=== PATIENT | female | born 1985 | race Caucasian/White ===

== ENCOUNTER 2017-04-24 06:08 | Outpatient (CLI) | payer MEDICAID | END 2017-04-24 06:09 | disposition short-term general hospital (02) | LOC: EMS 06:08 | PROVIDERS: ATTEND Surgery | DX: M25.562 Pain in left knee (principal); R06.02 Shortness of breath | CPT/HCPCS: A0170; A0425; A0427 ==

== ENCOUNTER → 2017-05-06 | Outpatient (CLI) | payer MEDICAID ==
[2017-05-06 15:42] LABS: BASOPHILS # (AUTO) 0.1 10^3/uL (0.0-0.1); BASOPHILS % (AUTO) 1.2 %; EOSINOPHILS # (AUTO) 0.2 10^3/uL (0.0-0.7); EOSINOPHILS % (AUTO) 1.2 %; HCT - HEMATOCRIT 34.3 % (37.0-47.0); HGB - HEMOGLOBIN 11.2 g/dL (12.0-16.0); LYMPHOCYTES # (AUTO) 1.8 10^3/uL (1.5-3.5); LYMPHOCYTES % (AUTO) 13.5 %; MEAN CORPUSCULAR HGB CONC 32.6 g/dL (32.0-36.0); MEAN CORPUSCULAR VOLUME 98.2 fL (81.0-99.0); MEAN PLATELET VOLUME 8.1 fL (7.9-10.8); MONOCYTES # (AUTO) 0.8 10^3/uL (0.0-1.0); MONOCYTES % (AUTO) 5.8 %; NEUTROPHILS # (AUTO) 10.2 10^3/uL (1.5-6.6); NEUTROPHILS % (AUTO) 78.3 %; NUCLEATED RED BLOOD CELLS AUTO 0.3 /100WBC; RED BLOOD COUNT 3.49 10^6/uL (4.20-5.40); RED CELL DISTRIBUTION WIDTH 13.7 % (12.0-15.0)
[2017-05-06 15:51] LABS: BUN - BLOOD UREA NITROGEN 24 mg/dL (6-20); CARBON DIOXIDE - CO2 30 mmol/L (21-32); CHLORIDE 94 mmol/L (101-111); CREATININE 0.5 mg/dL (0.4-1.0); GFR - MDRD 144 (>89); GLUCOSE 481 mg/dL (70-100); POTASSIUM 4.7 mmol/L (3.5-5.0); SODIUM 134 mmol/L (135-145)
== END ==
LOC: LAB.R 08:00
PROVIDERS: ATTEND Internal Medicine Infectious Disease
DX: A49.02 Methicillin resistant Staphylococcus aureus infection, unspecified site (principal)
CPT/HCPCS: 80048; 85025

== ENCOUNTER 2017-05-13 08:00 | Outpatient (CLI) | payer MEDICAID ==
[2017-05-13 20:34] LABS: BASOPHILS % (AUTO) 0.4 %; EOSINOPHILS # (AUTO) 0.3 10^3/uL (0.0-0.7); EOSINOPHILS % (AUTO) 5.4 %; HCT - HEMATOCRIT 39.4 % (37.0-47.0); LYMPHOCYTES # (AUTO) 0.6 10^3/uL (1.5-3.5); LYMPHOCYTES % (AUTO) 12.8 %; MEAN CORPUSCULAR HEMOGLOBIN 33.9 pg (27.0-31.0); MEAN CORPUSCULAR VOLUME 102.7 fL (81.0-99.0); MEAN PLATELET VOLUME 8.9 fL (7.9-10.8); MONOCYTES # (AUTO) 0.6 10^3/uL (0.0-1.0); MONOCYTES % (AUTO) 12.8 %; NEUTROPHILS # (AUTO) 3.4 10^3/uL (1.5-6.6); NEUTROPHILS % (AUTO) 68.6 %; NUCLEATED RED BLOOD CELLS AUTO 0.1 /100WBC; RED BLOOD COUNT 3.83 10^6/uL (4.20-5.40); UNCORRECTED WHITE BLOOD COUNT 4.9 x10^3/uL; WHITE BLOOD COUNT 4.9 x10^3/uL (4.8-10.8)
[2017-05-13 21:04] LABS: BUN - BLOOD UREA NITROGEN 19 mg/dL (6-20); CALCIUM 9.1 mg/dL (8.5-10.3); CARBON DIOXIDE - CO2 31 mmol/L (21-32); CHLORIDE 87 mmol/L (101-111); CREATININE 0.5 mg/dL (0.4-1.0); GFR - MDRD 144 (>89); GLUCOSE 746 mg/dL (70-100); POTASSIUM 4.6 mmol/L (3.5-5.0); SODIUM 129 mmol/L (135-145)
== END 2017-05-13 08:01 | disposition home or self-care (01) ==
LOC: LAB.R 08:00
PROVIDERS: ATTEND Internal Medicine
DX: A49.02 Methicillin resistant Staphylococcus aureus infection, unspecified site (principal)
CPT/HCPCS: 80048; 85025

== ENCOUNTER 2017-05-15 06:00 | Outpatient (CLI) | payer MEDICAID ==
[2017-05-15 15:57] LABS: BASOPHILS % (AUTO) 0.2 %; EOSINOPHILS # (AUTO) 0.6 10^3/uL (0.0-0.7); HCT - HEMATOCRIT 39.3 % (37.0-47.0); HGB - HEMOGLOBIN 13.2 g/dL (12.0-16.0); LYMPHOCYTES # (AUTO) 0.8 10^3/uL (1.5-3.5); LYMPHOCYTES % (AUTO) 17.4 %; MEAN CORPUSCULAR HEMOGLOBIN 32.6 pg (27.0-31.0); MEAN CORPUSCULAR HGB CONC 33.7 g/dL (32.0-36.0); MEAN CORPUSCULAR VOLUME 96.7 fL (81.0-99.0); MEAN PLATELET VOLUME 8.8 fL (7.9-10.8); MONOCYTES # (AUTO) 0.7 10^3/uL (0.0-1.0); MONOCYTES % (AUTO) 15.4 %; NEUTROPHILS # (AUTO) 2.6 10^3/uL (1.5-6.6); NUCLEATED RED BLOOD CELLS AUTO 0.1 /100WBC; RED BLOOD COUNT 4.06 10^6/uL (4.20-5.40); RED CELL DISTRIBUTION WIDTH 14.6 % (12.0-15.0); UNCORRECTED WHITE BLOOD COUNT 4.8 x10^3/uL; WHITE BLOOD COUNT 4.8 x10^3/uL (4.8-10.8)
[2017-05-15 16:41] LABS: BUN - BLOOD UREA NITROGEN 19 mg/dL (6-20); CALCIUM 8.9 mg/dL (8.5-10.3); CARBON DIOXIDE - CO2 28 mmol/L (21-32); CHLORIDE 94 mmol/L (101-111); CREATININE 0.5 mg/dL (0.4-1.0); GFR - MDRD 144 (>89); GLUCOSE 324 mg/dL (70-100); POTASSIUM 3.6 mmol/L (3.5-5.0); SODIUM 132 mmol/L (135-145)
== END 2017-05-15 06:01 | disposition home or self-care (01) ==
LOC: LAB.R 06:00
PROVIDERS: ATTEND Internal Medicine
DX: A49.02 Methicillin resistant Staphylococcus aureus infection, unspecified site (principal)
CPT/HCPCS: 80048; 85025

== ENCOUNTER 2017-05-16 08:31 | Outpatient (CLI) | payer MEDICAID ==
[2017-05-16] MEDS ORDERED: GADOBUTROL 7.5 MMOL/7.5 ML VIAL IVP ONE (09:54)
--- NOTE | 2017-05-16 14:18 | MRI Report ---
EXAM: LEFT FEMUR/THIGH MRI WITHOUT AND WITH CONTRAST EXAM DATE: 05/16/2017 10:19 AM. CLINICAL HISTORY: Myositis and abscesses at the left thigh. Distal posterior left thigh pain and swel ling. Follow-up. COMPARISON: Left thigh MRI from 04/28/2017. TECHNIQUE: Multiplanar, multisequence T1-weighted and fluid-sensitive sequences of the thigh before a nd after administration of intravenous contrast. IV contrast: 5.5 cc Gadavist. Other: None. FINDINGS: There is an irregularly-shaped, encapsulated, fluid intense collection mostly between the posterior a spect of the distal femoral diaphysis, anterior to the semimembranosus and semitendinosus muscles, an d medial to the biceps femoris muscles concerning for an abscess. The overall size of the abscess is approximately 8 cm proximal to distal by 6.6 cm AP by 4.6 cm medial to lateral. There is a thick rim of enhancing tissue at the margins of the presumed abscess. There is abnormal edema signal and enhancement within the vastus intermedius, adductor dorothy, biceps femoris, sartorius muscles. The degree and extent of the muscle edema and enhancement appears to hav e decreased since the previous study. However, the abscess appears more discrete and liquefied in com parison to the previous study. The medial margin of the abscess abuts the distal femoral artery and v ein. The femoral artery and popliteal artery appear patent. There is questionable slow flow or partia lly occlusive thrombus within the distal femoral vein and possibly the popliteal vein. There is no de finite evidence of osteomyelitis. The visualized tendons are intact. Other: The visualized sciatic and femoral nerves are unremarkable. There is diffuse subcutaneous elan a at the mid and distal thigh. There is focal subcutaneous enhancement at the posterior aspect of the distal thigh suggestive of cellulitis. No definite soft tissue gas is seen. IMPRESSION: 1. An approximately 8 x 6.6 x 4.6 cm abscess between the posterior aspect of the distal femoral diaph ysis, anterior to the semimembranosus and semi-tendinosis muscles, and medial to the biceps femoris m uscles. The abscess appears more discrete and liquefied in comparison to the previous study. The absc ess also appears to be slightly larger in comparison to the previous study. 2. Myositis within the vastus intermedius, abductor dorothy, biceps femoris, and sartorius muscles. Th e degree and extent of myositis appears to have decreased since the previous study. 3. The medial margin of the abscess abuts the distal femoral artery and vein. There is questionable s low flow or partially occlusive thrombus within the distal femoral vein and possibly the popliteal ve in. Recommend further evaluation with Doppler ultrasound. 4. No definite evidence of osteomyelitis. 5. Cellulitis at the posterior aspect of the distal thigh. [facility] MUSCULOSKELETAL RADIOLOGY SECTION The above critical findings were discussed with Bartolo You by Dr. Jeremie Fonseca at 14:14 hrs on 05/16/17 . Referring Provider Line: [phone] SITE ID: [id number]
== END 2017-05-16 08:32 | disposition home or self-care (01) ==
LOC: DI 08:31
PROVIDERS: ATTEND Internal Medicine
DX: L02.416 Cutaneous abscess of left lower limb (principal); M60.9 Myositis, unspecified; L03.116 Cellulitis of left lower limb
CPT/HCPCS: 73720; A9585

== ENCOUNTER → 2017-05-27 | Outpatient (CLI) | payer MEDICAID ==
[2017-05-27 21:22] LABS: BASOPHILS # (AUTO) 0.1 10^3/uL (0.0-0.1); BASOPHILS % (AUTO) 0.6 %; EOSINOPHILS # (AUTO) 2.8 10^3/uL (0.0-0.7); EOSINOPHILS % (AUTO) 23.7 %; HCT - HEMATOCRIT 40.5 % (37.0-47.0); HGB - HEMOGLOBIN 13.3 g/dL (12.0-16.0); LYMPHOCYTES % (AUTO) 25.7 %; MEAN CORPUSCULAR HEMOGLOBIN 32.4 pg (27.0-31.0); MEAN CORPUSCULAR HGB CONC 32.9 g/dL (32.0-36.0); MEAN CORPUSCULAR VOLUME 98.4 fL (81.0-99.0); MEAN PLATELET VOLUME 9.7 fL (7.9-10.8); MONOCYTES # (AUTO) 0.9 10^3/uL (0.0-1.0); MONOCYTES % (AUTO) 8.1 %; NEUTROPHILS # (AUTO) 4.9 10^3/uL (1.5-6.6); NEUTROPHILS % (AUTO) 41.9 %; RED BLOOD COUNT 4.12 10^6/uL (4.20-5.40); RED CELL DISTRIBUTION WIDTH 14.5 % (12.0-15.0); UNCORRECTED WHITE BLOOD COUNT 11.7 x10^3/uL; WHITE BLOOD COUNT 11.7 x10^3/uL (4.8-10.8)
[2017-05-27 21:35] LABS: BUN - BLOOD UREA NITROGEN 16 mg/dL (6-20); CALCIUM 9.5 mg/dL (8.5-10.3); CARBON DIOXIDE - CO2 31 mmol/L (21-32); CHLORIDE 101 mmol/L (101-111); CREATININE 0.5 mg/dL (0.4-1.0); GFR - MDRD 144 (>89); GLUCOSE 191 mg/dL (70-100); SODIUM 137 mmol/L (135-145)
[2017-05-27 21:55] LABS: PLATELET ESTIMATE, MANUAL NORMAL (130-450,000) (NORMAL); PLATELET MORPHOLOGY NORMAL APPEARANCE (NORMAL)
== END ==
LOC: LAB.R 08:00
PROVIDERS: ATTEND Internal Medicine
DX: A49.02 Methicillin resistant Staphylococcus aureus infection, unspecified site (principal)
CPT/HCPCS: 80048; 85025; 85651; 86140

== ENCOUNTER → 2017-05-27 | Outpatient (CLI) | payer MEDICAID | LOC: LAB 13:45 | PROVIDERS: ATTEND Internal Medicine | DX: Z53.9 Procedure and treatment not carried out, unspecified reason (principal) ==

== ENCOUNTER 2017-11-03 07:50 | Outpatient (CLI) | payer MEDICAID | END 2017-11-03 07:51 | disposition short-term general hospital (02) | LOC: EMS 07:50 | PROVIDERS: ATTEND Surgery | DX: R46.4 Slowness and poor responsiveness (principal); R73.09 Other abnormal glucose | CPT/HCPCS: A0425; A0427 ==

== ENCOUNTER 2018-05-30 13:25 | Outpatient (CLI) | payer MEDICAID | END 2018-05-30 13:26 | disposition short-term general hospital (02) | LOC: EMS 13:25 | PROVIDERS: ATTEND Surgery | DX: R53.83 Other fatigue (principal) | CPT/HCPCS: A0425; A0427; A0999 ==

== ENCOUNTER 2018-08-21 08:32 | Outpatient (CLI) | payer MEDICAID | END 2018-08-21 08:33 | disposition short-term general hospital (02) | LOC: EMS 08:32 | PROVIDERS: ATTEND Surgery | DX: R41.82 Altered mental status, unspecified (principal); R73.09 Other abnormal glucose; S61.203A Unspecified open wound of left middle finger without damage to nail, initial encounter; X58.XXXA Exposure to other specified factors, initial encounter | CPT/HCPCS: A0425; A0427; A0999 ==

== ENCOUNTER 2018-08-27 16:30 | Outpatient (CLI) | payer MEDICAID | END 2018-08-27 16:31 | disposition short-term general hospital (02) | LOC: EMS 16:30 | PROVIDERS: ATTEND Surgery | DX: R46.4 Slowness and poor responsiveness (principal); R73.09 Other abnormal glucose | CPT/HCPCS: A0425; A0427; A0999 ==

== ENCOUNTER 2018-10-14 23:30 | Outpatient (CLI) | payer MEDICAID | END 2018-10-14 23:31 | disposition critical access hospital (66) | LOC: EMS 23:30 | PROVIDERS: ATTEND Surgery | DX: R40.4 Transient alteration of awareness (principal) | CPT/HCPCS: A0425; A0427; A0999 ==

== ENCOUNTER 2018-10-14 23:52 | Inpatient (IN) | payer MEDICAID ==
[2018-10-14] MEDS ORDERED: SODIUM CHLORIDE 0.9% 500 ML IV ONE (23:57)
[2018-10-14] MEDS ORDERED: SODIUM CHLORIDE 0.9% 1,000 ML IV ONE ×2 (23:57→23:58)
[2018-10-15 00:08] LABS: VBG BASE EXCESS -35.8 mmol/L (-2 - +2); VBG PCO2 15.7 mmHg (41-51); VBG PH 6.648 (7.31-7.41); VBG PO2 102.5 mmHg (25-47); VBG TOTAL CO2 2.2 mmol/L (24-29)
[2018-10-15] MEDS ORDERED: SODIUM BICARBONATE 100 MEQ in DEXTROSE 5% 1,000 ML IV STA (00:10)
[2018-10-15 00:14] LABS: EOSINOPHILS % (AUTO) 0.5 %; HGB - HEMOGLOBIN 15.2 g/dL (12.0-16.0); LYMPHOCYTES % (AUTO) 11.3 %; MEAN CORPUSCULAR HGB CONC 30.1 g/dL (32.0-36.0); MEAN PLATELET VOLUME 9.7 fL (7.9-10.8); MONOCYTES % (AUTO) 5.7 %; NEUTROPHILS % (AUTO) 81.5 %; PLT - PLATELET COUNT 301 10^3/uL (130-450); RED BLOOD COUNT 4.46 10^6/uL (4.20-5.40); RED CELL DISTRIBUTION WIDTH 15.2 % (12.0-15.0); WHITE BLOOD COUNT 20.6 x10^3/uL (4.8-10.8)
[2018-10-15 00:24] LABS: BILIRUBIN,URINE NEGATIVE (NEGATIVE); GLUCOSE, URINE (UA) >=1000 mg/dL (NEGATIVE); KETONES,URINE (UA) >=80 mg/dL (NEGATIVE); LEUKOCYTE ESTERASE, URINE NEGATIVE (NEGATIVE); NITRITE,URINE NEGATIVE (NEGATIVE); OCCULT BLOOD,URINE MODERATE (NEGATIVE); PROTEIN,URINE NEGATIVE (NEGATIVE); UROBILINOGEN,URINE 0.2 (NORMAL) E.U./dL (NORMAL)
[2018-10-15] MEDS ORDERED: DEXTROSE 5% 1,000 ML IV ONE (00:26)
[2018-10-15] MEDS ORDERED: SODIUM BICARBONATE ABBOJECT 50 MEQ/50 ML SYRINGE ONE ×2 (00:28→03:29)
[2018-10-15 00:31] LABS: ACETAMINOPHEN < 10 ug/mL (10-30); ALBUMIN 3.1 g/dL (3.2-5.5); ALBUMIN/GLOBULIN RATIO 1.1 (1.0-2.2); ALKALINE PHOSPHATASE 131 IU/L (42-121); ALT ALANINE AMINOTRANSFERASE 20 IU/L (10-60); AST ASPARTATE AMINOTRANSFERASE 17 IU/L (10-42); BILIRUBIN,TOTAL 2.1 mg/dL (0.2-1.0); BUN - BLOOD UREA NITROGEN 51 mg/dL (6-20); CALCIUM 9.1 mg/dL (8.5-10.3); CARBON DIOXIDE - CO2 < 6 mmol/L (21-32); CHLORIDE 97 mmol/L (101-111); CREATININE 1.6 mg/dL (0.4-1.0); GFR - MDRD 37 (>89); GLUCOSE 849 mg/dL (70-100); LIPASE 284 U/L (22-51); SALICYLATE < 6.0 mg/dL; SODIUM 132 mmol/L (135-145); TOTAL PROTEIN 5.8 g/dL (6.7-8.2)
[2018-10-15 00:33] LABS: CLARITY,URINE CLEAR (CLEAR); HCG UR QUAL NEGATIVE; RBC,URINE 0-5 /HPF (0-5); SQUAMOUS EPITHELIAL CELL,UR NONE SEEN (<= Few)
[2018-10-15 00:34] LABS: BACTERIA,URINE None Seen /HPF (None Seen)
[2018-10-15 00:37] LABS: AMPHETAMINE SCREEN,URINE POSITIVE (NEGATIVE); BENZODIAZEPINES SCREEN, URINE NEGATIVE (NEGATIVE); COCAINE SCREEN URINE NEGATIVE (NEGATIVE); METHADONE SCREEN, URINE NEGATIVE (NEGATIVE); METHAMPHETAMINES SCREEN, URINE POSITIVE (NEGATIVE); MUDS CUTOFF CONCENTRATIONS CUTOFF CONC BELOW:; OPIATE SCREEN, URINE NEGATIVE (NEGATIVE); OXYCODONE SCREEN, URINE NEGATIVE (NEGATIVE); PROPOXYPHENE SCREEN, URINE NEGATIVE (NEGATIVE); TRICYCLIC ANTIDEPRESSANT,URINE NEGATIVE (NEGATIVE)
--- NOTE | 2018-10-15 00:40 | XRAY Report ---
Reason: DKA Procedure Date: 10/15/2018 Accession Number: [id number] / [id number] Procedure: XR - Chest 1 View X-Ray CPT Code: 23915 FULL RESULT: EXAM: CHEST RADIOGRAPHY EXAM DATE: 10/15/2018 12:29 AM. CLINICAL HISTORY: DKA. COMPARISON: None. TECHNIQUE: 1 view. FINDINGS: Lungs/Pleura: Right midlung infiltrate. No effusion or pneumothorax. Mediastinum: Within exam limitations, the cardiomediastinal contour is normal. Other: None. IMPRESSION: Right midlung infiltrate. [facility]
[2018-10-15] MEDS ORDERED: INSULIN REGULAR HUMAN 100 UNIT in SODIUM CHLORIDE 0.9% 100ML 99 ML SUBQ STA (00:41)
[2018-10-15] MEDS ORDERED: cefTRIAXone 1 GM in SODIUM CHLORIDE 0.9% MINIBAG 100 ML IV STA (00:41)
[2018-10-15] MEDS ORDERED: AZITHROMYCIN INJ 500 MG in SODIUM CHLORIDE 0.9% 250 ML IV STA (00:41)
[2018-10-15 00:44] LABS: ABNORMAL LYMPHS % (MANUAL) 3 %; BAND NEUTROPHILS % (MANUAL) 13 %; BASOPHILS # (MANUAL) 0.4 10^3/uL (0-0.1); BASOPHILS % (MANUAL) 2 %; EOSINOPHILS # (MANUAL) 0.6 10^3/uL (0-0.7); LYMPHOCYTES # (MANUAL) 3.5 10^3/uL (1.5-3.5); LYMPHOCYTES % (MANUAL) 14 %; MONOCYTES # (MANUAL) 1.4 10^3/uL (0.0-1.0); NEUTROPHILS # (MANUAL) 14.6 10^3/uL (1.5-6.6); NEUTROPHILS % (MANUAL) 58 %
[2018-10-15 00:46] LABS: PLATELET ESTIMATE, MANUAL NORMAL (130-450,000) (NORMAL)
[2018-10-15] MEDS ORDERED: POTASSIUM CHLOR 10 MEQ/100 ML 10 MEQ/100 ML BAG IV STA ×2 (00:58)
[2018-10-15] MEDS ORDERED: SODIUM CHLORIDE 0.9% 1,000 ML IV SCH ×3 (01:00→01:21)
[2018-10-15] MEDS ORDERED: SODIUM BICARBONATE 100 MEQ in DEXTROSE 5% 1,000 ML IV SCH (01:00)
[2018-10-15] MEDS ORDERED: INSULIN REGULAR HUMAN 100 UNIT in SODIUM CHLORIDE 0.9% 100ML 99 ML IV SCH (01:00)
[2018-10-15] MEDS ORDERED: DEXTROSE 5%-0.45% NACL 1,000 ML IV SCH (01:00)
[2018-10-15] MEDS ORDERED: POTASSIUM CHLOR 10 MEQ/100 ML 10 MEQ/100 ML BAG IV SCH ×2 (01:00→19:00)
[2018-10-15] MEDS ORDERED: AZITHROMYCIN INJ 500 MG in SODIUM CHLORIDE 0.9% 250 ML IV SCH (02:00)
[2018-10-15] MEDS ORDERED: [UNRECOGNIZED DRUG - OTHER] IV SCH (02:00)
[2018-10-15] MEDS ORDERED: POTASSIUM CHLORIDE IV SCH (02:00)
[2018-10-15] MEDS ORDERED: SODIUM BICARBONATE IV SCH (02:00)
[2018-10-15] MEDS: SODIUM CHLORIDE 0.9% 1,000 ML IV SCH ×2 (02:10→03:12)
--- NOTE | 2018-10-15 02:16 | CT Report ---
Reason: Elevated Lipase Procedure Date: 10/15/2018 Accession Number: [id number] / [id number] Procedure: CT - Abdomen/Pelvis W/O CPT Code: FULL RESULT: EXAM: CT ABDOMEN AND PELVIS EXAM DATE: 10/15/2018 01:58 AM. CLINICAL HISTORY: Elevated Lipase. COMPARISONS: None. TECHNIQUE: Routine helical CT imaging was performed through the abdomen and pelvis. IV contrast: None. Enteric contrast: No. Reconstructions: Coronal and sagittal. In accordance with CT protocol optimization, one or more of the following dose reduction techniques were utilized for this exam: automated exposure control, adjustment of mA and/or KV based on patient size, or use of iterative reconstructive technique. FINDINGS: Lung Bases: Right greater than left infiltrates. Liver: Normal. No masses. Gallbladder/Bile Ducts: Unremarkable. Spleen: Normal. Pancreas: Limited visualization without contrast. Likely peripancreatic edema. Adrenal Glands: Normal. Kidneys: The right kidney contains 1 mm nonobstructing calculi. The left kidney appears unremarkable. Peritoneal Cavity/Bowel: Normal. No free fluid, free air or adenopathy. No masses or acute inflammatory process. The appendix is well visualized and normal. Pelvic Organs: Aguero catheter in the urinary bladder. No free fluid. Vasculature: No aneurysms or other significant abnormality. Bones: No significant abnormality. Other: None. IMPRESSION: Right greater than left pulmonary infiltrates. Suboptimal visualization of the pancreas, but likely peripancreatic edema. Tiny nonobstructing right renal calculi. [facility]
--- NOTE | 2018-10-15 02:18 | ED Physician Documentation ---
PD HPI ALTERED MENTAL STATUS - Stated complaint Stated Complaint: HIGH BLOOD SUGAR, DKA - Chief complaint Chief Complaint: General - History obtained from History obtained from: Friend - History of Present Illness Timing - onset: How many days ago (3) Timing - duration: Days (3) Timing - details: Gradual onset Quality / character: Less responsive, Agitated Associated symptoms: Dyspnea Contributing factors: Diabetic Basline status: Alert and oriented X 3 - Additional information Additional information: 33-year-old type I diabetic with poor medication compliance presents with altered mental status and Kussmaul breathing. Review of Systems Unable to obtain: AMS PD PAST MEDICAL HISTORY - Past Medical History Endocrine/Autoimmune: Type 1 diabetes - Past Surgical History Other past surgical history: Reviewed and not pertinent - Allergies Allergies/Adverse Reactions: Allergies Allergy/AdvReac Type Severity Reaction Status Date / Time Unable to Assess Allergy Verified 10/15/18 00:17 - Living Situation Living Situation: reports: With spouse/s.o. Living Arrangement: reports: At home - Social History Does the pt smoke?: Yes Does the pt drink ETOH?: Yes Does the pt have substance abuse?: Yes Substance Use and Type: Meth - Family History Family history: reports: Other (Reviewed and not pertinent) PD ED PE NORMAL - Vitals Vital signs reviewed: Yes - General General: No acute distress, Other (Altered) - HEENT HEENT: PERRL - Neck Neck: Supple, no meningeal sign - Cardiac Cardiac: RRR, No murmur - Respiratory Respiratory: Clear bilaterally, Other (Tachypnic) - Abdomen Abdomen: Normal bowel sounds, Soft, Non tender, Non distended - Derm Derm: Warm and dry, Other (Mottled) - Extremities Extremities: No deformity - Neuro Neuro: Other (Altered) Results - Vitals Vitals: Vital Signs - 24 hr 10/14/18 10/15/18 23:55 00:29 Temperature 35.0 C L Heart Rate 82 72 Respiratory 30 H 28 H Rate Blood Pressure 90/60 92/57 L O2 Saturation 95 96 Oxygen O2 Source Room air - Labs Labs: Laboratory Tests 10/14/18 10/14/18 10/14/18 23:58 23:58 23:58 WBC 20.6 H RBC 4.46 Hgb 15.2 Hct 50.4 H MCV 113.0 H MCH 34.0 H MCHC 30.1 L RDW 15.2 H Plt Count 301 MPV 9.7 Neut # (Auto) Not Reportable Lymph # (Auto) Not Reportable Miller # (Auto) Not Reportable Eos # (Auto) Not Reportable Baso # (Auto) Not Reportable Absolute Nucleated RBC Not Reportable Total Counted 100 Band Neuts % (Manual) 13 H Abnorm Lymph % (Manual) 3 Nucleated RBC % Not Reportable Neutrophils # (Manual) 14.6 H Lymphocytes # (Manual) 3.5 Monocytes # (Manual) 1.4 H Eosinophils # (Manual) 0.6 Basophils # (Manual) 0.4 H WBC Morphology 3+ SMUDGE CELLS Platelet Estimate NORMAL (130-450,000) RBC Morph Micro Appear 3+ MACROCYTOSIS VBG pH 6.648 L VBG pCO2 15.7 L VBG pO2 102.5 H VBG HCO3 1.7 L VBG Total CO2 2.2 L VBG O2 Saturation 95.7 H VBG Base Excess -35.8 L Sodium 132 L Potassium 4.9 Chloride 97 L Carbon Dioxide < 6 L* Anion Gap 29.0 H BUN 51 H Creatinine 1.6 H Estimated GFR (MDRD) 37 L Glucose 849 H* Lactic Acid Calcium 9.1 Total Bilirubin 2.1 H AST 17 ALT 20 Alkaline Phosphatase 131 H Total Protein 5.8 L Albumin 3.1 L Globulin 2.7 Albumin/Globulin Ratio 1.1 Lipase 284 H Urine Color Urine Clarity Urine pH Ur Specific [place] Urine Protein Urine Glucose (UA) Urine Ketones Urine Occult Blood Urine Nitrite Urine Bilirubin Urine Urobilinogen Ur Leukocyte Esterase Urine RBC Urine WBC Ur Squamous Epith Cells Urine Bacteria Ur Microscopic Review Urine Culture Comments Urine HCG, Qual Salicylates < 6.0 Urine Opiates Screen Ur Oxycodone Screen Urine Methadone Screen Ur Propoxyphene Screen Acetaminophen < 10 L Ur Barbiturates Screen Ur Tricyclics Screen Ur Phencyclidine Scrn Ur Amphetamine Screen U Methamphetamines Scrn U Benzodiazepines Scrn Urine Cocaine Screen U Cannabinoids Screen Ethyl Alcohol < 5.0 10/14/18 10/15/18 10/15/18 23:59 00:05 00:05 WBC RBC Hgb Hct MCV MCH MCHC RDW Plt Count MPV Neut # (Auto) Lymph # (Auto) Miller # (Auto) Eos # (Auto) Baso # (Auto) Absolute Nucleated RBC Total Counted Band Neuts % (Manual) Abnorm Lymph % (Manual) Nucleated RBC % Neutrophils # (Manual) Lymphocytes # (Manual) Monocytes # (Manual) Eosinophils # (Manual) Basophils # (Manual) WBC Morphology Platelet Estimate RBC Morph Micro Appear VBG pH VBG pCO2 VBG pO2 VBG HCO3 VBG Total CO2 VBG O2 Saturation VBG Base Excess Sodium Potassium Chloride Carbon Dioxide Anion Gap BUN Creatinine Estimated GFR (MDRD) Glucose Lactic Acid 2.6 H Calcium Total Bilirubin AST ALT Alkaline Phosphatase Total Protein Albumin Globulin Albumin/Globulin Ratio Lipase Urine Color YELLOW Urine Clarity CLEAR Urine pH 5.0 Ur Specific [place] 1.020 Urine Protein NEGATIVE Urine Glucose (UA) >=1000 H Urine Ketones >=80 H Urine Occult Blood MODERATE H Urine Nitrite NEGATIVE Urine Bilirubin NEGATIVE Urine Urobilinogen 0.2 (NORMAL) Ur Leukocyte Esterase NEGATIVE Urine RBC 0-5 Urine WBC 0-3 Ur Squamous Epith Cells NONE SEEN Urine Bacteria None Seen Ur Microscopic Review INDICATED Urine Culture Comments NOT INDICATED Urine HCG, Qual NEGATIVE Salicylates Urine Opiates Screen NEGATIVE Ur Oxycodone Screen NEGATIVE Urine Methadone Screen NEGATIVE Ur Propoxyphene Screen NEGATIVE Acetaminophen Ur Barbiturates Screen NEGATIVE Ur Tricyclics Screen NEGATIVE Ur Phencyclidine Scrn NEGATIVE Ur Amphetamine Screen POSITIVE H U Methamphetamines Scrn POSITIVE H U Benzodiazepines Scrn NEGATIVE Urine Cocaine Screen NEGATIVE U Cannabinoids Screen NEGATIVE Ethyl Alcohol Procedures - Central Line Central Line Preparation: Unable to obtain consent, Time out completed, Ultrasound used, Sterile prep and drape Central line location: Right IJ Central line type: Triple lumen Central line aftercare: Chlorhexidine disc placed, Secured, Placement confirmed, No pneumothorax, No complications, Bundle checklist complete, Pt tolerated well PD MEDICAL DECISION MAKING - ED course Complexity details: reviewed old records, reviewed results, re-evaluated patient, considered differential, d/w public relations consultant ED course: 33-year-old female presents with altered mental status and tachypnea. Labs consistent with diabetic ketoacidosis, septic shock, acute pancreatitis, acute kidney injury.Is notable for elevated white count, anion gap, severe acidosis, elevated lipase, elevated creatinine,Lactic acid.Patient given IV fluids, insulin, bicarb drip, central line placed, admitted to ICU.Patient treated with broad-spectrum antibiotics. - Critical Care Time(min): 60 Time Includes: Direct patient care, Review records, Reassess patient, Document care, Coordinate care, Medical consult, Family consult for tx dec, See progress note Data interpretation: Labs, Pulse ox, See progress note Procedures included in critical care time: See progress note Procedures excluded from critical care time: Central IV, See progress note Departure - Departure Disposition: 66 [facility] DC/Xfb[facility]on Discharge Date/Time: 10/15/18 01:40
--- NOTE | 2018-10-15 02:20 | CT Report ---
Reason: ALOC Procedure Date: 10/15/2018 Accession Number: [id number] / [id number] Procedure: CT - Head W/O CPT Code: FULL RESULT: EXAM: CT HEAD EXAM DATE: 10/15/2018 02:01 AM. CLINICAL HISTORY: Decreased level of consciousness COMPARISON: None. TECHNIQUE: Multiaxial CT images were obtained from the foramen magnum to the vertex. Reformats: Sagittal and coronal. IV contrast: None. In accordance with CT protocol optimization, one or more of the following dose reduction techniques were utilized for this exam: automated exposure control, adjustment of mA and/or KV based on patient size, or use of iterative reconstructive technique. FINDINGS: Parenchyma: No intraparenchymal hemorrhage. No evidence of mass, midline shift, or CT findings of infarction. Nichols-white differentiation is distinct. Extraaxial Spaces: Normal for age. No subdural or epidural collections identified. Ventricles: Normal in size and position. Sinuses and Orbits: Imaged paranasal sinuses, orbits, and mastoids show no significant abnormality. Bones: No evidence of fracture or calvarial defect. Other: None. IMPRESSION: Normal head CT. [facility]
[2018-10-15 02:56] LABS: BUN - BLOOD UREA NITROGEN 48 mg/dL (6-20); CALCIUM 7.9 mg/dL (8.5-10.3); CHLORIDE 104 mmol/L (101-111); CK- CREATINE KINASE 72 IU/L (22-269); CREATININE 1.5 mg/dL (0.4-1.0); GFR - MDRD 40 (>89); GLUCOSE 817 mg/dL (70-100); SODIUM 134 mmol/L (135-145)
[2018-10-15 02:57] LABS: CARBON DIOXIDE - CO2 < 6 mmol/L (21-32)
[2018-10-15] MEDS ORDERED: VANCOMYCIN PER PHARMACY 0.1 GM in SODIUM CHLORIDE 0.9% 250 ML IV SCH (03:00)
--- NOTE | 2018-10-15 03:14 | XRAY Report ---
Reason: line placement Procedure Date: 10/15/2018 Accession Number: [id number] / [id number] Procedure: XR - Chest 1 View X-Ray CPT Code: 61739 FULL RESULT: EXAM: CHEST RADIOGRAPHY EXAM DATE: 10/15/2018 03:02 AM. CLINICAL HISTORY: Line placement. COMPARISON: CHEST 1 VIEW 10/15/2018 12:15 AM ABDOMEN/PELVIS W/O 10/15/2018 1:44 AM. TECHNIQUE: 1 view. FINDINGS: Lungs/Pleura: Stable right perihilar opacity and minimal left lung opacities. No pleural effusion. No pneumothorax. Mediastinum: Within exam limitations, the cardiomediastinal contour is normal. Other: Right central catheter tip in the middle third SVC. IMPRESSION: 1. Right central catheter tip in the middle third SVC. 2. Stable bilateral airspace opacities, worse in the right perihilar region. [facility]
[2018-10-15] MEDS ORDERED: SODIUM CHLORIDE 0.45% 1,000 ML IV ONE (03:20)
[2018-10-15 03:23] LABS: ABG HCO3 2.2 mmol/L (22.0-26.0); ABG PO2 77 mmHg (80-100)
[2018-10-15 03:24] LABS: ABG OXYGEN SATURATION 94 % (94-98); ALLEN TEST POSITIVE
[2018-10-15] MEDS ORDERED: VANCOMYCIN PER PHARMACY 0.1 GM in SODIUM CHLORIDE 0.9% 250 ML IV PRN (03:24)
[2018-10-15 03:25] LABS: ABG PCO2 15 mmHg (34-45); ABG PH 6.78 (7.35-7.45)
[2018-10-15 03:26] LABS: ABG TCO2 2.7 MMOL/L (21.0-29.0)
[2018-10-15] MEDS ORDERED: SODIUM BICARBONATE 8.4% 50 MEQ/50 ML VIAL ONE (03:28)
[2018-10-15] MEDS ORDERED: POTASSIUM CHLOR 10 MEQ/100 ML 20 MEQ/200 ML BAG IV ONE (03:34)
[2018-10-15] MEDS ORDERED: POTASSIUM CHLOR 10 MEQ/100 ML 10 MEQ/100 ML BAG IV ONE ×9 (03:45→22:38)
[2018-10-15] MEDS: SODIUM BICARBONATE 150 MEQ in SODIUM CHLORIDE 0.45% 1,000 ML IV SCH ×2 (03:58→09:54)
[2018-10-15] MEDS: SODIUM CHLORIDE FLUSH 0.9% 10 ML SYRINGE IVP SCH ×4 (04:00→19:36)
[2018-10-15] MEDS ORDERED: VANCOMYCIN INJ 0.75 GM in SODIUM CHLORIDE 0.9% 250 ML IV SCH (04:00)
[2018-10-15] MEDS: PIPERACILLIN/TAZOBACTAM 3.375 GM in SODIUM CHLORIDE 0.9% MINIBAG 100 ML IV SCH ×4 (04:02→21:06)
--- NOTE | 2018-10-15 04:37 | HISTORY & PHYSICAL EXAMINATION ---
Chief Complaint - Chief Complaint Chief Complaint: unresponsive with kussmaul respirations History of Present Illness - History of Present Illness HPI Comment/Other: Patient is a 33 y/o female who was brought to the ED via EMS in kussmaul respirations and unresponsive. The history is significantly limited because the patient is unable to provide and there is no family, friend or significant other nearby to provide. It is reported that EMS was called by her significant other. Multiple attempts to reach him have been unsuccessful. Patient is a non-compliant/adherent type I diabetic. She also uses methamphetamines and test positive on a drug screen today. At beside she is unresponsive to verbal stimulikussmaul respirations are appreciable.. Her eyes are crusted over. There is minimal reaction to light on the right. The left eye appears cloudy and raises concern for cataract. Patient's bilateral cheeks appear blushed/flushed Her lungs sound coarse. Her hands are erythematous. This is worse on the left fingers. She also has multiple wounds over her lower extremities. The one on the distal half of the left lower extremity has some purulent drainage. History - Past Medical History Endocrine/Autoimmune: reports: Type 1 diabetes - Past Surgical History Other past surgical history: Reviewed and not pertinent - Family & Social History Living arrangement: At home Living Situation: With spouse/s.o. - Substance History Abuse: Recurrent use of substance despite neg consequences: Amphetamine - POLST Patient has POLST: No POLST Status: Full Code Meds/Allgy - Allergies Allergies/Adverse Reactions: Allergies Allergy/AdvReac Type Severity Reaction Status Date / Time Unable to Assess Allergy Verified 10/15/18 00:17 Review of Systems - Other Findings Other Findings: ROS is limited because the patient is currently altered/ unresponsive and unable to provide Prior Level of Functionality: It would appear prior to presentation she was independent of activity of daily living. However she is currently unresponsive Exam - Vital Signs Reviewed Vital Signs: Yes Vital Signs: Vital Signs x48h Temp Pulse Resp BP Pulse Ox 10/15/18 00:29 72 28 H 92/57 L 96 10/14/18 23:55 35.0 C L 82 30 H 90/60 95 - Physical Exam General Appearance: positive: Other (Unresponsive, not aware of her surrounding) Eyes Bilateral: positive: Other (right pupil has sluggish response to light left cornea has a cloudy appearance. Iris is not easily visible. Reaction of pupil to light is difficult to determine Eyelids are crusted over bilaterally) ENT: positive: Dry mucous membranes Respiratory: positive: Other (Coarse breath sounds Kussmaul respirations) Cardiovascular: positive: Regular rate & rhythm, No murmur. negative: JVD present Abdomen: positive: Nml bowel sounds, No distention. negative: Guarding, Rebound Extremities: positive: Other (Erythema in hands bilaterally. L>R Multiple wounds in lower extremities. 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 Non-compliance to medication b. Drug use (methamphetamine confounding non-compliance) c. Sepsis pH 6.6, HCO3 6 Patient admitted to the ICU DKA protocol initiated Currently on insulin and bicarbonate drip On the 5th liter of normal saline bolus. Will then switch to a rate of 250ml/hr Qualifiers: Diabetes mellitus type: type 1 Diabetes mellitus complication detail: with coma Qualified Code(s): E10.11 - Type 1 diabetes mellitus with ketoacidosis with coma (2) Septic shock Conclusion/Plan: Etiology is likely multifactorial Suspect pneumonia community vs aspiration And cellulitis. Bilateral hands, worse on left hand. Wound on left distal tibial with purulent discharge as well as a wound on the right distal half of lower extremity Patient was intially given Rocephin and Azithromycin Antibiotics switched to Vancomycin and Zosyn for broader coverage Blood cultures drawn. Will monitor lactic acid Patient being hydrated with normal saline on 5L Patient on levophed. If no improvement, will consider 2D echo (in light of drug use) (3) Acute kidney injury Conclusion/Plan: Likely 2/2 DKA and sepsis. Expect improvement with treatment of the above mentioned. Monitoring. Will r/o Rhadomyolysis by checking CK (4) Diabetic retinopathy associated with type 1 diabetes mellitus Conclusion/Plan: May be addressed outpatient Qualifiers: Diabetic retinopathy severity: with unspecified retinopathy severity Diabetes mellitus macular edema: macular edema presence unspecified Laterality: left Qualified Code(s): E10.319 - Type 1 diabetes mellitus with unspecified diabetic retinopathy without macular edema (5) Acute pancreatitis Conclusion/Plan: Lipase 284. CT shows peripancreatic edema Hydrating patient. Trend lipase X 2 Qualifiers: Pancreatitis type: unspecified pancreatitis type Acute pancreatitis complication: unspecified Qualified Code(s): K85.90 - Acute pancreatitis without necrosis or infection, unspecified - Lab Results Fish Bones: 10/14/18 23:58 10/15/18 04:00 Core Measures - Anticipated LOS I expect patient to be DC'd or transferred within 96 hours.: No - DVT/VTE - Prophylaxis VTE/DVT Device ordered at admit?: Yes VTE/DVT Prophylaxis med ordered at admit?: Yes
[2018-10-15 04:39] LABS: BILIRUBIN,URINE NEGATIVE (NEGATIVE); GLUCOSE, URINE (UA) >=1000 mg/dL (NEGATIVE); KETONES,URINE (UA) 40 mg/dL (NEGATIVE); LEUKOCYTE ESTERASE, URINE NEGATIVE (NEGATIVE); NITRITE,URINE NEGATIVE (NEGATIVE); OCCULT BLOOD,URINE MODERATE (NEGATIVE); PROTEIN,URINE 30 mg/dL (NEGATIVE); UROBILINOGEN,URINE 0.2 (NORMAL) E.U./dL (NORMAL)
[2018-10-15 04:42] LABS: CLARITY,URINE CLEAR (CLEAR)
[2018-10-15 04:59] LABS: BACTERIA,URINE Rare /HPF (None Seen); MUCUS,URINE Moderate Strands; RBC,URINE 0-5 /HPF (0-5); SQUAMOUS EPITHELIAL CELL,UR MOD Squamous (<= Few)
[2018-10-15 05:01] LABS: CASTS, URINE >50 Granular Casts /LPF
[2018-10-15 05:32] LABS: BASOPHILS # (AUTO) 0.2 10^3/uL (0.0-0.1); BASOPHILS % (AUTO) 0.9 %; EOSINOPHILS % (AUTO) 0.1 %; HGB - HEMOGLOBIN 14.9 g/dL (12.0-16.0); LYMPHOCYTES # (AUTO) 2.1 10^3/uL (1.5-3.5); LYMPHOCYTES % (AUTO) 11.2 %; MEAN CORPUSCULAR HEMOGLOBIN 33.6 pg (27.0-31.0); MEAN CORPUSCULAR HGB CONC 31.1 g/dL (32.0-36.0); MEAN PLATELET VOLUME 9.9 fL (7.9-10.8); MONOCYTES # (AUTO) 0.4 10^3/uL (0.0-1.0); MONOCYTES % (AUTO) 1.9 %; NEUTROPHILS % (AUTO) 85.9 %; PLT - PLATELET COUNT 213 10^3/uL (130-450); RED BLOOD COUNT 4.44 10^6/uL (4.20-5.40); RED CELL DISTRIBUTION WIDTH 14.4 % (12.0-15.0); WHITE BLOOD COUNT 18.5 x10^3/uL (4.8-10.8)
[2018-10-15 05:40] LABS: CALCIUM 7.4 mg/dL (8.5-10.3); CREATININE 1.4 mg/dL (0.4-1.0)
[2018-10-15 05:55] LABS: HB2 TOTAL 15.9 g/dL; HEMOGLOBIN A1C 2.18 g/dL; HEMOGLOBIN A1C % 14.7 % (4.6-6.2)
[2018-10-15 06:20] LABS: PLATELET ESTIMATE, MANUAL NORMAL (130-450,000) (NORMAL)
[2018-10-15] MEDS: PANTOPRAZOLE 40 MG VIAL IVP SCH (06:24)
[2018-10-15 06:28] LABS: VBG PH 6.983 (7.31-7.41)
[2018-10-15 06:32] LABS: CALCIUM 7.4 mg/dL (8.5-10.3); CREATININE 1.4 mg/dL (0.4-1.0); MAGNESIUM 1.9 mg/dL (1.7-2.8)
[2018-10-15 06:45] LABS: ABG BASE EXCESS -24.5 mmol/L (-2.0-3.0); ABG HCO3 4.5 mmol/L (22.0-26.0); ABG OXYGEN SATURATION 88 % (94-98); ALLEN TEST POSITIVE
[2018-10-15 06:46] LABS: ABG PCO2 18 mmHg (34-45); ABG PH 7.03 (7.35-7.45); ABG PO2 46 mmHg (80-100); ABG TCO2 5.1 MMOL/L (21.0-29.0)
--- NOTE | 2018-10-15 07:07 | XRAY Report ---
Reason: increasing oxygen demand Procedure Date: 10/15/2018 Accession Number: [id number] / [id number] Procedure: XR - Chest 1 View X-Ray CPT Code: 31719 FULL RESULT: EXAM: CHEST RADIOGRAPHY EXAM DATE: 10/15/2018 06:42 AM. CLINICAL HISTORY: Increasing oxygen demand. COMPARISON: CHEST 1 VIEW 10/15/2018 2:52 AM. TECHNIQUE: 1 view. FINDINGS: Lungs/Pleura: Asymmetric interstitial and airspace opacities with dense right midlung opacity is again seen. No pneumothorax. Mediastinum: Heart size and mediastinal contour are stable. Other: Right IJ catheter is unchanged. IMPRESSION: 1. Asymmetric right greater left dense interstitial and airspace opacities without significant change. [facility]
[2018-10-15] MEDS ORDERED: cefTRIAXone 1 GM in SODIUM CHLORIDE 0.9% MINIBAG 100 ML IV SCH (09:00)
[2018-10-15] MEDS: SODIUM CHLORIDE FLUSH 0.9% 10 ML SYRINGE IVP PRN ×9 (09:07→22:15)
[2018-10-15] MEDS: ENOXAPARIN 40 MG/0.4 ML SYRINGE SUBQ SCH (09:08)
[2018-10-15] MEDS ORDERED: SODIUM CHLORIDE 0.9% 500 ML IV PRN (09:40)
[2018-10-15] MEDS ORDERED: LIDOCAINE JELLY 2% 5 ML TUBE TOP SCH (11:23)
[2018-10-15] MEDS: INSULIN REGULAR HUMAN 100 UNIT in SODIUM CHLORIDE 0.9% 100ML 99 ML IV SCH (11:52)
--- NOTE | 2018-10-15 12:37 | PROVIDER PROGRESS NOTE ---
Hospitalist Cross-cover Note - Cross-Cover Note Cross-Cover Note: The patient was just admitted at 4:30 am, 8 hours ago, I am rounding on her on the Day shift. BP 90 on Levophed at 8, HR 123 in sinus tachy, Temp was hypothermic on admission, now Temp is rising to 37.4 PE- Obtunded, responds to pain only. Cachectic appearing. HEENT: eyes are swollen Chest: clear, tachypneic Heart: tachy, no murmur Abd: soft, scaphoid, no bowel sounds Extrem: has multiple escharred lesions on upper and lower extremities, purulent wounds of L toe and L ferris Neuro: comatose Diagnoses and Plan: 1) DKA - on Insulin drip, iv hydration, bicarb drip, follow serum ketones, glu, electrolytes, venous blood gas, is still obtunded 2) Septic shock - has been cultured, on antibiotics, iv fluids, pressor support with Levophed, has central line, needs Echo to check for cardiogenic shock and vegetations 3) Bilateral community acquired pneumonia - on antibiotics, blood has been cultured, desaturating and needs CT angio to R/O PE 4) Wounds/cellulitis, R/O osteomyelitis - on antibiotics, Wound TOOL CHECKER for consult/debridemet, MRI to R/O osteo 5) Pancreatitis - bowel rest, GI bleed prophylaxis 6) IVET - iv fluids, follow labs 7) Meth and IVDA 8) Cachexia by appearance 9) Non-compliance with IDDM management suspected Code status: Full code. No significant other was able to be reached to discuss details. DVT prophylaxis: SCDs and Lovenox Critical Care Time spent: 60 min (adjusting drips, DKA protocol management, or dering further W/U, calling her s.o.)
[2018-10-15 12:52] LABS: CALCIUM 7.4 mg/dL (8.5-10.3); CREATININE 1.1 mg/dL (0.4-1.0)
[2018-10-15 12:53] LABS: VBG PH 7.341 (7.31-7.41)
[2018-10-15 12:54] LABS: VBG PCO2 35.8 mmHg (41-51); VBG PO2 43.9 mmHg (25-47)
[2018-10-15] MEDS: VANCOMYCIN INJ 1 GM in SODIUM CHLORIDE 0.9% 250 ML IV SCH (12:59)
[2018-10-15] MEDS ORDERED: IOVERSOL 320 100 ML VIAL IVP ONE ×3 (13:05→14:00)
--- NOTE | 2018-10-15 14:15 | CT Report ---
Reason: increased oxygen demand Procedure Date: 10/15/2018 Accession Number: [id number] / [id number] Procedure: CT - Chest Angio (PE) CPT Code: FULL RESULT: EXAM: CT ANGIOGRAM CHEST EXAM DATE: 10/15/2018 01:44 PM. CLINICAL HISTORY: Increased oxygen demand. COMPARISON: None. TECHNIQUE: Routine helical imaging was performed through the chest in the pulmonary arterial phase. IV Contrast: OPTI 320 80mL. Reconstructions: Sagittal, coronal, and 3D MIP. In accordance with CT protocol optimization, one or more of the following dose reduction techniques were utilized for this exam: automated exposure control, adjustment of mA and/or KV based on patient size, or use of iterative reconstructive technique. FINDINGS: Pulmonary Arteries: Diagnostic quality: Adequate through the segmental arteries. No evidence for acute or chronic pulmonary emboli. Dilated main pulmonary artery measuring 3.5 cm. RV/LV is within normal limits. There is no interventricular septal bowing. There is trace reflux of contrast material in the IVC. Lungs/Pleura: Extensive patchy infiltration with dense consolidation. No effusion or pneumothorax. Mediastinum: Normal heart size. No pericardial effusion. No coronary artery calcifications. No lymphadenopathy. Thoracic Aorta: Unremarkable. Upper Abdomen: Unremarkable. Other: None. IMPRESSION: 1. Negative for pulmonary embolism at this time. Unremarkable aorta. 2. Extensive bilateral infiltrates with dense consolidation involving all lobes. 3. Pulmonary artery hypertension. [facility]
[2018-10-15] MEDS ORDERED: POTASSIUM CHLOR 20 MEQ/100 ML 20 MEQ/100 ML BAG IV ONE (14:48)
[2018-10-15] MEDS ORDERED: NS W/40 MEQ KCL 1,000 ML IV SCH (16:00)
[2018-10-15] MEDS: D5NS W/20 MEQ KCL 1,000 ML IV SCH (16:28)
[2018-10-15 16:53] LABS: BUN - BLOOD UREA NITROGEN 34 mg/dL (6-20); CALCIUM 7.5 mg/dL (8.5-10.3); CARBON DIOXIDE - CO2 27 mmol/L (21-32); CHLORIDE 112 mmol/L (101-111); CREATININE 0.8 mg/dL (0.4-1.0); GFR - MDRD 83 (>89); GLUCOSE 193 mg/dL (70-100); MAGNESIUM 1.5 mg/dL (1.7-2.8); SODIUM 145 mmol/L (135-145)
[2018-10-15 16:57] LABS: VBG BASE EXCESS 1.3 mmol/L (-2 - +2); VBG PCO2 45.9 mmHg (41-51); VBG PH 7.385 (7.31-7.41); VBG PO2 41.8 mmHg (25-47); VBG TOTAL CO2 28.3 mmol/L (24-29)
[2018-10-15 17:05] LABS: KETONES, SERUM (ACETEST) SMALL (NEGATIVE)
[2018-10-15] MEDS ORDERED: MAGNESIUM SULFATE 2 GRAM 2 GM/50 ML BAG IV SCH (19:19)
[2018-10-15] MEDS ORDERED: POTASSIUM PHOSPHATE 21 MMOL in SODIUM CHLORIDE 0.9% 250 ML IV SCH (19:53)
[2018-10-16] MEDS: SODIUM CHLORIDE FLUSH 0.9% 10 ML SYRINGE IVP PRN ×6 (00:03→10:04)
[2018-10-16] MEDS: INSULIN REGULAR HUMAN 100 UNIT in SODIUM CHLORIDE 0.9% 100ML 99 ML IV SCH (00:30)
[2018-10-16] MEDS: D5NS W/20 MEQ KCL 1,000 ML IV SCH (00:30)
[2018-10-16] MEDS: VANCOMYCIN INJ 1 GM in SODIUM CHLORIDE 0.9% 250 ML IV SCH (00:31)
[2018-10-16 00:56] LABS: VBG PCO2 44.9 mmHg (41-51); VBG PH 7.328 (7.31-7.41); VBG TOTAL CO2 24.4 mmol/L (24-29)
[2018-10-16 00:57] LABS: CALCIUM 7.2 mg/dL (8.5-10.3); CREATININE 0.6 mg/dL (0.4-1.0); MAGNESIUM 2.2 mg/dL (1.7-2.8)
[2018-10-16] MEDS ORDERED: cefTRIAXone 1 GM in SODIUM CHLORIDE 0.9% MINIBAG 100 ML IV SCH (01:00)
[2018-10-16] MEDS ORDERED: INSULIN GLARGINE 300 UNIT/3 ML PEN SUBQ SCH ×2 (01:30→21:00)
[2018-10-16] MEDS: PIPERACILLIN/TAZOBACTAM 3.375 GM in SODIUM CHLORIDE 0.9% MINIBAG 100 ML IV SCH ×4 (03:25→22:26)
[2018-10-16] MEDS ORDERED: SODIUM CHLORIDE FLUSH 0.9% 10 ML SYRINGE ONE (03:31)
[2018-10-16 04:21] LABS: VBG PH 7.346 (7.31-7.41)
[2018-10-16 04:24] LABS: CREATININE 0.8 mg/dL (0.4-1.0)
[2018-10-16 04:36] LABS: MAGNESIUM 2.2 mg/dL (1.7-2.8); PHOSPHORUS 3.4 mg/dL (2.5-4.6)
[2018-10-16] MEDS ORDERED: ACETAMINOPHEN 1,000 MG/100 ML 100 ML IV PRN (05:24)
[2018-10-16 05:26] LABS: FOLATE 15.95 ng/mL (5.90 - >24.8)
[2018-10-16] MEDS ORDERED: INSULIN GLARGINE 300 UNIT/3 ML PEN SUBQ STA (05:33)
[2018-10-16] MEDS ORDERED: GABAPENTIN 300 MG CAPSULE PO SCH ×2 (06:00→21:00)
[2018-10-16] MEDS ORDERED: SODIUM CHLORIDE 0.9% 1,000 ML IV SCH ×3 (06:00→10:48)
[2018-10-16] MEDS ORDERED: INSULIN REGULAR HUMAN 100 UNIT/1 ML 10 ML MDV SUBQ SCH ×2 (06:00→18:00)
[2018-10-16] MEDS: PANTOPRAZOLE 40 MG VIAL IVP SCH (06:02)
--- NOTE | 2018-10-16 08:20 | PROVIDER PROGRESS NOTE ---
Subjective - Subjective Pt reports feeling: Improved (Asked for breakfast) Subjective: She does not verbalize answers, only groans and grunts her answers, eyes closed, on a non-rebreather ventimask. Objective - Vital Signs/Intake & Output Reviewed Vital Signs: Yes Vital Signs: Vital Signs Temp Pulse Resp BP Pulse Ox 10/16/18 08:00 36.7 C 115 H 19 104/91 H 94 10/16/18 07:00 112 H 13 105/73 96 10/16/18 06:18 14 95 10/16/18 06:00 115 H 15 102/79 93 10/16/18 05:00 113 H 14 105/89 H 93 Intake & Output: Intake & Output 10/13/18 10/14/18 10/15/18 10/16/18 23:59 23:59 23:59 23:59 Intake Total 94415.370 3470.024 Output Total 5685 1385 Balance 5709.370 2085.024 - Objective General Appearance: positive: Lethargic Eyes Bilateral: positive: Other (Lids edematous.) Neck: positive: Nml inspection Respiratory: positive: Rales, Rhonchi, Other (Diffuse crackles but no wheezing.) Cardiovascular: positive: Regular rate & rhythm, No murmur Abdomen: positive: Non-tender, No distention Skin: positive: Other (Diffuse wounds of upper and lower extremities. 1+ pitting edema of fingers, hands and distal upper extremities. Fingers of L hand are blue/ecchymotic.) Neurologic/Psychiatric: positive: Other (Lethargic, answers with groans, moves spontaneously.) - Lab Results Fish Bones: 10/16/18 08:50 10/16/18 04:00 Other Labs: Lab Results x24hrs 10/16/18 10/16/18 10/16/18 Range/Units 04:00 04:00 04:00 VBG pH 7.346 VBG pCO2 VBG pO2 VBG HCO3 VBG Total CO2 VBG O2 Saturation VBG Base Excess Ionized Calcium 1.06 L (1.15-1.33) mmol/L Sodium Potassium Chloride Carbon Dioxide Anion Gap BUN Creatinine Estimated GFR (MDRD) Glucose Calcium Phosphorus 3.4 (2.5-4.6) mg/dL Magnesium 2.2 Albumin 2.2 L (3.2-5.5) g/dL Lipase (22-51) U/L Vitamin B12 (180-914) pg/mL Folate (5.90 - >24.8) ng/mL Serum Ketones (NEGATIVE) 10/16/18 10/16/18 10/16/18 Range/Units 04:00 04:00 00:00 VBG pH 7.328 VBG pCO2 44.9 VBG pO2 68.0 H VBG HCO3 23.0 VBG Total CO2 24.4 VBG O2 Saturation 94.9 H VBG Base Excess -3.0 L Ionized Calcium (1.15-1.33) mmol/L Sodium 144 Potassium 4.0 Chloride 117 H Carbon Dioxide 23 Anion Gap 4.0 L BUN 28 H Creatinine 0.8 Estimated GFR (MDRD) 83 L Glucose 307 H Calcium 7.0 L Phosphorus (2.5-4.6) mg/dL Magnesium Albumin (3.2-5.5) g/dL Lipase 141 H (22-51) U/L Vitamin B12 895 (180-914) pg/mL Folate 15.95 (5.90 - >24.8) ng/mL Serum Ketones (NEGATIVE) 10/16/18 10/15/18 10/15/18 Range/Units 00:00 22:05 20:30 VBG pH VBG pCO2 VBG pO2 VBG HCO3 VBG Total CO2 VBG O2 Saturation VBG Base Excess Ionized Calcium (1.15-1.33) mmol/L Sodium 144 Potassium 4.2 4.0 3.5 Chloride 112 H Carbon Dioxide 25 Anion Gap 7.0 BUN 29 H Creatinine 0.6 Estimated GFR (MDRD) 115 Glucose 195 H Calcium 7.2 L Phosphorus (2.5-4.6) mg/dL Magnesium 2.2 Albumin (3.2-5.5) g/dL Lipase (22-51) U/L Vitamin B12 (180-914) pg/mL Folate (5.90 - >24.8) ng/mL Serum Ketones (NEGATIVE) 10/15/18 10/15/18 10/15/18 Range/Units 20:30 18:36 16:45 VBG pH 7.385 VBG pCO2 45.9 VBG pO2 41.8 VBG HCO3 26.9 VBG Total CO2 28.3 VBG O2 Saturation 84.0 H VBG Base Excess 1.3 Ionized Calcium (1.15-1.33) mmol/L Sodium Potassium 3.3 L Chloride Carbon Dioxide Anion Gap BUN Creatinine Estimated GFR (MDRD) Glucose Calcium Phosphorus (2.5-4.6) mg/dL Magnesium 2.6 Albumin (3.2-5.5) g/dL Lipase (22-51) U/L Vitamin B12 (180-914) pg/mL Folate (5.90 - >24.8) ng/mL Serum Ketones (NEGATIVE) 10/15/18 10/15/18 10/15/18 Range/Units 16:43 16:26 14:15 VBG pH VBG pCO2 VBG pO2 VBG HCO3 VBG Total CO2 VBG O2 Saturation VBG Base Excess Ionized Calcium (1.15-1.33) mmol/L Sodium 145 Potassium 3.3 L 3.1 L Chloride 112 H Carbon Dioxide 27 Anion Gap 6.0 BUN 34 H Creatinine 0.8 Estimated GFR (MDRD) 83 L Glucose 193 H Calcium 7.5 L Phosphorus 1.5 L (2.5-4.6) mg/dL Magnesium 1.5 L Albumin (3.2-5.5) g/dL Lipase (22-51) U/L Vitamin B12 (180-914) pg/mL Folate (5.90 - >24.8) ng/mL Serum Ketones SMALL H (NEGATIVE) 10/15/18 10/15/18 10/15/18 Range/Units 12:37 12:37 12:37 VBG pH 7.341 VBG pCO2 35.8 L VBG pO2 43.9 VBG HCO3 18.9 L VBG Total CO2 20.0 L VBG O2 Saturation 84.3 H VBG Base Excess -6.0 L Ionized Calcium (1.15-1.33) mmol/L Sodium 144 Potassium 3.4 L Chloride 111 Carbon Dioxide 21 Anion Gap 12.0 BUN 39 H Creatinine 1.1 H Estimated GFR (MDRD) 57 L Glucose 319 H Calcium 7.4 L Phosphorus (2.5-4.6) mg/dL Magnesium Albumin (3.2-5.5) g/dL Lipase (22-51) U/L Vitamin B12 (180-914) pg/mL Folate (5.90 - >24.8) ng/mL Serum Ketones MODERATE H (NEGATIVE) 01/10/15/18 10/15/18 Range/Units 11:00 11:00 08:20 VBG pH VBG pCO2 VBG pO2 VBG HCO3 VBG Total CO2 VBG O2 Saturation VBG Base Excess Ionized Calcium (1.15-1.33) mmol/L Sodium Potassium 3.4 L Chloride Carbon Dioxide Anion Gap BUN Creatinine Estimated GFR (MDRD) Glucose 357 H 494 H Calcium Phosphorus (2.5-4.6) mg/dL Magnesium Albumin (3.2-5.5) g/dL Lipase (22-51) U/L Vitamin B12 (180-914) pg/mL Folate (5.90 - >24.8) ng/mL Serum Ketones (NEGATIVE) 10/15/18 10/15/18 10/15/18 Range/Units 08:00 00:00 00:00 VBG pH Cancelled VBG pCO2 Cancelled VBG pO2 Cancelled VBG HCO3 Cancelled VBG Total CO2 Cancelled VBG O2 Saturation Cancelled VBG Base Excess Cancelled Ionized Calcium (1.15-1.33) mmol/L Sodium Cancelled Potassium 3.5 Cancelled Chloride Cancelled Carbon Dioxide Cancelled Anion Gap Cancelled BUN Cancelled Creatinine Cancelled Estimated GFR (MDRD) Cancelled Glucose Cancelled Calcium Cancelled Phosphorus (2.5-4.6) mg/dL Magnesium Cancelled Albumin (3.2-5.5) g/dL Lipase (22-51) U/L Vitamin B12 (180-914) pg/mL Folate (5.90 - >24.8) ng/mL Serum Ketones (NEGATIVE) Sepsis Event Note (H) - Evaluation Current Stage of Sepsis: Resolved Possible source of Sepsis: positive: Pulmonary, Skin/soft tissue - Sepsis Criteria Sepsis Criteria: Respiratory: Increasing oxygen requirements, WBC count greater than 12,000 or less than 4000, ROTARY ENGINE ASSEMBLER: altered consciousness (unrelated to primary neuro pathology), SBP less than 90 mmHg, Metabolic: lactate > 2 mmol/L Assessment/Plan - Problem List (1) DKA (diabetic ketoacidoses) Impression: Improved. The last serum ketones were small. Insulin drip is off, patient on Glargine Insulin 25 sq bid, started just this am, and ss Regular Insulin, advancing diet. Remain in ICU today. Her HbA1c was 14.7, indicating poor control, I suspect non-compliance in a drug abuser. iv fluids to decrease due to diffuse edema. Will use D5NS with 20mEg KCl at 40 cc/hr. Continue Aguero for accurate I's and O's for 1 more day, since she has just a woken from comatose status of DKA. She is still very somnolent, therefore will decrease the Gabapentin to just qpm. Qualifiers: Diabetes mellitus type: type 1 Diabetes mellitus complication detail: with coma Qualified Code(s): E10.11 - Type 1 diabetes mellitus with ketoacidosis with coma (2) Obtundation Impression: She started to awaken this am and asked for breakfast. Now she is obtunded, only moaning answers but does answer questions. This may still be residual obtundation from the DKA, or fatigue after Meth abuse, or from significant infections (pneumonia and wounds), lethargy from hypoglycemia (since she got the Glargine Insulin at her usual 25 U sq dose). Will decrease the Gabapentin, which may be oversedating her. Will follow fingerstick glu checks more frequently, and possibly decrease the amount of Glargine Insulin amount, but continue ss Regular Insulin. Will change peripheral iv fluids from NS to D5NS with KCl. (3) Anasarca Impression: She is 5+ L (+) in fluid balance in <48 hours. She has diffuse rales and rhochi on exam, suggesting pulmonary fluid overload as well. The Echo done yesterday, however showed normal chamber sies, normal LVEF and normal valves. She is third spacing from low serum albumen as well. Will decrease iv fluid rate, but not give diuresis unless her saturations do not improve with suctioning airway or BIPAP use, if needed. (4) CAP (community acquired pneumonia) Impression: Yesterday's CTA of chest ruled out a PE but showed dense bilateral infiltrates of all lobes! Pt started coughing and has thick, calderon sputum, needed to be suctioned. WBC has improved daily. Will add Mucinex to help expectorate sputum. Will order chest PT to help move secretions as well, since she is still requiring high O2 supplement setting. Continue iv antibiotics. Continue O2. Use BIPAP if needs better oxygenation. Remain in ICU today. Monitor CBC daily. Qualifiers: Lung location: unspecified part of lung (5) Wound abscess Impression: Pt had debridement of L ferris wound and L toe wound by wound care CHEMICAL LABORATORY CHIEF yesterday and it is dressed. The MRI to evaluate for osteo, is still pending and probably won't be done over the weekend, but patient already on empiric antibiotics for this and blood c ultures have been sent and are pending. Continue topical care, as ordered by Wound Care CHEMICAL LABORATORY CHIEF and iv antibiotics. (6) Acute pancreatitis Impression: Lipase has decreased from 284 to 141. Monitor lipase til normal. As diet is advanced, will order low fats. Qualifiers: Pancreatitis type: unspecified pancreatitis type Acute pancreatitis complication: unspecified Qualified Code(s): K85.90 - Acute pancreatitis without necrosis or infection, unspecified (7) Acute kidney injury Impression: Improving with aggressive iv hydration, but BUN/creat ratio is still >20. IV fluids will be decreased. Monitor BMP daily. (8) Macrocytosis without anemia Impression: Hgb dropped from 15 to 13 due to hemodilution. Pt is (+) 5L since admission. Macrocytosis was evaluated with B12 and Folate levels, which are WNL. Her abnormally elevated MCV and elevated RDW are likely from immature cells, and probably bone marrow stress response to infection. (9) Malnutrition Impression: Albumen level very low at 2.2, probably adding to her facial swelling and anasarca. Dietary input and consult appreciated. (10) Methamphetamine abuse Impression: The patient denied Meth use to Performance Management Consultant, who admitted patient, but Meth and Amphetamine were positive in drug screen. 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 (12) Septic shock Impression: Resolved. Lactic acid normalized. WBC normalized. Levophed drip for hypotension, stopped at 0200.
[2018-10-16] MEDS: INSULIN ASPART 300 UNIT/3 ML PEN SUBQ SCH ×4 (08:29→21:41)
[2018-10-16] MEDS: SODIUM CHLORIDE FLUSH 0.9% 10 ML SYRINGE IVP SCH ×2 (08:30→17:55)
[2018-10-16] MEDS: ENOXAPARIN 40 MG/0.4 ML SYRINGE SUBQ SCH (08:30)
[2018-10-16] MEDS: VANCOMYCIN INJ 1 GM, VANCOMYCIN INJ 500 MG in SODIUM CHLORIDE 0.9% 500 ML IV SCH ×2 (08:32→19:51)
[2018-10-16 08:52] LABS: BASOPHILS # (AUTO) 0.1 10^3/uL (0.0-0.1); BASOPHILS % (AUTO) 0.6 %; EOSINOPHILS # (AUTO) 0.1 10^3/uL (0.0-0.7); EOSINOPHILS % (AUTO) 0.7 %; HGB - HEMOGLOBIN 12.2 g/dL (12.0-16.0); LYMPHOCYTES # (AUTO) 0.8 10^3/uL (1.5-3.5); LYMPHOCYTES % (AUTO) 8.6 %; MEAN CORPUSCULAR HEMOGLOBIN 34.5 pg (27.0-31.0); MEAN CORPUSCULAR VOLUME 98.5 fL (81.0-99.0); MEAN PLATELET VOLUME 8.7 fL (7.9-10.8); MONOCYTES # (AUTO) 0.4 10^3/uL (0.0-1.0); MONOCYTES % (AUTO) 3.7 %; NEUTROPHILS # (AUTO) 8.4 10^3/uL (1.5-6.6); NEUTROPHILS % (AUTO) 86.4 %; PLT - PLATELET COUNT 100 10^3/uL (130-450); RED BLOOD COUNT 3.53 10^6/uL (4.20-5.40); RED CELL DISTRIBUTION WIDTH 14.3 % (12.0-15.0); WHITE BLOOD COUNT 9.7 x10^3/uL (4.8-10.8)
[2018-10-16] MEDS: ACYCLOVIR 200 MG CAPSULE PO SCH ×3 (09:24→21:40)
[2018-10-16] MEDS: guaiFENesin 600 MG TABLET PO SCH ×2 (09:24→21:41)
[2018-10-16] MEDS ORDERED: D5NS W/20 MEQ KCL 1,000 ML IV SCH (11:00)
[2018-10-16 11:04] LABS: BILIRUBIN,DIRECT 0.1 mg/dL (0.1-0.5); BILIRUBIN,TOTAL 0.7 mg/dL (0.2-1.0); TOTAL PROTEIN 4.1 g/dL (6.7-8.2)
[2018-10-16 13:58] LABS: ABG PCO2 39 mmHg (34-45); ABG PH 7.45 (7.35-7.45)
[2018-10-16 14:00] LABS: ABG BASE EXCESS 2.9 mmol/L (-2.0-3.0); ABG OXYGEN SATURATION 91 % (94-98); ABG TCO2 28.2 MMOL/L (21.0-29.0); ALLEN TEST POSITIVE
[2018-10-16 14:05] LABS: ABG PO2 52 mmHg (80-100)
[2018-10-16 15:36] LABS: ABG BASE EXCESS 0.9 mmol/L (-2.0-3.0); ABG HCO3 24.5 mmol/L (22.0-26.0); ABG OXYGEN SATURATION 97 % (94-98); ABG PCO2 36 mmHg (34-45); ABG PH 7.45 (7.35-7.45); ABG PO2 83 mmHg (80-100); ABG TCO2 25.6 MMOL/L (21.0-29.0); ALLEN TEST POSITIVE
[2018-10-16] MEDS ORDERED: FUROSEMIDE 20 MG/2 ML VIAL IVP STA (19:37)
[2018-10-16] MEDS ORDERED: FUROSEMIDE 20 MG/2 ML VIAL IVP SCH (20:02)
--- NOTE | 2018-10-16 20:55 | XRAY Report ---
Reason: Hypoxia Procedure Date: 10/16/2018 Accession Number: [id number] / [id number] Procedure: XR - Chest 1 View X-Ray CPT Code: 70350 FULL RESULT: EXAM: CHEST RADIOGRAPHY EXAM DATE: 10/16/2018 07:56 PM. CLINICAL HISTORY: Hypoxia. COMPARISON: CHEST 1 VIEW 10/15/2018 6:42 AM. TECHNIQUE: 1 view. FINDINGS: Lungs/Pleura: There is bilateral pulmonary consolidation and diffuse airspace disease. Left lung airspace disease is increased. No pneumothorax. Mediastinum: Heart size is normal. Right-sided central line tip overlies the lower SVC. Other: None. IMPRESSION: 1. Bilateral diffuse airspace disease consistent with pneumonia, edema, or ARDS. Increased in the left lung. RADIA
[2018-10-16 20:59] LABS: ABG PH 7.47 (7.35-7.45)
[2018-10-16 21:00] LABS: ABG HCO3 26.7 mmol/L (22.0-26.0); ABG OXYGEN SATURATION 96 % (94-98); ABG PCO2 37 mmHg (34-45); ABG PO2 77 mmHg (80-100); ALLEN TEST POSITIVE
[2018-10-16] MEDS ORDERED: ETOMIDATE 40 MG/20 ML VIAL IVP ONE (23:19)
[2018-10-16] MEDS ORDERED: PROPOFOL 1000 MG/100 ML 100 ML IV ONE (23:20)
[2018-10-16] MEDS ORDERED: SUCCINYLCHOLINE 200 MG/10 ML VIAL ONE (23:20)
[2018-10-16] MEDS ORDERED: PROPOFOL 1000 MG/100 ML 100 ML IV SCH (23:45)
[2018-10-17] MEDS ORDERED: PROPRANOLOL 1 MG/ML VIAL IVP ONE (00:22)
[2018-10-17] MEDS ORDERED: PROPOFOL 200 MG/20 ML VIAL IVP ONE (00:22)
--- NOTE | 2018-10-17 00:24 | XRAY Report ---
Reason: ET tube placement Procedure Date: 10/16/2018 Accession Number: [id number] / [id number] Procedure: XR - Chest 1 View X-Ray CPT Code: 86209 FULL RESULT: EXAM: CHEST RADIOGRAPHY EXAM DATE: 10/16/2018 11:59 PM. CLINICAL HISTORY: ET tube placement. COMPARISON: CHEST 1 VIEW 10/16/2018 7:42 PM. TECHNIQUE: 1 view. FINDINGS: Lungs/Pleura: Bilateral airspace opacities again seen. Slightly improved aeration at the left base. No obvious pleural effusion seen on the supine examination. No pneumothorax identified. Mediastinum: Within exam limitations, the cardiomediastinal contour is normal. Other: Endotracheal tube is in place with the tip 4.5 cm above the pam. Enteric tube tip at the gastric fundus. Right internal jugular catheter is unchanged. IMPRESSION: 1. Bilateral airspace opacity with slightly improved aeration at the left base. 2. ETT 4.5 cm above the pam. Enteric tube and right internal jugular catheter in place. RADIA
[2018-10-17] MEDS ORDERED: ETOMIDATE 40 MG/20 ML VIAL IVP SCH (00:25)
[2018-10-17] MEDS: SODIUM CHLORIDE FLUSH 0.9% 10 ML SYRINGE IVP SCH (00:25)
[2018-10-17] MEDS: SODIUM CHLORIDE FLUSH 0.9% 10 ML SYRINGE IVP PRN ×2 (00:26)
[2018-10-17] MEDS ORDERED: SUCCINYLCHOLINE 200 MG/10 ML VIAL IVP SCH (00:27)
[2018-10-17] MEDS ORDERED: PROPOFOL 200 MG/20 ML VIAL IVP SCH (00:36)
--- NOTE | 2018-10-17 00:36 | DISCHARGE SUMMARY ---
"Discharge Summary Discharge Date: 10/16/18 Discharging Provider: Miller Dacosta Primary Care Provider: Rosas Moses Code Status: Attempt Resuscitation Condition at Discharge: Critical Discharge Disposition: 02 Transfer Acute Care Hosp Discharge Facility Name: [facility] - [place], [place] - DIAGNOSES Admission Diagnoses: Septic Shock 2/2 Pneumonia Diabetic Keto-acidosis Methamphetamine Drug abuse Discharge Diagnoses with Status of Each Condition: Acute Respiratory Distress Syndrome. Severe Septic Shock 2/2 Pneumonia. Guarded on Vancomycin and Zosyn Diabetic Keto-acidosis: Resolved. Off insulin drip Methamphetamine Drug abuse. Active/Chronic - HPI History of Present Illness: Patient is a 33 y/o female who was brought to the ED via EMS in kussmaul respirations and unresponsive. The history is significantly limited because the patient is unable to provide and there is no family, friend or significant other nearby to provide. It is reported that EMS was called by her significant other. Multiple attempts to reach him have been unsuccessful. Patient is a non-compliant/adherent type I diabetic. She also uses methamphetamines and test positive on a drug screen today. At beside she is unresponsive to verbal stimulikussmaul respirations are appreciable.. Her eyes are crusted over. There is minimal reaction to light on the right. The left eye appears cloudy and raises concern for cataract. Patient's bilateral cheeks appear blushed/flushed Her lungs sound coarse. Her hands are erythematous. This is worse on the left fingers. She also has multiple wounds over her lower extremities. The one on the distal half of the left lower extremity has some purulent drainage. - CONSULTS | PROCEDURES Procedures: 2D echocardiography. Unremarkable - HOSPITAL COURSE Hospital Course: Upon transfer from ED to ICU, patient went for O2Sat of >90% on room air to low 80% on 8L She also required levophed drip for pressure support. CTAngio to rule out PE was negative for PE but showed extensive consolidation in all lobes of the lungs 2 echo to rule out vegetation was negative Patient was placed on DKA protocol And started on Vancomycin and Zosyn She showed significant signs of improvement on day 1 She was weaned of insulin drip. Placed on a po diet and was able to converse However, on day 2 She had an incident of decline in her respiratory status with a drop of her O2Sat to the 67%. She was placed on bipap and the levophed drip was resumed Chest xray suggested pulmonary edema vs pneumonia vs ARDS On bipap with 80% FiO2 her pH was 7.47 with a paO2 of 77 Tidal volumes at the time were 650-750. She is 55.5kg Her PaO2/FiO2 ratio was 96 which suggested severe ARDS It is possible septic shock from pneumonia was a precipitating factor She would desaturate to the 8)% withing minutes of the bipap being taken off. - ALLERGIES Allergies/Adverse Reactions: Allergies Allergy/AdvReac Type Severity Reaction Status Date / Time No Known Drug Allergies Allergy Verified 10/16/18 05:26 - MEDICATIONS Home Medications: Ambulatory Orders Medication Instructions Recorded Confirmed Acyclovir 800 mg PO TID 10/15/18 10/16/18 Cyclosporine [Restasis] 1 drops RIGHTEYE Q12H 10/15/18 10/16/18 Insulin Aspart [NovoLOG] 2 - 18 units SUBQ AC 10/15/18 10/15/18 Insulin Glargine [Lantus Solostar] 25 units SUBQ BID 10/15/18 10/15/18 - PHYSICAL EXAM AT DISCHARGE General Appearance: positive: Lethargic (Intubated and sedated), Other Eyes Bilateral: positive: Other (Blind in left eye. Left eye appears cloudy. Pupil not reactive) ENT: positive: ENT inspection nml, No signs of dehydration. negative: Purulent nasal drainage, Pharyngeal erythema Neck: positive: Nml inspection, Thyroid nml, No JVD Respiratory: positive: Chest non-tender, Wheezes, Rhonchi, Other (intubated currently. ) Cardiovascular: positive: Tachycardia Abdomen: positive: Non-tender, No organomegaly, Nml bowel sounds, No distention. negative: Tenderness Skin: positive: Color nml, Other (wounds on lower extremities.) Extremities: positive: Pedal edema Neurologic/Psychiatric: positive: Other (Intubated currently) - LABS Result Diagrams: 10/16/18 08:50 10/16/18 04:00 - SEPSIS Current Stage of Sepsis: Sepsis Possible source of Sepsis: Pulmonary, Skin/soft tissue Sepsis Criteria: Respiratory: Increasing oxygen requirements, WBC count greater than 12,000 or less than 4000, SPOOL SANDER: altered consciousness (unrelated to primary neuro pathology), SBP less than 90 mmHg, Metabolic: lactate > 2 mmol/L - FOLLOW UP Follow Up: [place] [facility] [place]) has agreed to consult on her"
[2018-10-17 00:58] LABS: ABG HCO3 27.6 mmol/L (22.0-26.0); ABG PCO2 41 mmHg (34-45); ABG PH 7.45 (7.35-7.45); ABG PO2 112 mmHg (80-100)
[2018-10-17 00:59] LABS: ABG BASE EXCESS 3.3 mmol/L (-2.0-3.0); ABG OXYGEN SATURATION 98 % (94-98); ABG TCO2 28.9 MMOL/L (21.0-29.0); ALLEN TEST POSITIVE
[2018-10-17 01:16] VITALS: BP 102/73
--- NOTE | 2018-10-17 08:27 | MISCELLANEOUS PROVIDER NOTE ---
Miscellaneous Provider Note - - Note: I was asked by hospitalist (Dr. Dacosta) to intubate this patient for stabilization prior to transfer to another hospital. Patient was admitted for DKA and had been improving, then developed dyspnea and hypotension that rapidly progressed in severity. INTUBATION - Intubation Provider: positive: Emergency physician Medications: positive: Etomidate, Succinylcholine Blade: positive: Glidescope (4) Tube: positive: Size-enter number (7.5), Cuffed, Marked at lips-enter cm (18) Route: positive: Oral Confirmation: positive: Direct visualization, Bilateral breath sounds, No abdominal breath sound, End tidal CO2, Pulse ox, Chest xray Complications: positive: No compications, Desaturated (briefly desaturated during intubation to upper 60s%, rapidly improved once she was intubated and given respirations via AMBU bag. pulse ox was 98% within 2-3 minutes of intubation)
== END 2018-10-17 01:52 | disposition short-term general hospital (02) | DRG 871 ==
LOC: EDBD → EDUNIT# → ED 23:52 → ICU 10-15 00:56
PROVIDERS: ADMIT Internal Medicine; ATTEND Internal Medicine
PROC: 02HV33Z Insertion of Infusion Device into Superior Vena Cava, Percutaneous Approach (ICD-10-PCS; principal; 2018-10-15)
DX: A41.9 Sepsis, unspecified organism (principal); R65.21 Severe sepsis with septic shock; J18.9 Pneumonia, unspecified organism; E10.11 Type 1 diabetes mellitus with ketoacidosis with coma; K85.90 Acute pancreatitis without necrosis or infection, unspecified; J80 Acute respiratory distress syndrome; N17.9 Acute kidney failure, unspecified; R64 Cachexia; L03.90 Cellulitis, unspecified; L02.91 Cutaneous abscess, unspecified; E46 Unspecified protein-calorie malnutrition; Z68.1 Body mass index [BMI] 19.9 or less, adult; Z91.19 Patient's noncompliance with other medical treatment and regimen; F17.200 Nicotine dependence, unspecified, uncomplicated; F15.10 Other stimulant abuse, uncomplicated; E10.319 Type 1 diabetes mellitus with unspecified diabetic retinopathy without macular edema; D75.89 Other specified diseases of blood and blood-forming organs; H54.62 Unqualified visual loss, left eye, normal vision right eye; Z78.1 Physical restraint status
CPT/HCPCS: 36415; 36556; 36600; 70450; 71045; 71275; 74176; 80048; 80053; 80061; 80076; 80202; 80306; 80307; 80320; 80329; 81001; 81003; 81025; 82009; 82040; 82330; 82550; 82607; 82746; 82803; 82947; 83036; 83605; 83690; 83721; 83735; 84100; 84132; 85025; 87040; 87086; 87150; 93005; 93306; 94660; 94667; 99284; 99291

== ENCOUNTER 2019-05-31 01:40 | Outpatient (CLI) | payer MEDICAID | END 2019-05-31 01:41 | disposition critical access hospital (66) | LOC: EMS 01:40 | PROVIDERS: ATTEND Surgery | DX: R40.20 Unspecified coma (principal); R09.89 Other specified symptoms and signs involving the circulatory and respiratory systems; R73.09 Other abnormal glucose | CPT/HCPCS: A0425; A0427 ==

== ENCOUNTER 2019-05-31 02:10 | Inpatient (IN) | payer MEDICAID ==
--- NOTE | 2019-05-31 02:16 | ED Physician Documentation ---
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 Patient cannot contribute to HPI/ROS due to severely altered mental status. Per medic report, neighbor called 911 when she checked on patient and found her to be unresponsive. Per medic report, neighbor indicated that patient was responsive 3 hours earlier. Review of Systems Unable to obtain: AMS PD PAST MEDICAL HISTORY - Past Medical History Cardiovascular: None Respiratory: Other Neuro: Peripheral neuropathy Endocrine/Autoimmune: Type 1 diabetes GI: None : None HEENT: Other Psych: None Musculoskeletal: None Derm: Other - Present Medications Home Medications: Ambulatory Orders Medication Instructions Recorded Confirmed Acyclovir 800 mg PO TID 10/15/18 10/16/18 Cyclosporine [Restasis] 1 drops RIGHTEYE Q12H 10/15/18 10/16/18 Insulin Aspart [NovoLOG] 2 - 18 units SUBQ AC 10/15/18 10/15/18 Insulin Glargine [Lantus Solostar] 25 units SUBQ BID 10/15/18 10/15/18 - Allergies Allergies/Adverse Reactions: Allergies Allergy/AdvReac Type Severity Reaction Status Date / Time No Known Drug Allergies Allergy Verified 05/31/19 02:17 - Social History Does the pt smoke?: Yes Smoking Status: Unknown if ever smoked Does the pt drink ETOH?: Yes Does the pt have substance abuse?: Yes - POLST Patient has POLST: No POLST Status: Full Code PD ED PE NORMAL - Vitals Vital signs reviewed: Yes - General General: Well developed/nourished - HEENT HEENT: Atraumatic, Other (dry mucous membranes. opaque left cornea. pupils midsize, sluggish response to light. right frontoparietal scalp scab c/w pick mahendra) - Neck Neck: Supple, no meningeal sign - Cardiac Cardiac: RRR, No murmur - Respiratory Respiratory: No respiratory distress, Clear bilaterally - Abdomen Abdomen: Soft, Non distended - Derm Derm: Normal color, Warm and dry - Extremities Extremities: No edema - Neuro Eye Opening: To Pain Motor: Localizes to Pain Verbal: Incomprehensible GCS Score: 9 PD ED PE EXPANDED - General General: Unresponsive, Other (kussmaul respirations) Results - Vitals Vitals: Vital Signs - 24 hr 05/31/19 05/31/19 05/31/19 02:13 02:17 02:46 Temperature 35.8 C L Heart Rate 95 95 93 Respiratory 24 24 22 Rate Blood Pressure 94/66 91/64 O2 Saturation 100 100 99 05/31/19 05/31/19 02:55 03:11 Temperature Heart Rate 92 93 Respiratory 22 Rate Blood Pressure 96/57 L 95/51 L O2 Saturation 100 Oxygen O2 Source Room air - EKG (time done) No standard instances Rate: Rate (enter#) (95) Rhythm: NSR [place]: RAD Intervals: Normal AL QRS: Normal Ischemia: Q waves (V1, V2), T wave inversion (III, aVF (flat II)) - Labs Labs: Laboratory Tests 05/31/19 05/31/19 05/31/19 02:26 02:29 02:42 WBC 11.4 H RBC 4.56 Hgb 15.0 Hct 43.5 MCV 95.4 MCH 32.9 H MCHC 34.5 RDW 13.2 Plt Count 303 MPV 10.6 Neut # (Auto) 8.8 H Lymph # (Auto) 1.2 L [place] # (Auto) 0.9 Eos # (Auto) 0.1 Baso # (Auto) 0.1 Absolute Nucleated RBC 0.00 Nucleated RBC % 0.0 Bld Gas Analysis Time 0248 Sample Site LEFT RADIAL ABG pH 6.94 L* ABG pCO2 9 L* ABG pO2 154 H* ABG HCO3 1.9 L ABG Total CO2 2.2 L* ABG O2 Saturation 98 ABG Base Excess -28.7 L Gustavo Test POSITIVE Sodium Potassium Chloride Carbon Dioxide Anion Gap BUN Creatinine Estimated GFR (MDRD) Glucose Glycated Hemoglobin Estim Average Glucose Lactic Acid Calcium Total Bilirubin AST ALT Alkaline Phosphatase Troponin I High Sens 4.9 Total Protein Albumin Globulin Albumin/Globulin Ratio Lipase HCG, Quant Urine Color Urine Clarity Urine pH Ur Specific [place] Urine Protein Urine Glucose (UA) Urine Ketones Urine Occult Blood Urine Nitrite Urine Bilirubin Urine Urobilinogen Ur Leukocyte Esterase Urine RBC Urine WBC Ur Squamous Epith Cells Urine Bacteria Urine Casts Ur Microscopic Review Urine Culture Comments Urine HCG, Qual Urine Opiates Screen Ur Oxycodone Screen Urine Methadone Screen Ur Propoxyphene Screen Ur Barbiturates Screen Ur Tricyclics Screen Ur Phencyclidine Scrn Ur Amphetamine Screen U Methamphetamines Scrn U Benzodiazepines Scrn Urine Cocaine Screen U Cannabinoids Screen Ethyl Alcohol Serum Ketones 05/31/19 05/31/19 05/31/19 02:42 02:42 02:42 WBC RBC Hgb Hct MCV MCH MCHC RDW Plt Count MPV Neut # (Auto) Lymph # (Auto) [place] # (Auto) Eos # (Auto) Baso # (Auto) Absolute Nucleated RBC Nucleated RBC % Bld Gas Analysis Time Sample Site ABG pH ABG pCO2 ABG pO2 ABG HCO3 ABG Total CO2 ABG O2 Saturation ABG Base Excess Gustavo Test Sodium 134 L Potassium 4.2 Chloride 104 Carbon Dioxide < 6 L* Anion Gap 24.0 H BUN 28 H Creatinine 1.1 H Estimated GFR (MDRD) 57 L Glucose 446 H Glycated Hemoglobin Estim Average Glucose Lactic Acid 0.9 Calcium 8.1 L Total Bilirubin 1.7 H AST 12 ALT 16 Alkaline Phosphatase 111 Troponin I High Sens Total Protein 5.7 L Albumin 3.0 L Globulin 2.7 Albumin/Globulin Ratio 1.1 Lipase 36 HCG, Quant < 0.60 Urine Color Urine Clarity Urine pH Ur Specific [place] Urine Protein Urine Glucose (UA) Urine Ketones Urine Occult Blood Urine Nitrite Urine Bilirubin Urine Urobilinogen Ur Leukocyte Esterase Urine RBC Urine WBC Ur Squamous Epith Cells Urine Bacteria Urine Casts Ur Microscopic Review Urine Culture Comments Urine HCG, Qual Urine Opiates Screen Ur Oxycodone Screen Urine Methadone Screen Ur Propoxyphene Screen Ur Barbiturates Screen Ur Tricyclics Screen Ur Phencyclidine Scrn Ur Amphetamine Screen U Methamphetamines Scrn U Benzodiazepines Scrn Urine Cocaine Screen U Cannabinoids Screen Ethyl Alcohol < 5.0 Serum Ketones SMALL H 05/31/19 05/31/19 05/31/19 02:42 02:52 02:52 WBC RBC Hgb Hct MCV MCH MCHC RDW Plt Count MPV Neut # (Auto) Lymph # (Auto) [place] # (Auto) Eos # (Auto) Baso # (Auto) Absolute Nucleated RBC Nucleated RBC % Bld Gas Analysis Time Sample Site ABG pH ABG pCO2 ABG pO2 ABG HCO3 ABG Total CO2 ABG O2 Saturation ABG Base Excess Gustavo Test Sodium Potassium Chloride Carbon Dioxide Anion Gap BUN Creatinine Estimated GFR (MDRD) Glucose Glycated Hemoglobin 13.9 H Estim Average Glucose 352 H Lactic Acid Calcium Total Bilirubin AST ALT Alkaline Phosphatase Troponin I High Sens Total Protein Albumin Globulin Albumin/Globulin Ratio Lipase HCG, Quant Urine Color YELLOW Urine Clarity SL. CLOUDY Urine pH 5.0 Ur Specific [place] >=1.030 H >1.030 Urine Protein 100 H Urine Glucose (UA) >=1000 H Urine Ketones >=80 H Urine Occult Blood LARGE H Urine Nitrite NEGATIVE Urine Bilirubin NEGATIVE Urine Urobilinogen 0.2 (NORMAL) Ur Leukocyte Esterase NEGATIVE Urine RBC TNTC H Urine WBC 0-3 Ur Squamous Epith Cells RARE Squamous Urine Bacteria Few Urine Casts 11-25 Granular Casts Ur Microscopic Review INDICATED Urine Culture Comments NOT INDICATED Urine HCG, Qual NEGATIVE Urine Opiates Screen NEGATIVE Ur Oxycodone Screen NEGATIVE Urine Methadone Screen NEGATIVE Ur Propoxyphene Screen NEGATIVE Ur Barbiturates Screen NEGATIVE Ur Tricyclics Screen NEGATIVE Ur Phencyclidine Scrn NEGATIVE Ur Amphetamine Screen POSITIVE H U Methamphetamines Scrn POSITIVE H U Benzodiazepines Scrn NEGATIVE Urine Cocaine Screen NEGATIVE U Cannabinoids Screen NEGATIVE Ethyl Alcohol Serum Ketones - Rads (name of study) chest xray Radiology: Prelim report reviewed, See rad report PD MEDICAL DECISION MAKING - ED course Complexity details: reviewed old records, reviewed results, re-evaluated patient, considered differential ED course: AMS likely due to diabetic ketoacidosis. Small serum ketones but ABG has marked abnormalities including pH 6.9 and pCO2 of 9. Received 1.5 liters NS bolus en route by medics, given another 1 liter bolus in ED followed by 150 cc/hour NS. Given regular insulin bolus followed by 0.1 units/kg/hour regular insulin infusion. Admitted to [facility] hospitalist service, Dr. Dacosta. - Critical Care Time(min): 60 Time Includes: Direct patient care, Review records, Reassess patient, Document care, Coordinate care, See progress note Data interpretation: Labs, Pulse ox, ABG, CXR, Prior EKG, See progress note Procedures included in critical care time: See progress note Procedures excluded from critical care time: See progress note Departure - Departure Disposition: 66 [facility] DC/Xfer Clinical Impression: DKA (diabetic ketoacidoses) Qualifiers: Diabetes mellitus type: type 1 Diabetes mellitus complication detail: without coma Qualified Code(s): E10.10 - Type 1 diabetes mellitus with ketoacidosis without coma Condition: Serious Discharge Date/Time: 05/31/19 04:30
[2019-05-31] MEDS ORDERED: SODIUM CHLORIDE 0.9% 1,000 ML IV STA ×2 (02:17→03:00)
[2019-05-31] MEDS ORDERED: INSULIN REGULAR HUMAN 100 UNIT in SODIUM CHLORIDE 0.9% 100ML 99 ML IV STA ×2 (02:18→02:27)
[2019-05-31] MEDS ORDERED: INSULIN REGULAR HUMAN 100 UNIT/1 ML 10 ML MDV IVP STA ×2 (02:20→02:22)
[2019-05-31 02:45] LABS: ABG HCO3 1.9 mmol/L (22.0-26.0)
--- NOTE | 2019-05-31 02:45 | XRAY Report ---
Reason: AMS Procedure Date: 05/31/2019 Accession Number: [id number] / [id number] Procedure: XR - Chest 1 View X-Ray CPT Code: 87778 FULL RESULT: EXAM: CHEST RADIOGRAPHY EXAM DATE: 05/31/2019 02:35 AM. CLINICAL HISTORY: AMS. COMPARISON: CHEST 1 VIEW 10/16/2018 11:43 PM. TECHNIQUE: 1 view. FINDINGS: Lungs/Pleura: No focal opacities evident. No pleural effusion. No pneumothorax. Mediastinum: Within exam limitations, the cardiomediastinal contour is normal. Other: None. IMPRESSION: Normal single view chest. RADIA
[2019-05-31 02:46] LABS: ABG BASE EXCESS -28.7 mmol/L (-2.0-3.0); ABG OXYGEN SATURATION 98 % (94-98); ALLEN TEST POSITIVE
[2019-05-31 02:48] LABS: ABG PCO2 9 mmHg (34-45); ABG PH 6.94 (7.35-7.45); ABG PO2 154 mmHg (80-100); ABG TCO2 2.2 MMOL/L (21.0-29.0)
[2019-05-31 02:49] LABS: BASOPHILS # (AUTO) 0.1 10^3/uL (0.0-0.1); BASOPHILS % (AUTO) 0.7 %; EOSINOPHILS # (AUTO) 0.1 10^3/uL (0.0-0.7); EOSINOPHILS % (AUTO) 0.7 %; LYMPHOCYTES # (AUTO) 1.2 10^3/uL (1.5-3.5); LYMPHOCYTES % (AUTO) 10.6 %; MEAN CORPUSCULAR HEMOGLOBIN 32.9 pg (27.0-31.0); MEAN CORPUSCULAR HGB CONC 34.5 g/dL (32.0-36.0); MEAN CORPUSCULAR VOLUME 95.4 fL (81.0-99.0); MEAN PLATELET VOLUME 10.6 fL (7.9-10.8); MONOCYTES # (AUTO) 0.9 10^3/uL (0.0-1.0); MONOCYTES % (AUTO) 7.8 %; NEUTROPHILS # (AUTO) 8.8 10^3/uL (1.5-6.6); NEUTROPHILS % (AUTO) 77.5 %; PLT - PLATELET COUNT 303 10^3/uL (130-450); RED BLOOD COUNT 4.56 10^6/uL (4.20-5.40); RED CELL DISTRIBUTION WIDTH 13.2 % (12.0-15.0); WHITE BLOOD COUNT 11.4 x10^3/uL (4.8-10.8)
[2019-05-31 02:58] LABS: KETONES, SERUM (ACETEST) SMALL (NEGATIVE)
[2019-05-31 03:00] LABS: MUDS CUTOFF CONCENTRATIONS CUTOFF CONC BELOW:
[2019-05-31 03:01] LABS: GLUCOSE, URINE (UA) >=1000 mg/dL (NEGATIVE); KETONES,URINE (UA) >=80 mg/dL (NEGATIVE); LEUKOCYTE ESTERASE, URINE NEGATIVE (NEGATIVE); NITRITE,URINE NEGATIVE (NEGATIVE); OCCULT BLOOD,URINE LARGE (NEGATIVE); PROTEIN,URINE 100 mg/dL (NEGATIVE); UROBILINOGEN,URINE 0.2 (NORMAL) E.U./dL (NORMAL)
[2019-05-31 03:06] LABS: BILIRUBIN,URINE NEGATIVE (NEGATIVE); CLARITY,URINE SL. CLOUDY (CLEAR); ICTOTEST,URINE NEGATIVE
[2019-05-31 03:08] LABS: ALBUMIN/GLOBULIN RATIO 1.1 (1.0-2.2); ALKALINE PHOSPHATASE 111 IU/L (42-121); ALT ALANINE AMINOTRANSFERASE 16 IU/L (10-60); AST ASPARTATE AMINOTRANSFERASE 12 IU/L (10-42); BILIRUBIN,TOTAL 1.7 mg/dL (0.2-1.0); BUN - BLOOD UREA NITROGEN 28 mg/dL (6-20); CALCIUM 8.1 mg/dL (8.5-10.3); CHLORIDE 104 mmol/L (101-111); CREATININE 1.1 mg/dL (0.4-1.0); GFR - MDRD 57 (>89); GLUCOSE 446 mg/dL (70-100); LIPASE 36 U/L (22-51); SODIUM 134 mmol/L (135-145); TOTAL PROTEIN 5.7 g/dL (6.7-8.2)
[2019-05-31 03:10] LABS: CARBON DIOXIDE - CO2 < 6 mmol/L (21-32)
[2019-05-31 03:11] LABS: BACTERIA,URINE Few /HPF (None Seen); RBC,URINE TNTC /HPF (0-5); SQUAMOUS EPITHELIAL CELL,UR RARE Squamous (<= Few)
[2019-05-31 03:14] LABS: AMPHETAMINE SCREEN,URINE POSITIVE (NEGATIVE); BENZODIAZEPINES SCREEN, URINE NEGATIVE (NEGATIVE); COCAINE SCREEN URINE NEGATIVE (NEGATIVE); METHADONE SCREEN, URINE NEGATIVE (NEGATIVE); METHAMPHETAMINES SCREEN, URINE POSITIVE (NEGATIVE); OPIATE SCREEN, URINE NEGATIVE (NEGATIVE); OXYCODONE SCREEN, URINE NEGATIVE (NEGATIVE); PROPOXYPHENE SCREEN, URINE NEGATIVE (NEGATIVE); TRICYCLIC ANTIDEPRESSANT,URINE NEGATIVE (NEGATIVE)
[2019-05-31] MEDS ORDERED: ONDANSETRON 4 MG/2 ML VIAL IVP PRN (03:42)
[2019-05-31] MEDS: INSULIN REGULAR HUMAN 100 UNIT in SODIUM CHLORIDE 0.9% 100ML 99 ML IV SCH ×4 (04:00→18:34)
[2019-05-31] MEDS ORDERED: SODIUM BICARBONATE 100 MEQ in DEXTROSE 5% 1,000 ML IV SCH (04:00)
[2019-05-31 04:16] LABS: HB2 TOTAL 14.9 g/dL; HEMOGLOBIN A1C 1.92 g/dL; HEMOGLOBIN A1C % 13.9 % (4.6-6.2)
--- NOTE | 2019-05-31 04:24 | HISTORY & PHYSICAL EXAMINATION ---
Chief Complaint - Chief Complaint Chief Complaint: altered mental status History of Present Illness - Admitted From Admitted From:: [facility] ED - History Obtained From Records Reviewed: yes History obtained from: ED physician Exam Limitations: current altered mental status - History of Present Illness HPI Comment/Other: Patient seen on 05/31/19 at 0400am Patient is a 33 y/o female with Type I DM who presented to the ED via EMS. It is reported that she was found unresponsive in feces at her home. She is completely altered mentally and unable to contribute to this history. She was last admitted to this hospital on 09/1818 with the same presentation. In the ED she has Kussmaul respirations. She does not respond to verbal stimuli. Her hands and feet appear hyperemic. She is afebrile but hypotensive. She was found to have a pH of 6.9, HCO3 6, blood glucose 436 and her UDS was positive for methamphetamine. As a result she was presented for admission to the ICU for DKA. She is blind in the left eye. History - Past Medical History Cardiovascular: reports: None Respiratory: reports: Other Neuro: reports: Peripheral neuropathy Endocrine/Autoimmune: reports: Type 1 diabetes GI: reports: None : reports: None HEENT: reports: Other Psych: reports: None Musculoskeletal: reports: None Derm: reports: Other Other Past Medical History: ARDS - Past Surgical History Other past surgical history: None - Family & Social History Family History Comment/Other: Cannot obtain at the moment because the patient is mentally altered and unable to provide Social History Notes: Patient is positive for methamphetamine. Social hisotry is currently limited on alcohol or tobacco use due to AMS - POLST Patient has POLST: No POLST Status: Full Code Meds/Allgy - Home Medications Home Medications: Ambulatory Orders Medication Instructions Recorded Confirmed Acyclovir 800 mg PO TID 10/15/18 10/16/18 Cyclosporine [Restasis] 1 drops RIGHTEYE Q12H 10/15/18 10/16/18 Insulin Aspart [NovoLOG] 2 - 18 units SUBQ AC 10/15/18 10/15/18 Insulin Glargine [Lantus Solostar] 25 units SUBQ BID 10/15/18 10/15/18 - Allergies Allergies/Adverse Reactions: Allergies Allergy/AdvReac Type Severity Reaction Status Date / Time No Known Drug Allergies Allergy Verified 05/31/19 02:17 Review of Systems - Constitutional Constitutional: denies: Fever - Eyes Eyes: reports: Other (blind in left eye) - Other Findings Other Findings: ROS system is currently limited due to altered mental status. Prior Level of Functionality: Patient is supposedly independent of activities of daily living. A child who is currently with a neighbor was at the house at the time EMS arrived. Exam - Vital Signs Vital Signs: Vital Signs x48h Temp Pulse Resp BP Pulse Ox 05/31/19 04:03 94 22 94/69 100 05/31/19 03:58 93 24 87/62 L 100 05/31/19 03:46 93 18 94/66 100 05/31/19 03:42 94 22 94/66 100 05/31/19 03:11 93 22 95/51 L 100 05/31/19 02:55 92 96/57 L 05/31/19 02:46 93 22 91/64 99 05/31/19 02:17 95 24 100 05/31/19 02:13 35.8 C L 95 24 94/66 100 - Physical Exam General Appearance: positive: Lethargic Eyes Bilateral: positive: Other (blind in left eye which appears esposito. right eye is reactive to light) ENT: positive: ENT inspection nml, Dry mucous membranes Neck: positive: Nml inspection, No JVD, Trachea midline Respiratory: positive: No respiratory distress, Breath sounds nml. negative: Wheezes, Rales, Rhonchi Cardiovascular: positive: No murmur, Tachycardia Abdomen: positive: Non-tender, No organomegaly, Nml bowel sounds, No distention. negative: Guarding, Rebound Skin: positive: Dry, Other (hands and feet are hyperemic) Extremities: positive: No pedal edema Neurologic/Psychiatric: positive: CN's nml (2-12), Motor nml. negative: Oriented x3 Conclusion/Plan - Problem List (1) DKA (diabetic ketoacidoses) Conclusion/Plan: Patient has history of medical noncompliance. HgA1C is 13 Precipitating factor for current DKA episode undetermined Patient was positive for methamphetamine on urine drug screen CXR and UA unremarkable for infection Will obtain blood cultures DKA protocol initiated. Patient in ICU on insulin gtt Qualifiers: Diabetes mellitus type: type 1 Diabetes mellitus complication detail: without coma Qualified Code(s): E10.10 - Type 1 diabetes mellitus with ketoacidosis without coma (2) Acute kidney injury Conclusion/Plan: Very mild Likely related to DKA and ?Dehydration Hydrated with normal saline Monitor urine output (3) Blind left eye Conclusion/Plan: Chronic (4) Methamphetamine abuse Conclusion/Plan: Patient was positive on drug screen - Lab Results Fish Bones: 05/31/19 05:12 05/31/19 02:42 Core Measures - Anticipated LOS I expect patient to be DC'd or transferred within 96 hours.: Yes - DVT/VTE - Prophylaxis VTE/DVT Device ordered at admit?: Yes VTE/DVT Prophylaxis med ordered at admit?: Yes
[2019-05-31] MEDS: SODIUM CHLORIDE 0.9% 1,000 ML IV SCH ×2 (04:45→10:28)
[2019-05-31] MEDS ORDERED: DEXTROSE 5%-0.45% NACL 1,000 ML IV SCH (05:00)
[2019-05-31] MEDS ORDERED: SODIUM BICARBONATE 8.4% 50 MEQ/50 ML VIAL ONE (05:17)
[2019-05-31 05:22] LABS: BASOPHILS # (AUTO) 0.1 10^3/uL (0.0-0.1); BASOPHILS % (AUTO) 0.5 %; EOSINOPHILS % (AUTO) 0.2 %; HGB - HEMOGLOBIN 14.9 g/dL (12.0-16.0); LYMPHOCYTES # (AUTO) 1.5 10^3/uL (1.5-3.5); LYMPHOCYTES % (AUTO) 11.7 %; MEAN CORPUSCULAR HGB CONC 34.9 g/dL (32.0-36.0); MEAN CORPUSCULAR VOLUME 94.7 fL (81.0-99.0); MEAN PLATELET VOLUME 10.4 fL (7.9-10.8); MONOCYTES # (AUTO) 1.3 10^3/uL (0.0-1.0); MONOCYTES % (AUTO) 10.3 %; NEUTROPHILS # (AUTO) 9.7 10^3/uL (1.5-6.6); NEUTROPHILS % (AUTO) 75.4 %; PLT - PLATELET COUNT 277 10^3/uL (130-450); RED BLOOD COUNT 4.51 10^6/uL (4.20-5.40); RED CELL DISTRIBUTION WIDTH 13.1 % (12.0-15.0); WHITE BLOOD COUNT 12.9 x10^3/uL (4.8-10.8)
[2019-05-31 05:23] LABS: VBG BASE EXCESS -28.4 mmol/L (-2 - +2); VBG PCO2 13.3 mmHg (41-51); VBG PH 6.925 (7.31-7.41); VBG PO2 195.8 mmHg (25-47); VBG TOTAL CO2 3.1 mmol/L (24-29)
[2019-05-31] MEDS: SODIUM CHLORIDE FLUSH 0.9% 10 ML SYRINGE IVP PRN ×3 (05:26→12:39)
[2019-05-31] MEDS ORDERED: DEXTROSE 5% 1,000 ML IV ONE (05:26)
[2019-05-31 05:31] LABS: HCG UR QUAL NEGATIVE
[2019-05-31 06:34] LABS: ABG BASE EXCESS -24.5 mmol/L (-2.0-3.0); ABG HCO3 3.3 mmol/L (22.0-26.0); ABG OXYGEN SATURATION 99 % (94-98); ALLEN TEST POSITIVE
[2019-05-31 06:36] LABS: ABG PCO2 12 mmHg (34-45); ABG PH 7.07 (7.35-7.45); ABG PO2 177 mmHg (80-100); ABG TCO2 3.7 MMOL/L (21.0-29.0)
[2019-05-31 06:59] LABS: BUN - BLOOD UREA NITROGEN 29 mg/dL (6-20); CHLORIDE 109 mmol/L (101-111); GFR - MDRD 64 (>89); GLUCOSE 368 mg/dL (70-100); MAGNESIUM 2.1 mg/dL (1.7-2.8); SODIUM 136 mmol/L (135-145)
[2019-05-31 07:01] LABS: CARBON DIOXIDE - CO2 < 6 mmol/L (21-32)
[2019-05-31] MEDS: SODIUM BICARBONATE 100 MEQ in DEXTROSE 5% 1,000 ML IV SCH ×2 (07:20→13:14)
[2019-05-31] MEDS: PANTOPRAZOLE 40 MG VIAL IVP SCH (07:27)
[2019-05-31 07:39] LABS: BUN - BLOOD UREA NITROGEN 30 mg/dL (6-20); CALCIUM 7.8 mg/dL (8.5-10.3); CHLORIDE 111 mmol/L (101-111); GFR - MDRD 64 (>89); GLUCOSE 337 mg/dL (70-100); MAGNESIUM 1.8 mg/dL (1.7-2.8); SODIUM 138 mmol/L (135-145)
[2019-05-31 07:40] LABS: CARBON DIOXIDE - CO2 < 6 mmol/L (21-32)
[2019-05-31] MEDS ORDERED: POTASSIUM CHLOR 10 MEQ/100 ML 10 MEQ/100 ML BAG IV ONE ×3 (08:00→14:31)
[2019-05-31] MEDS: SODIUM CHLORIDE FLUSH 0.9% 10 ML SYRINGE IVP SCH ×2 (09:16→16:45)
[2019-05-31 10:13] LABS: BUN - BLOOD UREA NITROGEN 26 mg/dL (6-20); CALCIUM 7.8 mg/dL (8.5-10.3); CHLORIDE 112 mmol/L (101-111); GFR - MDRD 64 (>89); GLUCOSE 261 mg/dL (70-100); MAGNESIUM 1.6 mg/dL (1.7-2.8); SODIUM 140 mmol/L (135-145)
[2019-05-31 10:14] LABS: CARBON DIOXIDE - CO2 9 mmol/L (21-32)
[2019-05-31 10:15] LABS: KETONES, SERUM (ACETEST) SMALL (NEGATIVE)
[2019-05-31] MEDS ORDERED: MAGNESIUM SULFATE 2 GRAM 2 GM/50 ML BAG IV ONE (10:36)
[2019-05-31 11:26] LABS: ABG PCO2 29 mmHg (34-45); ABG PH 7.31 (7.35-7.45); ABG PO2 81 mmHg (80-100)
[2019-05-31 11:27] LABS: ABG BASE EXCESS -10.8 mmol/L (-2.0-3.0); ABG HCO3 14.1 mmol/L (22.0-26.0); ABG OXYGEN SATURATION 97 % (94-98); ABG TCO2 14.9 MMOL/L (21.0-29.0); ALLEN TEST POSITIVE
[2019-05-31 11:46] LABS: CALCIUM 7.6 mg/dL (8.5-10.3); CREATININE 0.8 mg/dL (0.4-1.0); MAGNESIUM 1.8 mg/dL (1.7-2.8)
[2019-05-31] MEDS: D5NS W/20 MEQ KCL 1,000 ML IV SCH ×2 (12:29→22:37)
--- NOTE | 2019-05-31 13:33 | PROVIDER PROGRESS NOTE ---
Hospitalist Cross-cover Note - Cross-Cover Note Cross-Cover Note: Critical Care time spent: 30 min on DKA -ordered DKA protocol -followed labs and adjusted iv D5NS drip -followed labs and adjusted Insulin drip -followed labs and adjusted Bicarb drip Hypokalemia -followed labs and adjusted Potassium orders Hypotension -adjusted iv meds
[2019-05-31] MEDS ORDERED: A & D OINTMENT 5 GM PACKET TOP PRN (13:54)
[2019-05-31 14:27] LABS: CALCIUM 7.4 mg/dL (8.5-10.3); CREATININE 0.7 mg/dL (0.4-1.0); MAGNESIUM 1.9 mg/dL (1.7-2.8)
[2019-05-31] MEDS: POTASSIUM CHLOR 10 MEQ/100 ML 10 MEQ/100 ML BAG IV SCH ×7 (16:31→23:15)
[2019-05-31] MEDS: MULTIVITAMIN W/MINERALS TABLET PO SCH (16:42)
[2019-05-31] MEDS ORDERED: ACETAMINOPHEN 325 MG TABLET PO PRN (18:19)
[2019-05-31 21:18] LABS: KETONES, SERUM (ACETEST) SMALL (NEGATIVE)
[2019-05-31 21:33] LABS: BUN - BLOOD UREA NITROGEN 17 mg/dL (6-20); CALCIUM 7.2 mg/dL (8.5-10.3); CARBON DIOXIDE - CO2 23 mmol/L (21-32); CHLORIDE 108 mmol/L (101-111); CREATININE 0.4 mg/dL (0.4-1.0); GFR - MDRD 184 (>89); GLUCOSE 121 mg/dL (70-100); MAGNESIUM 1.8 mg/dL (1.7-2.8); SODIUM 136 mmol/L (135-145)
[2019-05-31 21:36] LABS: PHOSPHORUS < 1.0 mg/dL (2.5-4.6)
[2019-05-31] MEDS ORDERED: POTASSIUM PHOSPHATE 21 MMOL in SODIUM CHLORIDE 0.9% 250 ML IV ONE (21:47)
[2019-06-01] MEDS: POTASSIUM CHLOR 10 MEQ/100 ML 10 MEQ/100 ML BAG IV SCH (00:18)
[2019-06-01] MEDS: SODIUM CHLORIDE FLUSH 0.9% 10 ML SYRINGE IVP PRN ×4 (00:21→06:50)
[2019-06-01] MEDS: SODIUM CHLORIDE FLUSH 0.9% 10 ML SYRINGE IVP SCH ×2 (00:21→10:19)
[2019-06-01] MEDS: INSULIN REGULAR HUMAN 100 UNIT in SODIUM CHLORIDE 0.9% 100ML 99 ML IV SCH ×2 (00:22→05:46)
[2019-06-01 01:48] LABS: ALBUMIN 2.2 g/dL (3.2-5.5); CALCIUM 7.4 mg/dL (8.5-10.3); CREATININE 0.5 mg/dL (0.4-1.0); MAGNESIUM 1.9 mg/dL (1.7-2.8); PHOSPHORUS 2.1 mg/dL (2.5-4.6)
[2019-06-01 03:59] LABS: KETONES, SERUM (ACETEST) SMALL (NEGATIVE)
[2019-06-01 04:00] LABS: BUN - BLOOD UREA NITROGEN 13 mg/dL (6-20); CALCIUM 7.5 mg/dL (8.5-10.3); CARBON DIOXIDE - CO2 19 mmol/L (21-32); CHLORIDE 108 mmol/L (101-111); CREATININE 0.6 mg/dL (0.4-1.0); GFR - MDRD 115 (>89); GLUCOSE 235 mg/dL (70-100); SODIUM 137 mmol/L (135-145)
[2019-06-01] MEDS: D5NS W/20 MEQ KCL 1,000 ML IV SCH ×2 (05:46→08:47)
[2019-06-01 05:51] LABS: BASOPHILS % (AUTO) 0.3 %; EOSINOPHILS # (AUTO) 0.1 10^3/uL (0.0-0.7); EOSINOPHILS % (AUTO) 0.8 %; HGB - HEMOGLOBIN 13.1 g/dL (12.0-16.0); LYMPHOCYTES # (AUTO) 1.4 10^3/uL (1.5-3.5); MEAN CORPUSCULAR HEMOGLOBIN 32.5 pg (27.0-31.0); MEAN CORPUSCULAR HGB CONC 36.9 g/dL (32.0-36.0); MEAN CORPUSCULAR VOLUME 88.1 fL (81.0-99.0); MONOCYTES # (AUTO) 0.7 10^3/uL (0.0-1.0); MONOCYTES % (AUTO) 9.5 %; NEUTROPHILS # (AUTO) 5.4 10^3/uL (1.5-6.6); PLT - PLATELET COUNT 239 10^3/uL (130-450); RED BLOOD COUNT 4.03 10^6/uL (4.20-5.40); WHITE BLOOD COUNT 7.6 x10^3/uL (4.8-10.8)
[2019-06-01 06:01] LABS: KETONES, SERUM (ACETEST) SMALL (NEGATIVE)
[2019-06-01 06:13] LABS: MAGNESIUM 1.9 mg/dL (1.7-2.8)
[2019-06-01] MEDS: PANTOPRAZOLE 40 MG VIAL IVP SCH (06:48)
[2019-06-01] MEDS ORDERED: POTASSIUM PHOSPHATE 15 MMOL in SODIUM CHLORIDE 0.9% 250 ML IV ONE ×2 (07:00→08:30)
[2019-06-01] MEDS ORDERED: INSULIN GLARGINE 300 UNIT/3 ML PEN SUBQ SCH (09:15)
[2019-06-01] MEDS: INSULIN ASPART 300 UNIT/3 ML PEN SUBQ SCH ×2 (12:00→17:08)
[2019-06-01] MEDS: MULTIVITAMIN W/MINERALS TABLET PO SCH (12:00)
--- NOTE | 2019-06-01 12:57 | Discharge Plan ---
Discharge Plan Problem Reviewed?: Yes Disposition: Home, Self Care Condition: Poor Diet: Diabetic Activity Restrictions: Activity as Tolerated Instruction Topics: Abuse Meth Abuse and Addiction Health Concerns: Admitted in a coma, and found to have DKA and Meth use. Plan of Treatment: Resume diabetic management and stop drug abuse. Care Goals: As above. Assessment: The patient was advised the above. Additional Instructions or Follow Up instructions: Social Work provided resources for drug addiction rehab. Please see your PCP in follow-up in the next 1-2 weeks. No Smoking: If you smoke, Please STOP! Call for help.
[2019-06-01 15:07] VITALS: BP 98/74
--- NOTE | 2019-06-02 17:47 | DISCHARGE SUMMARY ---
Discharge Summary Admit Date: 05/31/19 Discharge Date: 06/01/19 Discharging Provider: Dr Sandra Benavides Primary Care Provider: No established PCP Code Status: Attempt Resuscitation Condition at Discharge: Poor Discharge Disposition: Home, Self Care - DIAGNOSES Admission Diagnoses: 1) DKA 2) IVET 3) Meth drug abuse Discharge Diagnoses with Status of Each Condition: See below - HPI History of Present Illness: From the admission H&P of Dr Miller Dacosta: Patient is a 33 y/o female with Type I DM who presented to the ED via EMS. It is reported that she was found unresponsive in feces at her home. She is completely altered mentally and unable to contribute to this history. She was last admitted to this hospital on 09/2018 with the same presentation. In the ED she has Kussmaul respirations. She did not respond to verbal stimuli. Her hands and feet appear hyperemic. She is afebrile but hypotensive. She was found to have a pH of 6.9, HCO3 6, blood glucose 436 and her MUDS was positive for methamphetamine. As a result she was presented for admission to the ICU for DKA. She is blind in the left eye. - HOSPITAL COURSE Hospital Course: (1) DKA (diabetic ketoacidoses) Patient has history of medical noncompliance and her HbA1C was found to be 13. CXR and UA unremarkable for infection and blood cultures were negative. There was no precipitating factor for the current DKA episode found except non- compliance. She was in the ICU on a DKA protocol with iv fluids, iv Insulin drip and she needed several hours of a Bicarb drip. By the following day, her serum ketones cleared, and subq Insulin was resumed. Also, she was more awake and was oriented and able to have her diet advanced. She was discharged and advised to resume her prior Insulin and diabetic management. (2) Acute kidney injury The BUN/creat were mildly abnormal at 28/1.1 and likely related to DKA and dehydration. She received hydrated with normal saline. Her BUN /creat were normal at 13/0.6 at discharge. (3) Blind left eye Chronic (4) Methamphetamine abuse Patient was positive for Meth on drug screen. Withdrawing from Meth added to her somnolence. She was seen by Social Work and offered resources for drug abuse management. CPS was involved, since the patient was living with and raising a 5-year old child. - ALLERGIES Allergies/Adverse Reactions: Allergies Allergy/AdvReac Type Severity Reaction Status Date / Time No Known Drug Allergies Allergy Verified 05/31/19 02:17 - MEDICATIONS Home Medications: Ambulatory Orders Medication Instructions Recorded Confirmed RX: Acyclovir 800 mg PO TID 10/15/18 10/16/18 RX: Cyclosporine [Restasis] 1 drops RIGHTEYE Q12H 10/15/18 10/16/18 RX: Insulin Aspart [NovoLOG] 2 - 18 units SUBQ AC 10/15/18 10/15/18 RX: Insulin Glargine [Lantus 25 units SUBQ BID 10/15/18 10/15/18 Solostar] - PHYSICAL EXAM AT DISCHARGE General Appearance: positive: No acute distress, Lethargic Eyes Bilateral: positive: Other (Eye lids swollen) ENT: positive: ENT inspection nml, Other (Moist oral mucosa) Neck: positive: Nml inspection, Other (Supple) Respiratory: positive: No respiratory distress, Breath sounds nml Cardiovascular: positive: Regular rate & rhythm, No murmur Abdomen: positive: Non-tender Skin: positive: Color nml Extremities: positive: No pedal edema Neurologic/Psychiatric: positive: Oriented x3, Other (Non-focal) - LABS Result Diagrams: 06/01/19 05:42 06/01/19 03:45 - DIAGNOSTIC IMAGING Diagnostic Imaging Results: Final report reviewed - FOLLOW UP Follow Up: Establish with a PCP or come to Diabetic clinic at the [facility] [place] here was advised - TIME SPENT Time Spent in Discharge (Minutes): 35
== END 2019-06-01 19:00 | disposition home or self-care (01) | DRG 638 ==
LOC: EDUNIT# → ED 02:10 → ICU 03:42
PROVIDERS: ADMIT Internal Medicine; ATTEND Internal Medicine
DX: E10.11 Type 1 diabetes mellitus with ketoacidosis with coma (principal); N17.9 Acute kidney failure, unspecified; F15.23 Other stimulant dependence with withdrawal; T38.3X6A Underdosing of insulin and oral hypoglycemic [antidiabetic] drugs, initial encounter; E10.42 Type 1 diabetes mellitus with diabetic polyneuropathy; I95.9 Hypotension, unspecified; E86.0 Dehydration; H54.40 Blindness, one eye, unspecified eye; Y92.009 Unspecified place in unspecified non-institutional (private) residence as the place of occurrence of the external cause
CPT/HCPCS: 36415; 36600; 51702; 71045; 80048; 80053; 80306; 80320; 81001; 81025; 82009; 82040; 82803; 83036; 83605; 83690; 83735; 84100; 84132; 84484; 84702; 85025; 87040; 87150; 93005; 99285; 99291; A9270; J1815; 81003; 82947; 87086

== ENCOUNTER 2019-10-08 20:37 | Outpatient (CLI) | payer MEDICAID | END 2019-10-08 20:38 | disposition critical access hospital (66) | LOC: EMS 20:37 | PROVIDERS: ATTEND Surgery | DX: E11.65 Type 2 diabetes mellitus with hyperglycemia (principal); R06.02 Shortness of breath; R07.89 Other chest pain; R68.83 Chills (without fever); Z79.4 Long term (current) use of insulin | CPT/HCPCS: A0425; A0427; A0999 ==

== ENCOUNTER 2019-10-08 21:09 | Inpatient (IN) | payer MEDICAID ==
[2019-10-08] MEDS: SODIUM CHLORIDE 0.9% 1,000 ML IV SCH ×2 (21:10→23:14)
[2019-10-08] MEDS ORDERED: INSULIN REGULAR HUMAN 100 UNIT/1 ML 10 ML MDV IVP STA (21:19)
[2019-10-08] MEDS ORDERED: INSULIN REGULAR HUMAN 100 UNIT in SODIUM CHLORIDE 0.9% 100ML 99 ML SUBQ STA ×2 (21:19→22:07)
--- NOTE | 2019-10-08 21:34 | ED Physician Documentation ---
History of Present Illness - Stated complaint Stated Complaint: HIGH BLOOD SUGAR - Chief complaint Chief Complaint: Neuro - History obtained from History obtained from: EMS - History of Present Illness Timing: Today Pain level max: 0 Pain level now: 0 - Additonal information Additional information: Patient is a poorly controlled diabetic. Her family states that her blood sugars have been high for several days. Today she was becoming less responsive. Has a history of DKA in the past. Has a ulceration to the bottom of the right foot that she is being cared for. Unknown if she is on antibiotics at this time. No other history is available at this time. EMS states that her blood sugar was approximately 570. EMS started a left EJ line Review of Systems Unable to obtain: AMS PD PAST MEDICAL HISTORY - Past Medical History Past Medical History: Yes Cardiovascular: None Respiratory: Other Neuro: Peripheral neuropathy Endocrine/Autoimmune: Type 1 diabetes GI: None : None HEENT: Other Psych: None Musculoskeletal: None Derm: Other - Present Medications Home Medications: Ambulatory Orders Medication Instructions Recorded Confirmed Acyclovir 800 mg PO TID 10/15/18 10/16/18 Cyclosporine [Restasis] 1 drops RIGHTEYE Q12H 10/15/18 10/16/18 Insulin Aspart [NovoLOG] 2 - 18 units SUBQ AC 10/15/18 10/15/18 Insulin Glargine [Lantus Solostar] 25 units SUBQ BID 10/15/18 10/15/18 - Allergies Allergies/Adverse Reactions: Allergies Allergy/AdvReac Type Severity Reaction Status Date / Time No Known Drug Allergies Allergy Verified 10/08/19 21:22 - Living Situation Living Arrangement: reports: At home - Social History Does the pt smoke?: Yes Smoking Status: Current every day smoker Does the pt drink ETOH?: Yes Does the pt have substance abuse?: Yes Substance Use and Type: Meth - Immunizations Immunizations are current?: No - POLST Patient has POLST: No POLST Status: Full Code PD ED PE NORMAL - Vitals Vital signs reviewed: Yes - General General: Other (Drowsy, confused, disoriented) - HEENT HEENT: Atraumatic (No hematomas or abrasions), PERRL, Other (Dry lips and tongue) - Neck Neck: Supple, no meningeal sign - Cardiac Cardiac: RRR - Respiratory Respiratory: No respiratory distress, Clear bilaterally - Abdomen Abdomen: Soft, Non tender, Non distended - Derm Derm: Warm and dry - Extremities Extremities: No edema - Neuro Neuro: Other (Drowsy but arousable. Confused) Eye Opening: To Voice Motor: Localizes to Pain Verbal: Confused GCS Score: 12 Results - Vitals Vitals: Vital Signs - 24 hr 10/08/19 10/08/19 21:10 21:44 Temperature 32.6 C L 32.2 C L Heart Rate 82 80 Respiratory 20 19 Rate Blood Pressure 92/67 94/71 O2 Saturation 95 94 Oxygen O2 Source Room air - Labs Labs: Laboratory Tests 10/08/19 10/08/19 10/08/19 21:30 21:30 21:30 WBC 19.6 H RBC 4.96 Hgb 15.9 Hct 48.8 H MCV 98.4 MCH 32.1 H MCHC 32.6 RDW 13.2 Plt Count 379 MPV 10.9 H Neut # (Auto) 16.0 H Lymph # (Auto) 1.6 [place] # (Auto) 1.4 H Eos # (Auto) 0.1 Baso # (Auto) 0.2 H Absolute Nucleated RBC 0.00 Nucleated RBC % 0.0 VBG pH 6.676 L VBG pCO2 18.1 L VBG pO2 53.0 H VBG HCO3 2.1 L VBG Total CO2 2.6 L VBG O2 Saturation 83.3 H VBG Base Excess -34.9 L Sodium 129 L Potassium 4.4 Chloride 98 L Carbon Dioxide < 6 L* Anion Gap 28.0 H BUN 38 H Creatinine 1.4 H Estimated GFR (MDRD) 43 L Glucose 572 H* Calcium 8.6 Total Bilirubin 2.0 H AST 20 ALT 15 Alkaline Phosphatase 162 H Total Protein 6.9 Albumin 3.3 Globulin 3.6 Albumin/Globulin Ratio 0.9 L Lipase 57 H Urine Color Urine Clarity Urine pH Ur Specific [place] Urine Protein Urine Glucose (UA) Urine Ketones Urine Occult Blood Urine Nitrite Urine Bilirubin Urine Urobilinogen Ur Leukocyte Esterase Urine RBC Urine WBC Ur Squamous Epith Cells Amorphous Sediment Urine Bacteria Urine Casts Ur Microscopic Review Urine Culture Comments Urine HCG, Qual Salicylates Urine Opiates Screen Ur Oxycodone Screen Urine Methadone Screen Ur Propoxyphene Screen Acetaminophen Ur Barbiturates Screen Ur Tricyclics Screen Ur Phencyclidine Scrn Ur Amphetamine Screen U Methamphetamines Scrn U Benzodiazepines Scrn Urine Cocaine Screen U Cannabinoids Screen 10/08/19 10/08/19 21:30 21:40 WBC RBC Hgb Hct MCV MCH MCHC RDW Plt Count MPV Neut # (Auto) Lymph # (Auto) [place] # (Auto) Eos # (Auto) Baso # (Auto) Absolute Nucleated RBC Nucleated RBC % VBG pH VBG pCO2 VBG pO2 VBG HCO3 VBG Total CO2 VBG O2 Saturation VBG Base Excess Sodium Potassium Chloride Carbon Dioxide Anion Gap BUN Creatinine Estimated GFR (MDRD) Glucose Calcium Total Bilirubin AST ALT Alkaline Phosphatase Total Protein Albumin Globulin Albumin/Globulin Ratio Lipase Urine Color YELLOW Urine Clarity CLEAR Urine pH 5.5 Ur Specific [place] >=1.030 H Urine Protein 100 H Urine Glucose (UA) >=1000 H Urine Ketones >=80 H Urine Occult Blood MODERATE H Urine Nitrite NEGATIVE Urine Bilirubin NEGATIVE Urine Urobilinogen 0.2 (NORMAL) Ur Leukocyte Esterase NEGATIVE Urine RBC 0-5 Urine WBC 0-3 Ur Squamous Epith Cells NONE SEEN Amorphous Sediment Rare Urine Bacteria None Seen Urine Casts 3-5 Granular Casts Ur Microscopic Review INDICATED Urine Culture Comments NOT INDICATED Urine HCG, Qual NEGATIVE Salicylates < 6.0 Urine Opiates Screen NEGATIVE Ur Oxycodone Screen NEGATIVE Urine Methadone Screen NEGATIVE Ur Propoxyphene Screen NEGATIVE Acetaminophen < 10 L Ur Barbiturates Screen NEGATIVE Ur Tricyclics Screen NEGATIVE Ur Phencyclidine Scrn NEGATIVE Ur Amphetamine Screen POSITIVE H U Methamphetamines Scrn POSITIVE H U Benzodiazepines Scrn NEGATIVE Urine Cocaine Screen NEGATIVE U Cannabinoids Screen NEGATIVE Procedures - General procedure General procedure: Ultrasound-guided peripheral IV. Right antecubital fossa. 18-gauge IV. Good blood return, flushes easily. PD MEDICAL DECISION MAKING - ED course Complexity details: reviewed old records, reviewed results, re-evaluated patient, considered differential, d/w operational risk consultant ED course: 34-year-old female with DKA. She has an IV in the left EJ on IV on the right AC. Insulin drip started. IV fluids given. She is severely acidotic. Will need ICU level care. Discussed with the hospitalist, Dr. Dacosta who accepts. Patient was also given warmed IV fluids and a bear hugger. This document was made in part using voice recognition software. While efforts are made to proofread this document, sound alike and grammatical errors may occur. - Critical Care Time(min): 45 Time Includes: Direct patient care, Review records, Reassess patient, Document care, Coordinate care, Medical consult, See progress note Data interpretation: See progress note Procedures included in critical care time: See progress note Procedures excluded from critical care time: See progress note Departure - Departure Disposition: 66 [facility] DC/Xfer Clinical Impression: Methamphetamine abuse, Obtundation Altered mental status Qualifiers: Altered mental status type: unspecified Qualified Code(s): R41.82 - Altered mental status, unspecified DKA (diabetic ketoacidoses) Qualifiers: Diabetes mellitus type: type 1 Diabetes mellitus complication detail: with coma Qualified Code(s): E10.11 - Type 1 diabetes mellitus with ketoacidosis with coma Hypothermia Qualifiers: Encounter type: initial encounter Qualified Code(s): T68.XXXA - Hypothermia, initial encounter Condition: Critical
[2019-10-08 21:39] LABS: BASOPHILS # (AUTO) 0.2 10^3/uL (0.0-0.1); BASOPHILS % (AUTO) 0.8 %; EOSINOPHILS # (AUTO) 0.1 10^3/uL (0.0-0.7); EOSINOPHILS % (AUTO) 0.3 %; HGB - HEMOGLOBIN 15.9 g/dL (12.0-16.0); LYMPHOCYTES # (AUTO) 1.6 10^3/uL (1.5-3.5); LYMPHOCYTES % (AUTO) 8.4 %; MEAN CORPUSCULAR HEMOGLOBIN 32.1 pg (27.0-31.0); MEAN CORPUSCULAR HGB CONC 32.6 g/dL (32.0-36.0); MEAN CORPUSCULAR VOLUME 98.4 fL (81.0-99.0); MEAN PLATELET VOLUME 10.9 fL (7.9-10.8); MONOCYTES # (AUTO) 1.4 10^3/uL (0.0-1.0); MONOCYTES % (AUTO) 7.2 %; NEUTROPHILS % (AUTO) 81.8 %; PLT - PLATELET COUNT 379 10^3/uL (130-450); RED BLOOD COUNT 4.96 10^6/uL (4.20-5.40); RED CELL DISTRIBUTION WIDTH 13.2 % (12.0-15.0); WHITE BLOOD COUNT 19.6 x10^3/uL (4.8-10.8)
[2019-10-08 21:41] LABS: VBG PCO2 18.1 mmHg (41-51); VBG PH 6.676 (7.31-7.41)
[2019-10-08 21:42] LABS: VBG BASE EXCESS -34.9 mmol/L (-2 - +2); VBG TOTAL CO2 2.6 mmol/L (24-29)
[2019-10-08 21:43] LABS: MUDS CUTOFF CONCENTRATIONS CUTOFF CONC BELOW:
[2019-10-08 21:49] LABS: GLUCOSE, URINE (UA) >=1000 mg/dL (NEGATIVE); KETONES,URINE (UA) >=80 mg/dL (NEGATIVE); LEUKOCYTE ESTERASE, URINE NEGATIVE (NEGATIVE); NITRITE,URINE NEGATIVE (NEGATIVE); OCCULT BLOOD,URINE MODERATE (NEGATIVE); PH,URINE 5.5 PH (5.0-7.5); PROTEIN,URINE 100 mg/dL (NEGATIVE); UROBILINOGEN,URINE 0.2 (NORMAL) E.U./dL (NORMAL)
[2019-10-08] MEDS ORDERED: ONDANSETRON 4 MG/2 ML VIAL IVP PRN (21:52)
[2019-10-08 22:00] LABS: ALBUMIN 3.3 g/dL (3.2-5.5); ALBUMIN/GLOBULIN RATIO 0.9 (1.0-2.2); ALKALINE PHOSPHATASE 162 IU/L (42-121); ALT ALANINE AMINOTRANSFERASE 15 IU/L (10-60); AST ASPARTATE AMINOTRANSFERASE 20 IU/L (10-42); BUN - BLOOD UREA NITROGEN 38 mg/dL (6-20); CALCIUM 8.6 mg/dL (8.5-10.3); CHLORIDE 98 mmol/L (101-111); CREATININE 1.4 mg/dL (0.4-1.0); GFR - MDRD 43 (>89); LIPASE 57 U/L (22-51); SODIUM 129 mmol/L (135-145); TOTAL PROTEIN 6.9 g/dL (6.7-8.2)
[2019-10-08] MEDS ORDERED: DEXTROSE 5%-0.9% NACL 1,000 ML IV SCH (22:00)
[2019-10-08] MEDS ORDERED: SODIUM CHLORIDE 0.9% 1,000 ML IV SCH (22:00)
[2019-10-08 22:05] LABS: CARBON DIOXIDE - CO2 < 6 mmol/L (21-32)
[2019-10-08 22:06] LABS: CLARITY,URINE CLEAR (CLEAR)
[2019-10-08 22:06] LABS: GLUCOSE 572 mg/dL (70-100)
[2019-10-08 22:07] LABS: AMORPHOUS SEDIMENT,UR Rare /LPF; BACTERIA,URINE None Seen /HPF (None Seen); BILIRUBIN,URINE NEGATIVE (NEGATIVE); CASTS, URINE 3-5 Granular Casts /LPF; HCG UR QUAL NEGATIVE; ICTOTEST,URINE NEGATIVE; OXYCODONE SCREEN, URINE NEGATIVE (NEGATIVE); PROPOXYPHENE SCREEN, URINE NEGATIVE (NEGATIVE); RBC,URINE 0-5 /HPF (0-5); SQUAMOUS EPITHELIAL CELL,UR NONE SEEN (<= Few)
[2019-10-08 22:08] LABS: AMPHETAMINE SCREEN,URINE POSITIVE (NEGATIVE); BENZODIAZEPINES SCREEN, URINE NEGATIVE (NEGATIVE); COCAINE SCREEN URINE NEGATIVE (NEGATIVE); METHADONE SCREEN, URINE NEGATIVE (NEGATIVE); METHAMPHETAMINES SCREEN, URINE POSITIVE (NEGATIVE); OPIATE SCREEN, URINE NEGATIVE (NEGATIVE); TRICYCLIC ANTIDEPRESSANT,URINE NEGATIVE (NEGATIVE)
[2019-10-08 22:09] LABS: ACETAMINOPHEN < 10 ug/mL (10-30); SALICYLATE < 6.0 mg/dL
--- NOTE | 2019-10-08 22:09 | HISTORY & PHYSICAL EXAMINATION ---
Chief Complaint - Chief Complaint Chief Complaint: altered mental status, hyperglycemia, hypothermic History of Present Illness - Admitted From Admitted From:: [facility] - History Obtained From Records Reviewed: yes History obtained from: ED physician Exam Limitations: currently AMS - History of Present Illness HPI Comment/Other: Patient is a 34 y/o female with very poorly controlled Type I DM and Hx of methamphetamine abuse who was brought to the ED by EMS with altered mental status. It was reported to EMS by her family member who called 911 that her blood glucose has been very high for several days. Today she became less responsive thus leading to the EMS phone call. She was found to be hypothermic with a temp of 32.2 degrees Celsius and had a blood glucose of 570. She was given a GCS of 12. She stirs slightly to verbal stimuli but no further reaction. 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 Her right pupil sluggishly responds to light. She has a wound/ ulcer on the bottom of her right foot which is currently wrapped in bandage. It is unclear if she has been receiving treatment for it. On a VBG she had a pH of 6.676 and pCO2 of 18.1. She was positive for methamphetamine and has a WBC of 19. She is being admitted to the ICU for further treatment. History - Past Medical History Cardiovascular: reports: None Respiratory: reports: Other Neuro: reports: Peripheral neuropathy Endocrine/Autoimmune: reports: Type 1 diabetes GI: reports: None : reports: None HEENT: reports: Other Psych: reports: None Musculoskeletal: reports: None Derm: reports: Other MRSA Hx?: No - Family & Social History Family History Comment/Other: Cannot obtain at the moment because the patient is mentally altered and unable to provide Living arrangement: At home Social History Notes: Patient is positive for methamphetamine. Social history about alcohol or tobacco use is currently limited due to AMS - POLST Patient has POLST: No POLST Status: Full Code Meds/Allgy - Home Medications Home Medications: Ambulatory Orders Medication Instructions Recorded Confirmed Acyclovir 800 mg PO TID 10/15/18 10/16/18 Cyclosporine [Restasis] 1 drops RIGHTEYE Q12H 10/15/18 10/16/18 Insulin Aspart [NovoLOG] 2 - 18 units SUBQ AC 10/15/18 10/15/18 Insulin Glargine [Lantus Solostar] 25 units SUBQ BID 10/15/18 10/15/18 - Allergies Allergies/Adverse Reactions: Allergies Allergy/AdvReac Type Severity Reaction Status Date / Time No Known Drug Allergies Allergy Verified 10/08/19 21:22 Review of Systems - Other Findings Other Findings: ROS is limited due to altered mental status. Prior Level of Functionality: She is normally independent of activities of daily living Exam - Vital Signs Vital Signs: Vital Signs x48h Temp Pulse Resp BP Pulse Ox 10/08/19 22:00 32.4 C L 80 20 95 10/08/19 21:52 32.3 C L 80 23 92/56 L 94 10/08/19 21:44 32.2 C L 80 19 94/71 94 10/08/19 21:10 32.6 C L 82 20 92/67 95 - Physical Exam General Appearance: positive: Lethargic Eyes Bilateral: positive: Other (blind in the left eye. Left eye is cloudy Pupil of right eye responds sluggishly to light) ENT: positive: ENT inspection nml, Dry mucous membranes Neck: positive: Nml inspection, No JVD, Trachea midline Respiratory: positive: Chest non-tender, No respiratory distress, Rales Cardiovascular: positive: Regular rate & rhythm, No murmur Abdomen: positive: Non-tender, Nml bowel sounds, No distention. negative: Guarding, Rebound Extremities: positive: Non-tender, No pedal edema, Other (ulcer/ wound on bottom of right foot) Neurologic/Psychiatric: positive: Other (somnolent). negative: Oriented x3 Sepsis Event Note (H) - Evaluation Current Stage of Sepsis: Sepsis Possible source of Sepsis: positive: Pulmonary, Skin/soft tissue - Sepsis Criteria Sepsis Criteria: Recorded Temperature greater than 38.3C or Less than 36C, Recorded Respiratory Rate greater than 20, WBC count greater than 12,000 or less than 4000, INVENTORY ASSOCIATE: altered consciousness (unrelated to primary neuro pathology), SBP less than 90 mmHg Conclusion/Plan - Problem List (1) DKA (diabetic ketoacidoses) Conclusion/Plan: Likely 2/2 non-compliance with diabetic management (HgA1C is 15.7), severe sepsis (from multifocal pneumonia and ?right foot wound) and methamphetamine use Patient admitted to the ICU and started on DKA protocol Blood culture ordered. Vancomycin and Zosyn ordered Qualifiers: Diabetes mellitus type: type 1 Diabetes mellitus complication detail: with coma Qualified Code(s): E10.11 - Type 1 diabetes mellitus with ketoacidosis with coma (2) Severe sepsis Conclusion/Plan: Etiology: multi-focal pneumonia ?Right foot wound. Will r/o osteomyelitis with imaging when patient more stable Wound care consult. Blood cultures ordered Patient started on Vancomycin and Zosyn (3) Pneumonia Conclusion/Plan: Multifocal Patient started on vancomycin and zosyn Will add azithromycin if no clinical improvement. (4) Methamphetamine abuse Conclusion/Plan: Patient positive for methamphetamine (5) Hypothermia Conclusion/Plan: Unclear if and/or how long patient exposed to low temperatures Patient currently being warmed using a warming unit Qualifiers: Encounter type: initial encounter Qualified Code(s): T68.XXXA - Hypothermia, initial encounter - Lab Results Fish Bones: 10/08/19 21:30 10/09/19 03:00 Core Measures - Anticipated LOS I expect patient to be DC'd or transferred within 96 hours.: Yes - DVT/VTE - Prophylaxis VTE/DVT Device ordered at admit?: Yes VTE/DVT Prophylaxis med ordered at admit?: Yes - Stroke - Rehab Assessment Rehab services assessment to be ordered?: Yes
[2019-10-08 22:19] LABS: KETONES, SERUM (ACETEST) LARGE (NEGATIVE)
[2019-10-08 22:58] LABS: INR 0.9 (0.8-1.2); PT - PROTHROMBIN TIME 10.6 secs (9.9-12.6)
[2019-10-08] MEDS ORDERED: VANCOMYCIN INJ 0.75 GM in SODIUM CHLORIDE 0.9% 250 ML IV SCH (23:00)
[2019-10-08] MEDS: INSULIN REGULAR HUMAN 100 UNIT in SODIUM CHLORIDE 0.9% 100ML 99 ML IV SCH ×2 (23:00→23:11)
[2019-10-08] MEDS ORDERED: VANCOMYCIN PER PHARMACY 100 GM in SODIUM CHLORIDE 0.9% 250 ML IV SCH (23:00)
--- NOTE | 2019-10-08 23:04 | XRAY Report ---
Reason: AMS, leukocytosis, ?PNA Procedure Date: 10/08/2019 Accession Number: [id number] / [id number] Procedure: XR - Chest 1 View X-Ray CPT Code: 86051 Final Report FULL RESULT: EXAM: CHEST RADIOGRAPHY EXAM DATE: 10/08/2019 10:57 PM. CLINICAL HISTORY: AMS, leukocytosis, ?PNA. COMPARISON: CHEST 1 VIEW 05/31/2019 2:21 AM. TECHNIQUE: 1 view. FINDINGS: Lungs/Pleura: Patchy bilateral airspace disease in the mid and lower lung tins[place]. No large pleural effusions or pneumothorax. Mediastinum: Heart size within normal limits. No pulmonary vascular congestion. Osseous structures: No significant focal osseous lesions. IMPRESSION: 1. No acute cardiopulmonary findings radiographically. 2. Patchy bilateral airspace disease in the mid and lower lung [place] bilaterally concerning for multifocal pneumonia. RADIA
[2019-10-08 23:12] LABS: BUN - BLOOD UREA NITROGEN 36 mg/dL (6-20); CALCIUM 7.8 mg/dL (8.5-10.3); CHLORIDE 102 mmol/L (101-111); CREATININE 1.3 mg/dL (0.4-1.0); GFR - MDRD 47 (>89); SODIUM 130 mmol/L (135-145)
[2019-10-08 23:19] LABS: CARBON DIOXIDE - CO2 < 6 mmol/L (21-32); HB2 TOTAL 14.3 g/dL; HEMOGLOBIN A1C 2.12 g/dL; HEMOGLOBIN A1C % 15.7 % (4.6-6.2)
[2019-10-08 23:20] LABS: GLUCOSE 542 mg/dL (70-100)
[2019-10-08] MEDS: PIPERACILLIN/TAZOBACTAM 3.375 GM in SODIUM CHLORIDE 0.9% MINIBAG 100 ML IV SCH (23:22)
[2019-10-09] MEDS ORDERED: LORazepam 2 MG/ML VIAL IVP STA (00:18)
[2019-10-09 00:33] LABS: BUN - BLOOD UREA NITROGEN 38 mg/dL (6-20); CHLORIDE 105 mmol/L (101-111); CREATININE 1.2 mg/dL (0.4-1.0); GFR - MDRD 51 (>89); MAGNESIUM 1.8 mg/dL (1.7-2.8); SODIUM 132 mmol/L (135-145)
[2019-10-09 00:36] LABS: CARBON DIOXIDE - CO2 < 6 mmol/L (21-32)
[2019-10-09 00:37] LABS: GLUCOSE 507 mg/dL (70-100)
--- NOTE | 2019-10-09 01:02 | ED Physician Documentation ---
Procedures - Central Line Central Line Preparation: Unable to obtain consent, Ultrasound used, Sterile prep and drape Central line location: Right IJ Central line type: Triple lumen Central line aftercare: Chlorhexidine disc placed, Secured, Placement confirmed, No pneumothorax, No complications, Pt tolerated well, Other (I was asked by Dr. Dacosta to place a central line in this patient admitted earlier tonight for DKA)
[2019-10-09] MEDS: SODIUM CHLORIDE FLUSH 0.9% 10 ML SYRINGE IVP SCH ×3 (01:09→18:14)
[2019-10-09] MEDS ORDERED: POTASSIUM CHLOR 20 MEQ/100 ML 20 MEQ/100 ML BAG IV ONE (01:09)
[2019-10-09] MEDS: SODIUM CHLORIDE FLUSH 0.9% 10 ML SYRINGE IVP PRN ×13 (01:10→07:12)
[2019-10-09 01:39] LABS: BUN - BLOOD UREA NITROGEN 40 mg/dL (6-20); CALCIUM 7.8 mg/dL (8.5-10.3); CHLORIDE 106 mmol/L (101-111); CREATININE 1.4 mg/dL (0.4-1.0); GFR - MDRD 43 (>89); GLUCOSE 473 mg/dL (70-100); MAGNESIUM 1.7 mg/dL (1.7-2.8); SODIUM 132 mmol/L (135-145)
[2019-10-09 01:40] LABS: CARBON DIOXIDE - CO2 < 6 mmol/L (21-32)
--- NOTE | 2019-10-09 01:40 | XRAY Report ---
Reason: IJ line placement Procedure Date: 10/09/2019 Accession Number: [id number] / [id number] Procedure: XR - Chest for Line Placement CPT Code: Final Report FULL RESULT: EXAM: CHEST RADIOGRAPHY EXAM DATE: 10/09/2019 01:14 AM. CLINICAL HISTORY: IJ line placement. COMPARISON: CHEST 1 VIEW 10/08/2019 10:41 PM. TECHNIQUE: 1 view. FINDINGS: Lungs/Pleura: Worsened patchy areas of dense opacification in the bilateral mid to lower lungs. Mediastinum: Contours are stable Other: Right IJ line tip at the mid SVC IMPRESSION: Right IJ line tip at the mid SVC. Worsened bilateral mid to lower lung opacification, may reflect edema either noncardiogenic or cardiogenic. Underlying infection not excluded. RADIA
[2019-10-09] MEDS: D5.45NS W/20 MEQ KCL 1,000 ML IV SCH ×4 (01:52→23:30)
[2019-10-09] MEDS ORDERED: SODIUM CHLORIDE 0.9% 500 ML IV PRN (01:55)
[2019-10-09] MEDS ORDERED: SODIUM CHLORIDE 0.9% 1,000 ML IV ONE (02:15)
[2019-10-09] MEDS ORDERED: SODIUM CHLORIDE 0.9% 1,000 ML IV SCH (02:18)
[2019-10-09] MEDS: POTASSIUM CHLOR 10 MEQ/100 ML 10 MEQ/100 ML BAG IV SCH ×4 (03:22→06:41)
[2019-10-09] MEDS ORDERED: SODIUM BICARBONATE 100 MEQ in DEXTROSE 5% 1,000 ML IV SCH (04:00)
[2019-10-09] MEDS ORDERED: SODIUM BICARBONATE 150 MEQ in DEXTROSE 5% 1,000 ML IV SCH ×2 (04:00→05:24)
[2019-10-09 04:03] LABS: ABG PCO2 27 mmHg (34-45)
[2019-10-09 04:04] LABS: ABG BASE EXCESS -26.6 mmol/L (-2.0-3.0); ABG HCO3 5.2 mmol/L (22.0-26.0); ALLEN TEST POSITIVE
[2019-10-09] MEDS ORDERED: SODIUM BICARBONATE 8.4% 50 MEQ/50 ML VIAL ONE (04:04)
[2019-10-09 04:07] LABS: ABG OXYGEN SATURATION 87 % (94-98); ABG PH 6.91 (7.35-7.45); ABG PO2 52 mmHg (80-100)
[2019-10-09] MEDS ORDERED: DEXTROSE 5% 1,000 ML IV ONE (04:07)
[2019-10-09] MEDS ORDERED: HALOPERIDOL 5 MG/ML VIAL IVP ONE (04:35)
[2019-10-09 04:57] LABS: MEAN CORPUSCULAR HGB CONC 35.1 g/dL (32.0-36.0)
[2019-10-09 05:00] LABS: KETONES, SERUM (ACETEST) MODERATE (NEGATIVE)
[2019-10-09 05:01] LABS: BASOPHILS % (AUTO) 0.5 %; EOSINOPHILS % (AUTO) 0.1 %; HGB - HEMOGLOBIN 13.5 g/dL (12.0-16.0); MEAN CORPUSCULAR HEMOGLOBIN 32.1 pg (27.0-31.0); MEAN CORPUSCULAR VOLUME 91.4 fL (81.0-99.0); MEAN PLATELET VOLUME 10.5 fL (7.9-10.8); NEUTROPHILS % (AUTO) 86.9 %; PLT - PLATELET COUNT 298 10^3/uL (130-450); RED BLOOD COUNT 4.21 10^6/uL (4.20-5.40); WHITE BLOOD COUNT 15.5 x10^3/uL (4.8-10.8)
[2019-10-09 05:02] LABS: CALCIUM 7.4 mg/dL (8.5-10.3); CREATININE 1.4 mg/dL (0.4-1.0)
[2019-10-09 05:07] LABS: ABNORMAL LYMPHS % (MANUAL) 0 %
[2019-10-09 05:17] LABS: BUN - BLOOD UREA NITROGEN 40 mg/dL (6-20); CALCIUM 7.7 mg/dL (8.5-10.3); CHLORIDE 113 mmol/L (101-111); CREATININE 1.4 mg/dL (0.4-1.0); GFR - MDRD 43 (>89); GLUCOSE 286 mg/dL (70-100); MAGNESIUM 1.5 mg/dL (1.7-2.8); PHOSPHORUS 3.2 mg/dL (2.5-4.6); SODIUM 135 mmol/L (135-145)
[2019-10-09 05:18] LABS: CARBON DIOXIDE - CO2 7 mmol/L (21-32)
[2019-10-09 05:28] LABS: BAND NEUTROPHILS % (MANUAL) 7 %; DIFFERENTIAL COMMENT MANUAL DIFFERENTIAL; EOSINOPHILS # (MANUAL) 0.2 10^3/uL (0-0.7); LYMPHOCYTES # (MANUAL) 1.6 10^3/uL (1.5-3.5); LYMPHOCYTES % (MANUAL) 10 %; MONOCYTES # (MANUAL) 0.5 10^3/uL (0.0-1.0); PLATELET ESTIMATE, MANUAL NORMAL (130-450,000) (NORMAL); RBC MORPHOLOGY (MULTIPLE) NORMAL APPEARANCE (NORMAL)
[2019-10-09] MEDS ORDERED: MAGNESIUM SULFATE 2 GRAM 2 GM/50 ML BAG IV ONE (06:01)
[2019-10-09] MEDS: PANTOPRAZOLE 40 MG VIAL IVP SCH (06:40)
[2019-10-09] MEDS ORDERED: LORazepam 2 MG/ML VIAL IVP PRN (06:53)
[2019-10-09 06:58] LABS: ABG BASE EXCESS -18.3 mmol/L (-2.0-3.0); ABG OXYGEN SATURATION 91 % (94-98)
[2019-10-09 06:59] LABS: ABG PCO2 22 mmHg (34-45); ABG PH 7.18 (7.35-7.45); ABG PO2 53 mmHg (80-100)
[2019-10-09 07:00] LABS: ABG TCO2 8.7 MMOL/L (21.0-29.0); ALLEN TEST POSITIVE
--- NOTE | 2019-10-09 07:16 | PHARMACY PROGRESS NOTE ---
- Therapy Status Vancomycin regimen day #: 1 Therapy status: Awaiting steady state Basis for treatment: Empirical Treatment indication: SEPSIS, PNEUMONIA, FOOT WOUND W/ POSSIBLE OSTEOMYELITIS Trough goal: 15-20 Concurrent antibiotics: PIP/TAZO - IVET Risk Risk level for Acute Kidney Injury: High Acute Kidney Injury risk factors: Piperacillin/Tozobactam, Baseline CrCl <50, Goal trough >15, Diabetes, Admission to ICU, Acute hypotensive event, Sepsis - Monitoring and Recommendation Clinical response to treatment: I&O Previous 24 hours 10/07/19 10/08/19 10/09/19 23:59 23:59 23:59 Intake Total 1999 1216.3 Output Total 1000 148 Balance 1000 1068.3 Lab Results 10/09/19 10/09/19 10/09/19 04:46 03:00 00:15 BUN 40 H 40 H 40 H Creatinine 1.4 H 1.4 H 1.4 H Estimated GFR (MDRD) 43 L 43 L 43 L 10/09/19 10/08/19 10/08/19 00:08 22:30 21:30 BUN 38 H 36 H 38 H Creatinine 1.2 H 1.3 H 1.4 H Estimated GFR (MDRD) 51 L 47 L 43 L Monitoring plan: Daily serum creatinine Next trough due prior to maintenance dose #: 4 Areas for additional monitoring: IV to PO when appropriate, Therapy de- escalation based on culture results, Acute Kidney Injury
[2019-10-09] MEDS: PIPERACILLIN/TAZOBACTAM 3.375 GM in SODIUM CHLORIDE 0.9% MINIBAG 100 ML IV SCH (07:45)
[2019-10-09] MEDS: INSULIN REGULAR HUMAN 100 UNIT in SODIUM CHLORIDE 0.9% 100ML 99 ML IV SCH ×2 (07:49→20:43)
[2019-10-09 08:01] LABS: CALCIUM 7.4 mg/dL (8.5-10.3); CREATININE 1.5 mg/dL (0.4-1.0)
[2019-10-09] MEDS: ACETAMINOPHEN 1,000 MG/100 ML 100 ML IV PRN ×2 (08:44→15:57)
[2019-10-09 09:57] LABS: BASOPHILS % (AUTO) 0.2 %; HGB - HEMOGLOBIN 11.9 g/dL (12.0-16.0); LYMPHOCYTES # (AUTO) 0.5 10^3/uL (1.5-3.5); MEAN CORPUSCULAR HEMOGLOBIN 32.2 pg (27.0-31.0); MEAN CORPUSCULAR HGB CONC 36.4 g/dL (32.0-36.0); MEAN CORPUSCULAR VOLUME 88.4 fL (81.0-99.0); MEAN PLATELET VOLUME 10.4 fL (7.9-10.8); MONOCYTES # (AUTO) 0.3 10^3/uL (0.0-1.0); MONOCYTES % (AUTO) 3.6 %; NEUTROPHILS # (AUTO) 7.8 10^3/uL (1.5-6.6); NEUTROPHILS % (AUTO) 89.5 %; PLT - PLATELET COUNT 202 10^3/uL (130-450); RED CELL DISTRIBUTION WIDTH 12.7 % (12.0-15.0); WHITE BLOOD COUNT 8.7 x10^3/uL (4.8-10.8)
[2019-10-09 10:02] LABS: CALCIUM 7.3 mg/dL (8.5-10.3); CREATININE 1.5 mg/dL (0.4-1.0)
[2019-10-09 10:17] LABS: RBC MORPHOLOGY (MULTIPLE) 2+ ANISOCYTOSIS (NORMAL)
--- NOTE | 2019-10-09 10:56 | PROVIDER PROGRESS NOTE ---
<Kimberley Mix - Last Filed: 10/09/19 14:03> Subjective - Prog Note Date Prog Note Date: 10/09/19 Prog Note Time: 10:53 - Subjective Pt reports feeling: No change Subjective: Patient would not arose to follow commands or describe how she was feeling. Current Medications - Current Medications Current Medications: Active Medications Heparin Sodium (Beef Lung) () 30 - 50 unit IVP PRN PRN PRN Reason: Central Line Protocol (<24 hr) Piperacillin Sod/Tazobactam (Sod 3.375 gm/ Sodium Chloride) 100 mls @ 200 mls/hr IV Q8H ANUEL Last Infusion: 10/09/19 08:30 Dose: Infused Potassium Chloride/Dextrose/Sod Cl (D5.45ns W/20 Meq Kcl) 1,000 mls @ 125 mls/hr IV .Q8H ANUEL Last Admin: 10/09/19 01:52 Dose: Not Given Sodium Chloride (Normal Saline 0.9%) 500 mls @ 0 mls/hr IV Q24H PRN PRN Reason: TKO RATE Last Infusion: 10/09/19 07:00 Dose: 20 mls/hr Norepinephrine Bitartrate 8 mg (/ Dextrose) 250 mls @ 15 mls/hr IV .[id number] ANUEL; Protocol Last Titration: 10/09/19 10:33 Dose: 2 mcg/min, 3.75 mls/hr Sodium Bicarbonate 150 meq/ (Dextrose) 1,150 mls @ 125 mls/hr IV .[id number] ANUEL Last Infusion: 10/09/19 07:30 Dose: 125 mls/hr Vancomycin HCl 1 gm/ Sodium (Chloride) 250 mls @ 167 mls/hr IV Q18H ANUEL Insulin Human Regular 100 unit (/ Sodium Chloride) 100 mls @ 10.2 mls/hr IV .[id number] ANUEL; Protocol Last Admin: 10/09/19 07:49 Dose: 10.2 unit/hr, 10.2 mls/hr Acetaminophen (Ofirmev) 100 mls @ 400 mls/hr IV Q6HR PRN PRN Reason: PAIN Last Infusion: 10/09/19 09:41 Dose: Infused Lorazepam (Ativan Inj (Vial)) 0.5 mg IVP Q2H PRN PRN Reason: Anxiety Ondansetron HCl (Zofran Inj) 4 mg IVP Q6HR PRN PRN Reason: Nausea / Vomiting Pantoprazole Sodium (Protonix) 40 mg IVP QDAC ANUEL Last Admin: 10/09/19 06:40 Dose: 40 mg Sodium Chloride (Normal Saline Flush 0.9%) 10 ml IVP 0100,0900,1700 [facility] Last Admin: 10/09/19 01:09 Dose: 10 ml Sodium Chloride (Normal Saline Flush 0.9%) 10 ml IVP PRN PRN PRN Reason: NEEDED PER PROVIDER ORDERS Last Admin: 10/09/19 07:12 Dose: 10 ml Sodium Chloride (Normal Saline Flush 0.9%) 20 ml IVP PRN PRN PRN Reason: After Blood Draw Last Admin: 10/09/19 07:12 Dose: 20 ml Acyclovir 800 mg PO TID 10/15/18 Cyclosporine [Restasis] 1 drops RIGHTEYE Q12H 10/15/18 Insulin Aspart [NovoLOG] 2 - 18 units SUBQ AC 10/15/18 Insulin Glargine [Lantus Solostar] 25 units SUBQ BID 10/15/18 Objective - Vital Signs/Intake & Output Reviewed Vital Signs: Yes Vital Signs: Vital Signs x48h Temp Pulse Pulse Resp BP Pulse Ox 10/09/19 10:48 94/59 L 10/09/19 10:36 37.9 C H 118 H 24 95 10/09/19 10:35 78/54 L 10/09/19 10:12 81/59 L 10/09/19 10:00 38.1 C H 120 H 27 H 88/53 L 86 L 10/09/19 09:00 38.2 C H 124 H 24 105/73 93 10/09/19 08:45 38.1 C H 130 H 24 108/74 95 10/09/19 08:30 123/79 10/09/19 08:00 38.0 C H 132 H 27 H 128/73 60 L 10/09/19 07:44 37.7 C H 138 H 27 H 10/09/19 07:00 37.7 C H 138 H 27 H 151/88 H 94 10/09/19 06:00 37.2 C 136 H 22 132/79 H 93 10/09/19 05:00 36.5 C 132 H 26 H 110/63 99 10/09/19 04:15 128 H 123/82 H 10/09/19 04:05 36.3 C L 123 H 23 114/70 84 L 10/09/19 04:00 36.3 C L 124 H 24 96/62 87 L 10/09/19 03:56 78/52 L 10/09/19 03:00 36 C L 114 H 21 73/50 L 87 L Intake & Output: Intake & Output 10/06/19 10/07/19 10/08/19 10/09/19 23:59 23:59 23:59 23:59 Intake Total 1999 1974.854 Output Total 1000 213 Balance 1000 1761.854 - Objective General Appearance: positive: Lethargic. negative: Alert Eyes Bilateral: positive: PERRL, Other (Periorbital edema bilaterally) Neck: positive: Nml inspection Respiratory: positive: Chest non-tender, Breath sounds nml (Tachypneic in the 20s.). negative: Wheezes, Rales, Rhonchi Cardiovascular: positive: No murmur, No gallop, Tachycardia. negative: Ir regularly irregular Peripheral Pulses: 2+ Radial (R), 2+ Radial (L), 2+ Posterior tibialis (R), 2+ Posterior tibialis (L) Abdomen: positive: Nml bowel sounds, No distention Back: positive: Nml inspection Skin: positive: Warm, Dry, Other (Wound dressing to right foot, malodorous.) Extremities: positive: Nml appearance, No pedal edema Neurologic/Psychiatric: positive: Other (Obtunded. 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 Moves spontaneously when stimulated. Not following commands.) - Lab Results Fish Bones: 10/09/19 09:32 10/09/19 09:32 Other Labs: Lab Results x24hrs 10/09/19 10/09/19 10/09/19 Range/Units 09:32 09:32 09:32 WBC 8.7 (4.8-10.8) x10^3/uL RBC 3.70 L (4.20-5.40) 10^6/uL Hgb 11.9 L (12.0-16.0) g/dL Hct 32.7 L (37.0-47.0) % MCV 88.4 (81.0-99.0) fL MCH 32.2 H (27.0-31.0) pg MCHC 36.4 H (32.0-36.0) g/dL RDW 12.7 (12.0-15.0) % Plt Count 202 (130-450) 10^3/uL MPV 10.4 (7.9-10.8) fL Neut # (Auto) 7.8 H (1.5-6.6) 10^3/uL Lymph # (Auto) 0.5 L (1.5-3.5) 10^3/uL [place] # (Auto) 0.3 (0.0-1.0) 10^3/uL Eos # (Auto) 0.0 (0.0-0.7) 10^3/uL Baso # (Auto) 0.0 (0.0-0.1) 10^3/uL Absolute Nucleated RBC 0.00 x10^3/uL Total Counted Band Neuts % (Manual) (0 - 10) % Abnorm Lymph % (Manual) % Nucleated RBC % 0.0 /100WBC Neutrophils # (Manual) (1.5-6.6) 10^3/uL Lymphocytes # (Manual) (1.5-3.5) 10^3/uL Monocytes # (Manual) (0.0-1.0) 10^3/uL Eosinophils # (Manual) (0-0.7) 10^3/uL Basophils # (Manual) (0-0.1) 10^3/uL Differential Comment Manual Slide Review Indicated Platelet Estimate (NORMAL) RBC Morph Micro Appear 2+ ANISOCYTOSIS (NORMAL) PT (9.9-12.6) secs INR (0.8-1.2) Bld Gas Analysis Time Sample Site ABG pH (7.35-7.45) ABG pCO2 (34-45) mmHg ABG pO2 (80-100) mmHg ABG HCO3 (22.0-26.0) mmol/L ABG Total CO2 (21.0-29.0) MMOL/L ABG O2 Saturation (94-98) % ABG Base Excess (-2.0-3.0) mmol/L Gustavo Test VBG pH (7.31-7.41) VBG pCO2 (41-51) mmHg VBG pO2 (25-47) mmHg VBG HCO3 (23-28) mmol/L VBG Total CO2 (24-29) mmol/L VBG O2 Saturation (60-80) % VBG Base Excess (-2 - +2) mmol/L O2 Delivery Device O2 Liters/Min LPM FiO2 Sodium (135-145) mmol/L Potassium (3.5-5.0) mmol/L Chloride (101-111) mmol/L Carbon Dioxide (21-32) mmol/L Anion Gap (6-13) BUN (6-20) mg/dL Creatinine (0.4-1.0) mg/dL Estimated GFR (MDRD) (>89) Glucose (70-100) mg/dL Glycated Hemoglobin (4.6-6.2) % Estim Average Glucose (70-100) Lactic Acid (0.5-2.2) mmol/L Calcium (8.5-10.3) mg/dL Phosphorus (2.5-4.6) mg/dL Magnesium 2.0 (1.7-2.8) mg/dL Total Bilirubin (0.2-1.0) mg/dL AST (10-42) IU/L ALT (10-60) IU/L Alkaline Phosphatase (42-121) IU/L Total Protein (6.7-8.2) g/dL Albumin 2.2 L (3.2-5.5) g/dL Globulin (2.1-4.2) g/dL Albumin/Globulin Ratio (1.0-2.2) Lipase (22-51) U/L Urine Color Urine Clarity (CLEAR) Urine pH (5.0-7.5) PH Ur Specific [place] (1.002-1.030) Urine Protein (NEGATIVE) mg/dL Urine Glucose (UA) (NEGATIVE) mg/dL Urine Ketones (NEGATIVE) mg/dL Urine Occult Blood (NEGATIVE) Urine Nitrite (NEGATIVE) Urine Bilirubin (NEGATIVE) Urine Urobilinogen (NORMAL) E.U./dL Ur Leukocyte Esterase (NEGATIVE) Urine RBC (0-5) /HPF Urine WBC (0-5) /HPF Ur Squamous Epith Cells (<= Few) Amorphous Sediment /LPF Urine Bacteria (None Seen) /HPF Urine Casts /LPF Ur Microscopic Review Urine Culture Comments Urine HCG, Qual Nasal Screen MRSA (PCR) (NEGATIVE) Salicylates mg/dL Urine Opiates Screen (NEGATIVE) Ur Oxycodone Screen (NEGATIVE) Urine Methadone Screen (NEGATIVE) Ur Propoxyphene Screen (NEGATIVE) Acetaminophen (10-30) ug/mL Ur Barbiturates Screen (NEGATIVE) Ur Tricyclics Screen (NEGATIVE) Ur Phencyclidine Scrn (NEGATIVE) Ur Amphetamine Screen (NEGATIVE) U Methamphetamines Scrn (NEGATIVE) U Benzodiazepines Scrn (NEGATIVE) Urine Cocaine Screen (NEGATIVE) U Cannabinoids Screen (NEGATIVE) Serum Ketones (NEGATIVE) 10/09/19 10/09/19 10/09/19 Range/Units 09:32 07:05 06:50 WBC (4.8-10.8) x10^3/uL RBC (4.20-5.40) 10^6/uL Hgb (12.0-16.0) g/dL Hct (37.0-47.0) % MCV (81.0-99.0) fL MCH (27.0-31.0) pg MCHC (32.0-36.0) g/dL RDW (12.0-15.0) % Plt Count (130-450) 10^3/uL MPV (7.9-10.8) fL Neut # (Auto) (1.5-6.6) 10^3/uL Lymph # (Auto) (1.5-3.5) 10^3/uL [place] # (Auto) (0.0-1.0) 10^3/uL Eos # (Auto) (0.0-0.7) 10^3/uL Baso # (Auto) (0.0-0.1) 10^3/uL Absolute Nucleated RBC x10^3/uL Total Counted Band Neuts % (Manual) (0 - 10) % Abnorm Lymph % (Manual) % Nucleated RBC % /100WBC Neutrophils # (Manual) (1.5-6.6) 10^3/uL Lymphocytes # (Manual) (1.5-3.5) 10^3/uL Monocytes # (Manual) (0.0-1.0) 10^3/uL Eosinophils # (Manual) (0-0.7) 10^3/uL Basophils # (Manual) (0-0.1) 10^3/uL Differential Comment Manual Slide Review Platelet Estimate (NORMAL) RBC Morph Micro Appear (NORMAL) PT (9.9-12.6) secs INR (0.8-1.2) Bld Gas Analysis Time 0657 Sample Site RIGHT RADIAL ABG pH 7.18 L* (7.35-7.45) ABG pCO2 22 L* (34-45) mmHg ABG pO2 53 L* (80-100) mmHg ABG HCO3 8.0 L (22.0-26.0) mmol/L ABG Total CO2 8.7 L* (21.0-29.0) MMOL/L ABG O2 Saturation 91 L (94-98) % ABG Base Excess -18.3 L (-2.0-3.0) mmol/L Gustavo Test POSITIVE VBG pH (7.31-7.41) VBG pCO2 (41-51) mmHg VBG pO2 (25-47) mmHg VBG HCO3 (23-28) mmol/L VBG Total CO2 (24-29) mmol/L VBG O2 Saturation (60-80) % VBG Base Excess (-2 - +2) mmol/L O2 Delivery Device NASAL CANNULA O2 Liters/Min 60.00 LPM FiO2 86.00 Sodium 136 135 (135-145) mmol/L Potassium 3.8 4.3 (3.5-5.0) mmol/L Chloride 112 H 110 (101-111) mmol/L Carbon Dioxide 13 L 10 L* (21-32) mmol/L Anion Gap 11.0 15.0 H (6-13) BUN 39 H 39 H (6-20) mg/dL Creatinine 1.5 H 1.5 H (0.4-1.0) mg/dL Estimated GFR (MDRD) 40 L 40 L (>89) Glucose 221 H 246 H (70-100) mg/dL Glycated Hemoglobin (4.6-6.2) % Estim Average Glucose (70-100) Lactic Acid (0.5-2.2) mmol/L Calcium 7.3 L 7.4 L (8.5-10.3) mg/dL Phosphorus (2.5-4.6) mg/dL Magnesium (1.7-2.8) mg/dL Total Bilirubin (0.2-1.0) mg/dL AST (10-42) IU/L ALT (10-60) IU/L Alkaline Phosphatase (42-121) IU/L Total Protein (6.7-8.2) g/dL Albumin (3.2-5.5) g/dL Globulin (2.1-4.2) g/dL Albumin/Globulin Ratio (1.0-2.2) Lipase (22-51) U/L Urine Color Urine Clarity (CLEAR) Urine pH (5.0-7.5) PH Ur Specific [place] (1.002-1.030) Urine Protein (NEGATIVE) mg/dL Urine Glucose (UA) (NEGATIVE) mg/dL Urine Ketones (NEGATIVE) mg/dL Urine Occult Blood (NEGATIVE) Urine Nitrite (NEGATIVE) Urine Bilirubin (NEGATIVE) Urine Urobilinogen (NORMAL) E.U./dL Ur Leukocyte Esterase (NEGATIVE) Urine RBC (0-5) /HPF Urine WBC (0-5) /HPF Ur Squamous Epith Cells (<= Few) Amorphous Sediment /LPF Urine Bacteria (None Seen) /HPF Urine Casts /LPF Ur Microscopic Review Urine Culture Comments Urine HCG, Qual Nasal Screen MRSA (PCR) (NEGATIVE) Salicylates mg/dL Urine Opiates Screen (NEGATIVE) Ur Oxycodone Screen (NEGATIVE) Urine Methadone Screen (NEGATIVE) Ur Propoxyphene Screen (NEGATIVE) Acetaminophen (10-30) ug/mL Ur Barbiturates Screen (NEGATIVE) Ur Tricyclics Screen (NEGATIVE) Ur Phencyclidine Scrn (NEGATIVE) Ur Amphetamine Screen (NEGATIVE) U Methamphetamines Scrn (NEGATIVE) U Benzodiazepines Scrn (NEGATIVE) Urine Cocaine Screen (NEGATIVE) U Cannabinoids Screen (NEGATIVE) Serum Ketones (NEGATIVE) 10/09/19 10/09/19 10/09/19 Range/Units 04:46 04:46 04:46 WBC 15.5 H (4.8-10.8) x10^3/uL RBC 4.21 (4.20-5.40) 10^6/uL Hgb 13.5 (12.0-16.0) g/dL Hct 38.5 (37.0-47.0) % MCV 91.4 (81.0-99.0) fL MCH 32.1 H (27.0-31.0) pg MCHC 35.1 (32.0-36.0) g/dL RDW 13.0 (12.0-15.0) % Plt Count 298 (130-450) 10^3/uL MPV 10.5 (7.9-10.8) fL Neut # (Auto) Not Reportable (1.5-6.6) 10^3/uL Lymph # (Auto) Not Reportable (1.5-3.5) 10^3/uL [place] # (Auto) Not Reportable (0.0-1.0) 10^3/uL Eos # (Auto) Not Reportable (0.0-0.7) 10^3/uL Baso # (Auto) Not Reportable (0.0-0.1) 10^3/uL Absolute Nucleated RBC Not Reportable x10^3/uL Total Counted 100 Band Neuts % (Manual) 7 (0 - 10) % Abnorm Lymph % (Manual) 0 % Nucleated RBC % Not Reportable /100WBC Neutrophils # (Manual) 13.3 H (1.5-6.6) 10^3/uL Lymphocytes # (Manual) 1.6 (1.5-3.5) 10^3/uL Monocytes # (Manual) 0.5 (0.0-1.0) 10^3/uL Eosinophils # (Manual) 0.2 (0-0.7) 10^3/uL Basophils # (Manual) 0.0 (0-0.1) 10^3/uL Differential Comment MANUAL DIFFERENTIAL Manual Slide Review Platelet Estimate NORMAL (130-450,000) (NORMAL) RBC Morph Micro Appear NORMAL APPEARANCE (NORMAL) PT (9.9-12.6) secs INR (0.8-1.2) Bld Gas Analysis Time Sample Site ABG pH (7.35-7.45) ABG pCO2 (34-45) mmHg ABG pO2 (80-100) mmHg ABG HCO3 (22.0-26.0) mmol/L ABG Total CO2 (21.0-29.0) MMOL/L ABG O2 Saturation (94-98) % ABG Base Excess (-2.0-3.0) mmol/L Gustavo Test VBG pH (7.31-7.41) VBG pCO2 (41-51) mmHg VBG pO2 (25-47) mmHg VBG HCO3 (23-28) mmol/L VBG Total CO2 (24-29) mmol/L VBG O2 Saturation (60-80) % VBG Base Excess (-2 - +2) mmol/L O2 Delivery Device O2 Liters/Min LPM FiO2 Sodium 135 (135-145) mmol/L Potassium 4.1 (3.5-5.0) mmol/L Chloride 113 H (101-111) mmol/L Carbon Dioxide 7 L* (21-32) mmol/L Anion Gap 15.0 H (6-13) BUN 40 H (6-20) mg/dL Creatinine 1.4 H (0.4-1.0) mg/dL Estimated GFR (MDRD) 43 L (>89) Glucose 286 H (70-100) mg/dL Glycated Hemoglobin (4.6-6.2) % Estim Average Glucose (70-100) Lactic Acid (0.5-2.2) mmol/L Calcium 7.7 L (8.5-10.3) mg/dL Phosphorus 3.2 (2.5-4.6) mg/dL Magnesium 1.5 L (1.7-2.8) mg/dL Total Bilirubin (0.2-1.0) mg/dL AST (10-42) IU/L ALT (10-60) IU/L Alkaline Phosphatase (42-121) IU/L Total Protein (6.7-8.2) g/dL Albumin 2.5 L (3.2-5.5) g/dL Globulin (2.1-4.2) g/dL Albumin/Globulin Ratio (1.0-2.2) Lipase (22-51) U/L Urine Color Urine Clarity (CLEAR) Urine pH (5.0-7.5) PH Ur Specific [place] (1.002-1.030) Urine Protein (NEGATIVE) mg/dL Urine Glucose (UA) (NEGATIVE) mg/dL Urine Ketones (NEGATIVE) mg/dL Urine Occult Blood (NEGATIVE) Urine Nitrite (NEGATIVE) Urine Bilirubin (NEGATIVE) Urine Urobilinogen (NORMAL) E.U./dL Ur Leukocyte Esterase (NEGATIVE) Urine RBC (0-5) /HPF Urine WBC (0-5) /HPF Ur Squamous Epith Cells (<= Few) Amorphous Sediment /LPF Urine Bacteria (None Seen) /HPF Urine Casts /LPF Ur Microscopic Review Urine Culture Comments Urine HCG, Qual Nasal Screen MRSA (PCR) (NEGATIVE) Salicylates mg/dL Urine Opiates Screen (NEGATIVE) Ur Oxycodone Screen (NEGATIVE) Urine Methadone Screen (NEGATIVE) Ur Propoxyphene Screen (NEGATIVE) Acetaminophen (10-30) ug/mL Ur Barbiturates Screen (NEGATIVE) Ur Tricyclics Screen (NEGATIVE) Ur Phencyclidine Scrn (NEGATIVE) Ur Amphetamine Screen (NEGATIVE) U Methamphetamines Scrn (NEGATIVE) U Benzodiazepines Scrn (NEGATIVE) Urine Cocaine Screen (NEGATIVE) U Cannabinoids Screen (NEGATIVE) Serum Ketones MODERATE H (NEGATIVE) 10/09/19 10/09/19 10/09/19 Range/Units 03:50 03:00 01:15 WBC (4.8-10.8) x10^3/uL RBC (4.20-5.40) 10^6/uL Hgb (12.0-16.0) g/dL Hct (37.0-47.0) % MCV (81.0-99.0) fL MCH (27.0-31.0) pg MCHC (32.0-36.0) g/dL RDW (12.0-15.0) % Plt Count (130-450) 10^3/uL MPV (7.9-10.8) fL Neut # (Auto) (1.5-6.6) 10^3/uL Lymph # (Auto) (1.5-3.5) 10^3/uL [place] # (Auto) (0.0-1.0) 10^3/uL Eos # (Auto) (0.0-0.7) 10^3/uL Baso # (Auto) (0.0-0.1) 10^3/uL Absolute Nucleated RBC x10^3/uL Total Counted Band Neuts % (Manual) (0 - 10) % Abnorm Lymph % (Manual) % Nucleated RBC % /100WBC Neutrophils # (Manual) (1.5-6.6) 10^3/uL Lymphocytes # (Manual) (1.5-3.5) 10^3/uL Monocytes # (Manual) (0.0-1.0) 10^3/uL Eosinophils # (Manual) (0-0.7) 10^3/uL Basophils # (Manual) (0-0.1) 10^3/uL Differential Comment Manual Slide Review Platelet Estimate (NORMAL) RBC Morph Micro Appear (NORMAL) PT (9.9-12.6) secs INR (0.8-1.2) Bld Gas Analysis Time 0357 Sample Site LEFT RADIAL ABG pH 6.91 L* (7.35-7.45) ABG pCO2 27 L (34-45) mmHg ABG pO2 52 L* (80-100) mmHg ABG HCO3 5.2 L (22.0-26.0) mmol/L ABG Total CO2 6.0 L* (21.0-29.0) MMOL/L ABG O2 Saturation 87 L* (94-98) % ABG Base Excess -26.6 L (-2.0-3.0) mmol/L Gustavo Test POSITIVE VBG pH (7.31-7.41) VBG pCO2 (41-51) mmHg VBG pO2 (25-47) mmHg VBG HCO3 (23-28) mmol/L VBG Total CO2 (24-29) mmol/L VBG O2 Saturation (60-80) % VBG Base Excess (-2 - +2) mmol/L O2 Delivery Device NASAL CANNULA O2 Liters/Min LPM FiO2 6.00 Sodium 135 (135-145) mmol/L Potassium 4.0 (3.5-5.0) mmol/L Chloride 111 (101-111) mmol/L Carbon Dioxide 6 L* (21-32) mmol/L Anion Gap 18.0 H (6-13) BUN 40 H (6-20) mg/dL Creatinine 1.4 H (0.4-1.0) mg/dL Estimated GFR (MDRD) 43 L (>89) Glucose 368 H (70-100) mg/dL Glycated Hemoglobin (4.6-6.2) % Estim Average Glucose (70-100) Lactic Acid (0.5-2.2) mmol/L Calcium 7.4 L (8.5-10.3) mg/dL Phosphorus 4.9 H (2.5-4.6) mg/dL Magnesium (1.7-2.8) mg/dL Total Bilirubin (0.2-1.0) mg/dL AST (10-42) IU/L ALT (10-60) IU/L Alkaline Phosphatase (42-121) IU/L Total Protein (6.7-8.2) g/dL Albumin (3.2-5.5) g/dL Globulin (2.1-4.2) g/dL Albumin/Globulin Ratio (1.0-2.2) Lipase (22-51) U/L Urine Color Urine Clarity (CLEAR) Urine pH (5.0-7.5) PH Ur Specific [place] (1.002-1.030) Urine Protein (NEGATIVE) mg/dL Urine Glucose (UA) (NEGATIVE) mg/dL Urine Ketones (NEGATIVE) mg/dL Urine Occult Blood (NEGATIVE) Urine Nitrite (NEGATIVE) Urine Bilirubin (NEGATIVE) Urine Urobilinogen (NORMAL) E.U./dL Ur Leukocyte Esterase (NEGATIVE) Urine RBC (0-5) /HPF Urine WBC (0-5) /HPF Ur Squamous Epith Cells (<= Few) Amorphous Sediment /LPF Urine Bacteria (None Seen) /HPF Urine Casts /LPF Ur Microscopic Review Urine Culture Comments Urine HCG, Qual Nasal Screen MRSA (PCR) (NEGATIVE) Salicylates mg/dL Urine Opiates Screen (NEGATIVE) Ur Oxycodone Screen (NEGATIVE) Urine Methadone Screen (NEGATIVE) Ur Propoxyphene Screen (NEGATIVE) Acetaminophen (10-30) ug/mL Ur Barbiturates Screen (NEGATIVE) Ur Tricyclics Screen (NEGATIVE) Ur Phencyclidine Scrn (NEGATIVE) Ur Amphetamine Screen (NEGATIVE) U Methamphetamines Scrn (NEGATIVE) U Benzodiazepines Scrn (NEGATIVE) Urine Cocaine Screen (NEGATIVE) U Cannabinoids Screen (NEGATIVE) Serum Ketones (NEGATIVE) 10/09/19 10/09/19 10/09/19 Range/Units 00:15 00:08 00:08 WBC (4.8-10.8) x10^3/uL RBC (4.20-5.40) 10^6/uL Hgb (12.0-16.0) g/dL Hct (37.0-47.0) % MCV (81.0-99.0) fL MCH (27.0-31.0) pg MCHC (32.0-36.0) g/dL RDW (12.0-15.0) % Plt Count (130-450) 10^3/uL MPV (7.9-10.8) fL Neut # (Auto) (1.5-6.6) 10^3/uL Lymph # (Auto) (1.5-3.5) 10^3/uL [place] # (Auto) (0.0-1.0) 10^3/uL Eos # (Auto) (0.0-0.7) 10^3/uL Baso # (Auto) (0.0-0.1) 10^3/uL Absolute Nucleated RBC x10^3/uL Total Counted Band Neuts % (Manual) (0 - 10) % Abnorm Lymph % (Manual) % Nucleated RBC % /100WBC Neutrophils # (Manual) (1.5-6.6) 10^3/uL Lymphocytes # (Manual) (1.5-3.5) 10^3/uL Monocytes # (Manual) (0.0-1.0) 10^3/uL Eosinophils # (Manual) (0-0.7) 10^3/uL Basophils # (Manual) (0-0.1) 10^3/uL Differential Comment Manual Slide Review Platelet Estimate (NORMAL) RBC Morph Micro Appear (NORMAL) PT (9.9-12.6) secs INR (0.8-1.2) Bld Gas Analysis Time Sample Site ABG pH (7.35-7.45) ABG pCO2 (34-45) mmHg ABG pO2 (80-100) mmHg ABG HCO3 (22.0-26.0) mmol/L ABG Total CO2 (21.0-29.0) MMOL/L ABG O2 Saturation (94-98) % ABG Base Excess (-2.0-3.0) mmol/L Gustavo Test VBG pH (7.31-7.41) VBG pCO2 (41-51) mmHg VBG pO2 (25-47) mmHg VBG HCO3 (23-28) mmol/L VBG Total CO2 (24-29) mmol/L VBG O2 Saturation (60-80) % VBG Base Excess (-2 - +2) mmol/L O2 Delivery Device O2 Liters/Min LPM FiO2 Sodium 132 L 132 L (135-145) mmol/L Potassium 3.8 3.8 (3.5-5.0) mmol/L Chloride 106 105 (101-111) mmol/L Carbon Dioxide < 6 L* < 6 L* (21-32) mmol/L Anion Gap 20.0 H 21.0 H (6-13) BUN 40 H 38 H (6-20) mg/dL Creatinine 1.4 H 1.2 H (0.4-1.0) mg/dL Estimated GFR (MDRD) 43 L 51 L (>89) Glucose 473 H 507 H* (70-100) mg/dL Glycated Hemoglobin (4.6-6.2) % Estim Average Glucose (70-100) Lactic Acid 0.7 (0.5-2.2) mmol/L Calcium 7.8 L 8.0 L (8.5-10.3) mg/dL Phosphorus (2.5-4.6) mg/dL Magnesium 1.7 1.8 (1.7-2.8) mg/dL Total Bilirubin (0.2-1.0) mg/dL AST (10-42) IU/L ALT (10-60) IU/L Alkaline Phosphatase (42-121) IU/L Total Protein (6.7-8.2) g/dL Albumin (3.2-5.5) g/dL Globulin (2.1-4.2) g/dL Albumin/Globulin Ratio (1.0-2.2) Lipase (22-51) U/L Urine Color Urine Clarity (CLEAR) Urine pH (5.0-7.5) PH Ur Specific [place] (1.002-1.030) Urine Protein (NEGATIVE) mg/dL Urine Glucose (UA) (NEGATIVE) mg/dL Urine Ketones (NEGATIVE) mg/dL Urine Occult Blood (NEGATIVE) Urine Nitrite (NEGATIVE) Urine Bilirubin (NEGATIVE) Urine Urobilinogen (NORMAL) E.U./dL Ur Leukocyte Esterase (NEGATIVE) Urine RBC (0-5) /HPF Urine WBC (0-5) /HPF Ur Squamous Epith Cells (<= Few) Amorphous Sediment /LPF Urine Bacteria (None Seen) /HPF Urine Casts /LPF Ur Microscopic Review Urine Culture Comments Urine HCG, Qual Nasal Screen MRSA (PCR) (NEGATIVE) Salicylates mg/dL Urine Opiates Screen (NEGATIVE) Ur Oxycodone Screen (NEGATIVE) Urine Methadone Screen (NEGATIVE) Ur Propoxyphene Screen (NEGATIVE) Acetaminophen (10-30) ug/mL Ur Barbiturates Screen (NEGATIVE) Ur Tricyclics Screen (NEGATIVE) Ur Phencyclidine Scrn (NEGATIVE) Ur Amphetamine Screen (NEGATIVE) U Methamphetamines Scrn (NEGATIVE) U Benzodiazepines Scrn (NEGATIVE) Urine Cocaine Screen (NEGATIVE) U Cannabinoids Screen (NEGATIVE) Serum Ketones (NEGATIVE) 10/08/19 10/08/19 10/08/19 Range/Units 22:30 22:30 21:40 WBC (4.8-10.8) x10^3/uL RBC (4.20-5.40) 10^6/uL Hgb (12.0-16.0) g/dL Hct (37.0-47.0) % MCV (81.0-99.0) fL MCH (27.0-31.0) pg MCHC (32.0-36.0) g/dL RDW (12.0-15.0) % Plt Count (130-450) 10^3/uL MPV (7.9-10.8) fL Neut # (Auto) (1.5-6.6) 10^3/uL Lymph # (Auto) (1.5-3.5) 10^3/uL [place] # (Auto) (0.0-1.0) 10^3/uL Eos # (Auto) (0.0-0.7) 10^3/uL Baso # (Auto) (0.0-0.1) 10^3/uL Absolute Nucleated RBC x10^3/uL Total Counted Band Neuts % (Manual) (0 - 10) % Abnorm Lymph % (Manual) % Nucleated RBC % /100WBC Neutrophils # (Manual) (1.5-6.6) 10^3/uL Lymphocytes # (Manual) (1.5-3.5) 10^3/uL Monocytes # (Manual) (0.0-1.0) 10^3/uL Eosinophils # (Manual) (0-0.7) 10^3/uL Basophils # (Manual) (0-0.1) 10^3/uL Differential Comment Manual Slide Review Platelet Estimate (NORMAL) RBC Morph Micro Appear (NORMAL) PT (9.9-12.6) secs INR (0.8-1.2) Bld Gas Analysis Time Sample Site ABG pH (7.35-7.45) ABG pCO2 (34-45) mmHg ABG pO2 (80-100) mmHg ABG HCO3 (22.0-26.0) mmol/L ABG Total CO2 (21.0-29.0) MMOL/L ABG O2 Saturation (94-98) % ABG Base Excess (-2.0-3.0) mmol/L Gustavo Test VBG pH (7.31-7.41) VBG pCO2 (41-51) mmHg VBG pO2 (25-47) mmHg VBG HCO3 (23-28) mmol/L VBG Total CO2 (24-29) mmol/L VBG O2 Saturation (60-80) % VBG Base Excess (-2 - +2) mmol/L O2 Delivery Device O2 Liters/Min LPM FiO2 Sodium 130 L (135-145) mmol/L Potassium 4.0 (3.5-5.0) mmol/L Chloride 102 (101-111) mmol/L Carbon Dioxide < 6 L* (21-32) mmol/L Anion Gap 22.0 H (6-13) BUN 36 H (6-20) mg/dL Creatinine 1.3 H (0.4-1.0) mg/dL Estimated GFR (MDRD) 47 L (>89) Glucose 542 H* (70-100) mg/dL Glycated Hemoglobin 15.7 H (4.6-6.2) % Estim Average Glucose 404 H (70-100) Lactic Acid (0.5-2.2) mmol/L Calcium 7.8 L (8.5-10.3) mg/dL Phosphorus (2.5-4.6) mg/dL Magnesium 2.0 (1.7-2.8) mg/dL Total Bilirubin (0.2-1.0) mg/dL AST (10-42) IU/L ALT (10-60) IU/L Alkaline Phosphatase (42-121) IU/L Total Protein (6.7-8.2) g/dL Albumin (3.2-5.5) g/dL Globulin (2.1-4.2) g/dL Albumin/Globulin Ratio (1.0-2.2) Lipase (22-51) U/L Urine Color YELLOW Urine Clarity CLEAR (CLEAR) Urine pH 5.5 (5.0-7.5) PH Ur Specific [place] >=1.030 H (1.002-1.030) Urine Protein 100 H (NEGATIVE) mg/dL Urine Glucose (UA) >=1000 H (NEGATIVE) mg/dL Urine Ketones >=80 H (NEGATIVE) mg/dL Urine Occult Blood MODERATE H (NEGATIVE) Urine Nitrite NEGATIVE (NEGATIVE) Urine Bilirubin NEGATIVE (NEGATIVE) Urine Urobilinogen 0.2 (NORMAL) (NORMAL) E.U./dL Ur Leukocyte Esterase NEGATIVE (NEGATIVE) Urine RBC 0-5 (0-5) /HPF Urine WBC 0-3 (0-5) /HPF Ur Squamous Epith Cells NONE SEEN (<= Few) Amorphous Sediment Rare /LPF Urine Bacteria None Seen (None Seen) /HPF Urine Casts 3-5 Granular Casts /LPF Ur Microscopic Review INDICATED Urine Culture Comments NOT INDICATED Urine HCG, Qual NEGATIVE Nasal Screen MRSA (PCR) (NEGATIVE) Salicylates mg/dL Urine Opiates Screen NEGATIVE (NEGATIVE) Ur Oxycodone Screen NEGATIVE (NEGATIVE) Urine Methadone Screen NEGATIVE (NEGATIVE) Ur Propoxyphene Screen NEGATIVE (NEGATIVE) Acetaminophen (10-30) ug/mL Ur Barbiturates Screen NEGATIVE (NEGATIVE) Ur Tricyclics Screen NEGATIVE (NEGATIVE) Ur Phencyclidine Scrn NEGATIVE (NEGATIVE) Ur Amphetamine Screen POSITIVE H (NEGATIVE) U Methamphetamines Scrn POSITIVE H (NEGATIVE) U Benzodiazepines Scrn NEGATIVE (NEGATIVE) Urine Cocaine Screen NEGATIVE (NEGATIVE) U Cannabinoids Screen NEGATIVE (NEGATIVE) Serum Ketones (NEGATIVE) 10/08/19 10/08/19 10/08/19 Range/Units 21:30 21:30 21:30 WBC (4.8-10.8) x10^3/uL RBC (4.20-5.40) 10^6/uL Hgb (12.0-16.0) g/dL Hct (37.0-47.0) % MCV (81.0-99.0) fL MCH (27.0-31.0) pg MCHC (32.0-36.0) g/dL RDW (12.0-15.0) % Plt Count (130-450) 10^3/uL MPV (7.9-10.8) fL Neut # (Auto) (1.5-6.6) 10^3/uL Lymph # (Auto) (1.5-3.5) 10^3/uL [place] # (Auto) (0.0-1.0) 10^3/uL Eos # (Auto) (0.0-0.7) 10^3/uL Baso # (Auto) (0.0-0.1) 10^3/uL Absolute Nucleated RBC x10^3/uL Total Counted Band Neuts % (Manual) (0 - 10) % Abnorm Lymph % (Manual) % Nucleated RBC % /100WBC Neutrophils # (Manual) (1.5-6.6) 10^3/uL Lymphocytes # (Manual) (1.5-3.5) 10^3/uL Monocytes # (Manual) (0.0-1.0) 10^3/uL Eosinophils # (Manual) (0-0.7) 10^3/uL Basophils # (Manual) (0-0.1) 10^3/uL Differential Comment Manual Slide Review Platelet Estimate (NORMAL) RBC Morph Micro Appear (NORMAL) PT 10.6 (9.9-12.6) secs INR 0.9 (0.8-1.2) Bld Gas Analysis Time Sample Site ABG pH (7.35-7.45) ABG pCO2 (34-45) mmHg ABG pO2 (80-100) mmHg ABG HCO3 (22.0-26.0) mmol/L ABG Total CO2 (21.0-29.0) MMOL/L ABG O2 Saturation (94-98) % ABG Base Excess (-2.0-3.0) mmol/L Gustavo Test VBG pH 6.676 L (7.31-7.41) VBG pCO2 18.1 L (41-51) mmHg VBG pO2 53.0 H (25-47) mmHg VBG HCO3 2.1 L (23-28) mmol/L VBG Total CO2 2.6 L (24-29) mmol/L VBG O2 Saturation 83.3 H (60-80) % VBG Base Excess -34.9 L (-2 - +2) mmol/L O2 Delivery Device O2 Liters/Min LPM FiO2 Sodium (135-145) mmol/L Potassium (3.5-5.0) mmol/L Chloride (101-111) mmol/L Carbon Dioxide (21-32) mmol/L Anion Gap (6-13) BUN (6-20) mg/dL Creatinine (0.4-1.0) mg/dL Estimated GFR (MDRD) (>89) Glucose (70-100) mg/dL Glycated Hemoglobin (4.6-6.2) % Estim Average Glucose (70-100) Lactic Acid (0.5-2.2) mmol/L Calcium (8.5-10.3) mg/dL Phosphorus (2.5-4.6) mg/dL Magnesium (1.7-2.8) mg/dL Total Bilirubin (0.2-1.0) mg/dL AST (10-42) IU/L ALT (10-60) IU/L Alkaline Phosphatase (42-121) IU/L Total Protein (6.7-8.2) g/dL Albumin (3.2-5.5) g/dL Globulin (2.1-4.2) g/dL Albumin/Globulin Ratio (1.0-2.2) Lipase (22-51) U/L Urine Color Urine Clarity (CLEAR) Urine pH (5.0-7.5) PH Ur Specific [place] (1.002-1.030) Urine Protein (NEGATIVE) mg/dL Urine Glucose (UA) (NEGATIVE) mg/dL Urine Ketones (NEGATIVE) mg/dL Urine Occult Blood (NEGATIVE) Urine Nitrite (NEGATIVE) Urine Bilirubin (NEGATIVE) Urine Urobilinogen (NORMAL) E.U./dL Ur Leukocyte Esterase (NEGATIVE) Urine RBC (0-5) /HPF Urine WBC (0-5) /HPF Ur Squamous Epith Cells (<= Few) Amorphous Sediment /LPF Urine Bacteria (None Seen) /HPF Urine Casts /LPF Ur Microscopic Review Urine Culture Comments Urine HCG, Qual Nasal Screen MRSA (PCR) (NEGATIVE) Salicylates < 6.0 mg/dL Urine Opiates Screen (NEGATIVE) Ur Oxycodone Screen (NEGATIVE) Urine Methadone Screen (NEGATIVE) Ur Propoxyphene Screen (NEGATIVE) Acetaminophen < 10 L (10-30) ug/mL Ur Barbiturates Screen (NEGATIVE) Ur Tricyclics Screen (NEGATIVE) Ur Phencyclidine Scrn (NEGATIVE) Ur Amphetamine Screen (NEGATIVE) U Methamphetamines Scrn (NEGATIVE) U Benzodiazepines Scrn (NEGATIVE) Urine Cocaine Screen (NEGATIVE) U Cannabinoids Screen (NEGATIVE) Serum Ketones (NEGATIVE) 10/08/19 10/08/19 10/08/19 Range/Units 21:30 21:30 21:20 WBC 19.6 H (4.8-10.8) x10^3/uL RBC 4.96 (4.20-5.40) 10^6/uL Hgb 15.9 (12.0-16.0) g/dL Hct 48.8 H (37.0-47.0) % MCV 98.4 (81.0-99.0) fL MCH 32.1 H (27.0-31.0) pg MCHC 32.6 (32.0-36.0) g/dL RDW 13.2 (12.0-15.0) % Plt Count 379 (130-450) 10^3/uL MPV 10.9 H (7.9-10.8) fL Neut # (Auto) 16.0 H (1.5-6.6) 10^3/uL Lymph # (Auto) 1.6 (1.5-3.5) 10^3/uL [place] # (Auto) 1.4 H (0.0-1.0) 10^3/uL Eos # (Auto) 0.1 (0.0-0.7) 10^3/uL Baso # (Auto) 0.2 H (0.0-0.1) 10^3/uL Absolute Nucleated RBC 0.00 x10^3/uL Total Counted Band Neuts % (Manual) (0 - 10) % Abnorm Lymph % (Manual) % Nucleated RBC % 0.0 /100WBC Neutrophils # (Manual) (1.5-6.6) 10^3/uL Lymphocytes # (Manual) (1.5-3.5) 10^3/uL Monocytes # (Manual) (0.0-1.0) 10^3/uL Eosinophils # (Manual) (0-0.7) 10^3/uL Basophils # (Manual) (0-0.1) 10^3/uL Differential Comment Manual Slide Review Platelet Estimate (NORMAL) RBC Morph Micro Appear (NORMAL) PT (9.9-12.6) secs INR (0.8-1.2) Bld Gas Analysis Time Sample Site ABG pH (7.35-7.45) ABG pCO2 (34-45) mmHg ABG pO2 (80-100) mmHg ABG HCO3 (22.0-26.0) mmol/L ABG Total CO2 (21.0-29.0) MMOL/L ABG O2 Saturation (94-98) % ABG Base Excess (-2.0-3.0) mmol/L Gustavo Test VBG pH (7.31-7.41) VBG pCO2 (41-51) mmHg VBG pO2 (25-47) mmHg VBG HCO3 (23-28) mmol/L VBG Total CO2 (24-29) mmol/L VBG O2 Saturation (60-80) % VBG Base Excess (-2 - +2) mmol/L O2 Delivery Device O2 Liters/Min LPM FiO2 Sodium 129 L (135-145) mmol/L Potassium 4.4 (3.5-5.0) mmol/L Chloride 98 L (101-111) mmol/L Carbon Dioxide < 6 L* (21-32) mmol/L Anion Gap 28.0 H (6-13) BUN 38 H (6-20) mg/dL Creatinine 1.4 H (0.4-1.0) mg/dL Estimated GFR (MDRD) 43 L (>89) Glucose 572 H* (70-100) mg/dL Glycated Hemoglobin (4.6-6.2) % Estim Average Glucose (70-100) Lactic Acid (0.5-2.2) mmol/L Calcium 8.6 (8.5-10.3) mg/dL Phosphorus (2.5-4.6) mg/dL Magnesium (1.7-2.8) mg/dL Total Bilirubin 2.0 H (0.2-1.0) mg/dL AST 20 (10-42) IU/L ALT 15 (10-60) IU/L Alkaline Phosphatase 162 H (42-121) IU/L Total Protein 6.9 (6.7-8.2) g/dL Albumin 3.3 (3.2-5.5) g/dL Globulin 3.6 (2.1-4.2) g/dL Albumin/Globulin Ratio 0.9 L (1.0-2.2) Lipase 57 H (22-51) U/L Urine Color Urine Clarity (CLEAR) Urine pH (5.0-7.5) PH Ur Specific [place] (1.002-1.030) Urine Protein (NEGATIVE) mg/dL Urine Glucose (UA) (NEGATIVE) mg/dL Urine Ketones (NEGATIVE) mg/dL Urine Occult Blood (NEGATIVE) Urine Nitrite (NEGATIVE) Urine Bilirubin (NEGATIVE) Urine Urobilinogen (NORMAL) E.U./dL Ur Leukocyte Esterase (NEGATIVE) Urine RBC (0-5) /HPF Urine WBC (0-5) /HPF Ur Squamous Epith Cells (<= Few) Amorphous Sediment /LPF Urine Bacteria (None Seen) /HPF Urine Casts /LPF Ur Microscopic Review Urine Culture Comments Urine HCG, Qual Nasal Screen MRSA (PCR) NEGATIVE (NEGATIVE) Salicylates mg/dL Urine Opiates Screen (NEGATIVE) Ur Oxycodone Screen (NEGATIVE) Urine Methadone Screen (NEGATIVE) Ur Propoxyphene Screen (NEGATIVE) Acetaminophen (10-30) ug/mL Ur Barbiturates Screen (NEGATIVE) Ur Tricyclics Screen (NEGATIVE) Ur Phencyclidine Scrn (NEGATIVE) Ur Amphetamine Screen (NEGATIVE) U Methamphetamines Scrn (NEGATIVE) U Benzodiazepines Scrn (NEGATIVE) Urine Cocaine Screen (NEGATIVE) U Cannabinoids Screen (NEGATIVE) Serum Ketones LARGE H (NEGATIVE) - Diagnostic Imaging Diagnostic Imaging Results: positive: Final report reviewed, See rad report ABX Reporting Has patient been on IV antibiotics over the past 48 hours?: No Sepsis Event Note (H) - Evaluation Current Stage of Sepsis: Sepsis Possible source of Sepsis: positive: Pulmonary, Skin/soft tissue - Sepsis Criteria Sepsis Criteria: Recorded Temperature greater than 38.3C or Less than 36C, Recorded Respiratory Rate greater than 20, WBC count greater than 12,000 or less than 4000, STEAMB[employer]ER: altered consciousness (unrelated to primary neuro pathology), SBP less than 90 mmHg Assessment/Plan - Problem List (1) DKA (diabetic ketoacidoses) Impression: Patient was brought in by EMS after family alerted them that her blood glucose levels had been high for the last couple of days. Her initial BG was 570, likely due to non-compliance with glycemic control with HA1C 15.7. VBG 6.676 with pCO2 18.1 on admit. After a total of 4 L NS, 1 L Bicarbonate, Insulin infusion, the patient has improved clinically. The last BG was 199. 1. IV fluids D51/2NS with 2meqKCl infusing. 2. Insulin infusion per protocol. 3. Monitor electrolytes per DKA protocol. Qualifiers: Diabetes mellitus type: type 1 Diabetes mellitus complication detail: with coma Qualified Code(s): E10.11 - Type 1 diabetes mellitus with ketoacidosis with coma (2) Severe sepsis Impression: Patient admitted with WBC of 19.6, hypotensive, with BP chest x-ray with multifocal pneumonia. Malodorous open wound on the plantar surface of the right first metatarsal. Blood cultures sent and patient started on empiric IV vancomycin and zosyn. Hypothermic upon arrival, t-max 38.2 at 0900 and was given one time dose of IV acetaminophen. Repeat CBC with WBC decreasing to 15.5 and then 8.7. 1. Continue IV vancomycin and zosyn. 2. MRI of right foot later today to rule out osteomyelitis. 3. CT chest later to better evaluate multi-focal pneumonia. 4. Continue norepinephrine gtt to keep MAP > 65. (3) Pneumonia Impression: Multifocal, patchy opacification on chest x-ray. 1. CT chest when patient more stable 2. IV vancomycin and zosyn 3. 85% O2 per high flow nasal cannula to keep O2 sats >92%. (4) Methamphetamine abuse Impression: Patient positive for methamphetamine on admit. (5) Hypothermia Impression: Patient admitted with temperature of 32.6. She has warmed up with a warming unit overnight, and hypothermia resolved. Qualifiers: Encounter type: initial encounter Qualified Code(s): T68.XXXA - Hypo thermia, initial encounter <Daylin Singleton - Last Filed: 10/09/19 14:45> Subjective - Subjective Subjective: She is moaning when we touch her, occ removes her high flow and we have to put back. grimaced w foot care. nonverbal for us Objective - Vital Signs/Intake & Output Vital Signs: Vital Signs x48h Temp Pulse Pulse Resp BP Pulse Ox 10/09/19 14:00 37.8 C H 116 H 23 102/69 94 10/09/19 13:00 37.8 C H 119 H 26 H 103/65 94 10/09/19 12:00 37.8 C H 117 H 25 H 105/65 95 10/09/19 11:00 38.0 C H 118 H 24 102/64 94 10/09/19 10:48 94/59 L 10/09/19 10:36 37.9 C H 118 H 24 95 10/09/19 10:35 78/54 L 10/09/19 10:12 81/59 L 10/09/19 10:00 38.1 C H 120 H 27 H 88/53 L 86 L 10/09/19 09:00 38.2 C H 124 H 24 105/73 93 10/09/19 08:45 38.1 C H 130 H 24 108/74 95 10/09/19 08:30 123/79 10/09/19 08:00 38.0 C H 132 H 27 H 128/73 60 L 10/09/19 07:44 37.7 C H 138 H 27 H 10/09/19 07:00 37.7 C H 138 H 27 H 151/88 H 94 Intake & Output: Intake & Output 10/06/19 10/07/19 10/08/19 10/09/19 23:59 23:59 23:59 23:59 Intake Total 1999 3420.687 Output Total 999 818 Balance 1000 2602.687 - Objective Neurologic/Psychiatric: positive: Other (Obtunded. PERRL 2 to the right eye. Left eye blind and cloudy. Moves spontaneously when stimulated. Not following commands.) Comments/Other: She arouses to voice and to touch. Does not need to be tested with pain. Ear nose and throat remarkable for the left eye that is cloudy and blind, right pupil does react. She has bilateral eyelid erythema and edema that is quite severe. Face is not as edematous as I would expect. Poor dentition. Neck is supple and shotty adenopathy Lungs are clear to auscultation and percussion and she has slow shallow slightly fast respiration. She desaturates into the 80s with 100% nonrebreather and we need to use high flow 60 L nasal cannula with an FiO2 to maintain her sats above 92% Tachycardic regular rate and rhythm, she is sinus on telemetry no murmurs rubs or gallops Abdomen is soft, hypoactive bowel sounds, and she does not grimace with palpation Extremities are warm, dry. The right foot has the diabetic foot ulcer, foot is foul-smelling but I cannot tell its because drainage or because she has not taken a bath in a while. The plantar area around the first metatarsal is thickened and callused. In the nathan ter of the callus is the ulcer. Ulcer has wet tissue, not black. But necrotic. Ulcer appears to go down to bone. There is no surrounding cellulitis, redness, minimal swelling. Neurologically she is responsive to pain, moans, will withdraw spontaneously using all extremities. She occasionally has purposeful movement. - Lab Results Fish Bones: 10/09/19 09:32 10/09/19 09:32 Other Labs: Lab Results x24hrs 10/09/19 10/09/19 10/09/19 Range/Units 09:32 09:32 09:32 WBC 8.7 (4.8-10.8) x10^3/uL RBC 3.70 L (4.20-5.40) 10^6/uL Hgb 11.9 L (12.0-16.0) g/dL Hct 32.7 L (37.0-47.0) % MCV 88.4 (81.0-99.0) fL MCH 32.2 H (27.0-31.0) pg MCHC 36.4 H (32.0-36.0) g/dL RDW 12.7 (12.0-15.0) % Plt Count 202 (130-450) 10^3/uL MPV 10.4 (7.9-10.8) fL Neut # (Auto) 7.8 H (1.5-6.6) 10^3/uL Lymph # (Auto) 0.5 L (1.5-3.5) 10^3/uL [place] # (Auto) 0.3 (0.0-1.0) 10^3/uL Eos # (Auto) 0.0 (0.0-0.7) 10^3/uL Baso # (Auto) 0.0 (0.0-0.1) 10^3/uL Absolute Nucleated RBC 0.00 x10^3/uL Total Counted Band Neuts % (Manual) (0 - 10) % Abnorm Lymph % (Manual) % Nucleated RBC % 0.0 /100WBC Neutrophils # (Manual) (1.5-6.6) 10^3/uL Lymphocytes # (Manual) (1.5-3.5) 10^3/uL Monocytes # (Manual) (0.0-1.0) 10^3/uL Eosinophils # (Manual) (0-0.7) 10^3/uL Basophils # (Manual) (0-0.1) 10^3/uL Differential Comment Manual Slide Review Indicated Platelet Estimate (NORMAL) RBC Morph Micro Appear 2+ ANISOCYTOSIS (NORMAL) PT (9.9-12.6) secs INR (0.8-1.2) Bld Gas Analysis Time Sample Site ABG pH (7.35-7.45) ABG pCO2 (34-45) mmHg ABG pO2 (80-100) mmHg ABG HCO3 (22.0-26.0) mmol/L ABG Total CO2 (21.0-29.0) MMOL/L ABG O2 Saturation (94-98) % ABG Base Excess (-2.0-3.0) mmol/L Gustavo Test VBG pH (7.31-7.41) VBG pCO2 (41-51) mmHg VBG pO2 (25-47) mmHg VBG HCO3 (23-28) mmol/L VBG Total CO2 (24-29) mmol/L VBG O2 Saturation (60-80) % VBG Base Excess (-2 - +2) mmol/L O2 Delivery Device O2 Liters/Min LPM FiO2 Sodium (135-145) mmol/L Potassium (3.5-5.0) mmol/L Chloride (101-111) mmol/L Carbon Dioxide (21-32) mmol/L Anion Gap (6-13) BUN (6-20) mg/dL Creatinine (0.4-1.0) mg/dL Estimated GFR (MDRD) (>89) Glucose (70-100) mg/dL Glycated Hemoglobin (4.6-6.2) % Estim Average Glucose (70-100) Lactic Acid (0.5-2.2) mmol/L Calcium (8.5-10.3) mg/dL Phosphorus (2.5-4.6) mg/dL Magnesium 2.0 (1.7-2.8) mg/dL Total Bilirubin (0.2-1.0) mg/dL AST (10-42) IU/L ALT (10-60) IU/L Alkaline Phosphatase (42-121) IU/L Total Protein (6.7-8.2) g/dL Albumin 2.2 L (3.2-5.5) g/dL Globulin (2.1-4.2) g/dL Albumin/Globulin Ratio (1.0-2.2) Lipase (22-51) U/L Urine Color Urine Clarity (CLEAR) Urine pH (5.0-7.5) PH Ur Specific [place] (1.002-1.030) Urine Protein (NEGATIVE) mg/dL Urine Glucose (UA) (NEGATIVE) mg/dL Urine Ketones (NEGATIVE) mg/dL Urine Occult Blood (NEGATIVE) Urine Nitrite (NEGATIVE) Urine Bilirubin (NEGATIVE) Urine Urobilinogen (NORMAL) E.U./dL Ur Leukocyte Esterase (NEGATIVE) Urine RBC (0-5) /HPF Urine WBC (0-5) /HPF Ur Squamous Epith Cells (<= Few) Amorphous Sediment /LPF Urine Bacteria (None Seen) /HPF Urine Casts /LPF Ur Microscopic Review Urine Culture Comments Urine HCG, Qual Nasal Screen MRSA (PCR) (NEGATIVE) Salicylates mg/dL Urine Opiates Screen (NEGATIVE) Ur Oxycodone Screen (NEGATIVE) Urine Methadone Screen (NEGATIVE) Ur Propoxyphene Screen (NEGATIVE) Acetaminophen (10-30) ug/mL Ur Barbiturates Screen (NEGATIVE) Ur Tricyclics Screen (NEGATIVE) Ur Phencyclidine Scrn (NEGATIVE) Ur Amphetamine Screen (NEGATIVE) U Methamphetamines Scrn (NEGATIVE) U Benzodiazepines Scrn (NEGATIVE) Urine Cocaine Screen (NEGATIVE) U Cannabinoids Screen (NEGATIVE) Serum Ketones (NEGATIVE) 10/09/19 10/09/19 10/09/19 Range/Units 09:32 07:05 06:50 WBC (4.8-10.8) x10^3/uL RBC (4.20-5.40) 10^6/uL Hgb (12.0-16.0) g/dL Hct (37.0-47.0) % MCV (81.0-99.0) fL MCH (27.0-31.0) pg MCHC (32.0-36.0) g/dL RDW (12.0-15.0) % Plt Count (130-450) 10^3/uL MPV (7.9-10.8) fL Neut # (Auto) (1.5-6.6) 10^3/uL Lymph # (Auto) (1.5-3.5) 10^3/uL [place] # (Auto) (0.0-1.0) 10^3/uL Eos # (Auto) (0.0-0.7) 10^3/uL Baso # (Auto) (0.0-0.1) 10^3/uL Absolute Nucleated RBC x10^3/uL Total Counted Band Neuts % (Manual) (0 - 10) % Abnorm Lymph % (Manual) % Nucleated RBC % /100WBC Neutrophils # (Manual) (1.5-6.6) 10^3/uL Lymphocytes # (Manual) (1.5-3.5) 10^3/uL Monocytes # (Manual) (0.0-1.0) 10^3/uL Eosinophils # (Manual) (0-0.7) 10^3/uL Basophils # (Manual) (0-0.1) 10^3/uL Differential Comment Manual Slide Review Platelet Estimate (NORMAL) RBC Morph Micro Appear (NORMAL) PT (9.9-12.6) secs INR (0.8-1.2) Bld Gas Analysis Time 0657 Sample Site RIGHT RADIAL ABG pH 7.18 L* (7.35-7.45) ABG pCO2 22 L* (34-45) mmHg ABG pO2 53 L* (80-100) mmHg ABG HCO3 8.0 L (22.0-26.0) mmol/L ABG Total CO2 8.7 L* (21.0-29.0) MMOL/L ABG O2 Saturation 91 L (94-98) % ABG Base Excess -18.3 L (-2.0-3.0) mmol/L Gustavo Test POSITIVE VBG pH (7.31-7.41) VBG pCO2 (41-51) mmHg VBG pO2 (25-47) mmHg VBG HCO3 (23-28) mmol/L VBG Total CO2 (24-29) mmol/L VBG O2 Saturation (60-80) % VBG Base Excess (-2 - +2) mmol/L O2 Delivery Device NASAL CANNULA O2 Liters/Min 60.00 LPM FiO2 86.00 Sodium 136 135 (135-145) mmol/L Potassium 3.8 4.3 (3.5-5.0) mmol/L Chloride 112 H 110 (101-111) mmol/L Carbon Dioxide 13 L 10 L* (21-32) mmol/L Anion Gap 11.0 15.0 H (6-13) BUN 39 H 39 H (6-20) mg/dL Creatinine 1.5 H 1.5 H (0.4-1.0) mg/dL Estimated GFR (MDRD) 40 L 40 L (>89) Glucose 221 H 246 H (70-100) mg/dL Glycated Hemoglobin (4.6-6.2) % Estim Average Glucose (70-100) Lactic Acid (0.5-2.2) mmol/L Calcium 7.3 L 7.4 L (8.5-10.3) mg/dL Phosphorus (2.5-4.6) mg/dL Magnesium (1.7-2.8) mg/dL Total Bilirubin (0.2-1.0) mg/dL AST (10-42) IU/L ALT (10-60) IU/L Alkaline Phosphatase (42-121) IU/L Total Protein (6.7-8.2) g/dL Albumin (3.2-5.5) g/dL Globulin (2.1-4.2) g/dL Albumin/Globulin Ratio (1.0-2.2) Lipase (22-51) U/L Urine Color Urine Clarity (CLEAR) Urine pH (5.0-7.5) PH Ur Specific [place] (1.002-1.030) Urine Protein (NEGATIVE) mg/dL Urine Glucose (UA) (NEGATIVE) mg/dL Urine Ketones (NEGATIVE) mg/dL Urine Occult Blood (NEGATIVE) Urine Nitrite (NEGATIVE) Urine Bilirubin (NEGATIVE) Urine Urobilinogen (NORMAL) E.U./dL Ur Leukocyte Esterase (NEGATIVE) Urine RBC (0-5) /HPF Urine WBC (0-5) /HPF Ur Squamous Epith Cells (<= Few) Amorphous Sediment /LPF Urine Bacteria (None Seen) /HPF Urine Casts /LPF Ur Microscopic Review Urine Culture Comments Urine HCG, Qual Nasal Screen MRSA (PCR) (NEGATIVE) Salicylates mg/dL Urine Opiates Screen (NEGATIVE) Ur Oxycodone Screen (NEGATIVE) Urine Methadone Screen (NEGATIVE) Ur Propoxyphene Screen (NEGATIVE) Acetaminophen (10-30) ug/mL Ur Barbiturates Screen (NEGATIVE) Ur Tricyclics Screen (NEGATIVE) Ur Phencyclidine Scrn (NEGATIVE) Ur Amphetamine Screen (NEGATIVE) U Methamphetamines Scrn (NEGATIVE) U Benzodiazepines Scrn (NEGATIVE) Urine Cocaine Screen (NEGATIVE) U Cannabinoids Screen (NEGATIVE) Serum Ketones (NEGATIVE) 10/09/19 10/09/19 10/09/19 Range/Units 04:46 04:46 04:46 WBC 15.5 H (4.8-10.8) x10^3/uL RBC 4.21 (4.20-5.40) 10^6/uL Hgb 13.5 (12.0-16.0) g/dL Hct 38.5 (37.0-47.0) % MCV 91.4 (81.0-99.0) fL MCH 32.1 H (27.0-31.0) pg MCHC 35.1 (32.0-36.0) g/dL RDW 13.0 (12.0-15.0) % Plt Count 298 (130-450) 10^3/uL MPV 10.5 (7.9-10.8) fL Neut # (Auto) Not Reportable (1.5-6.6) 10^3/uL Lymph # (Auto) Not Reportable (1.5-3.5) 10^3/uL [place] # (Auto) Not Reportable (0.0-1.0) 10^3/uL Eos # (Auto) Not Reportable (0.0-0.7) 10^3/uL Baso # (Auto) Not Reportable (0.0-0.1) 10^3/uL Absolute Nucleated RBC Not Reportable x10^3/uL Total Counted 100 Band Neuts % (Manual) 7 (0 - 10) % Abnorm Lymph % (Manual) 0 % Nucleated RBC % Not Reportable /100WBC Neutrophils # (Manual) 13.3 H (1.5-6.6) 10^3/uL Lymphocytes # (Manual) 1.6 (1.5-3.5) 10^3/uL Monocytes # (Manual) 0.5 (0.0-1.0) 10^3/uL Eosinophils # (Manual) 0.2 (0-0.7) 10^3/uL Basophils # (Manual) 0.0 (0-0.1) 10^3/uL Differential Comment MANUAL DIFFERENTIAL Manual Slide Review Platelet Estimate NORMAL (130-450,000) (NORMAL) RBC Morph Micro Appear NORMAL APPEARANCE (NORMAL) PT (9.9-12.6) secs INR (0.8-1.2) Bld Gas Analysis Time Sample Site ABG pH (7.35-7.45) ABG pCO2 (34-45) mmHg ABG pO2 (80-100) mmHg ABG HCO3 (22.0-26.0) mmol/L ABG Total CO2 (21.0-29.0) MMOL/L ABG O2 Saturation (94-98) % ABG Base Excess (-2.0-3.0) mmol/L Gustavo Test VBG pH (7.31-7.41) VBG pCO2 (41-51) mmHg VBG pO2 (25-47) mmHg VBG HCO3 (23-28) mmol/L VBG Total CO2 (24-29) mmol/L VBG O2 Saturation (60-80) % VBG Base Excess (-2 - +2) mmol/L O2 Delivery Device O2 Liters/Min LPM FiO2 Sodium 135 (135-145) mmol/L Potassium 4.1 (3.5-5.0) mmol/L Chloride 113 H (101-111) mmol/L Carbon Dioxide 7 L* (21-32) mmol/L Anion Gap 15.0 H (6-13) BUN 40 H (6-20) mg/dL Creatinine 1.4 H (0.4-1.0) mg/dL Estimated GFR (MDRD) 43 L (>89) Glucose 286 H (70-100) mg/dL Glycated Hemoglobin (4.6-6.2) % Estim Average Glucose (70-100) Lactic Acid (0.5-2.2) mmol/L Calcium 7.7 L (8.5-10.3) mg/dL Phosphorus 3.2 (2.5-4.6) mg/dL Magnesium 1.5 L (1.7-2.8) mg/dL Total Bilirubin (0.2-1.0) mg/dL AST (10-42) IU/L ALT (10-60) IU/L Alkaline Phosphatase (42-121) IU/L Total Protein (6.7-8.2) g/dL Albumin 2.5 L (3.2-5.5) g/dL Globulin (2.1-4.2) g/dL Albumin/Globulin Ratio (1.0-2.2) Lipase (22-51) U/L Urine Color Urine Clarity (CLEAR) Urine pH (5.0-7.5) PH Ur Specific [place] (1.002-1.030) Urine Protein (NEGATIVE) mg/dL Urine Glucose (UA) (NEGATIVE) mg/dL Urine Ketones (NEGATIVE) mg/dL Urine Occult Blood (NEGATIVE) Urine Nitrite (NEGATIVE) Urine Bilirubin (NEGATIVE) Urine Urobilinogen (NORMAL) E.U./dL Ur Leukocyte Esterase (NEGATIVE) Urine RBC (0-5) /HPF Urine WBC (0-5) /HPF Ur Squamous Epith Cells (<= Few) Amorphous Sediment /LPF Urine Bacteria (None Seen) /HPF Urine Casts /LPF Ur Microscopic Review Urine Culture Comments Urine HCG, Qual Nasal Screen MRSA (PCR) (NEGATIVE) Salicylates mg/dL Urine Opiates Screen (NEGATIVE) Ur Oxycodone Screen (NEGATIVE) Urine Methadone Screen (NEGATIVE) Ur Propoxyphene Screen (NEGATIVE) Acetaminophen (10-30) ug/mL Ur Barbiturates Screen (NEGATIVE) Ur Tricyclics Screen (NEGATIVE) Ur Phencyclidine Scrn (NEGATIVE) Ur Amphetamine Screen (NEGATIVE) U Methamphetamines Scrn (NEGATIVE) U Benzodiazepines Scrn (NEGATIVE) Urine Cocaine Screen (NEGATIVE) U Cannabinoids Screen (NEGATIVE) Serum Ketones MODERATE H (NEGATIVE) 10/09/19 10/09/19 10/09/19 Range/Units 03:50 03:00 01:15 WBC (4.8-10.8) x10^3/uL RBC (4.20-5.40) 10^6/uL Hgb (12.0-16.0) g/dL Hct (37.0-47.0) % MCV (81.0-99.0) fL MCH (27.0-31.0) pg MCHC (32.0-36.0) g/dL RDW (12.0-15.0) % Plt Count (130-450) 10^3/uL MPV (7.9-10.8) fL Neut # (Auto) (1.5-6.6) 10^3/uL Lymph # (Auto) (1.5-3.5) 10^3/uL [place] # (Auto) (0.0-1.0) 10^3/uL Eos # (Auto) (0.0-0.7) 10^3/uL Baso # (Auto) (0.0-0.1) 10^3/uL Absolute Nucleated RBC x10^3/uL Total Counted Band Neuts % (Manual) (0 - 10) % Abnorm Lymph % (Manual) % Nucleated RBC % /100WBC Neutrophils # (Manual) (1.5-6.6) 10^3/uL Lymphocytes # (Manual) (1.5-3.5) 10^3/uL Monocytes # (Manual) (0.0-1.0) 10^3/uL Eosinophils # (Manual) (0-0.7) 10^3/uL Basophils # (Manual) (0-0.1) 10^3/uL Differential Comment Manual Slide Review Platelet Estimate (NORMAL) RBC Morph Micro Appear (NORMAL) PT (9.9-12.6) secs INR (0.8-1.2) Bld Gas Analysis Time 0357 Sample Site LEFT RADIAL ABG pH 6.91 L* (7.35-7.45) ABG pCO2 27 L (34-45) mmHg ABG pO2 52 L* (80-100) mmHg ABG HCO3 5.2 L (22.0-26.0) mmol/L ABG Total CO2 6.0 L* (21.0-29.0) MMOL/L ABG O2 Saturation 87 L* (94-98) % ABG Base Excess -26.6 L (-2.0-3.0) mmol/L Gustavo Test POSITIVE VBG pH (7.31-7.41) VBG pCO2 (41-51) mmHg VBG pO2 (25-47) mmHg VBG HCO3 (23-28) mmol/L VBG Total CO2 (24-29) mmol/L VBG O2 Saturation (60-80) % VBG Base Excess (-2 - +2) mmol/L O2 Delivery Device NASAL CANNULA O2 Liters/Min LPM FiO2 6.00 Sodium 135 (135-145) mmol/L Potassium 4.0 (3.5-5.0) mmol/L Chloride 111 (101-111) mmol/L Carbon Dioxide 6 L* (21-32) mmol/L Anion Gap 18.0 H (6-13) BUN 40 H (6-20) mg/dL Creatinine 1.4 H (0.4-1.0) mg/dL Estimated GFR (MDRD) 43 L (>89) Glucose 368 H (70-100) mg/dL Glycated Hemoglobin (4.6-6.2) % Estim Average Glucose (70-100) Lactic Acid (0.5-2.2) mmol/L Calcium 7.4 L (8.5-10.3) mg/dL Phosphorus 4.9 H (2.5-4.6) mg/dL Magnesium (1.7-2.8) mg/dL Total Bilirubin (0.2-1.0) mg/dL AST (10-42) IU/L ALT (10-60) IU/L Alkaline Phosphatase (42-121) IU/L Total Protein (6.7-8.2) g/dL Albumin (3.2-5.5) g/dL Globulin (2.1-4.2) g/dL Albumin/Globulin Ratio (1.0-2.2) Lipase (22-51) U/L Urine Color Urine Clarity (CLEAR) Urine pH (5.0-7.5) PH Ur Specific [place] (1.002-1.030) Urine Protein (NEGATIVE) mg/dL Urine Glucose (UA) (NEGATIVE) mg/dL Urine Ketones (NEGATIVE) mg/dL Urine Occult Blood (NEGATIVE) Urine Nitrite (NEGATIVE) Urine Bilirubin (NEGATIVE) Urine Urobilinogen (NORMAL) E.U./dL Ur Leukocyte Esterase (NEGATIVE) Urine RBC (0-5) /HPF Urine WBC (0-5) /HPF Ur Squamous Epith Cells (<= Few) Amorphous Sediment /LPF Urine Bacteria (None Seen) /HPF Urine Casts /LPF Ur Microscopic Review Urine Culture Comments Urine HCG, Qual Nasal Screen MRSA (PCR) (NEGATIVE) Salicylates mg/dL Urine Opiates Screen (NEGATIVE) Ur Oxycodone Screen (NEGATIVE) Urine Methadone Screen (NEGATIVE) Ur Propoxyphene Screen (NEGATIVE) Acetaminophen (10-30) ug/mL Ur Barbiturates Screen (NEGATIVE) Ur Tricyclics Screen (NEGATIVE) Ur Phencyclidine Scrn (NEGATIVE) Ur Amphetamine Screen (NEGATIVE) U Methamphetamines Scrn (NEGATIVE) U Benzodiazepines Scrn (NEGATIVE) Urine Cocaine Screen (NEGATIVE) U Cannabinoids Screen (NEGATIVE) Serum Ketones (NEGATIVE) 10/09/19 10/09/19 10/09/19 Range/Units 00:15 00:08 00:08 WBC (4.8-10.8) x10^3/uL RBC (4.20-5.40) 10^6/uL Hgb (12.0-16.0) g/dL Hct (37.0-47.0) % MCV (81.0-99.0) fL MCH (27.0-31.0) pg MCHC (32.0-36.0) g/dL RDW (12.0-15.0) % Plt Count (130-450) 10^3/uL MPV (7.9-10.8) fL Neut # (Auto) (1.5-6.6) 10^3/uL Lymph # (Auto) (1.5-3.5) 10^3/uL [place] # (Auto) (0.0-1.0) 10^3/uL Eos # (Auto) (0.0-0.7) 10^3/uL Baso # (Auto) (0.0-0.1) 10^3/uL Absolute Nucleated RBC x10^3/uL Total Counted Band Neuts % (Manual) (0 - 10) % Abnorm Lymph % (Manual) % Nucleated RBC % /100WBC Neutrophils # (Manual) (1.5-6.6) 10^3/uL Lymphocytes # (Manual) (1.5-3.5) 10^3/uL Monocytes # (Manual) (0.0-1.0) 10^3/uL Eosinophils # (Manual) (0-0.7) 10^3/uL Basophils # (Manual) (0-0.1) 10^3/uL Differential Comment Manual Slide Review Platelet Estimate (NORMAL) RBC Morph Micro Appear (NORMAL) PT (9.9-12.6) secs INR (0.8-1.2) Bld Gas Analysis Time Sample Site ABG pH (7.35-7.45) ABG pCO2 (34-45) mmHg ABG pO2 (80-100) mmHg ABG HCO3 (22.0-26.0) mmol/L ABG Total CO2 (21.0-29.0) MMOL/L ABG O2 Saturation (94-98) % ABG Base Excess (-2.0-3.0) mmol/L Gustavo Test VBG pH (7.31-7.41) VBG pCO2 (41-51) mmHg VBG pO2 (25-47) mmHg VBG HCO3 (23-28) mmol/L VBG Total CO2 (24-29) mmol/L VBG O2 Saturation (60-80) % VBG Base Excess (-2 - +2) mmol/L O2 Delivery Device O2 Liters/Min LPM FiO2 Sodium 132 L 132 L (135-145) mmol/L Potassium 3.8 3.8 (3.5-5.0) mmol/L Chloride 106 105 (101-111) mmol/L Carbon Dioxide < 6 L* < 6 L* (21-32) mmol/L Anion Gap 20.0 H 21.0 H (6-13) BUN 40 H 38 H (6-20) mg/dL Creatinine 1.4 H 1.2 H (0.4-1.0) mg/dL Estimated GFR (MDRD) 43 L 51 L (>89) Glucose 473 H 507 H* (70-100) mg/dL Glycated Hemoglobin (4.6-6.2) % Estim Average Glucose (70-100) Lactic Acid 0.7 (0.5-2.2) mmol/L Calcium 7.8 L 8.0 L (8.5-10.3) mg/dL Phosphorus (2.5-4.6) mg/dL Magnesium 1.7 1.8 (1.7-2.8) mg/dL Total Bilirubin (0.2-1.0) mg/dL AST (10-42) IU/L ALT (10-60) IU/L Alkaline Phosphatase (42-121) IU/L Total Protein (6.7-8.2) g/dL Albumin (3.2-5.5) g/dL Globulin (2.1-4.2) g/dL Albumin/Globulin Ratio (1.0-2.2) Lipase (22-51) U/L Urine Color Urine Clarity (CLEAR) Urine pH (5.0-7.5) PH Ur Specific [place] (1.002-1.030) Urine Protein (NEGATIVE) mg/dL Urine Glucose (UA) (NEGATIVE) mg/dL Urine Ketones (NEGATIVE) mg/dL Urine Occult Blood (NEGATIVE) Urine Nitrite (NEGATIVE) Urine Bilirubin (NEGATIVE) Urine Urobilinogen (NORMAL) E.U./dL Ur Leukocyte Esterase (NEGATIVE) Urine RBC (0-5) /HPF Urine WBC (0-5) /HPF Ur Squamous Epith Cells (<= Few) Amorphous Sediment /LPF Urine Bacteria (None Seen) /HPF Urine Casts /LPF Ur Microscopic Review Urine Culture Comments Urine HCG, Qual Nasal Screen MRSA (PCR) (NEGATIVE) Salicylates mg/dL Urine Opiates Screen (NEGATIVE) Ur Oxycodone Screen (NEGATIVE) Urine Methadone Screen (NEGATIVE) Ur Propoxyphene Screen (NEGATIVE) Acetaminophen (10-30) ug/mL Ur Barbiturates Screen (NEGATIVE) Ur Tricyclics Screen (NEGATIVE) Ur Phencyclidine Scrn (NEGATIVE) Ur Amphetamine Screen (NEGATIVE) U Methamphetamines Scrn (NEGATIVE) U Benzodiazepines Scrn (NEGATIVE) Urine Cocaine Screen (NEGATIVE) U Cannabinoids Screen (NEGATIVE) Serum Ketones (NEGATIVE) 10/08/19 10/08/19 10/08/19 Range/Units 22:30 22:30 21:40 WBC (4.8-10.8) x10^3/uL RBC (4.20-5.40) 10^6/uL Hgb (12.0-16.0) g/dL Hct (37.0-47.0) % MCV (81.0-99.0) fL MCH (27.0-31.0) pg MCHC (32.0-36.0) g/dL RDW (12.0-15.0) % Plt Count (130-450) 10^3/uL MPV (7.9-10.8) fL Neut # (Auto) (1.5-6.6) 10^3/uL Lymph # (Auto) (1.5-3.5) 10^3/uL [place] # (Auto) (0.0-1.0) 10^3/uL Eos # (Auto) (0.0-0.7) 10^3/uL Baso # (Auto) (0.0-0.1) 10^3/uL Absolute Nucleated RBC x10^3/uL Total Counted Band Neuts % (Manual) (0 - 10) % Abnorm Lymph % (Manual) % Nucleated RBC % /100WBC Neutrophils # (Manual) (1.5-6.6) 10^3/uL Lymphocytes # (Manual) (1.5-3.5) 10^3/uL Monocytes # (Manual) (0.0-1.0) 10^3/uL Eosinophils # (Manual) (0-0.7) 10^3/uL Basophils # (Manual) (0-0.1) 10^3/uL Differential Comment Manual Slide Review Platelet Estimate (NORMAL) RBC Morph Micro Appear (NORMAL) PT (9.9-12.6) secs INR (0.8-1.2) Bld Gas Analysis Time Sample Site ABG pH (7.35-7.45) ABG pCO2 (34-45) mmHg ABG pO2 (80-100) mmHg ABG HCO3 (22.0-26.0) mmol/L ABG Total CO2 (21.0-29.0) MMOL/L ABG O2 Saturation (94-98) % ABG Base Excess (-2.0-3.0) mmol/L Gustavo Test VBG pH (7.31-7.41) VBG pCO2 (41-51) mmHg VBG pO2 (25-47) mmHg VBG HCO3 (23-28) mmol/L VBG Total CO2 (24-29) mmol/L VBG O2 Saturation (60-80) % VBG Base Excess (-2 - +2) mmol/L O2 Delivery Device O2 Liters/Min LPM FiO2 Sodium 130 L (135-145) mmol/L Potassium 4.0 (3.5-5.0) mmol/L Chloride 102 (101-111) mmol/L Carbon Dioxide < 6 L* (21-32) mmol/L Anion Gap 22.0 H (6-13) BUN 36 H (6-20) mg/dL Creatinine 1.3 H (0.4-1.0) mg/dL Estimated GFR (MDRD) 47 L (>89) Glucose 542 H* (70-100) mg/dL Glycated Hemoglobin 15.7 H (4.6-6.2) % Estim Average Glucose 404 H (70-100) Lactic Acid (0.5-2.2) mmol/L Calcium 7.8 L (8.5-10.3) mg/dL Phosphorus (2.5-4.6) mg/dL Magnesium 2.0 (1.7-2.8) mg/dL Total Bilirubin (0.2-1.0) mg/dL AST (10-42) IU/L ALT (10-60) IU/L Alkaline Phosphatase (42-121) IU/L Total Protein (6.7-8.2) g/dL Albumin (3.2-5.5) g/dL Globulin (2.1-4.2) g/dL Albumin/Globulin Ratio (1.0-2.2) Lipase (22-51) U/L Urine Color YELLOW Urine Clarity CLEAR (CLEAR) Urine pH 5.5 (5.0-7.5) PH Ur Specific [place] >=1.030 H (1.002-1.030) Urine Protein 100 H (NEGATIVE) mg/dL Urine Glucose (UA) >=1000 H (NEGATIVE) mg/dL Urine Ketones >=80 H (NEGATIVE) mg/dL Urine Occult Blood MODERATE H (NEGATIVE) Urine Nitrite NEGATIVE (NEGATIVE) Urine Bilirubin NEGATIVE (NEGATIVE) Urine Urobilinogen 0.2 (NORMAL) (NORMAL) E.U./dL Ur Leukocyte Esterase NEGATIVE (NEGATIVE) Urine RBC 0-5 (0-5) /HPF Urine WBC 0-3 (0-5) /HPF Ur Squamous Epith Cells NONE SEEN (<= Few) Amorphous Sediment Rare /LPF Urine Bacteria None Seen (None Seen) /HPF Urine Casts 3-5 Granular Casts /LPF Ur Microscopic Review INDICATED Urine Culture Comments NOT INDICATED Urine HCG, Qual NEGATIVE Nasal Screen MRSA (PCR) (NEGATIVE) Salicylates mg/dL Urine Opiates Screen NEGATIVE (NEGATIVE) Ur Oxycodone Screen NEGATIVE (NEGATIVE) Urine Methadone Screen NEGATIVE (NEGATIVE) Ur Propoxyphene Screen NEGATIVE (NEGATIVE) Acetaminophen (10-30) ug/mL Ur Barbiturates Screen NEGATIVE (NEGATIVE) Ur Tricyclics Screen NEGATIVE (NEGATIVE) Ur Phencyclidine Scrn NEGATIVE (NEGATIVE) Ur Amphetamine Screen POSITIVE H (NEGATIVE) U Methamphetamines Scrn POSITIVE H (NEGATIVE) U Benzodiazepines Scrn NEGATIVE (NEGATIVE) Urine Cocaine Screen NEGATIVE (NEGATIVE) U Cannabinoids Screen NEGATIVE (NEGATIVE) Serum Ketones (NEGATIVE) 10/08/19 10/08/19 10/08/19 Range/Units 21:30 21:30 21:30 WBC (4.8-10.8) x10^3/uL RBC (4.20-5.40) 10^6/uL Hgb (12.0-16.0) g/dL Hct (37.0-47.0) % MCV (81.0-99.0) fL MCH (27.0-31.0) pg MCHC (32.0-36.0) g/dL RDW (12.0-15.0) % Plt Count (130-450) 10^3/uL MPV (7.9-10.8) fL Neut # (Auto) (1.5-6.6) 10^3/uL Lymph # (Auto) (1.5-3.5) 10^3/uL [place] # (Auto) (0.0-1.0) 10^3/uL Eos # (Auto) (0.0-0.7) 10^3/uL Baso # (Auto) (0.0-0.1) 10^3/uL Absolute Nucleated RBC x10^3/uL Total Counted Band Neuts % (Manual) (0 - 10) % Abnorm Lymph % (Manual) % Nucleated RBC % /100WBC Neutrophils # (Manual) (1.5-6.6) 10^3/uL Lymphocytes # (Manual) (1.5-3.5) 10^3/uL Monocytes # (Manual) (0.0-1.0) 10^3/uL Eosinophils # (Manual) (0-0.7) 10^3/uL Basophils # (Manual) (0-0.1) 10^3/uL Differential Comment Manual Slide Review Platelet Estimate (NORMAL) RBC Morph Micro Appear (NORMAL) PT 10.6 (9.9-12.6) secs INR 0.9 (0.8-1.2) Bld Gas Analysis Time Sample Site ABG pH (7.35-7.45) ABG pCO2 (34-45) mmHg ABG pO2 (80-100) mmHg ABG HCO3 (22.0-26.0) mmol/L ABG Total CO2 (21.0-29.0) MMOL/L ABG O2 Saturation (94-98) % ABG Base Excess (-2.0-3.0) mmol/L Gustavo Test VBG pH 6.676 L (7.31-7.41) VBG pCO2 18.1 L (41-51) mmHg VBG pO2 53.0 H (25-47) mmHg VBG HCO3 2.1 L (23-28) mmol/L VBG Total CO2 2.6 L (24-29) mmol/L VBG O2 Saturation 83.3 H (60-80) % VBG Base Excess -34.9 L (-2 - +2) mmol/L O2 Delivery Device O2 Liters/Min LPM FiO2 Sodium (135-145) mmol/L Potassium (3.5-5.0) mmol/L Chloride (101-111) mmol/L Carbon Dioxide (21-32) mmol/L Anion Gap (6-13) BUN (6-20) mg/dL Creatinine (0.4-1.0) mg/dL Estimated GFR (MDRD) (>89) Glucose (70-100) mg/dL Glycated Hemoglobin (4.6-6.2) % Estim Average Glucose (70-100) Lactic Acid (0.5-2.2) mmol/L Calcium (8.5-10.3) mg/dL Phosphorus (2.5-4.6) mg/dL Magnesium (1.7-2.8) mg/dL Total Bilirubin (0.2-1.0) mg/dL AST (10-42) IU/L ALT (10-60) IU/L Alkaline Phosphatase (42-121) IU/L Total Protein (6.7-8.2) g/dL Albumin (3.2-5.5) g/dL Globulin (2.1-4.2) g/dL Albumin/Globulin Ratio (1.0-2.2) Lipase (22-51) U/L Urine Color Urine Clarity (CLEAR) Urine pH (5.0-7.5) PH Ur Specific [place] (1.002-1.030) Urine Protein (NEGATIVE) mg/dL Urine Glucose (UA) (NEGATIVE) mg/dL Urine Ketones (NEGATIVE) mg/dL Urine Occult Blood (NEGATIVE) Urine Nitrite (NEGATIVE) Urine Bilirubin (NEGATIVE) Urine Urobilinogen (NORMAL) E.U./dL Ur Leukocyte Esterase (NEGATIVE) Urine RBC (0-5) /HPF Urine WBC (0-5) /HPF Ur Squamous Epith Cells (<= Few) Amorphous Sediment /LPF Urine Bacteria (None Seen) /HPF Urine Casts /LPF Ur Microscopic Review Urine Culture Comments Urine HCG, Qual Nasal Screen MRSA (PCR) (NEGATIVE) Salicylates < 6.0 mg/dL Urine Opiates Screen (NEGATIVE) Ur Oxycodone Screen (NEGATIVE) Urine Methadone Screen (NEGATIVE) Ur Propoxyphene Screen (NEGATIVE) Acetaminophen < 10 L (10-30) ug/mL Ur Barbiturates Screen (NEGATIVE) Ur Tricyclics Screen (NEGATIVE) Ur Phencyclidine Scrn (NEGATIVE) Ur Amphetamine Screen (NEGATIVE) U Methamphetamines Scrn (NEGATIVE) U Benzodiazepines Scrn (NEGATIVE) Urine Cocaine Screen (NEGATIVE) U Cannabinoids Screen (NEGATIVE) Serum Ketones (NEGATIVE) 10/08/19 10/08/19 10/08/19 Range/Units 21:30 21:30 21:20 WBC 19.6 H (4.8-10.8) x10^3/uL RBC 4.96 (4.20-5.40) 10^6/uL Hgb 15.9 (12.0-16.0) g/dL Hct 48.8 H (37.0-47.0) % MCV 98.4 (81.0-99.0) fL MCH 32.1 H (27.0-31.0) pg MCHC 32.6 (32.0-36.0) g/dL RDW 13.2 (12.0-15.0) % Plt Count 379 (130-450) 10^3/uL MPV 10.9 H (7.9-10.8) fL Neut # (Auto) 16.0 H (1.5-6.6) 10^3/uL Lymph # (Auto) 1.6 (1.5-3.5) 10^3/uL [place] # (Auto) 1.4 H (0.0-1.0) 10^3/uL Eos # (Auto) 0.1 (0.0-0.7) 10^3/uL Baso # (Auto) 0.2 H (0.0-0.1) 10^3/uL Absolute Nucleated RBC 0.00 x10^3/uL Total Counted Band Neuts % (Manual) (0 - 10) % Abnorm Lymph % (Manual) % Nucleated RBC % 0.0 /100WBC Neutrophils # (Manual) (1.5-6.6) 10^3/uL Lymphocytes # (Manual) (1.5-3.5) 10^3/uL Monocytes # (Manual) (0.0-1.0) 10^3/uL Eosinophils # (Manual) (0-0.7) 10^3/uL Basophils # (Manual) (0-0.1) 10^3/uL Differential Comment Manual Slide Review Platelet Estimate (NORMAL) RBC Morph Micro Appear (NORMAL) PT (9.9-12.6) secs INR (0.8-1.2) Bld Gas Analysis Time Sample Site ABG pH (7.35-7.45) ABG pCO2 (34-45) mmHg ABG pO2 (80-100) mmHg ABG HCO3 (22.0-26.0) mmol/L ABG Total CO2 (21.0-29.0) MMOL/L ABG O2 Saturation (94-98) % ABG Base Excess (-2.0-3.0) mmol/L Gustavo Test VBG pH (7.31-7.41) VBG pCO2 (41-51) mmHg VBG pO2 (25-47) mmHg VBG HCO3 (23-28) mmol/L VBG Total CO2 (24-29) mmol/L VBG O2 Saturation (60-80) % VBG Base Excess (-2 - +2) mmol/L O2 Delivery Device O2 Liters/Min LPM FiO2 Sodium 129 L (135-145) mmol/L Potassium 4.4 (3.5-5.0) mmol/L Chloride 98 L (101-111) mmol/L Carbon Dioxide < 6 L* (21-32) mmol/L Anion Gap 28.0 H (6-13) BUN 38 H (6-20) mg/dL Creatinine 1.4 H (0.4-1.0) mg/dL Estimated GFR (MDRD) 43 L (>89) Glucose 572 H* (70-100) mg/dL Glycated Hemoglobin (4.6-6.2) % Estim Average Glucose (70-100) Lactic Acid (0.5-2.2) mmol/L Calcium 8.6 (8.5-10.3) mg/dL Phosphorus (2.5-4.6) mg/dL Magnesium (1.7-2.8) mg/dL Total Bilirubin 2.0 H (0.2-1.0) mg/dL AST 20 (10-42) IU/L ALT 15 (10-60) IU/L Alkaline Phosphatase 162 H (42-121) IU/L Total Protein 6.9 (6.7-8.2) g/dL Albumin 3.3 (3.2-5.5) g/dL Globulin 3.6 (2.1-4.2) g/dL Albumin/Globulin Ratio 0.9 L (1.0-2.2) Lipase 57 H (22-51) U/L Urine Color Urine Clarity (CLEAR) Urine pH (5.0-7.5) PH Ur Specific [place] (1.002-1.030) Urine Protein (NEGATIVE) mg/dL Urine Glucose (UA) (NEGATIVE) mg/dL Urine Ketones (NEGATIVE) mg/dL Urine Occult Blood (NEGATIVE) Urine Nitrite (NEGATIVE) Urine Bilirubin (NEGATIVE) Urine Urobilinogen (NORMAL) E.U./dL Ur Leukocyte Esterase (NEGATIVE) Urine RBC (0-5) /HPF Urine WBC (0-5) /HPF Ur Squamous Epith Cells (<= Few) Amorphous Sediment /LPF Urine Bacteria (None Seen) /HPF Urine Casts /LPF Ur Microscopic Review Urine Culture Comments Urine HCG, Qual Nasal Screen MRSA (PCR) NEGATIVE (NEGATIVE) Salicylates mg/dL Urine Opiates Screen (NEGATIVE) Ur Oxycodone Screen (NEGATIVE) Urine Methadone Screen (NEGATIVE) Ur Propoxyphene Screen (NEGATIVE) Acetaminophen (10-30) ug/mL Ur Barbiturates Screen (NEGATIVE) Ur Tricyclics Screen (NEGATIVE) Ur Phencyclidine Scrn (NEGATIVE) Ur Amphetamine Screen (NEGATIVE) U Methamphetamines Scrn (NEGATIVE) U Benzodiazepines Scrn (NEGATIVE) Urine Cocaine Screen (NEGATIVE) U Cannabinoids Screen (NEGATIVE) Serum Ketones LARGE H (NEGATIVE) ABX Reporting Has patient been on IV antibiotics over the past 48 hours?: Yes Assessment/Plan - Problem List (1) Septic shock Impression: she met criteria with hypotension, elevated white cell count, acute kidney injury, altered mental status. We initially thought that it may be due to Ativan being used for sedation. However the Ativan is long gone and she still needs pressors to maintain blood pressure elevation. We will continue to treat her pneumonia, diabetic foot infection, DKA. (2) DKA (diabetic ketoacidoses) Impression: At this time the source of her DKA appears to be combined infection from the foot as well as lungs. She is in the ICU, on DKA protocol on an insulin drip. We will continue to aggressively supplement IV fluids, treat electrolyte imbalance, and bring glucose down. She is currently n.p.o. Qualifiers: Diabetes mellitus type: type 1 Diabetes mellitus complication detail: with coma Qualified Code(s): E10.11 - Type 1 diabetes mellitus with ketoacidosis with coma (3) Pneumonia Impression: This is her second presentation for a multifocal pneumonia. With her last day she seemed to be developing ARDS and was transferred. We will try and get those old records to see what her final treatment and diagnosis was. This is a young white female who has type 1 diabetes, has methamphetamine abuse, and she is not a normal community-acquired pneumonia. Blood cultures have been done. Will attempt to get sputum cultures and induce those. Currently on empiric Zosyn and vancomycin. Because of the interaction between Zosyn and vancomycin with risk of acute kidney injury, I will be switching antibiotics to Rocephin, Flagyl, vancomycin. This might provide better coverage for community-acquired pneumonia. (4) Diabetic foot ulcer associated with type 1 diabetes mellitus Impression: She appears to have necrosis of the muscle and skin down to her bone. I do not know if there is bone involvement but I would strongly suspect there is. There does not appear to be active cellulitis surrounding the skin breakdown. When she is stable we will get an MRI of the foot. As above, will change Zosyn and vancomycin to Rocephin, Flagyl, vancomycin. Qualifiers: Diabetic foot ulcer location: toe Laterality: right Non-pressure ulcer stage: with necrosis of muscle Qualified Code(s): E10.621 - Type 1 diabetes mellitus with foot ulcer; L97.513 - Non-pressure chronic ulcer of other part of right foot with necrosis of muscle (5) Altered mental status Impression: Due to metabolic encephalopathy from her DKA/pneumonia/foot infection. She also has met amphetamines positive on her tox screen. I anticipate that this will improve as all of her problems get treated. Qualifiers: Altered mental status type: somnolence Qualified Code(s): R40.0 - Somnolence (6) Acute kidney injury Impression: Due to severe dry dehydration. Her BUN and creatinine on admission were 38 and 1.4. Over the course of the hospice aide hours and into the morning hours she is now 39 and 1.5. However her anion gap and carbon dioxide are improving. There may be a lag time for her BUN and creatinine to completely improve. She has normal kidney function otherwise. BUN is usually 13-17. Creatinine can get as low as 0.4. Continue to monitor. We will continue to give IV fluids until glucose normal and BUN and creatinine are normal. (7) Methamphetamine abuse Impression: Chronic condition per her history. Right now, at this time, difficult to say if she has dependence with withdrawal because of her other medical conditions. We will continue to monitor her. We will have to ascertain if she injects or inhales. Consider HIV screening.
[2019-10-09] MEDS: metroNIDAZOLE 500 MG/100 ML 500 MG/100 ML BAG IV SCH ×2 (14:47→22:00)
[2019-10-09] MEDS: SODIUM CHLORIDE 0.9% 1,000 ML IV SCH (19:37)
[2019-10-09] MEDS: VANCOMYCIN INJ 1 GM in SODIUM CHLORIDE 0.9% 250 ML IV SCH (20:01)
[2019-10-09] MEDS ORDERED: INSULIN REGULAR HUMAN 100 UNIT in SODIUM CHLORIDE 0.9% 100ML 99 ML IV ONE (23:13)
[2019-10-10] MEDS: ACETAMINOPHEN 1,000 MG/100 ML 100 ML IV PRN ×3 (00:53→17:42)
[2019-10-10] MEDS: SODIUM CHLORIDE FLUSH 0.9% 10 ML SYRINGE IVP SCH ×3 (00:56→18:03)
[2019-10-10] MEDS ORDERED: IPRATROPIUM/ALBUTEROL 3 ML NEB INH PRN (04:50)
[2019-10-10] MEDS ORDERED: FUROSEMIDE 40 MG/4 ML VIAL IVP STA (04:52)
[2019-10-10] MEDS: SODIUM CHLORIDE FLUSH 0.9% 10 ML SYRINGE IVP PRN ×2 (05:11)
--- NOTE | 2019-10-10 05:23 | XRAY Report ---
Reason: hypoxia Procedure Date: 10/10/2019 Accession Number: [id number] / [id number] Procedure: XR - Chest 1 View X-Ray CPT Code: 72539 Final Report FULL RESULT: EXAM: CHEST RADIOGRAPHY EXAM DATE: 10/10/2019 05:14 AM. CLINICAL HISTORY: Hypoxia. COMPARISON: CHEST FOR LINE PLACEMENT 10/09/2019 12:55 AM. TECHNIQUE: 1 view. FINDINGS: Lungs/Pleura: Worsening bilateral airspace disease. Left effusion. No pneumothorax. Mediastinum: Within exam limitations, the cardiomediastinal contour is normal. Other: Right jugular central venous catheter terminating in the distal superior vena cava. IMPRESSION: Worsening bilateral airspace disease. New left effusion. No pneumothorax. [facility]
[2019-10-10] MEDS: metroNIDAZOLE 500 MG/100 ML 500 MG/100 ML BAG IV SCH ×3 (05:37→23:07)
[2019-10-10 05:52] LABS: BASOPHILS # (AUTO) 0.1 10^3/uL (0.0-0.1); BASOPHILS % (AUTO) 0.5 %; EOSINOPHILS # (AUTO) 0.1 10^3/uL (0.0-0.7); EOSINOPHILS % (AUTO) 0.8 %; HGB - HEMOGLOBIN 12.2 g/dL (12.0-16.0); LYMPHOCYTES # (AUTO) 0.8 10^3/uL (1.5-3.5); MEAN CORPUSCULAR HEMOGLOBIN 31.9 pg (27.0-31.0); MEAN CORPUSCULAR VOLUME 88.7 fL (81.0-99.0); MEAN PLATELET VOLUME 10.6 fL (7.9-10.8); MONOCYTES # (AUTO) 0.5 10^3/uL (0.0-1.0); MONOCYTES % (AUTO) 4.4 %; NEUTROPHILS # (AUTO) 9.7 10^3/uL (1.5-6.6); NEUTROPHILS % (AUTO) 86.8 %; PLT - PLATELET COUNT 220 10^3/uL (130-450); RED BLOOD COUNT 3.82 10^6/uL (4.20-5.40); RED CELL DISTRIBUTION WIDTH 13.4 % (12.0-15.0); WHITE BLOOD COUNT 11.2 x10^3/uL (4.8-10.8)
[2019-10-10] MEDS: D5.45NS W/20 MEQ KCL 1,000 ML IV SCH ×2 (05:52→16:19)
[2019-10-10 06:06] LABS: ALBUMIN 2.1 g/dL (3.2-5.5); CALCIUM 8.1 mg/dL (8.5-10.3); MAGNESIUM 1.8 mg/dL (1.7-2.8); PHOSPHORUS 2.3 mg/dL (2.5-4.6)
[2019-10-10] MEDS ORDERED: POTASSIUM PHOSPHATE 15 MMOL in SODIUM CHLORIDE 0.9% 250 ML IV ONE ×2 (06:17→10:00)
[2019-10-10] MEDS: PANTOPRAZOLE 40 MG VIAL IVP SCH (06:23)
[2019-10-10] MEDS: POTASSIUM CHLOR 20 MEQ/100 ML 20 MEQ/100 ML BAG IV SCH ×2 (06:50→08:07)
[2019-10-10] MEDS: INSULIN REGULAR HUMAN 100 UNIT in SODIUM CHLORIDE 0.9% 100ML 99 ML IV SCH (08:06)
[2019-10-10 08:13] LABS: ABG BASE EXCESS -10.4 mmol/L (-2.0-3.0); ABG HCO3 13.8 mmol/L (22.0-26.0); ABG OXYGEN SATURATION 93 % (94-98); ABG PCO2 27 mmHg (34-45); ABG PH 7.33 (7.35-7.45); ABG PO2 64 mmHg (80-100); ABG TCO2 14.6 MMOL/L (21.0-29.0); ALLEN TEST POSITIVE
[2019-10-10] MEDS ORDERED: cefTRIAXone 2 GM in SODIUM CHLORIDE 0.9% MINIBAG 100 ML IV SCH (09:00)
[2019-10-10] MEDS ORDERED: AZITHROMYCIN INJ 500 MG in SODIUM CHLORIDE 0.9% 250 ML IV SCH (09:00)
--- NOTE | 2019-10-10 10:29 | PROVIDER PROGRESS NOTE ---
Subjective - Prog Note Date Prog Note Date: 10/10/19 Prog Note Time: 10:42 - Subjective Subjective: This morning she had a brief episode where she was requiring more oxygen. It gradually resolved with increasing the O2. Low-grade temps are present. Cont inued elevated white cell count is present. DKA has improved and she is now on a regular insulin drip. Continues to be minimally responsive. Does answer yes no, does complain of pain appropriately but she is sleeping probably 23 out of 24 hours out of the day. Last bowel movement on admission. Current Medications - Current Medications Current Medications: Active Medications Albuterol/Ipratropium (Duoneb) 3 ml INH Q4HR PRN PRN Reason: Wheezing Heparin Sodium (Beef Lung) () 30 - 50 unit IVP PRN PRN PRN Reason: Central Line Protocol (<24 hr) Last Admin: 10/10/19 05:11 Dose: 50 unit Sodium Chloride (Normal Saline 0.9%) 500 mls @ 0 mls/hr IV Q24H PRN PRN Reason: TKO RATE Last Infusion: 10/10/19 04:07 Dose: Infused Norepinephrine Bitartrate 8 mg (/ Dextrose) 250 mls @ 15 mls/hr IV .[id number] ANUEL; Protocol Last Titration: 10/10/19 08:25 Dose: 0 mcg/min, 0 mls/hr Vancomycin HCl 1 gm/ Sodium (Chloride) 250 mls @ 167 mls/hr IV Q18H [facility]UEL Last Infusion: 10/09/19 21:31 Dose: Infused Acetaminophen (Ofirmev) 100 mls @ 400 mls/hr IV Q6HR PRN PRN Reason: PAIN Last Infusion: 10/10/19 09:50 Dose: Infused Ceftriaxone Sodium 2 gm/ (Sodium Chloride) 100 mls @ 200 mls/hr IV DAILY ANUEL Last Infusion: 10/10/19 10:25 Dose: Infused Metronidazole (Flagyl 500 Mg/100 Ml) 500 mg in 100 mls @ 100 mls/hr IV Q8H [facility] Last Infusion: 10/10/19 06:37 Dose: Infused Potassium Chloride/Dextrose/Sod Cl (D5.45ns W/20 Meq Kcl) 1,000 mls @ 100 mls/hr IV .Q10H [facility] Last Infusion: 10/10/19 07:08 Dose: 100 mls/hr Insulin Human Regular 100 unit (/ Sodium Chloride) 100 mls @ 1 mls/hr IV .Q72H ONE; Protocol Stop: 10/12/19 23:12 Last Titration: 10/10/19 07:09 Dose: 2.5 unit/hr, 2.5 mls/hr Azithromycin 500 mg/ Sodium (Chloride) 250 mls @ 250 mls/hr IV DAILY [facility] Stop: 10/12/19 09:59 Last Admin: 10/10/19 09:11 Dose: 250 mls/hr Potassium Phosphate 15 mmol/ (Sodium Chloride) 255 mls @ 63 mls/hr IV ONCE ONE; Protocol Stop: 10/10/19 14:02 Last Admin: 10/10/19 10:07 Dose: 63 mls/hr Lorazepam (Ativan Inj (Vial)) 0.5 mg IVP Q2H PRN PRN Reason: Anxiety Last Admin: 10/10/19 02:23 Dose: 0.5 mg Ondansetron HCl (Zofran Inj) 4 mg IVP Q6HR PRN PRN Reason: Nausea / Vomiting Pantoprazole Sodium (Protonix) 40 mg IVP QDAC [facility] Last Admin: 10/10/19 06:23 Dose: 40 mg Sodium Chloride (Normal Saline Flush 0.9%) 10 ml IVP 0100,0900,1700 [facility] Last Admin: 10/10/19 09:12 Dose: 10 ml Sodium Chloride (Normal Saline Flush 0.9%) 10 ml IVP PRN PRN PRN Reason: NEEDED PER PROVIDER ORDERS Last Admin: 10/10/19 05:11 Dose: 10 ml Sodium Chloride (Normal Saline Flush 0.9%) 20 ml IVP PRN PRN PRN Reason: After Blood Draw Last Admin: 10/10/19 05:11 Dose: 20 ml Acyclovir 800 mg PO TID 10/15/18 Cyclosporine [Restasis] 1 drops RIGHTEYE Q12H 10/15/18 Insulin Aspart [NovoLOG] 2 - 18 units SUBQ AC 10/15/18 Insulin Glargine [Lantus Solostar] 25 units SUBQ BID 10/15/18 Objective - Vital Signs/Intake & Output Reviewed Vital Signs: Yes Vital Signs: Vital Signs Temp Pulse Resp BP Pulse Ox 10/10/19 10:00 37.6 C H 110 H 20 85/63 L 99 10/10/19 09:00 37.8 C H 117 H 21 103/81 H 98 10/10/19 08:35 118 H 21 100/76 93 10/10/19 08:30 120 H 21 96/73 94 10/10/19 08:25 22 115/83 H 95 10/10/19 08:24 118 H 22 116/84 H 94 10/10/19 07:00 37.8 C H 117 H 22 109/81 H 94 Intake & Output: Intake & Output 10/07/19 10/08/19 10/09/19 10/10/19 23:59 23:59 23:59 23:59 Intake Total 1999 7925.297 1768.611 Output Total 999 1992 1654 Balance 999 5932.297 113.611 - Objective General Appearance: positive: No acute distress, Other (eyes closed, will not open to voice but occasionally does sit up and ask for blanket, or med. thin malnourished.) Eyes Bilateral: positive: EOMI, Other (left cornea cloudy, blind. right eye pupil responds.) ENT: positive: Dry mucous membranes Neck: positive: No JVD. negative: Stiff neck, Carotid bruit Respiratory: positive: Chest non-tender, No respiratory distress (but rate is in 20's most of the time). negative: Wheezes, Rales, Rhonchi Cardiovascular: positive: Regular rate & rhythm, Tachycardia Abdomen: positive: Non-tender, No organomegaly, Nml bowel sounds, Other (hypoactive bowel sounds). negative: Guarding, Rebound Skin: positive: Warm, Dry Extremities: positive: Full ROM, No pedal edema, Other (right foot plantar surface at MTP with ulcer. no change. no redness, swelling.) Neurologic/Psychiatric: positive: Motor nml, Other (responds to voice and pain, will speak rarely) - Lab Results Fish Bones: 10/10/19 05:00 10/10/19 05:00 Other Labs: Lab Results x24hrs 10/10/19 10/10/19 10/10/19 Range/Units 08:05 05:00 05:00 WBC (4.8-10.8) x10^3/uL RBC (4.20-5.40) 10^6/uL Hgb (12.0-16.0) g/dL Hct (37.0-47.0) % MCV (81.0-99.0) fL MCH (27.0-31.0) pg MCHC (32.0-36.0) g/dL RDW (12.0-15.0) % Plt Count (130-450) 10^3/uL MPV (7.9-10.8) fL Neut # (Auto) (1.5-6.6) 10^3/uL Lymph # (Auto) (1.5-3.5) 10^3/uL Hall # (Auto) (0.0-1.0) 10^3/uL Eos # (Auto) (0.0-0.7) 10^3/uL Baso # (Auto) (0.0-0.1) 10^3/uL Absolute Nucleated RBC x10^3/uL Nucleated RBC % /100WBC Bld Gas Analysis Time 08:05 Sample Site RIGHT RADIAL ABG pH 7.33 L (7.35-7.45) ABG pCO2 27 L (34-45) mmHg ABG pO2 64 L (80-100) mmHg ABG HCO3 13.8 L (22.0-26.0) mmol/L ABG Total CO2 14.6 L (21.0-29.0) MMOL/L ABG O2 Saturation 93 L (94-98) % ABG Base Excess -10.4 L (-2.0-3.0) mmol/L Gustavo Test POSITIVE O2 Delivery Device NASAL CANNULA Sodium 135 (135-145) mmol/L Potassium 3.0 L (3.5-5.0) mmol/L Chloride 114 H (101-111) mmol/L Carbon Dioxide 15 L (21-32) mmol/L Anion Gap 6.0 (6-13) BUN 40 H (6-20) mg/dL Creatinine 2.0 H (0.4-1.0) mg/dL Estimated GFR (MDRD) 29 L (>89) Glucose 169 H (70-100) mg/dL Calcium 8.1 L (8.5-10.3) mg/dL Phosphorus 2.3 L (2.5-4.6) mg/dL Magnesium 1.8 (1.7-2.8) mg/dL B-Natriuretic Peptide 116 H (5-100) pg/mL Albumin 2.1 L (3.2-5.5) g/dL 10/10/19 10/09/19 Range/Units 05:00 09:32 WBC 11.2 H (4.8-10.8) x10^3/uL RBC 3.82 L (4.20-5.40) 10^6/uL Hgb 12.2 (12.0-16.0) g/dL Hct 33.9 L (37.0-47.0) % MCV 88.7 (81.0-99.0) fL MCH 31.9 H (27.0-31.0) pg MCHC 36.0 (32.0-36.0) g/dL RDW 13.4 (12.0-15.0) % Plt Count 220 (130-450) 10^3/uL MPV 10.6 (7.9-10.8) fL Neut # (Auto) 9.7 H (1.5-6.6) 10^3/uL Lymph # (Auto) 0.8 L (1.5-3.5) 10^3/uL Hall # (Auto) 0.5 (0.0-1.0) 10^3/uL Eos # (Auto) 0.1 (0.0-0.7) 10^3/uL Baso # (Auto) 0.1 (0.0-0.1) 10^3/uL Absolute Nucleated RBC 0.00 x10^3/uL Nucleated RBC % 0.0 /100WBC Bld Gas Analysis Time Sample Site ABG pH (7.35-7.45) ABG pCO2 (34-45) mmHg ABG pO2 (80-100) mmHg ABG HCO3 (22.0-26.0) mmol/L ABG Total CO2 (21.0-29.0) MMOL/L ABG O2 Saturation (94-98) % ABG Base Excess (-2.0-3.0) mmol/L Gustavo Test O2 Delivery Device Sodium (135-145) mmol/L Potassium (3.5-5.0) mmol/L Chloride (101-111) mmol/L Carbon Dioxide (21-32) mmol/L Anion Gap (6-13) BUN (6-20) mg/dL Creatinine (0.4-1.0) mg/dL Estimated GFR (MDRD) (>89) Glucose (70-100) mg/dL Calcium (8.5-10.3) mg/dL Phosphorus (2.5-4.6) mg/dL Magnesium (1.7-2.8) mg/dL B-Natriuretic Peptide (5-100) pg/mL Albumin 2.2 L (3.2-5.5) g/dL Sepsis Event Note (H) - Evaluation Current Stage of Sepsis: Severe sepsis Possible source of Sepsis: positive: Pulmonary, Skin/soft tissue - Sepsis Criteria Sepsis Criteria: Recorded Temperature greater than 38.3C or Less than 36C, Recorded Respiratory Rate greater than 20, WBC count greater than 12,000 or less than 4000, [employer]: altered consciousness (unrelated to primary neuro pathology), SBP less than 90 mmHg Assessment/Plan - Problem List (1) Septic shock Impression: she met criteria with hypotension, elevated white cell count, acute kidney injury, altered mental status. We initially thought that the hypotension may be due to Ativan being used for sedation. However the Ativan was long gone in her system and she still needed pressors to maintain blood pressure elevation. We will continue to treat her pneumonia, diabetic foot infection, DKA. This morning her norepinephrine was stopped at around 8:25. She is still tenuous with her blood pressure. Her systolic is varying between 85-103. We may need to be resuming it. Her temperature has improved somewhat. Her T-max was 38.2 yesterday. This morning it is lower but it is 37.8. This is reflective in her chest x-ray which has not shown any improvement. And O2 requirement that is considerably high, relatively stable, but still very high. I worry about having to intubate her. (2) DKA (diabetic ketoacidoses) Impression: At this time the source of her DKA appears to be combined infection from the foot as well as lungs. She is in the ICU, on DKA protocol on an insulin drip. She has been maintained at 2.5 mils per hour of an insulin drip. We will contin ue to aggressively supplement IV fluids, treat electrolyte imbalance, and keep glucose down. She is currently n.p.o. When she is eating, I may switch her to her usual home regimen for her insulin and take her off the drip. But until then she stays on the drip. Anion gap has closed. She is now down to 6. Unfortunately her BUN and creatinine have not improved. She is 40 and 2.0. Carbon dioxide is also still low at 15. Qualifiers: Diabetes mellitus type: type 1 Diabetes mellitus complication detail: with coma Qualified Code(s): E10.11 - Type 1 diabetes mellitus with ketoacidosis with coma (3) Pneumonia Impression: This is her second presentation for a multifocal pneumonia. With her last stay she seemed to be developing ARDS and was transferred. We will try and get those old records to see what her final treatment and diagnosis was. This is a young white female who has type 1 diabetes, has methamphetamine abuse, and she is not a normal community-acquired pneumonia. Blood cultures have been done and are negative at 24 hours. Will attempt to get sputum cultures and induce those. She was on empiric Zosyn and vancomycin and flagyl. Because of the interaction between Zosyn and vancomycin with risk of acute kidney injury, I switched antibiotics to Rocephin, Flagyl, vancomycin on 10/09. This might provide better coverage for community-acquired pneumonia in a patient who is at risk for pseudomonas or anaerobic bacteria. She is very tenuous with her respiratory status. She is requiring high flow (60 L) and high oxygen (FiO2 85%). This morning she had an exacerbation where she required even more oxygen temporarily. I rechecked her blood gas to make sure that she was not retaining PCO2 and needed to be intubated. On the above settings her pH is 7.33, PCO2 27, PO2 64. Bicarb is 13.8 and low. Base excess is -10.4. The base excess is an improvement. She came in at -26.6 on admission. Yesterday morning she was - 18.3. This morning she is -10.4. (4) Diabetic foot ulcer associated with type 1 diabetes mellitus Impression: She appears to have necrosis of the muscle and skin down to her bone. I do not know if there is bone involvement but I would strongly suspect there is. There does not appear to be active cellulitis surrounding the skin breakdown. When she is stable we will get an MRI of the foot. As above, will change Zosyn and vancomycin to Rocephin, Flagyl, vancomycin. Today she is still not stable enough for an MRI of the foot. Currently she is receiving empiric treatment for osteomyelitis. There is no surrounding cellulitis. We will also continue wound care of the foot ulcer. Qualifiers: Diabetic foot ulcer location: toe Laterality: right Non-pressure ulcer stage: with necrosis of muscle Qualified Code(s): E10.621 - Type 1 diabetes mellitus with foot ulcer; L97.513 - Non-pressure chronic ulcer of other part of right foot with necrosis of muscle (5) Altered mental status Impression: Due to metabolic encephalopathy from her DKA/pneumonia/foot infection. She also has met amphetamines positive on her tox screen. I anticipate that this will improve as all of her problems get treated.She does occasionally sit up to say "I am cold". She will say "that hurts". But then goes right back to sleep. Qualifiers: Altered mental status type: somnolence Qualified Code(s): R40.0 - Somnolence (6) Acute kidney injury Impression: Due to severe dry dehydration. Her BUN and creatinine on admission were 38 and 1.4. Over the course of the extension edger hours and into the morning hours she is now 39->40 and 1.5->2.0 However her anion gap and carbon dioxide are improving. There may be a lag time for her BUN and creatinine to completely improve. BUN is usually 13-17. Creatinine can get as low as 0.4. Continue to monitor. We will continue to give IV fluids until glucose normal and BUN and creatinine are normal. Tomorrow a new hospitalist will come on service. If this patient is still requiring high flow O2, acute kidney injury is worsening, I would recommend transfer. (7) Methamphetamine abuse Impression: Chronic condition per her history. Right now, at this time, difficult to say if she has dependence with withdrawal because of her other medical conditions. We will continue to monitor her. We will have to ascertain if she injects or inhales. Consider HIV screening.
[2019-10-10 13:42] LABS: CALCIUM 8.1 mg/dL (8.5-10.3); CREATININE 2.1 mg/dL (0.4-1.0)
[2019-10-10] MEDS: VANCOMYCIN INJ 1 GM in SODIUM CHLORIDE 0.9% 250 ML IV SCH (14:33)
--- NOTE | 2019-10-10 18:03 | PHARMACY PROGRESS NOTE ---
- Therapy Status Vancomycin regimen day #: 2 Therapy status: Awaiting steady state Basis for treatment: Empirical Treatment indication: septic shock Trough goal: 15-20 Concurrent antibiotics: metronidazole, azithromycin, ceftriaxone - IVET Risk Risk level for Acute Kidney Injury: High Acute Kidney Injury risk factors: Baseline CrCl <50, Goal trough >15, Diabetes, Admission to ICU, Acute hypotensive event, Sepsis - Monitoring and Recommendation Clinical response to treatment: I&O Previous 24 hours 10/08/19 10/09/19 10/10/19 23:59 23:59 23:59 Intake Total 1999 7925.297 3513.090 Output Total 999 1992 3415 Balance 1000 5932.297 98.090 Lab Results 10/10/19 10/10/19 10/09/19 13:28 05:00 09:32 BUN 39 H 40 H 39 H Creatinine 2.1 H 2.0 H 1.5 H Estimated GFR (MDRD) 27 L 29 L 40 L 10/09/19 10/09/19 10/09/19 07:05 04:46 03:00 BUN 39 H 40 H 40 H Creatinine 1.5 H 1.4 H 1.4 H Estimated GFR (MDRD) 40 L 43 L 43 L 10/09/19 10/09/19 10/08/19 00:15 00:08 22:30 BUN 40 H 38 H 36 H Creatinine 1.4 H 1.2 H 1.3 H Estimated GFR (MDRD) 43 L 51 L 47 L 10/08/19 21:30 BUN 38 H Creatinine 1.4 H Estimated GFR (MDRD) 43 L Cultures 10/09/19 00:15 Blood - Central Line Blood Culture - Preliminary NO GROWTH AFTER 1 DAY 10/09/19 00:08 Blood - Right Hand Blood Culture - Preliminary NO GROWTH AFTER 1 DAY Monitoring plan: Daily serum creatinine Next trough due prior to maintenance dose #: 4 Next trough due (date/time): 10/11 at 730 Areas for additional monitoring: IV to PO when appropriate, Therapy de- escalation based on culture results, Acute Kidney Injury Pharmacy recommendation: Decrease dose (Dose or interval will need to be adjusted secondary to renal status or dose held if level supratherapeutic)
[2019-10-10] MEDS ORDERED: KETAMINE 500 MG/10 ML VIAL IVP ONE (20:43)
[2019-10-10 20:50] LABS: ABG HCO3 13.2 mmol/L (22.0-26.0); ABG OXYGEN SATURATION 88 % (94-98); ABG PH 7.35 (7.35-7.45); ALLEN TEST POSITIVE
[2019-10-10 20:54] LABS: ABG PCO2 24 mmHg (34-45); ABG PO2 55 mmHg (80-100)
[2019-10-10] MEDS ORDERED: KETAMINE 500 MG/10 ML VIAL ONE (20:57)
[2019-10-10] MEDS ORDERED: ROCURONIUM 50 MG/5 ML VIAL IVP ONE ×2 (20:58→22:46)
[2019-10-10] MEDS: PROPOFOL 1000 MG/100 ML 100 ML IV SCH (21:50)
--- NOTE | 2019-10-10 22:51 | ED Physician Documentation ---
ED Addendum - Addendum Addendum: I was called by Dr. Dacosta for consideration of intubation in this patient. She has been on high flow nasal cannula at 40 L/min at 70% and she is still hypoxic her oxygen saturation is been in the high 80s. She is also tachypneic. She has a bilateral multifocal infiltrate on her chest x-ray. Her mental status is also poor, she is fixated on ice chips, and she does not appear to have capacity to truly participate in care decisions. Additionally she is not on vasopressors currently but her blood pressure is borderline with a map in the mid 70s but her systolic blood pressure is in the high 80s. After reviewing the patient's chart and speaking with the patient, it certainly does appear that she needs intubation. She appears to hav ARDS, she is tachypneic, and she is hypoxic despite being on high flow nasal cannula. She intermittently will rip off the high flow nasal cannula because of her agitation, and when She does this she quickly desaturates to the 70s. I discussed intubation with the patient, who agreed though I do not feel she truly has capacity to understand all the implications and risks, and we have been unable to contact her family. With her hypoxia and worsening and volatile mental status I think that she needs intubation emergently. She was preoxyg enated with 100% oxygen via nasal cannula at a rate of 45 L/min, her oxygen did improve to the mid 90s. She was started on norepinephrine and this was uptitrated to acheve a SBP of 120. She was given ketamine 80 mg and rocuronium 80mg And a 7.5 endotracheal tube was passed to 22cm at the teeth on the first attempt. While it was being secured it slipped back slightly and on recheck the balloon has slipped out of the vocal cords, so it was deflated and it was advanced to 24 at the teeth and I visualized using video laryngoscopy the endotracheal tube passing Through the vocal cords, and the balloon inflating deep to the vocal cords. During the intubation she did desaturate to the high 70s. but this quickly regained to 100% afterwards. She was started on AC/VC with a tidal volume of 400, rate of 16, PEEP of 5. Her blood pressure remained excellent during the procedure and afterwards. She was started on a propofol for sedation. Postintubation x-ray was obtained and showed adequate positioning of the tube. Dr. Dacosta We will continue direct the patient's care, plan at this time is for likely transfer to [facility]. This was shared with the patient prior to intubation and she seemed to be in agreement. 10/10/19 22:52
--- NOTE | 2019-10-10 23:12 | Discharge Plan ---
Discharge Plan Problem Reviewed?: Yes Disposition: 02 Transfer Acute Care Hosp Condition: Critical Health Concerns: 1.DKA 2. Severe Sepsis 3. Pneumonia 4. Methamphetamine abuse 5. Hypothermia Plan of Treatment: 1. Acute Respiratory Failure with Hypoxemia: Currently Sedated on propofol and Intubated. Being transferred to [facility] 2. DKA: Resolved 3. Severe Sepsis/ Septic shock: On going on levophed gtt 4. Pneumonia: Multi-focal. Worsening 5. Methamphetamine abuse 6. Hypothermia: Resolved Care Goals: 1. Acute Respiratory Failure with Hypoxemia: Currently Sedated on propofol and Intubated. Being transferred to [facility] for higher level of care. 2. DKA: Resolved 3. Severe Sepsis/ Septic shock: On going on levophed gtt 4. Pneumonia: Multi-focal. Worsening 5. Methamphetamine abuse 6. Hypothermia: Resolved No Smoking: If you smoke, Please STOP! Call for help.
--- NOTE | 2019-10-10 23:12 | DISCHARGE SUMMARY ---
"Discharge Summary Admit Date: 10/08/19 Discharge Date: 10/10/19 Discharging Provider: Miller Dacosta Primary Care Provider: Miller Dacosta Code Status: Attempt Resuscitation Condition at Discharge: Critical Discharge Disposition: 02 Transfer Acute Care Hosp Discharge Facility Name: [place], [place] - DIAGNOSES Admission Diagnoses: 1.DKA 2. Severe Sepsis 3. Pneumonia 4. Methamphetamine abuse 5. Hypothermia Discharge Diagnoses with Status of Each Condition: 1. Acute Respiratory Failure with Hypoxemia: Currently Sedated on propofol and Intubated 2. DKA: Resolved 3. Severe Sepsis/ Septic shock: On going on levophed gtt 4. Pneumonia: Multi-focal. Worsening 5. Diabetic foot ulcer associated with type 1 diabetes mellitus: Chronic 6. IVET: Worsening 7. Methamphetamine abuse: On going - HPI History of Present Illness: Patient is a 34 y/o female with very poorly controlled Type I DM and Hx of methamphetamine abuse who was brought to the ED by EMS with altered mental status. It was reported to EMS by her family member who called 911 that her bloo d glucose has been very high for several days. Today she became less responsive thus leading to the EMS phone call. She was found to be hypothermic with a temp of 32.2 degrees Celsius and had a blood glucose of 570. She was given a GCS of 12. She stirs slightly to verbal stimuli but no further reaction. 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 Her right pupil sluggishly responds to light. She has a wound/ ulcer on the bottom of her right foot which is currently wrapped in bandage. It is unclear if she has been receiving treatment for it. On a VBG she had a pH of 6.676 and pCO2 of 18.1. She was positive for methamphetamine and has a WBC of 19. She is being admitted to the ICU for f urther treatment. - CONSULTS | PROCEDURES Procedures: Central line placed (Right IJ): 10/09/2019 2D echo on 10/10/2019: EF 70-75%. Intubated: 10/10/2019 - HOSPITAL COURSE Hospital Course: Patient was admitted to ICU. Started on DKA protocol. She received at total of 5L of normal saline by midnight of the 10/08/2019. However SBP dropped from 90's to 70's and required levophed by the morning shift. Her temperature ambar steadily from 32.2 to 38.2 over a 12 hr period time. A bear hugger was used for the first 7 hours. Patient was placed on a sodium bicarbonate drip at 100ml/hr since her initial HCO3 on BMP was <5. Her anion gap closed by 09:30 am on 10/09/19 She was initially started on vancomycin and Zosyn. This was changed to vancomycin, metronidazole and rocephin when her GFR dropped from 40 to 29. Follow up chest xray on 10/10/2019 am showed worsening pneumonia. As a result Azithromycin was added Patient's temperature has been around 38 degrees celsius despite antibiotics and tylenol. However her WBC improved from 19.6 to 15.5 to 8.7 and currently 11.2 on 10/10/2019. Patient was initially admitted with and O2Sat of 95% on room air. She progressively became hypoxic. At 01:00 on 10/09/2019 she had an O2Sat of 89% on 6L nasal canula. She was switched to hiflow nasal canula. This was initially effective in keeping her O2Sat in the mid 90's however on 10/10/2019 she had frequent episodes of hypoxia with her O2Sat dropping in to the 70's despite the hiflow. As a result of her tenuous/ worsening respiratory status and apparent worsening pneumonia on imaging, she was intubated around 10pm on 10/10/2019. She was maintained on AC with volume control, R 16, Vt 400, PEEP 5, FiO2 50. This was based on concern for potential ARDS. However the patient was pulling a Vt of about 600 with a Respiratory rate of 23. Sedation was maintained on propofol drip. This was maxed out and fentanyl was initially added when the patient was still moving. She became more agitated so it was discontinued and versed was added instead. Levophed was used for blood pressure support. The front desk person at [facility] in [place], [place] (Dr Qiana Mcgregor) was contacted for transfer. The patient was accepted on condition to be transferred once a bed became available in the morning. Based on the ABG of 10/11/2019 0005: 7.30/23/56/11.2, she recommended increasing the PEEP to 10. And starting the patient on a sodium bicarbonate drip at 50ml/hr. The FIO2 was also increased to 75. AB10/09/2019 0357: 6.91/27/52/5.2 10/09/2019 0657: 7.18/22/53/8.0 10/10/2019 0805: 7.33/27/64/13.8 10/10/2019 2035: 7.35/24/55/13.2 10/11/2019 0005: 7.30/23/56/11.2 - ALLERGIES Allergies/Adverse Reactions: Allergies Allergy/AdvReac Type Severity Reaction Status Date / Time No Known Drug Allergies Allergy Verified 10/08/19 21:22 - MEDICATIONS Home Medications: Ambulatory Orders Medication Instructions Recorded Confirmed Acyclovir 800 mg PO TID 10/15/18 10/16/18 Cyclosporine [Restasis] 1 drops RIGHTEYE Q12H 10/15/18 10/16/18 Insulin Aspart [NovoLOG] 2 - 18 units SUBQ AC 10/15/18 10/15/18 Insulin Glargine [Lantus Solostar] 25 units SUBQ BID 10/15/18 10/15/18 - PHYSICAL EXAM AT DISCHARGE General Appearance: positive: Other (sedated and intubated, face is edematous) Eyes Bilateral: positive: Other (blind in left eye. Eyelids are puffy) ENT: positive: ENT inspection nml Neck: positive: Nml inspection, No JVD, Trachea midline Respiratory: positive: Rales Cardiovascular: positive: No gallop, Tachycardia Abdomen: positive: Non-tender, Nml bowel sounds, No distention, Tenderness. negative: Guarding, Rebound Back: positive: Nml inspection Skin: positive: Color nml Extremities: positive: Other (ulcer on dorsum of right foot) Neurologic/Psychiatric: positive: Other (Sedated and intubated) - LABS Result Diagrams: 10/10/19 05:00 10/10/19 13:28 - SEPSIS Current Stage of Sepsis: Septic shock Possible source of Sepsis: Pulmonary, Skin/soft tissue Sepsis Criteria: Recorded Temperature greater than 38.3C or Less than 36C, Recorded Respiratory Rate greater than 20, Respiratory: Increasing oxygen requirements, WBC count greater than 12,000 or less than 4000, LINUX CONSULTANT: altered consciousness (unrelated to primary neuro pathology), SBP drop more than 40mHg, MAP less than 65 mmHg, SBP less than 90 mmHg, Renal: urine output less than 0.5ml/kg/hr for 2 hours or creatinine gr - QUALITY (Female Hip Fx Only) Was patient sent home on osteoporosis medication?: No (Transferred to another acute care hospital) - FOLLOW UP Follow Up: As determined by discharging team - TIME SPENT Time Spent in Discharge (Minutes): 45"
[2019-10-11 00:20] LABS: ABG HCO3 11.2 mmol/L (22.0-26.0); ABG PO2 56 mmHg (80-100)
[2019-10-11 00:21] LABS: ABG BASE EXCESS -13.3 mmol/L (-2.0-3.0); ABG FRACTION OF INSPIRED O2 0.65; ABG OXYGEN SATURATION 88 % (94-98); ALLEN TEST POSITIVE
[2019-10-11 00:22] LABS: ABG PCO2 23 mmHg (34-45); ABG TCO2 11.9 MMOL/L (21.0-29.0)
[2019-10-11] MEDS ORDERED: fentaNYL 100 MCG/2 ML VIAL ONE (00:51)
[2019-10-11] MEDS ORDERED: D5.45NS W/20 MEQ KCL 1,000 ML IV SCH (00:57)
[2019-10-11] MEDS ORDERED: SODIUM BICARBONATE 150 MEQ in DEXTROSE 5% 1,000 ML IV SCH (01:00)
[2019-10-11] MEDS ORDERED: fentaNYL 2,500 MCG in SODIUM CHLORIDE 0.9% 200 ML IV SCH (01:00)
[2019-10-11] MEDS ORDERED: SODIUM BICARBONATE 8.4% 50 MEQ/50 ML VIAL ONE (01:03)
--- NOTE | 2019-10-11 01:04 | XRAY Report ---
Reason: s/p intubation Procedure Date: 10/10/2019 Accession Number: [id number] / [id number] Procedure: XR - Chest for Line Placement CPT Code: Final Report FULL RESULT: EXAM: CHEST RADIOGRAPHY EXAM DATE: 10/10/2019 10:23 PM. CLINICAL HISTORY: S/p intubation. COMPARISON: CHEST 1 VIEW 10/10/2019 4:53 AM. TECHNIQUE: 1 view. FINDINGS: Lungs/Pleura: Persistent diffuse interstitial and alveolar infiltrates noted within the lungs. Mediastinum: Within exam limitations, the cardiomediastinal contour is normal. Other: Endotracheal tube tip is in the mid trachea. NG tube is been placed with the tip in the stomach. Right-sided central line is unchanged with the tip in the superior vena cava. IMPRESSION: 1. Persistent diffuse interstitial and alveolar infiltrates. 2. No complications tube and lines. RADIA
[2019-10-11] MEDS ORDERED: fentaNYL 100 MCG/2 ML VIAL IVP STA (01:07)
[2019-10-11] MEDS ORDERED: DEXTROSE 5% 1,000 ML IV ONE (01:15)
[2019-10-11] MEDS ORDERED: MIDAZOLAM 10 MG/2 ML VIAL IVP ONE (01:20)
[2019-10-11] MEDS ORDERED: MIDAZOLAM DRIP 50 MG/100 ML BAG IV SCH (02:00)
[2019-10-11] MEDS: PROPOFOL 1000 MG/100 ML 100 ML IV SCH (02:30)
[2019-10-11] MEDS ORDERED: LORazepam 2 MG/ML VIAL ONE (04:13)
[2019-10-11] MEDS ORDERED: LORazepam 2 MG/ML VIAL IVP STA (04:13)
[2019-10-11 05:26] VITALS: BP 86/60
[2019-10-11] MEDS: SODIUM CHLORIDE FLUSH 0.9% 10 ML SYRINGE IVP SCH (05:31)
[2019-10-11] MEDS ORDERED: VANCOMYCIN INJ 0.75 GM in SODIUM CHLORIDE 0.9% 250 ML IV SCH (14:00)
== END 2019-10-11 04:45 | disposition short-term general hospital (02) | DRG 871 ==
LOC: EDUNIT# → ED 21:09 → ICU 21:52
PROVIDERS: ADMIT Internal Medicine; ATTEND Specialist
PROC: 0BH17EZ Insertion of Endotracheal Airway into Trachea, Via Natural or Artificial Opening (ICD-10-PCS; principal; 2019-10-10)
PROC: 5A1935Z Respiratory Ventilation, Less than 24 Consecutive Hours (ICD-10-PCS; 2019-10-10)
DX: A41.9 Sepsis, unspecified organism (principal); E10.11 Type 1 diabetes mellitus with ketoacidosis with coma; J96.01 Acute respiratory failure with hypoxia; J18.9 Pneumonia, unspecified organism; R65.21 Severe sepsis with septic shock; N17.9 Acute kidney failure, unspecified; M86.8X7 Other osteomyelitis, ankle and foot; E10.69 Type 1 diabetes mellitus with other specified complication; E10.621 Type 1 diabetes mellitus with foot ulcer; L97.514 Non-pressure chronic ulcer of other part of right foot with necrosis of bone; E10.42 Type 1 diabetes mellitus with diabetic polyneuropathy; F15.10 Other stimulant abuse, uncomplicated; H54.40 Blindness, one eye, unspecified eye; T68.XXXA Hypothermia, initial encounter; E86.0 Dehydration; F17.200 Nicotine dependence, unspecified, uncomplicated; Z78.1 Physical restraint status; Z79.4 Long term (current) use of insulin; Z91.19 Patient's noncompliance with other medical treatment and regimen
CPT/HCPCS: 36415; 36600; 71045; 80048; 80051; 80053; 80306; 80307; 80329; 81001; 81025; 82009; 82040; 82310; 82565; 82803; 82947; 83036; 83605; 83690; 83735; 83880; 84100; 84520; 85025; 85610; 87040; 87150; 87275; 87276; 93005; 93306; 94002; 94003; 99285; 99291; J0131; J1815; J2060; J3010; J3370; 80202; 81003; 87086; 94770

== ENCOUNTER 2019-10-11 04:51 | Outpatient (CLI) | payer MEDICAID | END 2019-10-11 04:52 | disposition short-term general hospital (02) | LOC: EMS 04:51 | PROVIDERS: ATTEND Surgery | DX: A41.9 Sepsis, unspecified organism (principal); J18.9 Pneumonia, unspecified organism; J96.01 Acute respiratory failure with hypoxia | CPT/HCPCS: A0425; A0428 ==

== ENCOUNTER 2020-11-15 13:35 | Emergency (ER) | payer MEDICAID ==
[2020-11-15] MEDS ORDERED: cefTRIAXone 1 GM in SODIUM CHLORIDE 0.9% MINIBAG 100 ML IV STA (14:03)
[2020-11-15] MEDS ORDERED: SODIUM CHLORIDE 0.9% 500 ML IV STA ×2 (14:03→14:20)
--- NOTE | 2020-11-15 14:05 | ED Physician Documentation ---
History of Present Illness - Stated complaint Stated Complaint: R FOOT SWELLING/PX - Chief complaint Chief Complaint: General - History obtained from History obtained from: Patient - History of Present Illness Timing: How many days ago (3) - Additonal information Additional information: 35-year-old type I diabetic has developed a crack and a callus on her right foot about 3 weeks ago. This seems to be healing and then about 3 days ago she began to develop some swelling in her right ankle she is got swelling and pain in that area and this has progressively worsened. She actually feels the swelling is slightly better today than it was yesterday. She recalls that she was having to stand to wait for her medications when she could feel the swelling in her leg develop and this worsened. She has a bit of pain with this but she states that her sugars have been running like a roller coaster. She checks 4-5 times per day. She does not feel like she is in DKA and does not feel that she is significantly dehydrated. Review of Systems Constitutional: reports: Sweats. denies: Fever Eyes: denies: Decreased vision Ears: denies: Ear pain Nose: denies: Congestion Throat: denies: Sore throat Cardiac: denies: Chest pain / pressure, Palpitations Respiratory: denies: Dyspnea, Cough GI: reports: Abdominal Pain, Nausea. denies: Vomiting : denies: Dysuria, Frequency Skin: denies: Rash Musculoskeletal: reports: Extremity pain. denies: Neck pain, Back pain Neurologic: denies: Generalized weakness, Focal weakness, Numbness PD PAST MEDICAL HISTORY - Past Medical History Cardiovascular: None Respiratory: Other Neuro: Peripheral neuropathy Endocrine/Autoimmune: Type 1 diabetes GI: None : None HEENT: Other Psych: None Musculoskeletal: None Derm: Other - Present Medications Home Medications: Ambulatory Orders Medication Instructions Recorded Confirmed Acyclovir 800 mg PO TID 10/15/18 10/16/18 Cyclosporine [Restasis] 1 drops RIGHTEYE Q12H 10/15/18 10/16/18 Insulin Aspart [NovoLOG] 2 - 18 units SUBQ AC 10/15/18 10/15/18 Insulin Glargine [Lantus Solostar] 25 units SUBQ BID 10/15/18 10/15/18 Cefdinir 300 mg PO BID #14 cap 11/15/20 HYDROcod/ACETAM 5/325 [[place] 5/325] 1 - 2 ea PO Q6H PRN #12 11/15/20 - Allergies Allergies/Adverse Reactions: Allergies Allergy/AdvReac Type Severity Reaction Status Date / Time No Known Drug Allergies Allergy Verified 11/15/20 13:38 - Social History Does the pt smoke?: Yes Smoking Status: Current every day smoker Does the pt drink ETOH?: Yes Does the pt have substance abuse?: Yes - Immunizations Immunizations are current?: No - POLST Patient has POLST: No POLST Status: Full Code PD ED PE NORMAL - Vitals Vital signs reviewed: Yes (tachy ) - General General: Alert and oriented X 3, No acute distress, Well developed/nourished - HEENT HEENT: Atraumatic, PERRL, EOMI, Other (left cornea is cloudy) - Neck Neck: Supple, no meningeal sign - Cardiac Cardiac: No murmur, Other (tachy to 110) - Respiratory Respiratory: No respiratory distress, Clear bilaterally - Abdomen Abdomen: Normal bowel sounds, Soft, Non tender, Non distended, No organomegaly - Back Back: No CVA TTP, No spinal TTP - Derm Derm: Normal color, Warm and dry, No rash - Extremities Extremities: No deformity, Other (There is swelling hyperemia and tenderness to the right ankle over the distal fibular and heal with hyperemia extending to the distal calf posteriorly. There is no lymphangitic streaking. There is a callous to the ball of the foot that does not appear inflammed.) - Neuro Neuro: Alert and oriented X 3, subway conductor 2-12 intact, No motor deficit, No sensory deficit, Normal speech Eye Opening: Spontaneous Motor: Obeys Commands Verbal: Oriented GCS Score: 15 - Psych Psych: Normal mood, Normal affect Results - Vitals Vitals: Vital Signs - 24 hr 11/15/20 11/15/20 11/15/20 13:38 14:21 15:17 Temperature 36.6 C Heart Rate 117 H 109 H 105 H Respiratory 16 17 14 Rate Blood Pressure 101/73 105/103 H O2 Saturation 100 100 11/15/20 15:38 Temperature Heart Rate 99 Respiratory 13 Rate Blood Pressure 116/91 H O2 Saturation Oxygen O2 Source Room air - Labs Labs: Laboratory Tests 11/15/20 11/15/20 11/15/20 14:02 14:02 14:02 WBC 11.1 H RBC 4.64 Hgb 14.3 Hct 42.9 MCV 92.5 MCH 30.8 MCHC 33.3 RDW 12.8 Plt Count 199 MPV 11.0 H Neut # (Auto) 8.6 H Lymph # (Auto) 1.[address] [place] # (Auto) 0.8 Eos # (Auto) 0.1 Baso # (Auto) 0.1 Absolute Nucleated RBC 0.00 Nucleated RBC % 0.0 VBG pH VBG pCO2 VBG pO2 VBG HCO3 VBG Total CO2 VBG O2 Saturation VBG Base Excess Sodium 135 Potassium 4.1 Chloride 98 L Carbon Dioxide 26 Anion Gap 11.0 BUN 32 H Creatinine 0.7 Estimated GFR (MDRD) 95 Glucose 288 H Lactic Acid 1.3 Calcium 9.3 Total Bilirubin 0.5 AST 12 ALT 12 Alkaline Phosphatase 116 Total Protein 7.4 Albumin 4.0 Globulin 3.4 Albumin/Globulin Ratio 1.2 Lipase 23 Urine Color Urine Clarity Urine pH Ur Specific [place] Urine Protein Urine Glucose (UA) Urine Ketones Urine Occult Blood Urine Nitrite Urine Bilirubin Urine Urobilinogen Ur Leukocyte Esterase Urine RBC Urine WBC Ur Squamous Epith Cells Urine Bacteria Urine Mucus Ur Microscopic Review Urine Culture Comments Urine HCG, Qual Urine Opiates Screen Ur Oxycodone Screen Urine Methadone Screen Ur Propoxyphene Screen Ur Barbiturates Screen Ur Tricyclics Screen Ur Phencyclidine Scrn Ur Amphetamine Screen U Methamphetamines Scrn U Benzodiazepines Scrn Urine Cocaine Screen U Cannabinoids Screen Serum Ketones NEGATIVE 11/15/20 11/15/20 14:18 14:33 WBC RBC Hgb Hct MCV MCH MCHC RDW Plt Count MPV Neut # (Auto) Lymph # (Auto) [place] # (Auto) Eos # (Auto) Baso # (Auto) Absolute Nucleated RBC Nucleated RBC % VBG pH 7.315 VBG pCO2 56.5 H VBG pO2 19.0 L VBG HCO3 28.8 H VBG Total CO2 30.0 H VBG O2 Saturation 25.0 L VBG Base Excess 3.0 H Sodium Potassium Chloride Carbon Dioxide Anion Gap BUN Creatinine Estimated GFR (MDRD) Glucose Lactic Acid Calcium Total Bilirubin AST ALT Alkaline Phosphatase Total Protein Albumin Globulin Albumin/Globulin Ratio Lipase Urine Color YELLOW Urine Clarity CLEAR Urine pH 6.0 Ur Specific [place] 1.025 Urine Protein 100 H Urine Glucose (UA) >=1000 H Urine Ketones NEGATIVE Urine Occult Blood MODERATE H Urine Nitrite NEGATIVE Urine Bilirubin NEGATIVE Urine Urobilinogen 0.2 (NORMAL) Ur Leukocyte Esterase NEGATIVE Urine RBC 6-10 H Urine WBC 0-3 Ur Squamous Epith Cells MOD Squamous H Urine Bacteria Few Urine Mucus Few Strands Ur Microscopic Review INDICATED Urine Culture Comments NOT INDICATED Urine HCG, Qual NEGATIVE Urine Opiates Screen NEGATIVE Ur Oxycodone Screen NEGATIVE Urine Methadone Screen NEGATIVE Ur Propoxyphene Screen NEGATIVE Ur Barbiturates Screen NEGATIVE Ur Tricyclics Screen NEGATIVE Ur Phencyclidine Scrn NEGATIVE Ur Amphetamine Screen NEGATIVE U Methamphetamines Scrn NEGATIVE U Benzodiazepines Scrn NEGATIVE Urine Cocaine Screen NEGATIVE U Cannabinoids Screen POSITIVE H Serum Ketones Procedures - IVC sono (time) 1400 Bedside IVC sono: IVC measures (cm) (1.44), Euvolemia (close) PD MEDICAL DECISION MAKING - ED course Complexity details: reviewed old records, reviewed results, re-evaluated patient, considered differential, d/w patient ED course: 35-year-old diabetic female with what appears to be an infection in the right ankle with cellulitis is administered Rocephin 1 g intravenously. She has improvement in the swelling and color while in the ED. We will continue her on antibiotic and she has pain associated with this and her RYAN form is concerning for warning about narcotic. She has been using ibuprofen without success and here in the ED we used dilaudid and zofran. She has not had a fill of narcotic in over a year. This is a new painful condition and we will provide a brief course. Departure - Departure Disposition: 01 Home, Self Care Clinical Impression: Cellulitis of right ankle Condition: Stable Instructions: ED Infec Skin Cellulitis Follow-Up: Your, doctor [Other] Prescriptions: Cefdinir 300 mg PO BID #14 cap HYDROcod/ACETAM 5/325 [[place] 5/325] 1 - 2 ea PO Q6H PRN #12 PRN Reason: Pain Comments: Cellulitis is a potentially serious infection. If you do not improve or worsen return to the ED for admission.
[2020-11-15 14:19] LABS: BASOPHILS # (AUTO) 0.1 10^3/uL (0.0-0.1); BASOPHILS % (AUTO) 0.5 %; EOSINOPHILS # (AUTO) 0.1 10^3/uL (0.0-0.7); EOSINOPHILS % (AUTO) 1.3 %; HGB - HEMOGLOBIN 14.3 g/dL (12.0-16.0); LYMPHOCYTES # (AUTO) 1.4 10^3/uL (1.5-3.5); MEAN CORPUSCULAR HEMOGLOBIN 30.8 pg (27.0-31.0); MEAN CORPUSCULAR HGB CONC 33.3 g/dL (32.0-36.0); MEAN CORPUSCULAR VOLUME 92.5 fL (81.0-99.0); MONOCYTES # (AUTO) 0.8 10^3/uL (0.0-1.0); MONOCYTES % (AUTO) 6.9 %; NEUTROPHILS # (AUTO) 8.6 10^3/uL (1.5-6.6); NEUTROPHILS % (AUTO) 77.8 %; PLT - PLATELET COUNT 199 10^3/uL (130-450); RED BLOOD COUNT 4.64 10^6/uL (4.20-5.40); RED CELL DISTRIBUTION WIDTH 12.8 % (12.0-15.0); WHITE BLOOD COUNT 11.1 x10^3/uL (4.8-10.8)
[2020-11-15 14:31] LABS: ALBUMIN/GLOBULIN RATIO 1.2 (1.0-2.2); ALKALINE PHOSPHATASE 116 IU/L (42-121); ALT ALANINE AMINOTRANSFERASE 12 IU/L (10-60); AST ASPARTATE AMINOTRANSFERASE 12 IU/L (10-42); BILIRUBIN,TOTAL 0.5 mg/dL (0.2-1.0); BUN - BLOOD UREA NITROGEN 32 mg/dL (6-20); CALCIUM 9.3 mg/dL (8.5-10.3); CARBON DIOXIDE - CO2 26 mmol/L (21-32); CHLORIDE 98 mmol/L (101-111); CREATININE 0.7 mg/dL (0.4-1.0); GLUCOSE 288 mg/dL (70-100); LIPASE 23 U/L (22-51); TOTAL PROTEIN 7.4 g/dL (6.7-8.2)
[2020-11-15 14:40] LABS: KETONES, SERUM (ACETEST) NEGATIVE (NEGATIVE)
[2020-11-15 14:42] LABS: VBG PCO2 56.5 mmHg (41-51); VBG PH 7.315 (7.31-7.41)
[2020-11-15 14:51] LABS: BILIRUBIN,URINE NEGATIVE (NEGATIVE); GLUCOSE, URINE (UA) >=1000 mg/dL (NEGATIVE); KETONES,URINE (UA) NEGATIVE (NEGATIVE); LEUKOCYTE ESTERASE, URINE NEGATIVE (NEGATIVE); NITRITE,URINE NEGATIVE (NEGATIVE); OCCULT BLOOD,URINE MODERATE (NEGATIVE); PROTEIN,URINE 100 mg/dL (NEGATIVE); UROBILINOGEN,URINE 0.2 (NORMAL) E.U./dL (NORMAL)
[2020-11-15 14:54] LABS: CLARITY,URINE CLEAR (CLEAR); HCG UR QUAL NEGATIVE
[2020-11-15 15:03] LABS: AMPHETAMINE SCREEN,URINE NEGATIVE (NEGATIVE); BACTERIA,URINE Few /HPF (None Seen); BENZODIAZEPINES SCREEN, URINE NEGATIVE (NEGATIVE); COCAINE SCREEN URINE NEGATIVE (NEGATIVE); METHAMPHETAMINES SCREEN, URINE NEGATIVE (NEGATIVE); MUCUS,URINE Few Strands; OPIATE SCREEN, URINE NEGATIVE (NEGATIVE); SQUAMOUS EPITHELIAL CELL,UR MOD Squamous (<= Few); TRICYCLIC ANTIDEPRESSANT,URINE NEGATIVE (NEGATIVE)
[2020-11-15 15:04] LABS: METHADONE SCREEN, URINE NEGATIVE (NEGATIVE); OXYCODONE SCREEN, URINE NEGATIVE (NEGATIVE); PROPOXYPHENE SCREEN, URINE NEGATIVE (NEGATIVE)
[2020-11-15] MEDS ORDERED: HYDROmorphone 1 MG/ML CARPUJECT IVP STA (15:08)
[2020-11-15] MEDS ORDERED: ONDANSETRON 4 MG/2 ML VIAL IVP STA (15:08)
[2020-11-15 15:39] VITALS: BP 116/91
== END 2020-11-15 16:38 | disposition home or self-care (01) ==
LOC: ED 13:35
DX: L03.115 Cellulitis of right lower limb (principal); E10.42 Type 1 diabetes mellitus with diabetic polyneuropathy; Z79.4 Long term (current) use of insulin; F17.200 Nicotine dependence, unspecified, uncomplicated
CPT/HCPCS: 36415; 80053; 80306; 81001; 81025; 82009; 82803; 83605; 83690; 85025; 87040; 96365; 96375; 99284; J1170; 81003; 87086

== ENCOUNTER 2020-11-21 17:44 | Inpatient (IN) | payer MEDICAID ==
--- NOTE | 2020-11-21 18:11 | ED Physician Documentation ---
History of Present Illness - Stated complaint Stated Complaint: RT FOOT SWOLLEN/RED - Chief complaint Chief Complaint: Wound - History obtained from History obtained from: Patient - Additonal information Additional information: 35-year-old type I diabetic presents to the emergency department with worsening right foot pain and swelling. She was seen here approximately 1 week ago for similar diagnosed with cellulitis. She received Rocephin in the ER and was given a 14-day prescription of cefdinir. Since then she reports increased pain and swelling. She has persistent vomiting and diarrhea. Subjective fevers. Reports blood sugars as high as the 330's at home, no low sugars. She is also worried because despite elevation of the leg it remain more swollen. Pt reports swelling and erythema extending across the dorsum of the foot medially and up to the mid anterior calf. She appears very uncomfortable and in pain Review of Systems Constitutional: reports: Fever, Chills Eyes: reports: Reviewed and negative Ears: reports: Reviewed and negative Nose: reports: Reviewed and negative Throat: reports: Reviewed and negative Cardiac: reports: Reviewed and negative Respiratory: denies: Dyspnea, Cough GI: reports: Nausea, Vomiting, Diarrhea. denies: Abdominal Pain : denies: Dysuria, Frequency, Hesitancy Musculoskeletal: reports: Extremity pain (right foot). denies: Neck pain, Back pain Neurologic: denies: Generalized weakness, Focal weakness, Numbness, Syncope, Seizure PD PAST MEDICAL HISTORY - Past Medical History Past Medical History: Yes Cardiovascular: None Respiratory: Other Neuro: Peripheral neuropathy Endocrine/Autoimmune: Type 1 diabetes GI: None : None HEENT: Other Psych: None Musculoskeletal: None Derm: Other - Past Surgical History Past Surgical History: No - Present Medications Home Medications: Ambulatory Orders Medication Instructions Recorded Confirmed Insulin Aspart [NovoLOG] 2 - 18 units SUBQ AC 10/15/18 11/21/20 Insulin Glargine [Lantus Solostar] 20 units SUBQ BID 10/15/18 11/21/20 Cefdinir 300 mg PO BID #14 cap 11/15/20 11/21/20 HYDROcod/ACETAM 5/325 [[place] 5/325] 1 - 2 ea PO Q6H PRN #12 11/15/20 11/21/20 - Allergies Allergies/Adverse Reactions: Allergies Allergy/AdvReac Type Severity Reaction Status Date / Time No Known Drug Allergies Allergy Verified 11/21/20 17:51 - Social History Does the pt smoke?: Yes Smoking Status: Current every day smoker Does the pt drink ETOH?: Yes Does the pt have substance abuse?: Yes - Immunizations Immunizations are current?: No - POLST Patient has POLST: No POLST Status: Full Code PD ED PE EXPANDED - General General: Alert, In Pain, In distress - Neck Neck: Supple w/out meningeal sx. No: Adenopathy - Cardiac Cardiac: Tachy, Radial strong equal, Pedal strong equal, Cap refill < 2 sec - Respiratory Respiratory: Clear to ausultation shanelle. No: Distress, Labored - Abdomen Abdomen: Normal Bowel sounds. No: Tender to palpation - Extremities Extremities: Right foot (Right foot generally swollen with erythema and tender to touch especially over the dorsum of the foot. Healing callous lesion sole base MCP. Swellign extends across dorsum of foot with mild erythema. 1+ DP pulse.), Right calf TTP/cord. No: Left calf TTP/cord - Neuro Neuro: Alert and Oriented X 3, CNII-XII intact - GCS Eye Opening: Spontaneous Motor: Obeys Commands Verbal: Oriented Total: 15 Results - Vitals Vitals: Vital Signs - 24 hr 11/21/20 11/21/20 17:53 18:04 Temperature 36.9 C 36.9 C Heart Rate 120 H 120 H Respiratory 22 22 Rate Blood Pressure 90/65 90/65 O2 Saturation 98 98 Oxygen O2 Source Room air - Labs Labs: Laboratory Tests 11/21/20 11/21/20 11/21/20 18:02 18:09 18:09 WBC 11.6 H RBC 4.47 Hgb 14.1 Hct 41.5 MCV 92.8 MCH 31.5 H MCHC 34.0 RDW 12.6 Plt Count 288 MPV 10.2 Neut # (Auto) 8.7 H Lymph # (Auto) 1.7 [place] # (Auto) 0.8 Eos # (Auto) 0.3 Baso # (Auto) 0.1 Absolute Nucleated RBC 0.00 Nucleated RBC % 0.0 VBG pH VBG pCO2 VBG pO2 VBG HCO3 VBG Total CO2 VBG O2 Saturation VBG Base Excess Sodium 137 Potassium 4.0 Chloride 95 L Carbon Dioxide 29 Anion Gap 13.0 BUN 30 H Creatinine 1.0 Estimated GFR (MDRD) 63 L Glucose 227 H POC Whole Bld Glucose 250 H Lactic Acid Calcium 9.3 11/21/20 11/21/20 18:09 18:09 WBC RBC Hgb Hct MCV MCH MCHC RDW Plt Count MPV Neut # (Auto) Lymph # (Auto) [place] # (Auto) Eos # (Auto) Baso # (Auto) Absolute Nucleated RBC Nucleated RBC % VBG pH 7.328 VBG pCO2 57.7 H VBG pO2 20.6 L VBG HCO3 29.6 H VBG Total CO2 31.4 H VBG O2 Saturation 41.8 L VBG Base Excess 2.1 H Sodium Potassium Chloride Carbon Dioxide Anion Gap BUN Creatinine Estimated GFR (MDRD) Glucose POC Whole Bld Glucose Lactic Acid 1.0 Calcium - Rads (name of study) US DVT right leg Radiology: See rad report, Other (No deep vein thrombosis seen within the right lower leg.) PD MEDICAL DECISION MAKING - ED course Complexity details: reviewed results, re-evaluated patient, considered differential, d/w patient ED course: 35-year-old female returns the emergency department for evaluation of worsening right foot and leg pain with swelling. Seen 1 week ago and diagnosed with presumptive cellulitis. Despite the cefdinir she feels that the swelling and pain is not improving. On exam she is somewhat tachycardic on presentation with a soft blood pressure in the 90s over 50s. She is afebrile. Screening labs show no leukocytosis and a normal lactic acid. She does have a history of previous DVT in the left leg. Ultrasound DVT is pending at this time. However on exam of the foot, the cellulitis has not improved. 193: Ultrasound of the right lower leg does not show any deep vein thrombosis. The leg was reexamined with my colleague Dr. Sanches who saw her with her last ER visit he does confirm that the erythema and swelling has worsened since her last visit. At this time we will plan to admit her to the hospital for worsening cellulitis and failure of outpatient antibiotic therapy. I have spoken with hospitalist Dr. kaye who has agreed to bring the patient in on observation status for further tx and evaluation of her leg cellulitis. Res PCR pending for COVID 19 screening in patient who will be hospitalized Departure - Departure Disposition: ED Place in Observation Clinical Impression: Cellulitis of right foot DM I (diabetes mellitus, type I), uncontrolled Qualifiers: Glycemic state: with hyperglycemia Qualified Code(s): E10.65 - Type 1 diabetes mellitus with hyperglycemia
[2020-11-21] MEDS ORDERED: SODIUM CHLORIDE 0.9% 1,000 ML IV STA (18:14)
[2020-11-21] MEDS ORDERED: HYDROmorphone 1 MG/ML CARPUJECT IVP STA ×2 (18:15→19:53)
[2020-11-21 18:17] LABS: BASOPHILS # (AUTO) 0.1 10^3/uL (0.0-0.1); BASOPHILS % (AUTO) 0.7 %; EOSINOPHILS # (AUTO) 0.3 10^3/uL (0.0-0.7); EOSINOPHILS % (AUTO) 2.2 %; HCT - HEMATOCRIT 41.5 % (37.0-47.0); HGB - HEMOGLOBIN 14.1 g/dL (12.0-16.0); LYMPHOCYTES # (AUTO) 1.7 10^3/uL (1.5-3.5); LYMPHOCYTES % (AUTO) 14.5 %; MEAN CORPUSCULAR HEMOGLOBIN 31.5 pg (27.0-31.0); MEAN CORPUSCULAR VOLUME 92.8 fL (81.0-99.0); MEAN PLATELET VOLUME 10.2 fL (7.9-10.8); MONOCYTES # (AUTO) 0.8 10^3/uL (0.0-1.0); MONOCYTES % (AUTO) 7.1 %; NEUTROPHILS # (AUTO) 8.7 10^3/uL (1.5-6.6); NEUTROPHILS % (AUTO) 74.9 %; PLT - PLATELET COUNT 288 10^3/uL (130-450); RED BLOOD COUNT 4.47 10^6/uL (4.20-5.40); RED CELL DISTRIBUTION WIDTH 12.6 % (12.0-15.0); WHITE BLOOD COUNT 11.6 x10^3/uL (4.8-10.8)
[2020-11-21 18:18] LABS: VBG BASE EXCESS 2.1 mmol/L (-2 - +2); VBG HCO3 29.6 mmol/L (23-28); VBG OXYGEN SATURATION 41.8 % (60-80); VBG PCO2 57.7 mmHg (41-51); VBG PH 7.328 (7.31-7.41); VBG PO2 20.6 mmHg (25-47); VBG TOTAL CO2 31.4 mmol/L (24-29)
[2020-11-21] MEDS ORDERED: ONDANSETRON 4 MG/2 ML VIAL IVP STA (18:19)
[2020-11-21 18:25] LABS: CALCIUM 9.3 mg/dL (8.5-10.3)
[2020-11-21] MEDS ORDERED: VANCOMYCIN INJ 1.25 GM in SODIUM CHLORIDE 0.9% 250 ML IV STA (19:34)
[2020-11-21] MEDS ORDERED: cefTRIAXone 1 GM in SODIUM CHLORIDE 0.9% MINIBAG 100 ML IV STA (19:35)
[2020-11-21] MEDS ORDERED: oxyCODONE 5 MG TABLET PO PRN (19:48)
[2020-11-21] MEDS ORDERED: cefTRIAXone 1 GM VIAL ONE (19:51)
--- NOTE | 2020-11-21 19:53 | Ultrasound Report ---
PROCEDURE: Duplex Ext Veins Right INDICATIONS: right leg swelling; r/o DVT TECHNIQUE: Real-time imaging, as well as color and pulse Doppler interrogation, were performed of the lower extr emity deep veins from the inguinal ligament to the popliteal fossa. COMPARISON: None. FINDINGS: The deep veins are normally compressible, and free of intraluminal thrombus. Color and pu lse Doppler demonstrate normal phasic intraluminal flow. There is normal augmentation response to di stal compression maneuver. Posterior tibial and peroneal veins are patent. Mildly prominent lymph nodes in the right groin. IMPRESSION: No right lower extremity DVT. Reviewed by: Akash Thompson MD on 11/21/2020 7:52 PM PST Approved by: Akash Thompson MD on 11/21/2020 7:52 PM PST Station ID: [id number]
--- NOTE | 2020-11-21 20:02 | HISTORY & PHYSICAL EXAMINATION ---
Chief Complaint - Chief Complaint Chief Complaint: right lower extremity redness History of Present Illness - Admitted From Admitted From:: [facility] ED - History Obtained From Records Reviewed: yes History obtained from: patient - History of Present Illness HPI Comment/Other: 35-year-old female with medical history significant for diabetes mellitus type 1 uncontrolled, right lower extremity diabetic foot ulcer and methamphetamine abuse who presented to the ED with complaint of worsening redness in her right foot, swelling of the foot, tenderness to palpation. Her symptoms have been going on for about 10 days. She was prescribed cefdinir for outpatient management of cellulitis which she took to completion except for the last day's dose. The redness seems to have progressed despite the antibiotics. She also has chills but no fever. Upon presentation to the ED she was tachycardic with a heart rate in the 120s and her systolic blood pressure was 90. However her lactic acid was normal at 1.0. As a result she was presented for admission for continued IV antibiotic treatment. At bedside she is shivering. She denies chest pain or dyspnea. She has nasal congestion, complains of nausea, vomiting and mild abdominal pain. The right lower extremity appears mildly hyperemic. It seems tender to palpation. Work- up in the ED included lower extremity Dopplers which were negative for DVT. History - Past Medical History Cardiovascular: reports: None Respiratory: reports: Other Neuro: reports: Peripheral neuropathy Endocrine/Autoimmune: reports: Type 1 diabetes GI: reports: None : reports: None HEENT: reports: Other (Impaired left vision due to a corneal ulcer) Psych: reports: None Musculoskeletal: reports: None Derm: reports: Other MRSA Hx?: No - Past Surgical History Other past surgical history: Right foot surgery due to a diabetic foot ulcer. Incision and drainage of an abscess on the back of the left knee. - Family & Social History Family History Comment/Other: Patient's mother and brother from complications related to diabetes mellitus likely type I. Living arrangement: At home Social History Notes: Patient denies alcohol use. She smokes about 3 to 4 cigar ettes daily for the past 18 years. She has history of methamphetamine and marijuana use. - POLST Patient has POLST: No POLST Status: Full Code Meds/Allgy - Home Medications Home Medications: Ambulatory Orders Medication Instructions Recorded Confirmed Insulin Aspart [NovoLOG] 2 - 18 units SUBQ AC 10/15/18 11/21/20 Insulin Glargine [Lantus Solostar] 20 units SUBQ BID 10/15/18 11/21/20 Cefdinir 300 mg PO BID #14 cap 11/15/20 11/21/20 HYDROcod/ACETAM 5/325 [[place] 5/325] 1 - 2 ea PO Q6H PRN #12 11/15/20 11/21/20 - Allergies Allergies/Adverse Reactions: Allergies Allergy/AdvReac Type Severity Reaction Status Date / Time No Known Drug Allergies Allergy Verified 11/21/20 17:51 Review of Systems - Constitutional Constitutional: denies: Fever, Chills - Eyes Eyes: reports: Other (Impaired vision in left eye due to corneal ulcer). denies: Pain - Ears, Nose & Throat Ears, Nose & Throat: denies: Ear pain, Sore throat - Cardiovascular Cariovascular: denies: Irregular heart rate, Palpitations, Chest pain, Edema, L ightheadedness, Syncope, Exertional dyspnea - Respiratory Respiratory: denies: Cough, Sputum production, Wheezing, SOB at rest, SOB with exertion - Gastrointestinal Gastrointestinal: denies: Abdominal pain, Abdominal distention, Constipation, Diarrhea, Nausea, Vomiting, Coffee grounds emesis, Reflux/heartburn - Genitourinary Genitourinary: denies: Dysuria, Frequency, Urgency, Hematuria - Musculoskeletal Musculoskeletal: denies: Muscle pain, Back pain, Muscle aches - Integumentary Integumentary: denies: Rash, Pruritis, Lesions - Neurological Neurological: denies: General weakness, Focal weakness, Headache, Dizziness - Psychiatric Psychiatric: denies: Depression, Anxiety - Endocrine Endocrine: denies: Polyuria, Polydypsia - Hematologic/Lymphatic Hematologic/Lymphatic: denies: Anemia, Bruising, Petechiae Prior Level of Functionality: She is independent of activities of daily living Exam - Vital Signs Vital Signs: Vital Signs x48h Temp Pulse Resp BP Pulse Ox 11/21/20 18:04 36.9 C 120 H 22 90/65 98 11/21/20 17:53 36.9 C 120 H 22 90/65 98 - Physical Exam General Appearance: positive: Alert, Moderate distress ENT: positive: Dry mucous membranes Neck: positive: No JVD, Trachea midline Respiratory: positive: Chest non-tender, No respiratory distress, Breath sounds nml. negative: Wheezes, Rales, Rhonchi Cardiovascular: positive: No murmur, Tachycardia Abdomen: positive: Non-tender, No organomegaly, Nml bowel sounds, No distention. negative: Guarding, Rebound Back: positive: Nml inspection Skin: positive: Warm, Other (redness in right foot) Extremities: positive: Full ROM, Other (Right lower extremity swelling and tender to palpation) Neurologic/Psychiatric: positive: Oriented x3, Mood/affect nml Conclusion/Plan - Problem List (1) Cellulitis of right foot Conclusion/Plan: Patient has been treated with cefdinir outpatient. However it appears the redness was progressing despite the treatment. She was given vancomycin and Rocephin in the ED. We will continue vancomycin with pharmacy to dose. Blood cultures drawn. We will continue IV hydration with normal saline at 100 mils per hour. Patient was given a 1 L bolus in the ED. Lactic acid was 1.0. Tylenol for fever. Oxycodone and dilaudid as needed for pain. Lower extremity Doppler was negative for DVT. X-ray of the right foot was negative for fractures or dislocations. (2) DM I (diabetes mellitus, type I), uncontrolled Conclusion/Plan: On Lantus 20 units subcu twice daily. Carb-controlled diet Moderate dose sliding scale insulin. Accu-Cheks before every meal and at bedtime. We will check hemoglobin A1c. Qualifiers: Glycemic state: with hyperglycemia Qualified Code(s): E10.65 - Type 1 diabetes mellitus with hyperglycemia - Lab Results Fish Bones: 11/22/20 04:03 11/22/20 04:03 Core Measures - Anticipated LOS I expect patient to be DC'd or transferred within 96 hours.: Yes - DVT/VTE - Prophylaxis VTE/DVT Device ordered at admit?: Yes VTE/DVT Prophylaxis med ordered at admit?: Yes
[2020-11-21 20:06] LABS: MUDS CUTOFF CONCENTRATIONS CUTOFF CONC BELOW:
[2020-11-21 20:09] LABS: BILIRUBIN,URINE NEGATIVE (NEGATIVE); GLUCOSE, URINE (UA) 250 mg/dL (NEGATIVE); KETONES,URINE (UA) TRACE mg/dL (NEGATIVE); LEUKOCYTE ESTERASE, URINE NEGATIVE (NEGATIVE); NITRITE,URINE NEGATIVE (NEGATIVE); OCCULT BLOOD,URINE MODERATE (NEGATIVE); PROTEIN,URINE 100 mg/dL (NEGATIVE); UROBILINOGEN,URINE 0.2 (NORMAL) E.U./dL (NORMAL)
[2020-11-21 20:11] LABS: CLARITY,URINE HAZY (CLEAR); HCG UR QUAL NEGATIVE
[2020-11-21 20:20] LABS: AMORPHOUS SEDIMENT,UR Few /LPF; AMPHETAMINE SCREEN,URINE NEGATIVE (NEGATIVE); BACTERIA,URINE Few /HPF (None Seen); BARBITURATE SCREEN,UR NEGATIVE (NEGATIVE); BENZODIAZEPINES SCREEN, URINE NEGATIVE (NEGATIVE); COCAINE SCREEN URINE NEGATIVE (NEGATIVE); METHADONE SCREEN, URINE NEGATIVE (NEGATIVE); METHAMPHETAMINES SCREEN, URINE NEGATIVE (NEGATIVE); MUCUS,URINE Few Strands; OPIATE SCREEN, URINE POSITIVE (NEGATIVE); OXYCODONE SCREEN, URINE NEGATIVE (NEGATIVE); PROPOXYPHENE SCREEN, URINE NEGATIVE (NEGATIVE); RBC,URINE 0-5 /HPF (0-5); SQUAMOUS EPITHELIAL CELL,UR MOD Squamous (<= Few); THC CANNABINOID SCREEN, URINE POSITIVE (NEGATIVE); TRICYCLIC ANTIDEPRESSANT,URINE NEGATIVE (NEGATIVE); WBC,URINE 0-3 /HPF (0-5)
--- NOTE | 2020-11-21 20:29 | XRAY Report ---
PROCEDURE: Foot 3 View RT INDICATIONS: foot infection TECHNIQUE: 3 views of the foot were acquired. COMPARISON: None FINDINGS: Bones: No fractures or dislocations. No suspicious bony lesions. Soft tissues: No tibiotalar joint effusion. Achilles tendon appears normal. IMPRESSION: No acute osseous abnormality. Reviewed by: Akash Thompson MD on 11/21/2020 8:28 PM [facility] Approved by: Akash Thompson MD on 11/21/2020 8:28 PM [facility] Station ID: [id number]
[2020-11-21] MEDS ORDERED: HYDROmorphone 0.5 MG/0.5 ML SYRINGE IVP PRN (20:49)
[2020-11-21 21:02] LABS: B. PARAPERTUSSIS- RESP PCR PAN NOT DETECTED; B. PERTUSSIS- RESP PCR PANEL NOT DETECTED; C. PNEUMONIAE- RESP PCR PANEL NOT DETECTED; CORONAVIRUS 229E-RESP PCR NOT DETECTED; CORONAVIRUS HKU1-RESP PCR NOT DETECTED; CORONAVIRUS NL63-RESP PCR NOT DETECTED; CORONAVIRUS OC43-RESP PCR NOT DETECTED; HUMAN METAPNEUMOVIRUS NOT DETECTED; INFLUENZA A- RESP PCR PANEL NOT DETECTED; INFLUENZA B - RESP PCR PANEL NOT DETECTED; M. PNEUMONIAE- RESP PCR PANEL NOT DETECTED; PARAINFLUENZA VIRUS 1 NOT DETECTED; PARAINFLUENZA VIRUS 2 NOT DETECTED; PARAINFLUENZA VIRUS 3 NOT DETECTED; PARAINFLUENZA VIRUS 4 NOT DETECTED; RHINOVIRUS/ENTEROVIRUS NOT DETECTED; RSV- RESP PCR PANEL NOT DETECTED; SARS-CoV-2 -RESP PCR PANEL NOT DETECTED
[2020-11-21] MEDS: SODIUM CHLORIDE 0.9% 1,000 ML IV SCH (21:32)
[2020-11-21] MEDS: ONDANSETRON 4 MG/2 ML VIAL IVP PRN (22:07)
[2020-11-21] MEDS: ACETAMINOPHEN 325 MG TABLET PO PRN (22:07)
[2020-11-21] MEDS: INSULIN ASPART 300 UNIT/3 ML PEN SUBQ SCH (22:13)
[2020-11-21] MEDS: INSULIN GLARGINE 300 UNIT/3 ML PEN SUBQ SCH (22:14)
[2020-11-22] MEDS: SODIUM CHLORIDE FLUSH 0.9% 10 ML SYRINGE IVP SCH ×4 (01:47→17:42)
[2020-11-22] MEDS: HYDROmorphone 0.5 MG/0.5 ML SYRINGE IVP PRN ×2 (02:40→08:18)
[2020-11-22] MEDS: PROCHLORPERAZINE 10 MG/2 ML VIAL IVP PRN (03:12)
[2020-11-22] MEDS: HYDROcod/ACETAM 7.5 MG/325 MG TABLET PO PRN ×2 (03:20→03:31)
[2020-11-22 04:44] LABS: BASOPHILS # (AUTO) 0.1 10^3/uL (0.0-0.1); BASOPHILS % (AUTO) 0.7 %; EOSINOPHILS # (AUTO) 0.3 10^3/uL (0.0-0.7); EOSINOPHILS % (AUTO) 4.3 %; HCT - HEMATOCRIT 33.7 % (37.0-47.0); HGB - HEMOGLOBIN 11.2 g/dL (12.0-16.0); LYMPHOCYTES # (AUTO) 1.4 10^3/uL (1.5-3.5); LYMPHOCYTES % (AUTO) 18.5 %; MEAN CORPUSCULAR HEMOGLOBIN 31.3 pg (27.0-31.0); MEAN CORPUSCULAR HGB CONC 33.2 g/dL (32.0-36.0); MEAN CORPUSCULAR VOLUME 94.1 fL (81.0-99.0); MEAN PLATELET VOLUME 10.7 fL (7.9-10.8); MONOCYTES # (AUTO) 0.8 10^3/uL (0.0-1.0); MONOCYTES % (AUTO) 10.3 %; NEUTROPHILS # (AUTO) 4.9 10^3/uL (1.5-6.6); NEUTROPHILS % (AUTO) 65.8 %; PLT - PLATELET COUNT 206 10^3/uL (130-450); RED BLOOD COUNT 3.58 10^6/uL (4.20-5.40); RED CELL DISTRIBUTION WIDTH 12.5 % (12.0-15.0); WHITE BLOOD COUNT 7.5 x10^3/uL (4.8-10.8)
[2020-11-22 04:52] LABS: CALCIUM 7.8 mg/dL (8.5-10.3); CREATININE 0.7 mg/dL (0.4-1.0); POTASSIUM 3.9 mmol/L (3.5-5.0)
[2020-11-22] MEDS: PANTOPRAZOLE 40 MG TABLET PO SCH (07:57)
[2020-11-22] MEDS: SODIUM CHLORIDE 0.9% 1,000 ML IV SCH ×2 (07:57→21:41)
[2020-11-22] MEDS: INSULIN ASPART 300 UNIT/3 ML PEN SUBQ SCH ×3 (07:59→21:29)
[2020-11-22] MEDS: INSULIN GLARGINE 300 UNIT/3 ML PEN SUBQ SCH ×2 (08:01→21:31)
[2020-11-22] MEDS: VANCOMYCIN INJ 1 GM in SODIUM CHLORIDE 0.9% 250 ML IV SCH ×2 (08:04→21:20)
[2020-11-22] MEDS: ONDANSETRON 4 MG/2 ML VIAL IVP PRN ×2 (08:22→18:46)
[2020-11-22] MEDS: ENOXAPARIN 40 MG/0.4 ML SYRINGE SUBQ SCH (09:20)
--- NOTE | 2020-11-22 11:02 | PHARMACY PROGRESS NOTE ---
- Best Possible Medication History Admit Date and Time: 11/21/201947 Processed by: Pharmacy Medication History completed: Yes Patient Interview: Completed Secondary Source(s): Physician records, Pharmacy records, Insurance records (PATIENT INTERVIEWED BY AIRLINE RESERVATIONIST. PATIENT ABLE TO CONFIRM HOME MEDICATIONS ) As the person ultimately responsible for medication therapy, providers are able to order a medication from an existing home medication list in [facility] via the "Reconcile Routine" prior to Confirmation of that medication by business support specialist. Such practice is discouraged except when the physician, in their clinical judgment, deems that a medical need exists for a medication without regard to previous use.
[2020-11-22] MEDS: HYDROmorphone 1 MG/ML CARPUJECT IVP PRN ×5 (11:26→22:50)
--- NOTE | 2020-11-22 11:44 | PHARMACY PROGRESS NOTE ---
- Therapy Status Vancomycin regimen day #: 2 Therapy status: Awaiting steady state Basis for treatment: Empirical Treatment indication: CELLULITIS Trough goal: ~15 Concurrent antibiotics: ROCEPHIN 1G DAILY - IVET Risk Risk level for Acute Kidney Injury: Moderate Acute Kidney Injury risk factors: Diabetes - Monitoring and Recommendation Clinical response to treatment: I&O Previous 24 hours 11/20/20 11/21/20 11/22/20 23:59 23:59 23:59 Intake Total 1749.630 4693.667 Output Total 100 Balance 6743.008 6421.667 Lab Results 11/22/20 11/21/20 04:03 18:09 BUN 26 H 30 H Creatinine 0.7 1.0 Estimated GFR (MDRD) 95 63 L Monitoring plan: Daily serum creatinine (11/22 VANCOMYCIN INITIATED: RIGHT LEG SWELLING/ CELLULITIS sCR: 0.7 MG/DL; CRCL: ~100 ML/MIN T1/2: ~8H 1250MG X1 LDOSE MAINTENACE DOSE: 1GM Q12H TROUGH SCHEDULED: 11/23 @ 0800 BEFORE 4TH DOSE)
[2020-11-22] MEDS: cefTRIAXone 1 GM in SODIUM CHLORIDE 0.9% MINIBAG 100 ML IV SCH (12:05)
[2020-11-22 12:36] LABS: ESTIMATED AVERAGE GLUCOSE 286 mg/dL (70-100); HEMOGLOBIN A1c% 11.6 % (4.27-6.07)
[2020-11-22] MEDS: ACETAMINOPHEN 325 MG TABLET PO PRN ×3 (12:46→21:29)
[2020-11-22] MEDS: oxyCODONE 5 MG TABLET PO PRN ×3 (12:46→21:28)
--- NOTE | 2020-11-22 15:22 | PROVIDER PROGRESS NOTE ---
Assessment/Plan - Problem List (1) Cellulitis of right foot Assessment/Plan: She took her entire course of cefdinir, according to the patient, and there was no improvement in swelling, discoloration or pain. White blood count was 11, today down to 7. She has had no fevers since here. She cannot tell if the swelling is better because of "poor eyesight" which she says she already had before admission. Continue with pain meds prn, needs them dosed more frequently, not higher dose. Continue with ice packs. Continue iv fluids. Continue with empiric IV antibiotics of vancomycin and ceftriaxone in a diabetic with cellulitis Will plan an MRI to evaluate if she has osteomyelitis, since her pain is out of proportion to the severity of cellulitis by appearance. Await blood culture results which were done in the ER before antibiotics were started. She will therefore need a minimum of 48 hours of IV antibiotics, before changing to a different oral antibiotic. (2) DM I (diabetes mellitus, type I), uncontrolled Qualifiers: Glycemic state: with hyperglycemia Qualified Code(s): E10.65 - Type 1 diabetes mellitus with hyperglycemia Assessment/Plan: She is not in DKA this admission with a normal serum pH and serum bicarb level. Continue with diabetic management. (3) Noncompliance with medication regimen Assessment/Plan: Her A1cv is 11.6, indicating poor control. She reported to me that she eats anything, no carb-controlled diet. She demanded that her diet order here be changed and thinks that is why her 3pm glu was low, not because she took in no lunch. Will change diet to Reg. Will continue long acting and ss Insulin. (4) Smoker Assessment/Plan: Will order Nicotine patch prn. (5) History of methamphetamine abuse Assessment/Plan: During her hospitalizations in 2019, there was a history of meth being used. At this time, the toxicology shows no meth present but she had positive marijuana and positive narcotics present. - Current Meds Current Meds: Current Medications Generic Name Dose Route Start Last Admin Trade Name Freq PRN Reason Stop Dose Admin Acetaminophen 650 mg 11/21/20 19:48 11/22/20 12:46 Acetaminophen 325 Mg Tablet PO 650 mg Q4HR PRN Administration Pain 1 to 4 Enoxaparin Sodium 40 mg 11/22/20 09:00 11/22/20 09:20 Enoxaparin 40 Mg/0.4 Ml Syringe SUBQ Not Given DAILY ANUEL Sodium Chloride 1,000 mls @ 100 mls/hr 11/21/20 21:00 11/22/20 07:57 Normal Saline 0.9% IV 100 mls/hr .Q10H ANUEL Administration Vancomycin HCl 1 gm/ Sodium 250 mls @ 167 mls/hr 11/22/20 09:00 11/22/20 10:22 Chloride IV Infused Q12H ANUEL Infusion Ceftriaxone Sodium 1 gm/ 100 mls @ 200 mls/hr 11/22/20 12:00 11/22/20 12:46 Sodium Chloride IV Infused DAILY ANUEL Infusion Insulin Aspart 2 - 10 unit 11/21/20 21:00 11/22/20 12:03 Insulin Aspart 300 Unit/3 Ml Pen SUBQ 6 unit 0800,1200,1700,2100 ANUEL Administration Protocol Insulin Glargine 20 unit 11/21/20 21:00 11/22/20 08:01 Insulin Glargine 300 Unit/3 Ml Pen SUBQ 20 unit BID ANUEL Administration Ondansetron HCl 4 mg 11/21/20 19:48 11/22/20 08:22 Ondansetron 4 Mg/2 Ml Vial IVP 4 mg Q6HR PRN Administration Nausea / Vomiting Oxycodone HCl 5 mg 11/22/20 10:37 11/22/20 12:46 Oxycodone 5 Mg Tablet PO 5 mg Q4HR PRN Administration PAIN Pantoprazole Sodium 40 mg 11/22/20 07:00 11/22/20 07:57 Pantoprazole 40 Mg Tablet PO 40 mg QDAC ANUEL Administration Prochlorperazine Edisylate 10 mg 11/22/20 02:48 11/22/20 03:12 Prochlorperazine 10 Mg/2 Ml Vial IVP 10 mg Q6HR PRN Administration Nausea / Vomiting Sodium Chloride 10 ml 11/22/20 01:00 11/22/20 08:02 Sodium Chloride Flush 0.9% 10 Ml Syringe IVP 10 ml 0100,0900,1700 ANUEL Administration - Lab Result Fish Bone Diagrams: 11/22/20 04:03 11/22/20 04:03 - Additional Planning My Orders: My Active Orders 11/22/20 09:00 Enoxaparin [Lovenox] 40 mg SUBQ DAILY 11/22/20 10:29 Telemetry-Discontinue [RC] .ONCE 11/22/20 10:37 oxyCODONE [Roxicodone] 5 mg PO Q4HR PRN 11/22/20 12:00 cefTRIAXone [Rocephin] 1 gm Sodium Chloride 0.9% Minibag [Normal Saline 0.9% Minibag] 100 ml IV DAILY 11/22/20 15:20 HYDROmorphone 1MG CARP [Dilaudid Inj Carp] 1 mg IVP Q2H PRN 11/22/20 Dinner DIET [Regular Diet] [DIET] Subjective - Subjective Patient Reports: Pain, Other ("I am being disrespected") Nursing Reports: Other (She did not eat her lunch tray then felt like her glu was dropping at 3 pm, fingerstck check was 67) Objective Vital Signs: Vital Signs - 24 hr 11/21/20 11/21/20 11/21/20 17:53 18:04 20:00 Temperature 36.9 C 36.9 C 36.2 C L Heart Rate 120 H 120 H 114 H Heart Rate [ Brachial] Respiratory 22 22 20 Rate Blood Pressure 90/65 90/65 117/89 H Blood Pressure [Right Brachial artery] O2 Saturation 98 98 97 11/21/20 11/22/20 11/22/20 21:28 00:00 03:31 Temperature 36.3 C L 36.8 C 36.2 C L Heart Rate Heart Rate [ 115 H 61 85 Brachial] Respiratory 18 18 20 Rate Blood Pressure Blood Pressure 102/73 89/52 L 99/65 [Right Brachial artery] O2 Saturation 96 96 96 11/22/20 11/22/20 08:00 12:22 Temperature 36.8 C 36.7 C Heart Rate Heart Rate [ 94 95 Brachial] Respiratory 18 16 Rate Blood Pressure Blood Pressure 104/73 102/68 [Right Brachial artery] O2 Saturation 97 94 Oxygen O2 Source Room air I&O (Last 24 Hrs): Intake and Output Totals x24h 11/20/20 11/21/20 11/22/20 23:59 23:59 23:59 Intake Total 9567.846 4177.667 Output Total 100 Balance 5862.908 7992.667 General: Alert, Oriented x3 HEENT: Mucous membr. moist/pink Neck: Supple Neuro: Alert, Non Focal Cardiovascular: Regular rate Respiratory: No respiratory distress Abdomen: Soft Extremities: No edema, Other (Mild puffiness and brown discoloration at area outlined on R foot and lateral lower leg. No tenderness to light touch.) - Results Results: Laboratory Results WBC 7.5 x10^3/uL (4.8-10.8) 11/22/20 04:03 RBC 3.58 10^6/uL (4.20-5.40) L 11/22/20 04:03 Hgb 11.2 g/dL (12.0-16.0) L 11/22/20 04:03 Hct 33.7 % (37.0-47.0) L 11/22/20 04:03 MCV 94.1 fL (81.0-99.0) 11/22/20 04:03 MCH 31.3 pg (27.0-31.0) H 11/22/20 04:03 MCHC 33.2 g/dL (32.0-36.0) 11/22/20 04:03 RDW 12.5 % (12.0-15.0) 11/22/20 04:03 Plt Count 206 10^3/uL (130-450) 11/22/20 04:03 MPV 10.7 fL (7.9-10.8) 11/22/20 04:03 Neut # (Auto) 4.9 10^3/uL (1.5-6.6) 11/22/20 04:03 Lymph # (Auto) 1.4 10^3/uL (1.5-3.5) L 11/22/20 04:03 [place] # (Auto) 0.8 10^3/uL (0.0-1.0) 11/22/20 04:03 Eos # (Auto) 0.3 10^3/uL (0.0-0.7) 11/22/20 04:03 Baso # (Auto) 0.1 10^3/uL (0.0-0.1) 11/22/20 04:03 Absolute Nucleated RBC 0.00 x10^3/uL 11/22/20 04:03 Nucleated RBC % 0.0 /100WBC 11/22/20 04:03 VBG pH 7.328 (7.31-7.41) 11/21/20 18:09 VBG pCO2 57.7 mmHg (41-51) H 11/21/20 18:09 VBG pO2 20.6 mmHg (25-47) L 11/21/20 18:09 VBG HCO3 29.6 mmol/L (23-28) H 11/21/20 18:09 VBG Total CO2 31.4 mmol/L (24-29) H 11/21/20 18:09 VBG O2 Saturation 41.8 % (60-80) L 11/21/20 18:09 VBG Base Excess 2.1 mmol/L (-2 - +2) H 11/21/20 18:09 Sodium 134 mmol/L (135-145) L 11/22/20 04:03 Potassium 3.9 mmol/L (3.5-5.0) 11/22/20 04:03 Chloride 101 mmol/L (101-111) 11/22/20 04:03 Carbon Dioxide 24 mmol/L (21-32) 11/22/20 04:03 Anion Gap 9.0 (6-13) 11/22/20 04:03 BUN 26 mg/dL (6-20) H 11/22/20 04:03 Creatinine 0.7 mg/dL (0.4-1.0) 11/22/20 04:03 Estimated GFR (MDRD) 95 (>89) 11/22/20 04:03 Glucose 304 mg/dL (70-100) H 11/22/20 04:03 POC Whole Bld Glucose 62 mg/dL (70 - 100) L 11/22/20 15:00 Estimat Average Glucose 286 mg/dL (70-100) H 11/22/20 04:03 Hemoglobin A1c % 11.6 % (4.27-6.07) H 11/22/20 04:03 Lactic Acid 1.0 mmol/L (0.5-2.2) 11/21/20 18:09 Calcium 7.8 mg/dL (8.5-10.3) L 11/22/20 04:03 Urine Color YELLOW 11/21/20 19:46 Urine Clarity HAZY (CLEAR) 11/21/20 19:46 Urine pH 6.0 PH (5.0-7.5) 11/21/20 19:46 Ur Specific [place] >=1.030 (1.002-1.030) H 11/21/20 19:46 Urine Protein 100 mg/dL (NEGATIVE) H 11/21/20 19:46 Urine Glucose (UA) 250 mg/dL (NEGATIVE) H 11/21/20 19:46 Urine Ketones TRACE mg/dL (NEGATIVE) 11/21/20 19:46 Urine Occult Blood MODERATE (NEGATIVE) H 11/21/20 19:46 Urine Nitrite NEGATIVE (NEGATIVE) 11/21/20 19:46 Urine Bilirubin NEGATIVE (NEGATIVE) 11/21/20 19:46 Urine Urobilinogen 0.2 (NORMAL) E.U./dL (NORMAL) 11/21/20 19:46 Ur Leukocyte Esterase NEGATIVE (NEGATIVE) 11/21/20 19:46 Urine RBC 0-5 /HPF (0-5) 11/21/20 19:46 Urine WBC 0-3 /HPF (0-5) 11/21/20 19:46 Ur Squamous Epith Cells MOD Squamous (<= Few) H 11/21/20 19:46 Amorphous Sediment Few /LPF 11/21/20 19:46 Urine Bacteria Few /HPF (None Seen) 11/21/20 19:46 Urine Mucus Few Strands 11/21/20 19:46 Ur Microscopic Review INDICATED 11/21/20 19:46 Urine Culture Comments NOT INDICATED 11/21/20 19:46 Urine HCG, Qual NEGATIVE 11/21/20 19:46 Nasal Adenovirus (PCR) NOT DETECTED 11/21/20 20:00 Nasal B. parapertussis DNA (PCR) NOT DETECTED 11/21/20 20:00 Nasal Coronavir 229E PCR NOT DETECTED 11/21/20 20:00 Nasal Coronavir HKU1 PCR NOT DETECTED 11/21/20 20:00 Nasal Coronavir NL63 PCR NOT DETECTED 11/21/20 20:00 Nasal Coronavir OC43 PCR NOT DETECTED 11/21/20 20:00 Nasal Enterovir/Rhinovir PCR NOT DETECTED 11/21/20 20:00 Nasal Influenza B PCR NOT DETECTED 11/21/20 20:00 Nasal Influenza A PCR NOT DETECTED 11/21/20 20:00 Nasal Parainfluen 1 PCR NOT DETECTED 11/21/20 20:00 Nasal Parainfluen 2 PCR NOT DETECTED 11/21/20 20:00 Nasal Parainfluen 3 PCR NOT DETECTED 11/21/20 20:00 Nasal Parainfluen 4 PCR NOT DETECTED 11/21/20 20:00 Nasal RSV (PCR) NOT DETECTED 11/21/20 20:00 Nasal B.pertussis DNA PCR NOT DETECTED 11/21/20 20:00 Nasal C.pneumoniae (PCR) NOT DETECTED 11/21/20 20:00 Prieto Human Metapneumo PCR NOT DETECTED 11/21/20 20:00 Nasal M.pneumoniae (PCR) NOT DETECTED 11/21/20 20:00 Nasal SARS-CoV-2 (PCR) NOT DETECTED 11/21/20 20:00 Urine Opiates Screen POSITIVE (NEGATIVE) H 11/21/20 19:46 Ur Oxycodone Screen NEGATIVE (NEGATIVE) 11/21/20 19:46 Urine Methadone Screen NEGATIVE (NEGATIVE) 11/21/20 19:46 Ur Propoxyphene Screen NEGATIVE (NEGATIVE) 11/21/20 19:46 Ur Barbiturates Screen NEGATIVE (NEGATIVE) 11/21/20 19:46 Ur Tricyclics Screen NEGATIVE (NEGATIVE) 11/21/20 19:46 Ur Phencyclidine Scrn NEGATIVE (NEGATIVE) 11/21/20 19:46 Ur Amphetamine Screen NEGATIVE (NEGATIVE) 11/21/20 19:46 U Methamphetamines Scrn NEGATIVE (NEGATIVE) 11/21/20 19:46 U Benzodiazepines Scrn NEGATIVE (NEGATIVE) 11/21/20 19:46 Urine Cocaine Screen NEGATIVE (NEGATIVE) 11/21/20 19:46 U Cannabinoids Screen POSITIVE (NEGATIVE) H 11/21/20 19:46 - Procedures Procedures: Procedures INSERTION OF ENDOTRACHEAL AIRWAY INTO TRACHEA, VIA OPENING (10/08/19) INSERTION OF INFUSION DEV INTO SUP VENA CAVA, PERC APPROACH (10/15/18) RESPIRATORY VENTILATION, LESS THAN 24 CONSECUTIVE HOURS (10/08/19)
[2020-11-22] MEDS ORDERED: NICOTINE 14 MG PATCH TOP PRN (15:25)
[2020-11-22] MEDS ORDERED: INSULIN ASPART 300 UNIT/3 ML PEN SUBQ SCH (17:00)
[2020-11-23] MEDS: oxyCODONE 5 MG TABLET PO PRN ×4 (01:38→17:37)
[2020-11-23] MEDS: ACETAMINOPHEN 325 MG TABLET PO PRN ×3 (01:38→10:00)
[2020-11-23] MEDS: HYDROmorphone 1 MG/ML CARPUJECT IVP PRN ×6 (02:05→16:25)
[2020-11-23] MEDS: SODIUM CHLORIDE FLUSH 0.9% 10 ML SYRINGE IVP PRN ×3 (02:06→05:39)
[2020-11-23 05:13] LABS: BASOPHILS % (AUTO) 0.5 %; EOSINOPHILS # (AUTO) 0.3 10^3/uL (0.0-0.7); EOSINOPHILS % (AUTO) 4.4 %; HCT - HEMATOCRIT 32.7 % (37.0-47.0); HGB - HEMOGLOBIN 10.7 g/dL (12.0-16.0); LYMPHOCYTES # (AUTO) 1.3 10^3/uL (1.5-3.5); LYMPHOCYTES % (AUTO) 17.2 %; MEAN CORPUSCULAR HEMOGLOBIN 30.7 pg (27.0-31.0); MEAN CORPUSCULAR HGB CONC 32.7 g/dL (32.0-36.0); MEAN CORPUSCULAR VOLUME 93.7 fL (81.0-99.0); MEAN PLATELET VOLUME 10.7 fL (7.9-10.8); MONOCYTES # (AUTO) 0.7 10^3/uL (0.0-1.0); MONOCYTES % (AUTO) 9.5 %; NEUTROPHILS # (AUTO) 5.1 10^3/uL (1.5-6.6); PLT - PLATELET COUNT 230 10^3/uL (130-450); RED BLOOD COUNT 3.49 10^6/uL (4.20-5.40); RED CELL DISTRIBUTION WIDTH 12.5 % (12.0-15.0); WHITE BLOOD COUNT 7.5 x10^3/uL (4.8-10.8)
[2020-11-23 05:22] LABS: CALCIUM 8.5 mg/dL (8.5-10.3); CREATININE 0.5 mg/dL (0.4-1.0); POTASSIUM 4.1 mmol/L (3.5-5.0)
[2020-11-23] MEDS: PANTOPRAZOLE 40 MG TABLET PO SCH (05:38)
[2020-11-23] MEDS: ONDANSETRON 4 MG/2 ML VIAL IVP PRN (05:39)
[2020-11-23] MEDS: cefTRIAXone 1 GM in SODIUM CHLORIDE 0.9% MINIBAG 100 ML IV SCH (07:49)
[2020-11-23] MEDS: ENOXAPARIN 40 MG/0.4 ML SYRINGE SUBQ SCH (07:49)
[2020-11-23] MEDS: INSULIN ASPART 300 UNIT/3 ML PEN SUBQ SCH ×4 (07:50→20:46)
[2020-11-23] MEDS: SODIUM CHLORIDE FLUSH 0.9% 10 ML SYRINGE IVP SCH ×2 (07:51→17:50)
[2020-11-23 08:16] LABS: VANCOMYCIN,TROUGH 10.1 ug/mL (10.0-20.0)
[2020-11-23] MEDS: VANCOMYCIN INJ 1 GM in SODIUM CHLORIDE 0.9% 250 ML IV SCH (08:35)
[2020-11-23] MEDS: PROCHLORPERAZINE 10 MG/2 ML VIAL IVP PRN (08:42)
[2020-11-23] MEDS ORDERED: MULTIVITAMIN W/MINERALS TABLET PO SCH (09:00)
[2020-11-23] MEDS ORDERED: SODIUM CHLORIDE 0.9% 1,000 ML IV SCH (09:10)
[2020-11-23] MEDS: INSULIN GLARGINE 300 UNIT/3 ML PEN SUBQ SCH ×2 (10:00→20:47)
--- NOTE | 2020-11-23 11:15 | PHARMACY PROGRESS NOTE ---
- Therapy Status Vancomycin regimen day #: 3 Therapy status: Awaiting steady state Basis for treatment: Empirical Treatment indication: Cellulitus in a diabetic Trough goal: ~15 Concurrent antibiotics: Ceftriaxone 1 gram daily - IVET Risk Risk level for Acute Kidney Injury: Moderate Acute Kidney Injury risk factors: Diabetes - Monitoring and Recommendation Clinical response to treatment: I&O Previous 24 hours 11/21/20 11/22/20 11/23/20 23:59 23:59 23:59 Intake Total 5554.468 3847.667 1370 Output Total 100 1350 660 Balance 5197.031 4364.667 710 Lab Results 11/23/20 11/22/20 11/21/20 04:21 04:03 18:09 BUN 17 26 H 30 H Creatinine 0.5 0.7 1.0 Estimated GFR (MDRD) 140 95 63 L Vancomycin Monitoring 11/23/20 08:05 Vancomycin Trough 10.1 Monitoring plan: Daily serum creatinine Next trough due prior to maintenance dose #: 4 Next trough due (date/time): 11/24/20 at 1500 Areas for additional monitoring: IV to PO when appropriate, Therapy de- escalation based on culture results Pharmacy recommendation: Increase dose (Decreasing interval from q12h to q8h)
[2020-11-23 12:19] VITALS: BP 111/75
[2020-11-23] MEDS ORDERED: VANCOMYCIN INJ 1 GM in SODIUM CHLORIDE 0.9% 250 ML IV SCH (16:00)
--- NOTE | 2020-11-23 18:15 | PROVIDER PROGRESS NOTE ---
Assessment/Plan - Problem List (1) Cellulitis of right foot Assessment/Plan: The pain is unchanged, no better or worse, per pt. The appearance is no different clinically: minimally swollen and brown, and has same borders. She had Doppler done in ER and had no DVT found. The blood cx from 48 hours ago has grown no bacteria. Awaiting MRI of foot and lower leg, to check for osteomyelitis, since her pain is out of proportion to clinical findings. Will admit to inpatient status since she still requires high amounts of narcotics for pain control and we are working up if this is osteomyelitis. Will eventually transition from IV to p.o. meds that controls her pain. The dilemma is that with her drug abuse in the past, her current request for pain meds is somewhat suspicious since it is out of proportion to findings, and she may therefore be exhibiting drug-seeking behavior. (2) DM I (diabetes mellitus, type I), uncontrolled Qualifiers: Glycemic state: with hyperglycemia Qualified Code(s): E10.65 - Type 1 diabetes mellitus with hyperglycemia Assessment/Plan: DKA in the past, not this admission, despite having an infection. Yesterday she requested no carb-controlled diet. She was put on a regular diet which is what she eats at home and she adjusts her insulin based on that. Continue with Lantus insulin and sliding scale Insulin coverage for glucose checks. (3) Noncompliance with medication regimen Assessment/Plan: As described above regarding not following a diabetic diet (4) Smoker Assessment/Plan: A nicotine patch has been ordered (5) History of methamphetamine abuse Assessment/Plan: As per Hx - Current Meds Current Meds: Current Medications Generic Name Dose Route Start Last Admin Trade Name Freq PRN Reason Stop Dose Admin Acetaminophen 650 mg 11/21/20 19:48 11/23/20 10:00 Acetaminophen 325 Mg Tablet PO 650 mg Q4HR PRN Administration Pain 1 to 4 Enoxaparin Sodium 40 mg 11/22/20 09:00 11/23/20 07:49 Enoxaparin 40 Mg/0.4 Ml Syringe SUBQ 40 mg DAILY ANUEL Administration Ceftriaxone Sodium 1 gm/ 100 mls @ 200 mls/hr 11/22/20 12:00 11/23/20 08:35 Sodium Chloride IV Infused DAILY ANUEL Infusion Vancomycin HCl 1 gm/ Sodium 250 mls @ 167 mls/hr 11/23/20 16:00 11/23/20 17:50 Chloride IV Not Given Q8H [facility] Insulin Aspart 1 - 9 unit 11/22/20 21:00 11/23/20 17:50 Insulin Aspart 300 Unit/3 Ml Pen SUBQ Not Given 0800,1200,1700,2100 [facility] Protocol Insulin Glargine 20 unit 11/21/20 21:00 11/23/20 10:00 Insulin Glargine 300 Unit/3 Ml Pen SUBQ 20 unit BID [facility] Administration Multivitamins/Minerals 1 tab 11/23/20 09:00 11/23/20 10:00 Multivitamin W/Minerals Tablet PO 1 tab DAILYWM [facility] Administration Ondansetron HCl 4 mg 11/21/20 19:48 11/23/20 05:39 Ondansetron 4 Mg/2 Ml Vial IVP 4 mg Q6HR PRN Administration Nausea / Vomiting Oxycodone HCl 5 mg 11/22/20 10:37 11/23/20 17:37 Oxycodone 5 Mg Tablet PO 5 mg Q4HR PRN Administration PAIN Pantoprazole Sodium 40 mg 11/22/20 07:00 11/23/20 05:38 Pantoprazole 40 Mg Tablet PO 40 mg QDAC ANUEL Administration Prochlorperazine Edisylate 10 mg 11/22/20 02:48 11/23/20 08:42 Prochlorperazine 10 Mg/2 Ml Vial IVP 10 mg Q6HR PRN Administration Nausea / Vomiting Sodium Chloride 10 ml 11/21/20 19:48 11/23/20 05:39 Sodium Chloride Flush 0.9% 10 Ml Syringe IVP 10 ml PRN PRN Administration NEEDED PER PROVIDER ORDERS Sodium Chloride 10 ml 11/22/20 01:00 11/23/20 17:50 Sodium Chloride Flush 0.9% 10 Ml Syringe IVP 10 ml 0100,0900,1700 [facility] Administration - Lab Result Fish Bone Diagrams: 11/23/20 04:21 11/23/20 04:21 - Additional Planning My Orders: My Active Orders 11/22/20 21:00 Insulin Aspart [NovoLOG] 1 - 9 unit SUBQ 0800,1200,1700,2100 11/23/20 09:00 Multivitamin W/Minerals [Theragran M] 1 tab PO DAILYWM 11/23/20 09:10 Sodium Chloride 0.9% [Normal Saline 0.9%] 1,000 ml IV 125 mls/hr 11/23/20 15:34 FOOT WO - RT [MRI] Routine 11/23/20 15:35 LOWER LEG (TIB-FIB) WO - RT [MRI] Routine 11/24/20 15:00 VANCOMYCIN TROUGH [CHEM] Timed Subjective - Subjective Patient Reports: Pain Objective Vital Signs: Vital Signs - 24 hr 11/22/20 11/22/20 11/23/20 21:00 23:32 04:51 Temperature 36.5 C 36.7 C 36.9 C Heart Rate [ 105 H 104 H 98 Brachial] Respiratory 16 16 15 Rate Blood Pressure 126/93 H 116/78 108/73 [Right Brachial artery] O2 Saturation 95 96 96 11/23/20 11/23/20 08:42 12:19 Temperature 36.6 C 36.6 C Heart Rate [ 105 H 100 Brachial] Respiratory 18 17 Rate Blood Pressure 139/90 H 111/75 [Right Brachial artery] O2 Saturation 98 96 Oxygen O2 Source Room air I&O (Last 24 Hrs): Intake and Output Totals x24h 11/21/20 11/22/20 11/23/20 23:59 23:59 23:59 Intake Total 4144.353 3867.667 2100 Output Total 100 1350 2010 Balance 5420.852 9376.667 90 General: Alert, Oriented x3 HEENT: Atraumatic, Mucous membr. moist/pink Neck: Supple Neuro: Alert, Non Focal Cardiovascular: Regular rate Respiratory: No respiratory distress Abdomen: Soft Extremities: Other (Minimal swelling and brown discoloration in unchanged outlined area, no calf tenderness to touch) - Results Results: Laboratory Results WBC 7.5 x10^3/uL (4.8-10.8) 11/23/20 04:21 RBC 3.49 10^6/uL (4.20-5.40) L 11/23/20 04:21 Hgb 10.7 g/dL (12.0-16.0) L 11/23/20 04:21 Hct 32.7 % (37.0-47.0) L 11/23/20 04:21 MCV 93.7 fL (81.0-99.0) 11/23/20 04:21 MCH 30.7 pg (27.0-31.0) 11/23/20 04:21 MCHC 32.7 g/dL (32.0-36.0) 11/23/20 04:21 RDW 12.5 % (12.0-15.0) 11/23/20 04:21 Plt Count 230 10^3/uL (130-450) 11/23/20 04:21 MPV 10.7 fL (7.9-10.8) 11/23/20 04:21 Neut # (Auto) 5.1 10^3/uL (1.5-6.6) 11/23/20 04:21 Lymph # (Auto) 1.3 10^3/uL (1.5-3.5) L 11/23/20 04:21 [place] # (Auto) 0.7 10^3/uL (0.0-1.0) 11/23/20 04:21 Eos # (Auto) 0.3 10^3/uL (0.0-0.7) 11/23/20 04:21 Baso # (Auto) 0.0 10^3/uL (0.0-0.1) 11/23/20 04:21 Absolute Nucleated RBC 0.00 x10^3/uL 11/23/20 04:21 Nucleated RBC % 0.0 /100WBC 11/23/20 04:21 VBG pH 7.328 (7.31-7.41) 11/21/20 18:09 VBG pCO2 57.7 mmHg (41-51) H 11/21/20 18:09 VBG pO2 20.6 mmHg (25-47) L 11/21/20 18:09 VBG HCO3 29.6 mmol/L (23-28) H 11/21/20 18:09 VBG Total CO2 31.4 mmol/L (24-29) H 11/21/20 18:09 VBG O2 Saturation 41.8 % (60-80) L 11/21/20 18:09 VBG Base Excess 2.1 mmol/L (-2 - +2) H 11/21/20 18:09 Sodium 138 mmol/L (135-145) 11/23/20 04:21 Potassium 4.1 mmol/L (3.5-5.0) 11/23/20 04:21 Chloride 103 mmol/L (101-111) 11/23/20 04:21 Carbon Dioxide 28 mmol/L (21-32) 11/23/20 04:21 Anion Gap 7.0 (6-13) 11/23/20 04:21 BUN 17 mg/dL (6-20) 11/23/20 04:21 Creatinine 0.5 mg/dL (0.4-1.0) 11/23/20 04:21 Estimated GFR (MDRD) 140 (>89) 11/23/20 04:21 Glucose 156 mg/dL (70-100) H 11/23/20 04:21 POC Whole Bld Glucose 126 mg/dL (70 - 100) H 11/23/20 16:25 Estimat Average Glucose 286 mg/dL (70-100) H 11/22/20 04:03 Hemoglobin A1c % 11.6 % (4.27-6.07) H 11/22/20 04:03 Lactic Acid 1.0 mmol/L (0.5-2.2) 11/21/20 18:09 Calcium 8.5 mg/dL (8.5-10.3) 11/23/20 04:21 Urine Color YELLOW 11/21/20 19:46 Urine Clarity HAZY (CLEAR) 11/21/20 19:46 Urine pH 6.0 PH (5.0-7.5) 11/21/20 19:46 Ur Specific [place] >=1.030 (1.002-1.030) H 11/21/20 19:46 Urine Protein 100 mg/dL (NEGATIVE) H 11/21/20 19:46 Urine Glucose (UA) 250 mg/dL (NEGATIVE) H 11/21/20 19:46 Urine Ketones TRACE mg/dL (NEGATIVE) 11/21/20 19:46 Urine Occult Blood MODERATE (NEGATIVE) H 11/21/20 19:46 Urine Nitrite NEGATIVE (NEGATIVE) 11/21/20 19:46 Urine Bilirubin NEGATIVE (NEGATIVE) 11/21/20 19:46 Urine Urobilinogen 0.2 (NORMAL) E.U./dL (NORMAL) 11/21/20 19:46 Ur Leukocyte Esterase NEGATIVE (NEGATIVE) 11/21/20 19:46 Urine RBC 0-5 /HPF (0-5) 11/21/20 19:46 Urine WBC 0-3 /HPF (0-5) 11/21/20 19:46 Ur Squamous Epith Cells MOD Squamous (<= Few) H 11/21/20 19:46 Amorphous Sediment Few /LPF 11/21/20 19:46 Urine Bacteria Few /HPF (None Seen) 11/21/20 19:46 Urine Mucus Few Strands 11/21/20 19:46 Ur Microscopic Review INDICATED 02 19:46 Urine Culture Comments NOT INDICATED 11/21/20 19:46 Urine HCG, Qual NEGATIVE 11/21/20 19:46 Nasal Adenovirus (PCR) NOT DETECTED 11/21/20 20:00 Nasal B. parapertussis DNA (PCR) NOT DETECTED 11/21/20 20:00 Nasal Coronavir 229E PCR NOT DETECTED 11/21/20 20:00 Nasal Coronavir HKU1 PCR NOT DETECTED 11/21/20 20:00 Nasal Coronavir NL63 PCR NOT DETECTED 11/21/20 20:00 Nasal Coronavir OC43 PCR NOT DETECTED 11/21/20 20:00 Nasal Enterovir/Rhinovir PCR NOT DETECTED 11/21/20 20:00 Nasal Influenza B PCR NOT DETECTED 11/21/20 20:00 Nasal Influenza A PCR NOT DETECTED 11/21/20 20:00 Nasal Parainfluen 1 PCR NOT DETECTED 11/21/20 20:00 Nasal Parainfluen 2 PCR NOT DETECTED 11/21/20 20:00 Nasal Parainfluen 3 PCR NOT DETECTED 11/21/20 20:00 Nasal Parainfluen 4 PCR NOT DETECTED 11/21/20 20:00 Nasal RSV (PCR) NOT DETECTED 11/21/20 20:00 Nasal Screen MRSA (PCR) NEGATIVE (NEGATIVE) 11/22/20 13:26 Nasal B.pertussis DNA PCR NOT DETECTED 11/21/20 20:00 Nasal C.pneumoniae (PCR) NOT DETECTED 11/21/20 20:00 Prieto Human Metapneumo PCR NOT DETECTED 11/21/20 20:00 Nasal M.pneumoniae (PCR) NOT DETECTED 11/21/20 20:00 Nasal SARS-CoV-2 (PCR) NOT DETECTED 11/21/20 20:00 Last Dose Date UNK 11/23/20 08:05 Last Dose Time UNK 11/23/20 08:05 Vancomycin Trough 10.1 ug/mL (10.0-20.0) 11/23/20 08:05 Urine Opiates Screen POSITIVE (NEGATIVE) H 11/21/20 19:46 Ur Oxycodone Screen NEGATIVE (NEGATIVE) 11/21/20 19:46 Urine Methadone Screen NEGATIVE (NEGATIVE) 11/21/20 19:46 Ur Propoxyphene Screen NEGATIVE (NEGATIVE) 11/21/20 19:46 Ur Barbiturates Screen NEGATIVE (NEGATIVE) 11/21/20 19:46 Ur Tricyclics Screen NEGATIVE (NEGATIVE) 11/21/20 19:46 Ur Phencyclidine Scrn NEGATIVE (NEGATIVE) 11/21/20 19:46 Ur Amphetamine Screen NEGATIVE (NEGATIVE) 11/21/20 19:46 U Methamphetamines Scrn NEGATIVE (NEGATIVE) 11/21/20 19:46 U Benzodiazepines Scrn NEGATIVE (NEGATIVE) 11/21/20 19:46 Urine Cocaine Screen NEGATIVE (NEGATIVE) 11/21/20 19:46 U Cannabinoids Screen POSITIVE (NEGATIVE) H 11/21/20 19:46 - Procedures Procedures: Procedures INSERTION OF ENDOTRACHEAL AIRWAY INTO TRACHEA, VIA OPENING (10/08/19) INSERTION OF INFUSION DEV INTO SUP VENA CAVA, PERC APPROACH (10/15/18) RESPIRATORY VENTILATION, LESS THAN 24 CONSECUTIVE HOURS (10/08/19)
[2020-11-23] MEDS ORDERED: IBUPROFEN 400 MG TABLET PO PRN (20:35)
--- NOTE | 2020-11-23 21:36 | DISCHARGE SUMMARY ---
Discharge Summary - ALLERGIES Allergies/Adverse Reactions: Allergies Allergy/AdvReac Type Severity Reaction Status Date / Time No Known Drug Allergies Allergy Verified 11/21/20 17:51 - MEDICATIONS Home Medications: Ambulatory Orders Medication Instructions Recorded Confirmed Insulin Aspart [NovoLOG] 2 - 18 units SUBQ AC 10/15/18 11/22/20 Insulin Glargine [Lantus Solostar] 20 units SUBQ BID 10/15/18 11/22/20 Ondansetron [Ondansetron Odt] 8 mg PO .Q 4-6 HOURS PRN 11/22/20 11/22/20 - LABS Result Diagrams: 11/23/20 04:21 11/23/20 04:21
--- NOTE | 2020-11-23 21:39 | DISCHARGE SUMMARY ---
Discharge Summary Admit Date: 11/21/20 Discharge Date: 11/23/20 Discharging Provider: Miller Dacosta Primary Care Provider: Gage Singh Code Status: Attempt Resuscitation Condition at Discharge: Stable Discharge Disposition: 01 Home, Self Care - DIAGNOSES Admission Diagnoses: Cellulitis of right foot Diabetes mellitus type 1 uncontrolled Discharge Diagnoses with Status of Each Condition: Cellulitis of right foot: Improved/Resolved Diabetes mellitus type 1 uncontrolled: Chronic - HOSPITAL COURSE Hospital Course: Per HPI: 35-year-old female with medical history significant for diabetes mellitus type 1 uncontrolled, right lower extremity diabetic foot ulcer and methamphetamine abuse who presented to the ED with complaint of worsening redness in her right foot, swelling of the foot, tenderness to palpation. Her symptoms have been going on for about 10 days. She was prescribed cefdinir for outpatient management of cellulitis which she took to completion except for the last day's dose. The redness seems to have progressed despite the antibiotics. She also has chills but no fever. Upon presentation to the ED she was tachycardic with a heart rate in the 120s and her systolic blood pressure was 90. However her lactic acid was normal at 1.0. As a result she was presented for admission for continued IV antibiotic treatment. At bedside she is shivering. She denies chest pain or dyspnea. She has nasal congestion, complains of nausea, vomiting and mild abdominal pain. The right lower extremity appears mildly hyperemic. It seems tender to palpation. Work- up in the ED included lower extremity Dopplers which were negative for DVT. She received IV vancomycin for 3 days. On the day of admission, her white blood cell count was 11.6. This improved to 7.5 for the subsequent 2 days of her stay. There was no progression of redness in her foot over the 3 days of hospital stay. The patient was afebrile throughout this time as well. Given that she had been stable for 3 days she was discharged home with a prescription of Bactrim DS to take 1 tablet p.o. twice daily for 7 days. She was advised to take Tylenol or ibuprofen for pain. Blood cultures obtained at time of admission have been no growth to date. - ALLERGIES Allergies/Adverse Reactions: Allergies Allergy/AdvReac Type Severity Reaction Status Date / Time No Known Drug Allergies Allergy Verified 11/21/20 17:51 - MEDICATIONS Home Medications: Ambulatory Orders Medication Instructions Recorded Confirmed Insulin Aspart [NovoLOG] 2 - 18 units SUBQ AC 10/15/18 11/22/20 Insulin Glargine [Lantus Solostar] 20 units SUBQ BID 10/15/18 11/22/20 Ondansetron [Ondansetron Odt] 8 mg PO .Q 4-6 HOURS PRN 11/22/20 11/22/20 Sulfamethox/Trimeth 800/160 1 each PO BID 7 Days #14 tab 11/23/20 [Bactrim Ds 800/160] - PHYSICAL EXAM AT DISCHARGE General Appearance: positive: No acute distress, Alert, Other (Belligerent) ENT: positive: No signs of dehydration Neck: positive: No JVD, Trachea midline Respiratory: positive: No respiratory distress Cardiovascular: positive: Regular rate & rhythm Skin: positive: Color nml, No rash Extremities: positive: No pedal edema Neurologic/Psychiatric: positive: Oriented x3, Other (Belligerent) - LABS Result Diagrams: 11/23/20 04:21 11/23/20 04:21 - FOLLOW UP Follow Up: with Gage Singh as needed - TIME SPENT Time Spent in Discharge (Minutes): 25
--- NOTE | 2020-11-23 21:43 | Discharge Plan ---
Discharge Plan Problem Reviewed?: Yes Disposition: 01 Home, Self Care Condition: Stable Prescriptions: Sulfamethox/Trimeth 800/160 [Bactrim Ds 800/160] 1 each PO BID 7 Days #14 tab Diet: Diabetic Activity Restrictions: No Restrictions Shower Restrictions: No Driving Restrictions: No Health Concerns: You were admitted for concern of cellulitis Of your right foot. It was reported that you had failed outpatient treatment with cefdinir. You were treated with IV vancomycin for 3 days. In this time you have been afebrile and the white blood cell count which was 11.6 at presentation improved to 7.5. There has been no progression in redness in the affected area. Consequently you are being discharged home with oral antibiotic. Bactrim DS. To tabe 1 tablet twice daily for a total of 7 days. You may take Tylenol and or ibuprofen for pain in your foot. You are to continue taking your Lantus 20 units twice daily for your type 1 diabetes. Plan of Treatment: You were admitted for concern of cellulitis Of your right foot. It was reported that you had failed outpatient treatment with cefdinir. You were treated with IV vancomycin for 3 days. In this time you have been afebrile and the white blood cell count which was 11.6 at presentation improved to 7.5. There has been no progression in redness in the affected area. Consequently you are being discharged home with oral antibiotic. Bactrim DS. To tabe 1 tablet twice daily for a total of 7 days. You may take Tylenol and or ibuprofen for pain in your foot. You are to continue taking your Lantus 20 units twice daily for your type 1 diabetes. Care Goals: You were admitted for concern of cellulitis Of your right foot. It was reported that you had failed outpatient treatment with cefdinir. You were treated with IV vancomycin for 3 days. In this time you have been afebrile and the white blood cell count which was 11.6 at presentation improved to 7.5. There has been no progression in redness in the affected area. Consequently you are being discharged home with oral antibiotic. Bactrim DS. To tabe 1 tablet twice daily for a total of 7 days. You may take Tylenol and or ibuprofen for pain in your foot. You are to continue taking your Lantus 20 units twice daily for your type 1 diabetes. Assessment: You were admitted for concern of cellulitis Of your right foot. It was reported that you had failed outpatient treatment with cefdinir. You were treated with IV vancomycin for 3 days. In this time you have been afebrile and the white blood cell count which was 11.6 at presentation improved to 7.5. There has been no progression in redness in the affected area. Consequently you are being discharged home with oral antibiotic. Bactrim DS. To tabe 1 tablet twice daily for a total of 7 days. You may take Tylenol and or ibuprofen for pain in your foot. You are to continue taking your Lantus 20 units twice daily for your type 1 diabetes. No Smoking: If you smoke, Please STOP! Call for help. Follow-up with: LADONNA MICHAEL [Primary Care Provider] -
--- NOTE | 2020-11-23 22:25 | PROVIDER PROGRESS NOTE ---
Senior Adults Director Note - Senior Adults Director Note Senior Adults Director Note: The patient has been very belligerent and verbally abusive to all staff involved in her care. At one point in the evening she yelled out into the hallway at her nurse stating that she did not want to see him in her room again. Her words were significantly laden with expletives. She demanded to talk to me. When I arrived she wanted to know why she was no longer receiving IV pain medications. I explained that the plan was for discharge the following morning and we were working on de-escalating pain medications in anticipation of discharge home. Further that she could continue taking the oxycodone prescribed at 5 mg p.o. every 4 hours as needed and if more medications was needed we could use nonnarcotics like Tylenol and or ibuprofen. The patient was not happy with this response. Throughout this shift she would be very dismissive of staff and then demand their immediate presence again. When she felt her call light was not being answered as promptly as she liked she would open her door and start yelling down the hallway. Consequently I went back in to talk to the patient. I highlighted that she was being very verbally abusive to all staff and her belligerence was affecting other patients in the hospital. She was upset/aggravated by me pointing this out and she started using various racial slurs. She was dismissive, demanding that I get out of her room. I pointed out that she has been treated with IV antibiotics 9vancomycin) for 3 days in the hospital. In that time her white blood cell count had improved from 11.6 to 7.5. Blood cultures that were drawn at admission have been no growth to date. There has been no increase in the redness in her foot. As a matter of fact, the redness appeared to have significantly improved/resolved. I told her I will be discharging her home with a prescription of Bactrim DS to take 1 tablet p.o. twice daily for 7 days. This treatment plan seemed to upset/aggravate her even further. She forcefully threw the walking crutches she had been using to the floor, became even more belligerent, using even more expletives and racial slurs. She claimed she was recording the conversation and that I will be hearing from her formula bottler. She claimed I was refusing her care. However at the same time she started packing her backpack. I put in discharge orders and electronically sent a prescription of Bactrim as stated above to her pharmacy.
--- NOTE | 2020-11-24 08:23 | MRI Report ---
PROCEDURE: Lower Leg (Tib-Fib) RT W/O INDICATIONS: Eval for osteo TECHNIQUE: Noncontrast coronal and sagittal T1 spin echo and STIR; axial T1 spin echo and T2 fast spin echo with fat saturation through the the right tibia and fibula. COMPARISON: Correlation is made with the accompanying foot MRI, 11/23/2020. FINDINGS: Image quality: Excellent. Bones: The visualized bone marrow demonstrates normal signal on all sequences. The overlying cortex appears intact. No fractures lines or intra-osseous lesions. Soft tissues: The scanned muscles demonstrate normal overall bulk. There is increased edema seen in a generalized fashion throughout the musculature of the distal right lower extremity. There is genera lized increase in edema and swelling seen within the subcutaneous fat, particularly anteriorly. No s oft tissue masses are present. IMPRESSION: To the limits of this study that was performed without IV contrast, no abnormal bone marrow signal is seen to suggest osteomyelitis. Generalized cellulitis can be seen. There is also abnormal signal within the muscles, which is consistent with myositis. Reviewed by: Wil Sylvester MD on 11/24/2020 7:21 AM [facility] Approved by: Wil Sylvester MD on 11/24/2020 7:21 AM [facility] Station ID: [id number]
--- NOTE | 2020-11-24 08:40 | MRI Report ---
PROCEDURE: Foot RT W/O INDICATIONS: Eval for osteo TECHNIQUE: Noncontrast coronal and sagittal T1 spin echo and STIR; axial T1 spin echo and T2 fast spin echo with fat saturation through the the right foot. COMPARISON: Relation is made with the accompanying tibia and fibula MRI examination, 11/23/2020. Sugar elation is also made with the prior recent foot plain films, 11/21/2020 FINDINGS: Image quality: Excellent. Bones: Within the calcaneus, there is a T2 hyperintense tract seen, which extends into the talocalca denis joint. This tract demonstrates T2 hypointense margins. There is associated marrow edema seen, wi th decreased signal on T1-weighted imaging and increased signal on STIR imaging. The visualized bone marrow is otherwise demonstrates normal signal on all sequences. The overlying c ortex appears intact. No fractures lines or intra-osseous lesions. Soft tissues: Generalized soft tissue swelling is seen, with soft tissue edema. There is a tibiotalar joint effusion seen. Mild intramuscular edema can be seen. No soft tissue masses are present. IMPRESSION: Within the calcaneus, there is a T2 hyperintense cleft seen, which is attributed to a chronic fractur e with fluid along it. Please correlate with a history of remote trauma. There is surrounding bone ma rrow edema seen. This is attributed to infection this patient with this given history. If it would be helpful for clinical management decision making, please consider a dedicated ankle CT for further evaluation. The other bones are unremarkable. Generalized soft tissue edema is seen, which is attributed to cellulitis. There is a tibiotalar joint effusion. Mild intramuscular edema can be seen. Reviewed by: Wil Sylvester MD on 11/24/2020 7:39 AM [facility] Approved by: Wil Sylvester MD on 11/24/2020 7:39 AM [facility] Station ID: [id number]
== END 2020-11-23 21:53 | disposition home or self-care (01) | DRG 603 ==
LOC: ED 17:44 → MS2 19:48 → OBSVTOIN 11-23 14:51
PROVIDERS: ADMIT Internal Medicine; ATTEND Internal Medicine
DX: L03.115 Cellulitis of right lower limb (principal); E10.42 Type 1 diabetes mellitus with diabetic polyneuropathy; E10.65 Type 1 diabetes mellitus with hyperglycemia; H16.002 Unspecified corneal ulcer, left eye; F17.210 Nicotine dependence, cigarettes, uncomplicated; F15.11 Other stimulant abuse, in remission; Z20.822 Contact with and (suspected) exposure to COVID-19; Z72.89 Other problems related to lifestyle; Z91.19 Patient's noncompliance with other medical treatment and regimen; Z79.4 Long term (current) use of insulin
CPT/HCPCS: 0202U; 36415; 73630; 73718; 80048; 80202; 80306; 81001; 81025; 82803; 83036; 83605; 85025; 87040; 87640; 93971; 96365; 96366; 96368; 96372; 96375; 96376; 99284; 99285; A9270; G0378; J1170; J1650; J1815; J3370; 81003; 87086

== ENCOUNTER 2020-12-07 15:20 | Outpatient (CLI) | payer MEDICAID ==
[2020-12-07 18:15] LABS: BASOPHILS # (AUTO) 0.1 10^3/uL (0.0-0.1); BASOPHILS % (AUTO) 0.9 %; EOSINOPHILS # (AUTO) 0.3 10^3/uL (0.0-0.7); EOSINOPHILS % (AUTO) 2.8 %; HCT - HEMATOCRIT 40.4 % (37.0-47.0); HGB - HEMOGLOBIN 13.3 g/dL (12.0-16.0); LYMPHOCYTES # (AUTO) 2.3 10^3/uL (1.5-3.5); LYMPHOCYTES % (AUTO) 19.6 %; MEAN CORPUSCULAR HEMOGLOBIN 30.4 pg (27.0-31.0); MEAN CORPUSCULAR HGB CONC 32.9 g/dL (32.0-36.0); MEAN CORPUSCULAR VOLUME 92.2 fL (81.0-99.0); MEAN PLATELET VOLUME 10.6 fL (7.9-10.8); MONOCYTES # (AUTO) 0.6 10^3/uL (0.0-1.0); MONOCYTES % (AUTO) 5.2 %; NEUTROPHILS # (AUTO) 8.3 10^3/uL (1.5-6.6); PLT - PLATELET COUNT 411 10^3/uL (130-450); RED BLOOD COUNT 4.38 10^6/uL (4.20-5.40); RED CELL DISTRIBUTION WIDTH 12.4 % (12.0-15.0); WHITE BLOOD COUNT 11.7 x10^3/uL (4.8-10.8)
== END 2020-12-07 15:21 | disposition home or self-care (01) ==
LOC: LAB.N 15:20
PROVIDERS: ATTEND Physician Assistant
DX: M14.679 Charcot's joint, unspecified ankle and foot (principal)
CPT/HCPCS: 36415; 85025; 85651; 86140

== ENCOUNTER 2020-12-10 07:00 | Outpatient (CLI) | payer MEDICAID ==
--- NOTE | 2020-12-10 15:01 | XRAY Report ---
PROCEDURE: Ankle 3 View RT INDICATIONS: R ANKLE PX, CHARCOT'S FOOT TECHNIQUE: 3 views of the ankle were acquired. COMPARISON: MR foot 11/23/2020 x-ray foot 11/21/2020 FINDINGS: Bones: As identified on MR exam, there is appearance of calcaneal fracture. Since prior exam, there h as been loss of normal calcaneal contour within the mid and anterior portion as well as overall heigh t loss. Ankle mortise is normally aligned. No suspicious bony lesions. Soft tissues: No tibiotalar joint effusion. Achilles tendon appears normal. IMPRESSION: Interval sclerosis as well as height loss of the calcaneus corresponding to area of prev ious fracture. Reviewed by: Cherelle Frias MD on 12/10/2020 3:00 PM PDT Approved by: Cherelle Frias MD on 12/10/2020 3:00 PM PDT Station ID: [id number]
== END 2020-12-10 23:59 | disposition home or self-care (01) ==
LOC: DI.N 07:00
PROVIDERS: ATTEND Orthopaedic Surgery
DX: S92.001D Unspecified fracture of right calcaneus, subsequent encounter for fracture with routine healing (principal)

== ENCOUNTER 2021-02-04 15:44 | Outpatient (CLI) | payer MEDICAID ==
[2021-02-04 20:12] LABS: BASOPHILS # (AUTO) 0.1 10^3/uL (0.0-0.1); BASOPHILS % (AUTO) 0.7 %; EOSINOPHILS # (AUTO) 0.3 10^3/uL (0.0-0.7); EOSINOPHILS % (AUTO) 3.9 %; HCT - HEMATOCRIT 41.1 % (37.0-47.0); HGB - HEMOGLOBIN 14.1 g/dL (12.0-16.0); LYMPHOCYTES % (AUTO) 25.6 %; MEAN CORPUSCULAR HEMOGLOBIN 31.1 pg (27.0-31.0); MEAN CORPUSCULAR HGB CONC 34.3 g/dL (32.0-36.0); MEAN CORPUSCULAR VOLUME 90.7 fL (81.0-99.0); MEAN PLATELET VOLUME 11.2 fL (7.9-10.8); MONOCYTES # (AUTO) 0.5 10^3/uL (0.0-1.0); NEUTROPHILS # (AUTO) 4.8 10^3/uL (1.5-6.6); NEUTROPHILS % (AUTO) 62.4 %; PLT - PLATELET COUNT 251 10^3/uL (130-450); RED BLOOD COUNT 4.53 10^6/uL (4.20-5.40); RED CELL DISTRIBUTION WIDTH 13.1 % (12.0-15.0); WHITE BLOOD COUNT 7.7 x10^3/uL (4.8-10.8)
[2021-02-04 20:22] LABS: ESTIMATED AVERAGE GLUCOSE 275 mg/dL (70-100); HEMOGLOBIN A1c% 11.2 % (4.27-6.07)
[2021-02-04 20:28] LABS: ALBUMIN/GLOBULIN RATIO 1.4 (1.0-2.2); ALKALINE PHOSPHATASE 149 IU/L (42-121); ALT ALANINE AMINOTRANSFERASE 17 IU/L (10-60); AST ASPARTATE AMINOTRANSFERASE 13 IU/L (10-42); BILIRUBIN,TOTAL 0.4 mg/dL (0.2-1.0); BUN - BLOOD UREA NITROGEN 33 mg/dL (6-20); CALCIUM 9.2 mg/dL (8.5-10.3); CARBON DIOXIDE - CO2 29 mmol/L (21-32); CHLORIDE 94 mmol/L (101-111); CHOL/HDL RATIO 3.4 (<4.4); CHOLESTEROL 230 mg/dL; CREATININE 0.8 mg/dL (0.4-1.0); GFR - MDRD 82 (>89); GLUCOSE 380 mg/dL (70-100); HDL CHOLESTEROL 68 mg/dL; LDL CHOLESTEROL,CALCULATED 127 mg/dL; LDL/HDL RATIO 1.9 (<4.4); POTASSIUM 4.6 mmol/L (3.5-5.0); SODIUM 130 mmol/L (135-145); TOTAL PROTEIN 6.8 g/dL (6.7-8.2); TRIGLYCERIDES 177 mg/dL; VLDL CHOLESTEROL 35 mg/dL
[2021-02-04 20:41] LABS: THYROID STIMULATING HORMONE 5.1 uIU/mL (0.34-5.60)
[2021-02-04 21:03] LABS: CREATININE,URINE 105.8 mg/dL; MICROALBUM/CREATININE RATIO,UR 838.4 ug/mg (<30.0); MICROALBUMIN,URINE 88.7 mg/dL (0-300.0)
== END 2021-02-04 15:45 | disposition home or self-care (01) ==
LOC: DI.S 15:44 → LAB.S 15:45
PROVIDERS: ATTEND Physician Assistant
DX: E10.621 Type 1 diabetes mellitus with foot ulcer (principal)
CPT/HCPCS: 36415; 80053; 80061; 82043; 82570; 83036; 83721; 84443; 85025

== ENCOUNTER 2021-02-19 08:00 | Outpatient (CLI) | payer MEDICAID ==
--- NOTE | 2021-02-19 16:18 | XRAY Report ---
PROCEDURE: Foot 3 View RT INDICATIONS: CHARCOTS JOINT, R ANKLE AND FOOT TECHNIQUE: 3 views of the foot were acquired. COMPARISON: MRI of foot dated 11/23/2020 FINDINGS: Bones: Chronic-appearing deformity of calcaneus weight-bearing portion is again noted better evaluate d on previous MR study and is suggestive of calcaneal fracture. Persistent diastases calcaneal fractu re site with well corticated margin suggestive of nonunion. There is mild osteopenia. Osteoarthritic changes are noted in first MTP joint. No acute fracture or dislocation. No suspicious bony lesions. Soft tissues: No tibiotalar joint effusion. Achilles tendon appears normal. IMPRESSION: Suggestion of old slightly displaced calcaneal fracture with chronic-appearing deformity and suggesti on of nonunion. First MTP joint osteoarthritis. No acute fracture or dislocation. Mild osteopenia. Reviewed by: Emmanuel Degroot MD on 02/19/2021 4:17 PM PDT Approved by: Emmanuel Degroot MD on 02/19/2021 4:17 PM PDT Station ID: [id number]
--- NOTE | 2021-02-19 16:21 | XRAY Report ---
PROCEDURE: Ankle 3 View RT INDICATIONS: CHARCOTS JOINT, R FOOT AND ANKLE TECHNIQUE: 3 views of the ankle were acquired. COMPARISON: 12/10/2020 FINDINGS: Bones: Chronic-appearing calcaneal fracture is again seen. There is depression at calcaneal fracture site with flattening of plantar arch. No acute fracture or dislocation. Ankle mortise is normally ali gned. No suspicious bony lesions. Soft tissues: Ankle soft tissue swelling is noted. Amorphous calcifications are noted anterior and me dial to the tibiotalar joint as well as posterior to the tibiotalar joint unchanged from prior study and likely due to prior trauma. No tibiotalar joint effusion. Achilles tendon appears normal. IMPRESSION: Chronic-appearing calcaneal fracture with depression and pes planus not significantly ch anged from prior study. No new fracture or dislocation. Amorphous calcifications in ankle soft tissue around tibiotalar joint likely posttraumatic in etiology. Reviewed by: Emmanuel Degroot MD on 02/19/2021 4:20 PM PDT Approved by: Emmanuel Degroot MD on 02/19/2021 4:20 PM PDT Station ID: [id number]
== END 2021-02-19 23:59 | disposition home or self-care (01) ==
LOC: DI.N 08:00
PROVIDERS: ATTEND Orthopaedic Surgery
DX: M19.071 Primary osteoarthritis, right ankle and foot (principal); R93.6 Abnormal findings on diagnostic imaging of limbs; S92.001D Unspecified fracture of right calcaneus, subsequent encounter for fracture with routine healing; M21.41 Flat foot [pes planus] (acquired), right foot

== ENCOUNTER 2021-05-20 10:45 | Outpatient (CLI) | payer MEDICAID ==
--- NOTE | 2021-05-20 14:51 | XRAY Report ---
PROCEDURE: Foot 3 View RT INDICATIONS: CHARCOT'S JOINT, RIGHT FOOT AND ANKLE TECHNIQUE: 3 views of the foot were acquired. COMPARISON: X-ray ankle 05/20/2021, x-ray foot 12/10/2020, 12/20/2020, 11/23/2020 FINDINGS: Bones: No fractures or dislocations. No suspicious bony lesions. There is midfoot degenerative bipin nge. There is deformity of the calcaneus appearing slightly more compressive when compared to 02/20/20. This appears to be secondary to previously identified fracture. Soft tissues: No tibiotalar joint effusion. Achilles tendon appears normal. IMPRESSION: 1. Appearance of progressive internal collapse of the anterior calcaneus likely secondary to previous ly identified fracture. New superimposed fracture since most recent prior exam cannot be definitively excluded. As clinically indicated, further characterization with MRI or CT may be obtained. Reviewed by: Cherelle Frias MD on 05/20/2021 2:50 PM PDT Approved by: Cherelle Frias MD on 05/20/2021 2:50 PM PDT Station ID: [id number]
--- NOTE | 2021-05-20 16:36 | XRAY Report ---
PROCEDURE: Ankle 3 View RT INDICATIONS: CHARCOT'S JOINT, RIGHT FOOT AND ANKLE TECHNIQUE: 3 views of the ankle were acquired. COMPARISON: X-ray foot/ankle 05/20/2021, 02/19/2021, 12/10/2020, 11/21/2020, MRI 11/23/2020 FINDINGS: Bones: There is midfoot degenerative change. Right calcaneal deformity appearing slightly more comp ressive is present when compared to 02/19/2021. This appears to be secondary to a previously identifie d fracture. Ankle mortise is normally aligned. No suspicious bony lesions. Soft tissues: No tibiotalar joint effusion. Achilles tendon appears normal. IMPRESSION: 1. Progressive internal collapse of the anterior calcaneus likely secondary to previous identified fr acture. No superimposed fracture since most recent prior exam cannot be definitively excluded. If thi s is of concern as clinically indicated, further characterization with MR or CT is recommended. Reviewed by: Cherelle Frias MD on 05/20/2021 4:34 PM PDT Approved by: Cherelle Frias MD on 05/20/2021 4:34 PM PDT Station ID: [id number]
== END 2021-05-20 23:59 | disposition home or self-care (01) ==
LOC: DI.N 10:45
PROVIDERS: ATTEND Orthopaedic Surgery
DX: M14.671 Charcot's joint, right ankle and foot (principal)

== ENCOUNTER 2021-11-23 10:46 | Outpatient (CLI) | payer MEDICAID | END 2021-11-23 10:47 | disposition critical access hospital (66) | LOC: EMS 10:46 | DX: R10.9 Unspecified abdominal pain (principal); R11.2 Nausea with vomiting, unspecified; R53.1 Weakness; R42 Dizziness and giddiness; R53.81 Other malaise | CPT/HCPCS: A0425; A0427; A0999 ==

== ENCOUNTER 2021-11-23 11:39 | Emergency (ER) | payer MEDICAID ==
[2021-11-23] MEDS ORDERED: SODIUM CHLORIDE 0.9% 1,000 ML IV STA ×2 (12:02→12:25)
--- NOTE | 2021-11-23 12:09 | ED Physician Documentation ---
PD HPI ABD PAIN - Stated complaint Stated Complaint: ABD PX - Chief complaint Chief Complaint: Abd Pain - History obtained from History obtained from: Patient, EMS (EMS noted vomiting and hypotension initially on their arrival. IV fluids on route.) - History of Present Illness Timing - onset: How many days ago (4) Timing - duration: Days (4) Timing - details: Abrupt onset, Still present Quality: Cramping, Aching, Pain Location: All over / everywhere Radiation: No: Chest, Lower back Improved by: No: Eating, Vomiting Worsened by: Eating Associated symptoms: Nausea, Vomiting, Diarrhea, Loss of appetite, Other (general weakness with near syncope today with standing up. She had noted her blood sugars elevated despite less intake, and is still taking her usual insulin (Lantus usual dose and took lower dose of her Novolog). Persistent vomiting and diarrhea now on 4th day.). No: Fever, Hematemesis, Constipation, Hematochezia Similar symptoms before: Has not had sx before Recently seen: Not recently seen Review of Systems Constitutional: denies: Fever, Chills Nose: denies: Rhinorrhea / runny nose, Congestion Throat: denies: Sore throat Cardiac: denies: Chest pain / pressure Respiratory: denies: Dyspnea, Cough GI: reports: Abdominal Pain, Nausea, Vomiting, Diarrhea. denies: Abdominal Swelling, Constipation, Hematemesis, Bloody / black stool : denies: Dysuria, Frequency Neurologic: reports: Generalized weakness, Near syncope. denies: Syncope, Altered mental status, Headache PD PAST MEDICAL HISTORY - Past Medical History Past Medical History: Yes Cardiovascular: Deep vein thrombosis Respiratory: Other Neuro: Peripheral neuropathy Endocrine/Autoimmune: Type 1 diabetes GI: None MED DIR: None : None HEENT: Chronic vision loss, Other Psych: None Musculoskeletal: None Derm: Other - Past Surgical History Past Surgical History: Yes Neuro: Other - Present Medications Home Medications: Ambulatory Orders Medication Instructions Recorded Confirmed Insulin Aspart [NovoLOG] 2 - 18 units SUBQ AC 10/15/18 11/23/21 Insulin Glargine [Lantus Solostar] 18 units SUBQ BID 10/15/18 11/23/21 Diphenoxylate/Atropine [Lomotil] 1 each PO QID PRN #12 tablet 11/23/21 HYDROcod/ACETAM 5/325 [Leopold 5/325] 1 ea PO Q6H PRN #10 tablet 11/23/21 Ondansetron Odt [Zofran Odt] 4 mg TL Q6H PRN 11/23/21 11/23/21 Ondansetron Odt [Zofran] 4 mg TL Q6H PRN #10 tablet 11/23/21 acetaZOLAMIDE [Diamox] 250 mg PO QID 11/23/21 11/23/21 - Allergies Allergies/Adverse Reactions: Allergies Allergy/AdvReac Type Severity Reaction Status Date / Time No Known Drug Allergies Allergy Verified 11/23/21 11:51 - Social History Does the pt smoke?: Yes Smoking Status: Current some day smoker Does the pt drink ETOH?: Yes Does the pt have substance abuse?: Yes Substance Use and Type: Marijuana - Immunizations Immunizations are current?: No Immunizations: Other immun not current - POLST Patient has POLST: No POLST Status: Full Code PD ED PE NORMAL - Vitals Vital signs reviewed: Yes (BP is good on arrival here; was low [employer].) - General General: No acute distress, Well developed/nourished - HEENT HEENT: Pharynx benign. No: Moist mucous membranes - Neck Neck: Supple, no meningeal sign, No adenopathy - Cardiac Cardiac: RRR, No murmur - Respiratory Respiratory: Clear bilaterally - Abdomen Abdomen: Soft, Non distended, No organomegaly, Other (tender mid abd and LLQ with some local guarding but no percussion nor rebound. RLQ is not tender. ). No: Normal bowel sounds (decreased) - Female Female : Deferred - Rectal Rectal: Deferred - Back Back: No CVA TTP - Derm Derm: Normal color, Warm and dry - Extremities Extremities: Normal ROM s pain, No edema, No calf tenderness / cord - Neuro Neuro: Alert and oriented X 3, No motor deficit, Normal speech Results - Vitals Vitals: Vital Signs - 24 hr 11/23/21 11/23/21 11/23/21 11:53 12:02 13:03 Temperature 36.5 C Heart Rate 96 96 Heart Rate [ 97 Sitting] Heart Rate [ 99 Standing] Heart Rate [ 99 Supine] Respiratory 12 12 Rate Blood Pressure 113/83 H 109/81 H Blood Pressure 107/72 [Sitting] Blood Pressure 80/55 L [Standing] Blood Pressure 120/91 H [Supine] O2 Saturation 98 100 11/23/21 11/23/21 14:13 16:00 Temperature Heart Rate 96 96 Heart Rate [ Sitting] Heart Rate [ Standing] Heart Rate [ Supine] Respiratory 22 16 Rate Blood Pressure 110/83 H 115/89 H Blood Pressure [Sitting] Blood Pressure [Standing] Blood Pressure [Supine] O2 Saturation 100 100 Oxygen O2 Source Room air - Labs Labs: Laboratory Tests 11/23/21 11/23/21 11/23/21 12:12 12:12 12:12 WBC 7.5 RBC 4.32 Hgb 13.6 Hct 38.6 MCV 89.4 MCH 31.5 H MCHC 35.2 RDW 12.2 Plt Count 256 MPV 10.7 Neut # (Auto) 4.7 Lymph # (Auto) 1.9 Chester # (Auto) 0.6 Eos # (Auto) 0.3 Baso # (Auto) 0.1 Absolute Nucleated RBC 0.00 Nucleated RBC % 0.0 VBG pH 7.310 VBG pCO2 42.5 VBG pO2 43.3 VBG HCO3 20.9 L VBG Total CO2 22.2 L VBG O2 Saturation 82.7 H VBG Base Excess -5.1 L Sodium 137 Potassium 3.9 Chloride 108 Carbon Dioxide 20 L Anion Gap 9.0 BUN 34 H Creatinine 0.8 Estimated GFR (MDRD) 81 L Glucose 234 H Calcium 9.2 Phosphorus 3.4 Magnesium 2.1 Total Bilirubin 0.6 AST 11 ALT 16 Alkaline Phosphatase 92 Total Protein 6.6 L Albumin 4.0 Globulin 2.6 Albumin/Globulin Ratio 1.5 Lipase 24 Urine Color Urine Clarity Urine pH Ur Specific [place] Urine Protein Urine Glucose (UA) Urine Ketones Urine Occult Blood Urine Nitrite Urine Bilirubin Urine Urobilinogen Ur Leukocyte Esterase Urine RBC Urine WBC Ur Squamous Epith Cells Urine Crystals Urine Bacteria Urine Casts Urine Mucus Ur Microscopic Review Urine Culture Comments Urine HCG, Qual Urine Opiates Screen Ur Oxycodone Screen Urine Methadone Screen Ur Propoxyphene Screen Ur Barbiturates Screen Ur Tricyclics Screen Ur Phencyclidine Scrn Ur Amphetamine Screen U Methamphetamines Scrn U Benzodiazepines Scrn Urine Cocaine Screen U Cannabinoids Screen Serum Ketones NEGATIVE 11/23/21 12:50 WBC RBC Hgb Hct MCV MCH MCHC RDW Plt Count MPV Neut # (Auto) Lymph # (Auto) [place] # (Auto) Eos # (Auto) Baso # (Auto) Absolute Nucleated RBC Nucleated RBC % VBG pH VBG pCO2 VBG pO2 VBG HCO3 VBG Total CO2 VBG O2 Saturation VBG Base Excess Sodium Potassium Chloride Carbon Dioxide Anion Gap BUN Creatinine Estimated GFR (MDRD) Glucose Calcium Phosphorus Magnesium Total Bilirubin AST ALT Alkaline Phosphatase Total Protein Albumin Globulin Albumin/Globulin Ratio Lipase Urine Color DARK YELLOW Urine Clarity HAZY Urine pH 6.0 Ur Specific [place] >=1.030 H Urine Protein 100 H Urine Glucose (UA) 250 H Urine Ketones NEGATIVE Urine Occult Blood LARGE H Urine Nitrite NEGATIVE Urine Bilirubin NEGATIVE Urine Urobilinogen 0.2 (NORMAL) Ur Leukocyte Esterase NEGATIVE Urine RBC 11-25 H Urine WBC 6-10 H Ur Squamous Epith Cells MANY Squamous H Urine Crystals 0-2 Calcium Oxalate Urine Bacteria Many H Urine Casts 0-2 Granular Casts Urine Mucus Marked Strands Ur Microscopic Review INDICATED Urine Culture Comments NOT INDICATED Urine HCG, Qual NEGATIVE Urine Opiates Screen NEGATIVE Ur Oxycodone Screen NEGATIVE Urine Methadone Screen NEGATIVE Ur Propoxyphene Screen NEGATIVE Ur Barbiturates Screen NEGATIVE Ur Tricyclics Screen NEGATIVE Ur Phencyclidine Scrn NEGATIVE Ur Amphetamine Screen NEGATIVE U Methamphetamines Scrn NEGATIVE U Benzodiazepines Scrn NEGATIVE Urine Cocaine Screen NEGATIVE U Cannabinoids Screen POSITIVE H Serum Ketones - Rads (name of study) abd/pelvic CT Radiology: Prelim report reviewed (no acute abnormality.), See rad report PD MEDICAL DECISION MAKING - ED course Complexity details: reviewed results (No ketosis noted. Her pH was slightly low at 7.3. Blood sugar was in the mid 200s. Electrolytes are okay. CT scan did not show any obvious acute abnormality.), re-evaluated patient (Feeling improved with IV fluids and antiemetic and pain medicine. Blood pressures remained normal after arrival and initial fluids.), considered differential (Abrupt onset with nausea vomiting and diarrhea would be more suggestive of viral gastroenteritis. She does have some abdominal lower pain and mild tenderness lower left so can get a CT scan to ensure no other acute abnormality. Otherwise IV fluids and medications. Assess for DKA with labs.), d/w patient Departure - Departure Disposition: 01 Home, Self Care Clinical Impression: Nausea vomiting and diarrhea, Elevated glucose level, Dehydration, Transient hypotension, Gastroenteritis Condition: Stable Record reviewed to determine appropriate education?: Yes Instructions: ED Diet Vomiting Diarrhea Prescriptions: Diphenoxylate/Atropine [Lomotil] 1 each PO QID PRN #12 tablet PRN Reason: Diarrhea HYDROcod/ACETAM 5/325 [Leopold 5/325] 1 ea PO Q6H PRN #10 tablet PRN Reason: Pain Ondansetron Odt [Zofran] 4 mg TL Q6H PRN #10 tablet PRN Reason: Nausea / Vomiting Comments: Stay well-hydrated with small frequent fluids and initially bland food and easy to digest. Continue with your usual insulin regimen. Your blood tests are good without any signs of acidosis ketosis or electrolyte abnormalities. Your CT scan does not show any acute abnormality. I presume the nausea vomiting diarrhea and cramps relate to a likely viral gastroenteritis. Hopefully time course is close to the end of your symptoms since you have been ill for several days. We can treat symptoms with ondansetron 8 antiemetic for nausea. Add an antidiarrheal medicines as needed. Add Tylenol every 4-6 hours if needed for pains. Recheck if not improved well over the next day or 2 and return if worse again. I transmitted your prescriptions to your [facility] pharmacy in [place].
[2021-11-23 12:19] LABS: BASOPHILS # (AUTO) 0.1 10^3/uL (0.0-0.1); BASOPHILS % (AUTO) 0.8 %; EOSINOPHILS # (AUTO) 0.3 10^3/uL (0.0-0.7); EOSINOPHILS % (AUTO) 3.9 %; HCT - HEMATOCRIT 38.6 % (37.0-47.0); HGB - HEMOGLOBIN 13.6 g/dL (12.0-16.0); LYMPHOCYTES # (AUTO) 1.9 10^3/uL (1.5-3.5); LYMPHOCYTES % (AUTO) 24.7 %; MEAN CORPUSCULAR HEMOGLOBIN 31.5 pg (27.0-31.0); MEAN CORPUSCULAR HGB CONC 35.2 g/dL (32.0-36.0); MEAN CORPUSCULAR VOLUME 89.4 fL (81.0-99.0); MEAN PLATELET VOLUME 10.7 fL (7.9-10.8); MONOCYTES # (AUTO) 0.6 10^3/uL (0.0-1.0); MONOCYTES % (AUTO) 8.2 %; NEUTROPHILS # (AUTO) 4.7 10^3/uL (1.5-6.6); NEUTROPHILS % (AUTO) 62.1 %; PLT - PLATELET COUNT 256 10^3/uL (130-450); RED BLOOD COUNT 4.32 10^6/uL (4.20-5.40); RED CELL DISTRIBUTION WIDTH 12.2 % (12.0-15.0); WHITE BLOOD COUNT 7.5 x10^3/uL (4.8-10.8)
[2021-11-23 12:22] LABS: VBG BASE EXCESS -5.1 mmol/L (-2 - +2); VBG HCO3 20.9 mmol/L (23-28); VBG OXYGEN SATURATION 82.7 % (60-80); VBG PCO2 42.5 mmHg (41-51); VBG PH 7.31 (7.31-7.41); VBG PO2 43.3 mmHg (25-47); VBG TOTAL CO2 22.2 mmol/L (24-29)
[2021-11-23] MEDS ORDERED: FAMOTIDINE 20 MG/2 ML VIAL IVP STA (12:25)
[2021-11-23] MEDS ORDERED: KETOROLAC 15 MG/ML VIAL IVP STA (12:25)
[2021-11-23] MEDS ORDERED: ONDANSETRON 4 MG/2 ML VIAL IVP STA (12:25)
[2021-11-23 12:33] LABS: ALBUMIN/GLOBULIN RATIO 1.5 (1.0-2.2); ALKALINE PHOSPHATASE 92 IU/L (42-121); ALT ALANINE AMINOTRANSFERASE 16 IU/L (10-60); AST ASPARTATE AMINOTRANSFERASE 11 IU/L (10-42); BILIRUBIN,TOTAL 0.6 mg/dL (0.2-1.0); BUN - BLOOD UREA NITROGEN 34 mg/dL (6-20); CALCIUM 9.2 mg/dL (8.5-10.3); CARBON DIOXIDE - CO2 20 mmol/L (21-32); CHLORIDE 108 mmol/L (101-111); CREATININE 0.8 mg/dL (0.4-1.0); GFR - MDRD 81 (>89); GLUCOSE 234 mg/dL (70-100); LIPASE 24 U/L (22-51); MAGNESIUM 2.1 mg/dL (1.7-2.8); PHOSPHORUS 3.4 mg/dL (2.5-4.6); POTASSIUM 3.9 mmol/L (3.5-5.0); SODIUM 137 mmol/L (135-145); TOTAL PROTEIN 6.6 g/dL (6.7-8.2)
[2021-11-23 12:42] LABS: KETONES, SERUM (ACETEST) NEGATIVE (NEGATIVE)
[2021-11-23 12:57] LABS: MUDS CUTOFF CONCENTRATIONS CUTOFF CONC BELOW:
[2021-11-23 13:09] LABS: BILIRUBIN,URINE NEGATIVE (NEGATIVE); GLUCOSE, URINE (UA) 250 mg/dL (NEGATIVE); KETONES,URINE (UA) NEGATIVE (NEGATIVE); LEUKOCYTE ESTERASE, URINE NEGATIVE (NEGATIVE); NITRITE,URINE NEGATIVE (NEGATIVE); OCCULT BLOOD,URINE LARGE (NEGATIVE); PROTEIN,URINE 100 mg/dL (NEGATIVE); UROBILINOGEN,URINE 0.2 (NORMAL) E.U./dL (NORMAL)
[2021-11-23 13:15] LABS: CLARITY,URINE HAZY (CLEAR); HCG UR QUAL NEGATIVE
[2021-11-23] MEDS ORDERED: IOVERSOL 320 100 ML VIAL IVP ONE ×2 (13:16→15:31)
[2021-11-23 13:26] LABS: SQUAMOUS EPITHELIAL CELL,UR MANY Squamous (<= Few)
[2021-11-23 13:27] LABS: BACTERIA,URINE Many /HPF (None Seen); CRYSTALS,URINE 0-2 Calcium Oxalate /LPF; MUCUS,URINE Marked Strands
[2021-11-23 13:28] LABS: AMPHETAMINE SCREEN,URINE NEGATIVE (NEGATIVE); BARBITURATE SCREEN,UR NEGATIVE (NEGATIVE); BENZODIAZEPINES SCREEN, URINE NEGATIVE (NEGATIVE); COCAINE SCREEN URINE NEGATIVE (NEGATIVE); METHADONE SCREEN, URINE NEGATIVE (NEGATIVE); METHAMPHETAMINES SCREEN, URINE NEGATIVE (NEGATIVE); OPIATE SCREEN, URINE NEGATIVE (NEGATIVE); OXYCODONE SCREEN, URINE NEGATIVE (NEGATIVE); PROPOXYPHENE SCREEN, URINE NEGATIVE (NEGATIVE); THC CANNABINOID SCREEN, URINE POSITIVE (NEGATIVE); TRICYCLIC ANTIDEPRESSANT,URINE NEGATIVE (NEGATIVE)
[2021-11-23] MEDS ORDERED: HYDROmorphone 1 MG/ML CARPUJECT IVP STA ×2 (13:31→15:02)
[2021-11-23] MEDS ORDERED: DIPHENOX/ATROPINE 2.5/0.025 MG TABLET PO STA (13:32)
--- NOTE | 2021-11-23 14:09 | CT Report ---
PROCEDURE: Abdomen/Pelvis W INDICATIONS: lower abd pain and vomiting few days CONTRAST: IV CONTRAST: Optiray 320 ml: 100 PO CONTRAST: *NO PO CONTRAST TECHNIQUE: After the administration of IV contrast, 5 mm thick sections acquired from the diaphragms to the symp hysis. 5 mm thick coronal and sagittal reformats were acquired. For radiation dose reduction, the f ollowing was used: automated exposure control, adjustment of mA and/or kV according to patient size. COMPARISON: CT abdomen pelvis 10/15/2018 FINDINGS: Image quality: Excellent. ABDOMEN: Lung bases: Lung bases are clear. Heart size is normal. Solid organs: Liver is enlarged with minimal steatosis measuring 18.7 cm. The spleen is normal in si ze and enhancement. Gallbladder is contracted and grossly unremarkable Biliary system is non dilate d. Pancreas enhances normally. No adrenal nodules. Kidneys demonstrate normal size and enhancement , without hydronephrosis. Peritoneum and bowel: Bowel loops demonstrate normal wall thickness and caliber. No free fluid or a ir. Nodes and vessels: No retroperitoneal or mesenteric adenopathy by size criteria. Aorta and inferior vena cava are normal in size. Miscellaneous: No ventral hernias. PELVIS: Genitourinary: Bladder wall thickness is normal. Miscellaneous: No inguinal hernias or adenopathy. Bones: No suspicious bony lesions. No vertebral body compression fractures. IMPRESSION: No acute intra-abdominal or pelvic process is identified. Mild hepatomegaly with slight steatosis. Reviewed by: Cherelle Frias MD on 11/23/2021 2:08 PM PST Approved by: Cherelle Frias MD on 11/23/2021 2:08 PM PST Station ID: [id number]
[2021-11-23 16:02] VITALS: BP 115/89
== END 2021-11-23 16:28 | disposition home or self-care (01) ==
LOC: EDUNIT# → ED 11:39
DX: K52.9 Noninfective gastroenteritis and colitis, unspecified (principal); I95.9 Hypotension, unspecified; E86.0 Dehydration; E10.42 Type 1 diabetes mellitus with diabetic polyneuropathy; E10.65 Type 1 diabetes mellitus with hyperglycemia; Z79.4 Long term (current) use of insulin; F17.200 Nicotine dependence, unspecified, uncomplicated
CPT/HCPCS: 36415; 74177; 80053; 80306; 81001; 81025; 82009; 82803; 83690; 83735; 84100; 85025; 96361; 96374; 96375; 96376; 99284; 99285; A9270; J1170; Q9967; 81003; 87086

== ENCOUNTER 2021-12-06 11:10 | Outpatient (CLI) | payer MEDICAID ==
[2021-12-06 15:34] LABS: BASOPHILS # (AUTO) 0.1 10^3/uL (0.0-0.1); BASOPHILS % (AUTO) 0.9 %; EOSINOPHILS # (AUTO) 0.4 10^3/uL (0.0-0.7); EOSINOPHILS % (AUTO) 4.5 %; HCT - HEMATOCRIT 39.3 % (37.0-47.0); HGB - HEMOGLOBIN 13.3 g/dL (12.0-16.0); LYMPHOCYTES # (AUTO) 1.9 10^3/uL (1.5-3.5); LYMPHOCYTES % (AUTO) 23.1 %; MEAN CORPUSCULAR HEMOGLOBIN 30.9 pg (27.0-31.0); MEAN CORPUSCULAR HGB CONC 33.8 g/dL (32.0-36.0); MEAN CORPUSCULAR VOLUME 91.2 fL (81.0-99.0); MEAN PLATELET VOLUME 11.8 fL (7.9-10.8); MONOCYTES # (AUTO) 0.5 10^3/uL (0.0-1.0); MONOCYTES % (AUTO) 6.2 %; NEUTROPHILS # (AUTO) 5.2 10^3/uL (1.5-6.6); NEUTROPHILS % (AUTO) 64.8 %; PLT - PLATELET COUNT 251 10^3/uL (130-450); RED BLOOD COUNT 4.31 10^6/uL (4.20-5.40); RED CELL DISTRIBUTION WIDTH 12.6 % (12.0-15.0)
[2021-12-06 15:43] LABS: ALBUMIN 3.7 g/dL (3.2-5.5); ALBUMIN/GLOBULIN RATIO 1.4 (1.0-2.2); ALKALINE PHOSPHATASE 108 IU/L (42-121); ALT ALANINE AMINOTRANSFERASE 16 IU/L (10-60); AST ASPARTATE AMINOTRANSFERASE 14 IU/L (10-42); BILIRUBIN,TOTAL 0.4 mg/dL (0.2-1.0); BUN - BLOOD UREA NITROGEN 28 mg/dL (6-20); CALCIUM 8.8 mg/dL (8.5-10.3); CARBON DIOXIDE - CO2 28 mmol/L (21-32); CHLORIDE 97 mmol/L (101-111); CHOL/HDL RATIO 3.7 (<4.4); CHOLESTEROL 167 mg/dL; CREATININE 0.7 mg/dL (0.4-1.0); GFR - MDRD 95 (>89); GLUCOSE 330 mg/dL (70-100); HDL CHOLESTEROL 45 mg/dL; LDL CHOLESTEROL,CALCULATED 108 mg/dL; LDL/HDL RATIO 2.4 (<4.4); POTASSIUM 4.6 mmol/L (3.5-5.0); SODIUM 132 mmol/L (135-145); TOTAL PROTEIN 6.3 g/dL (6.7-8.2); TRIGLYCERIDES 70 mg/dL; VLDL CHOLESTEROL 14 mg/dL
[2021-12-06 15:51] LABS: THYROID STIMULATING HORMONE 10.08 uIU/mL (0.34-5.60)
[2021-12-06 16:31] LABS: FREE T4 (FREE THYROXINE) 0.84 ng/dL (0.58-1.64)
[2021-12-06 20:06] LABS: ESTIMATED AVERAGE GLUCOSE 255 mg/dL (70-100); HEMOGLOBIN A1c% 10.5 % (4.27-6.07)
== END 2021-12-06 11:11 | disposition home or self-care (01) ==
LOC: LAB.S 11:10
PROVIDERS: ATTEND Registered Nurse
DX: E10.341 Type 1 diabetes mellitus with severe nonproliferative diabetic retinopathy with macular edema (principal); Z13.220 Encounter for screening for lipoid disorders; Z13.29 Encounter for screening for other suspected endocrine disorder; Z13.0 Encounter for screening for diseases of the blood and blood-forming organs and certain disorders involving the immune mechanism
CPT/HCPCS: 36415; 80050; 80061; 82043; 82570; 83036; 83721; 84439

== ENCOUNTER 2021-12-24 23:10 | Outpatient (CLI) | payer MEDICAID | END 2021-12-24 23:11 | disposition left against medical advice (07) | LOC: EMS 23:10 | DX: E11.649 Type 2 diabetes mellitus with hypoglycemia without coma (principal); Z79.4 Long term (current) use of insulin ==

== ENCOUNTER 2022-10-06 10:20 | Outpatient (CLI) | payer MEDICAID ==
[2022-10-06 15:19] LABS: ALBUMIN 3.4 g/dL (3.2-5.5); ALBUMIN/GLOBULIN RATIO 1.1 (1.0-2.2); BILIRUBIN,TOTAL 0.6 mg/dL (0.2-1.0); CALCIUM 9.8 mg/dL (8.5-10.3); CREATININE 0.7 mg/dL (0.4-1.0); POTASSIUM 4.5 mmol/L (3.5-5.0); TOTAL PROTEIN 6.4 g/dL (6.7-8.2)
[2022-10-06 21:04] LABS: ESTIMATED AVERAGE GLUCOSE 263 mg/dL (70-100); HEMOGLOBIN A1c% 10.8 % (4.27-6.07)
== END 2022-10-06 10:21 | disposition home or self-care (01) ==
LOC: LAB.S 10:20
PROVIDERS: ATTEND Registered Nurse
DX: E10.341 Type 1 diabetes mellitus with severe nonproliferative diabetic retinopathy with macular edema (principal)
CPT/HCPCS: 36415; 80053; 83036

== ENCOUNTER 2023-02-02 07:00 | Outpatient (CLI) | payer MEDICAID ==
--- NOTE | 2023-02-02 12:27 | XRAY Report ---
PROCEDURE: Chest 2 View X-Ray INDICATIONS: CHEST CONGESTION TECHNIQUE: 2 views of the chest were acquired. COMPARISON: Chest x-ray 10/10/2019 FINDINGS: Surgical changes and devices: None. Lungs and pleura: Slight appearance of patchy left basilar opacities. Mediastinum: Mediastinal contours appear normal. Heart size is normal. Bones and chest wall: No suspicious bony lesions. Overlying soft tissues appear unremarkable. IMPRESSION: Slight patchy left basilar opacities possibly representing developing pneumonia. Recommend interval f ollow-up to document resolution. Reviewed by: Cherelle Frias MD on 02/02/2023 12:26 PM PDT Approved by: Cherelle Frias MD on 02/02/2023 12:26 PM PDT Station ID: [id number]
== END 2023-02-02 23:59 | disposition home or self-care (01) ==
LOC: DI.S 07:00
PROVIDERS: ATTEND Physician Assistant Medical
DX: R09.89 Other specified symptoms and signs involving the circulatory and respiratory systems (principal)

== ENCOUNTER 2023-02-04 10:18 | Emergency (ER) | payer MEDICAID ==
[2023-02-04 10:25] VITALS: BP 119/79
== END 2023-02-04 11:01 | disposition left against medical advice (07) ==
LOC: ED 10:18
DX: Z53.21 Procedure and treatment not carried out due to patient leaving prior to being seen by health care provider (principal)

== ENCOUNTER 2023-05-19 10:54 | Outpatient (CLI) | payer MEDICAID ==
[2023-05-19 15:07] LABS: BASOPHILS # (AUTO) 0.1 10^3/uL (0.0-0.1); BASOPHILS % (AUTO) 1.1 %; EOSINOPHILS # (AUTO) 0.2 10^3/uL (0.0-0.7); EOSINOPHILS % (AUTO) 2.6 %; HCT - HEMATOCRIT 36.7 % (37.0-47.0); HGB - HEMOGLOBIN 12.4 g/dL (12.0-16.0); LYMPHOCYTES % (AUTO) 27.2 %; MEAN CORPUSCULAR HEMOGLOBIN 31.2 pg (27.0-31.0); MEAN CORPUSCULAR HGB CONC 33.8 g/dL (32.0-36.0); MEAN CORPUSCULAR VOLUME 92.2 fL (81.0-99.0); MEAN PLATELET VOLUME 10.9 fL (7.9-10.8); MONOCYTES # (AUTO) 0.5 10^3/uL (0.0-1.0); MONOCYTES % (AUTO) 6.4 %; NEUTROPHILS # (AUTO) 4.6 10^3/uL (1.5-6.6); NEUTROPHILS % (AUTO) 62.3 %; PLT - PLATELET COUNT 304 10^3/uL (130-450); RED BLOOD COUNT 3.98 10^6/uL (4.20-5.40); RED CELL DISTRIBUTION WIDTH 12.9 % (12.0-15.0); WHITE BLOOD COUNT 7.4 x10^3/uL (4.8-10.8)
[2023-05-19 15:30] LABS: ALBUMIN 4.1 g/dL (3.2-5.5); ALBUMIN/GLOBULIN RATIO 1.9 (1.0-2.2); ALKALINE PHOSPHATASE 69 IU/L (42-121); ALT ALANINE AMINOTRANSFERASE 17 IU/L (10-60); AST ASPARTATE AMINOTRANSFERASE 10 IU/L (10-42); BILIRUBIN,TOTAL 0.4 mg/dL (0.2-1.0); BUN - BLOOD UREA NITROGEN 26 mg/dL (6-20); CARBON DIOXIDE - CO2 32 mmol/L (21-32); CHLORIDE 104 mmol/L (101-111); CHOL/HDL RATIO 2.9 (<4.4); CHOLESTEROL 214 mg/dL; GFR - MDRD 62 (>89); GLUCOSE 204 mg/dL (74-104); HDL CHOLESTEROL 75 mg/dL; LDL CHOLESTEROL,CALCULATED 126 mg/dL; LDL/HDL RATIO 1.7 (<4.4); POTASSIUM 4.7 mmol/L (3.5-4.5); SODIUM 138 mmol/L (135-145); TOTAL PROTEIN 6.3 g/dL (6.4-8.9); TRIGLYCERIDES 66 mg/dL (48-352); VLDL CHOLESTEROL 13 mg/dL
[2023-05-19 21:02] LABS: ESTIMATED AVERAGE GLUCOSE 232 mg/dL (70-100); HEMOGLOBIN A1c% 9.7 % (4.27-6.07)
== END 2023-05-19 10:55 | disposition home or self-care (01) ==
LOC: LAB.S 10:54
PROVIDERS: ATTEND Registered Nurse
DX: E10.341 Type 1 diabetes mellitus with severe nonproliferative diabetic retinopathy with macular edema (principal); Z79.899 Other long term (current) drug therapy; Z13.220 Encounter for screening for lipoid disorders; E03.9 Hypothyroidism, unspecified
CPT/HCPCS: 36415; 80050; 80061; 83036; 83721

== ENCOUNTER 2023-07-22 09:04 | Outpatient (CLI) | payer MEDICAID ==
--- NOTE | 2023-07-22 12:37 | Mammography Report ---
BILATERAL DIGITAL DIAGNOSTIC MAMMOGRAM 3D/2D WITH SPOT COMPRESSION: 07/22/2023 CLINICAL: Baseline. Right breast lump and pain. No prior exams were available for comparison. Both breasts are extremely dense, which lowers the sensitivity of mammography (category d />75% gland ular tissue). No significant masses, calcifications, or other findings are seen in either breast. IMPRESSION: INCOMPLETE: NEEDS ADDITIONAL IMAGING EVALUATION There is no abnormality seen in the right breast to correspond with the area of clinical concern, pal pable abnormality, and pain indicated by triangular markers at 10 o'clock in the upper outer quadrant , however, an ultrasound is recommended for further evaluation and is scheduled to immediately follow this examination. Based on the Tyrer Cuzick model (a risk assessment model) the patients lifetime risk is 14.9% and he r 10 year risk is 1.4%. According to the ACR, ACS, and NCCN guidelines, an annual breast MRI exam zena ng with mammogram is recommended if the patients lifetime risk is 20% or greater. This exam was interpreted at Station ID: [id number]. NOTE: For mammograms, a report in lay terms will be sent to the patient. Approximately 15% of breast malignancies will not be visualized mammographically. In the management of a palpable breast mass, a negative mammogram must not discourage biopsy of a clinically suspicious lesion. Electronically Signed By: Nolan Cummings M.D. aty/:07/22/2023 10:38:03 ACR BI-RADS Category 0: Incomplete 3340F PARENCHYMAL PATTERN: (VD) - The breast(s) demonstrate(s) extremely dense parenchyma, limiting the sen sitivity of mammography. BI-RADS CATEGORY: (0) - 0 Ultrasound [id number] Immediate follow-up LATERALITY: (R)
--- NOTE | 2023-07-22 12:38 | Ultrasound Report ---
LIMITED ULTRASOUND OF RIGHT BREAST: 07/22/2023 CLINICAL: Palpable right breast lump. Comparison is made to exam dated: 07/22/2023 mammogram - [facility]. Color flow and real-time ultrasound of the right breast 10 o'clock region were performed. Nichols scale images of the real-time examination were reviewed. No significant abnormalities were seen sonographically in the right breast. IMPRESSION: NEGATIVE There is no sonographic evidence of malignancy. There is no abnormality seen in the right breast to correspond with the area of clinical concern, pal pable abnormality, and pain in the upper outer quadrant, however, recommend clinical follow up for pe rsistent or worsening symptoms, or development of any clinically suspicious findings. Recommend initiating routine screening mammograms at age 40. Findings and recommendations were conveyed to the patient during today's evaluation. This exam was interpreted at Station ID: [id number]. Electronically Signed By: Nolan Cummings M.D. aty/:07/22/2023 10:39:08 Ultrasound BI-RADS: 1 Negative BI-RADS CATEGORY: (1) - 1 RECOMMENDATION: (ADDMAM) - Recommend additional mammographic views. recall n/a LATERALITY: (B)
== END 2023-07-22 09:05 | disposition home or self-care (01) ==
LOC: DI 09:04
PROVIDERS: ATTEND Registered Nurse
DX: N63.10 Unspecified lump in the right breast, unspecified quadrant (principal); R92.343 Mammographic extreme density, bilateral breasts

== ENCOUNTER 2023-12-10 09:33 | Outpatient (CLI) | payer MEDICAID ==
[2023-12-10 16:02] LABS: CALCIUM 9.3 mg/dL (8.5-10.3); CREATININE 1.4 mg/dL (0.6-1.3); POTASSIUM 5.5 mmol/L (3.5-4.5)
[2023-12-10 16:22] LABS: CREATININE,URINE 128.3 mg/dL
[2023-12-10 16:42] LABS: MICROALBUMIN,URINE > 225.0 mg/dL
[2023-12-10 18:02] LABS: ESTIMATED AVERAGE GLUCOSE 255 mg/dL (70-100); HEMOGLOBIN A1c% 10.5 % (4.27-6.07)
== END 2023-12-10 09:34 | disposition home or self-care (01) ==
LOC: LAB.S 09:33
PROVIDERS: ATTEND Registered Nurse
DX: E10.341 Type 1 diabetes mellitus with severe nonproliferative diabetic retinopathy with macular edema (principal)
CPT/HCPCS: 36415; 80048; 82043; 82570; 83036

== ENCOUNTER 2024-02-02 10:23 | Outpatient (CLI) | payer MEDICAID ==
--- NOTE | 2024-02-02 14:45 | Ultrasound Report ---
PROCEDURE: Pelvic w/Transvaginal INDICATIONS: AMENORRHEA TECHNIQUE: Real-time scanning was performed of the pelvic organs, with image documentation. Additional endovagi nal scanning was necessary due to incomplete visualization of the adnexal and endometrial structures by transabdominal scanning. COMPARISON: None. FINDINGS: Uterus: Uterus is anteverted and normal in size at 6.6 x 4.0 x 5.8 cm. The myometrium is homogeneou s. The endometrium measures 8.4 mm in combined thickness. A complex appearing nabothian cyst is pre sent in the endocervix which measures 1.5 x 1.0 x 1.4 cm. Ovaries: The right ovary measures 2.8 x 1.9 x 1.6 cm, with a calculated ovarian volume of 4.8 cc. T he left ovary measures 2.6 x 1.1 x 1.0 cm, with a calculated ovarian volume of 1.7 cc. The ovaries h ave a normal sonographic appearance. Less than 12 follicles can be seen in each ovary. No adnexal m asses are seen. No cystic lesions measuring greater than 3 cm. Resolving follicular cysts are noted w ithin the right ovary. The bilateral fallopian tubes appear dilated and fluid-filled. Other: Trace hypoechoic fluid is visualized within the cul-de-sac. IMPRESSION: 1. Complex appearing nabothian cyst. 2. Sonographic findings suggesting bilateral hydrosalpinx. Reviewed by: Trish Chambers MD on 02/02/2024 2:44 PM PDT Approved by: Trish Chambers MD on 02/02/2024 2:44 PM PDT Station ID: [id number]
== END 2024-02-02 10:24 | disposition home or self-care (01) ==
LOC: DI 10:23
PROVIDERS: ATTEND Nurse Practitioner
DX: N88.8 Other specified noninflammatory disorders of cervix uteri (principal); N91.2 Amenorrhea, unspecified